=== PATIENT | male | born 1940 | race Caucasian/White ===

== ENCOUNTER → 2018-01-26 13:47 | Outpatient (CLI) | payer MEDICARE, SELFPAY ==
--- NOTE | 2018-01-26 13:50 | CT_ITS ---
STUDY: CT RIGHT SHOULDER REASON FOR EXAM: Right shoulder pain, no specific injury, presurgery. TECHNIQUE: The patient was scanned in a multi detector CT scanner. High resolution transaxial imaging was performed without the administration of intravenous contrast material. Sagittal and coronal images were reconstructed. Individualized dose optimization techniques were used for this CT. COMPARISON: None. FINDINGS: There is advanced glenohumeral arthrosis with marginal osteophytes of the humeral head, subchondral cystic change of the humeral head and glenoid, and chondral loss with central erosion of the glenoid (axial images 24-29). There are intra-articular bodies in the glenohumeral joint (coronal reconstructions 35-40, 51-54). There is a glenohumeral joint effusion and fluid in the subacromial-subdeltoid bursa. There is superior migration of the humeral head from rotator cuff tear with pressure erosion of the inferior acromion and cystic change of the humeral head and acromion (coronal reconstructions 36-43). Normal visualized lateral clavicle. There is acromioclavicular arthrosis (coronal reconstruction 42). There is a Type II morphology (curved), with a neutral orientation. There is atrophy with partial fat replacement of the supraspinatus, infraspinatus and subscapularis muscles (sagittal reconstructions 54-62). There is a small calcified granuloma in the right lung (axial image 64). CT/Extremity Upper without Contra IMPRESSION: Advanced glenohumeral arthrosis with intra-articular bodies. Superior migration of the humeral head secondary to rotator cuff tear. Glenohumeral joint fluid communicating with the subacromial-subdeltoid bursa. Atrophy of the supraspinatus, infraspinatus and subscapularis muscles. Acromioclavicular arthrosis. Electronically Signed: Hammad Kaur MD at 14:56 EDT Tel , Service support ,
== END ==
PROVIDERS: Family Provider Internal Medicine; PCP Internal Medicine; Visit Provider Specialist
DX: S46.011A Strain of muscle(s) and tendon(s) of the rotator cuff of right shoulder, initial encounter (principal); X58.XXXA Exposure to other specified factors, initial encounter; Y93.9 Activity, unspecified; Y92.9 Unspecified place or not applicable; Y99.9 Unspecified external cause status
CPT/HCPCS: 73200

== ENCOUNTER 2018-02-09 05:47 | Inpatient (IN) | payer MEDICARE, SELFPAY ==
[2018-01-26 13:08] VITALS: BP 104/65; PULSE 63; RESP 17; TEMP 37.1; O2SAT 98; BMI 33.0
--- NOTE | 2018-01-26 13:29 | SDCEKG_ITS ---
Test Reason : Blood Pressure : / mmHG Vent. Rate : 059 BPM Atrial Rate : 059 BPM P-R Int : 190 ms QRS Dur : 088 ms QT Int : 422 ms P-R-T Axes : 047 055 040 degrees QTc Int : 417 ms Sinus bradycardia Otherwise normal ECG Confirmed by TIGIST LAMA, LEON ([id number]), commissioning editor TAMMY NICOLE ([id number]) on 01/28/2018 1:21:27 PM Referred By: Guanakito Frias Confirmed By:LEON ESCOTO MD
[2018-01-26 14:02] LABS: Prothrombin Time (Protime)PT. 13.6 SECONDS (11.7-14.9)
[2018-01-26 14:03] LABS: Partial Thromboplast Time 25.8 Seconds (24.1-36.2)
--- NOTE | 2018-01-27 21:54 | PCM.HP.BLA ---
History and Physical DATE OF SURGERY: 02/09/2018 SCHEDULED PROCEDURE: reverse right total shoulder arthroplasty HISTORY OF PRESENT ILLNESS: This is a 78-year-old male who has had ongoing pain for several years duration. He denies any trauma or injury. Patient states his pain is approximately a 6 out of 10. Patient states he has pain in the right shoulder which radiates into his shoulder blade and padded. Activities of daily living aggravate and increase his pain. He has difficult time reaching above his head or behind his back due to the pain. Patient states the pain wakes him at night. Patient states the pain is limiting his ability to play golf or go bowling. Patient has tried conservative measures consisting of joint supplements, and anti-inflammatory medications with no significant relief in symptoms. Patient is right-hand dominant. Patient currently denies any recent chest pain, shortness of breath, fevers chills, recent infections. We are obtaining surgical clearance from patient's primary care physician Dr. Chauhan. After failing conservative measures and discussing all treatment options with Dr. Guanakito Frias, the patient does wish to proceed with a right reverse total shoulder arthroplasty. REVIEW OF SYSTEMS: ROS: Const: Denies change in appetite, fever and weight change. CV: Denies chest pain, heart murmur and irregular heartbeat. Resp: Denies cough, pneumonia, shortness of breath, tuberculosis and wheezing. GI: Reports heartburn, but denies constipation, diarrhea, nausea, rectal itching, bloody stools and vomiting. : Denies incontinence. Musculo: Denies leg swelling, pain, trouble walking and weakness. Skin: Denies Raynaud's, history of shingles and tattoo. Neuro: Denies ambulatory dysfunction, dizziness, numbness/tingling and tremor. Psych: Denies anxiety, insomnia and stress. Mikhail/Lymph: Denies anemia, bleeding/bruising tendency and past transfusion. Reviewed, no changes. PAST MEDICAL HISTORY: Advance Care Plan: No Advance Directives Effective Date: 01/06/2018 PMH: Medical Problems: Vision Problems/Blind Accidents: None Surgical Hx: Hernia Repair - ([id number]) [facility] Dr. Schulte Anesthesia Complications: None Assistive Devices: None Reviewed, no changes. SOCIAL HISTORY: SH: Marital: .Occupation: Retired.Work Status: Retired. Personal Habits: Cigarette Use: Former.Alcohol: Occasionally.Drug Use: Denies Use.Enjoy Exercising: Exercises 1-3 X/Week. Reviewed, no changes. VITALS: Ht: 63 Wt: 185lb Wt k.[id number] BMI: 32.8 BP: 129/82 Pulse: 51 Resp: 16 T: 97.5 T: 36.4C ALLERGIES: No Known Drug Allergy MEDICATIONS: Tylenol 325 mg as needed PRE-OP EXAM: General appearance:NORMAL Other: Eyes: Conjunctivae and lids: NORMAL Pupils: ERR Ears, Nose, Mouth, and Throat: NORMAL Other: Inspection of lips, teeth and gums: NORMAL Other: Neck: Examination of neck: no masses noted. Respiratory: Assessment of respiratory effort: NORMAL Other: Auscultation of lungs: clear to auscultation no wheezes, rhonchi or rales. Cardiovascular: Auscultation of heart: regular rate and rhythm, no murmurs, gallops or rubs. Exam of carotid arteries: NORMAL Other: Gastrointestinal: Exam of abdomen: soft, nontender, nondistended bowel sounds present. PHYSICAL EXAMINATION: Right shoulder school to touch without erythema. Patient has positive crepitus with range of motion. Patient has forward elevation 40 and passive forward elevation 95. There is atrophy of the supraspinatus and tenderness over the lateral right shoulder. Internal rotation to L5. 20 external rotation. Patient does have scapular dyskinesia and compensation on the right with decreased strength. Sensations intact to light touch. IMAGING STUDIES: X-rays of the right shoulder reveals severe rotator cuff arthropathy of the right glenohumeral joint with superior migration of the humeral head and flattening of the humeral head. There is subchondral sclerosis, joint space narrowing of the humeral acromial space and large cyst formation in the humeral head. IMPRESSION: 1. 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 Frias did discuss and review with the patient all treatment options including surgical versus nonsurgical options. Patient does wish to proceed with the above-stated procedure. Potential risks, benefits, and complications of the procedure were discussed in detail including but not limited to , infection, nerve and blood vessel damage, persistent pain, numbness, tingling, paresthesias, blood clot, pulmonary embolism, and requirement for possible further surgery. The patient expressed full understanding and has no further questions for the doctor. Patient does agree to proceed with the above-stated procedure and has signed the surgery consent form. ___ I have re-examined the patient. There are no clinical changes since date of exam. ___ See progress notes for changes. ___ Dictated on admission Date: Time: Signature:
[2018-02-09] VITALS (12 sets, daily range): BP systolic 106–139; BP diastolic 60–95; PULSE 56–82; RESP 16–18; TEMP 36.4–36.9; O2SAT 85–99; BMI 33.0
[2018-02-09] MEDS: Celecoxib 200 MG Capsule 400 MG PO (06:17)
[2018-02-09] MEDS: Acetaminophen 500 MG Tablet 1000 MG PO ×3 (06:17→22:27)
[2018-02-09] MEDS: oxyCODONE HCl Cr 10 MG Tablet PO (06:18)
[2018-02-09] MEDS: Cefazolin 2 GM in 0.9% Normal Saline 100 ML IV (07:26)
--- NOTE | 2018-02-09 09:08 | PCM.OPRPT ---
Report of Operation Date of Procedure: 02/09/18 Pre-Operative Diagnosis: right shoulder Cuff tear arthropathy Post-Operative Diagnosis: right shoulder Cuff tear arthropathy Surgery/Procedure Performed:: right reverse TSA Description of Surgical Findings:: stable shoulder network control operator: Clifford Wilder Type of Anesthesia:: General Anesthesiologist: Lexx Grace Special Medications: 2 g Ancef, 1 g TXA at incision, 1 g TXA closure, 10 mg Decadron, joint cocktail (5 mg Duramorph, 30 mL of 0.5% Ropivicaine, 1000 units of epinephrine, 30 mg of Toradol), 1 g vancomycin throughout the case Specimen's removed: Bony cuts Estimated Blood Loss (mL): 150 Fluids Replaced: 1500 ml crystalloid Description of Procedure: Components used 1. Bettendorf Reunion glenoid baseplate with 24 mm screw 2. Bettendorf reunion 36+6 mm Glenosphere 3. Andrea reunion 36 mm, +0 mm humeral liner 4. Andrea reunion TSA humeral adapter tray +0 mm 5. Bettendorf reunion humeral stem primary press-fit 13 mm size Brief history/Operative indications: 78 yo m with history of M shoulder pain and cuff tear arthropathy. Patient failed conservative measures as mentioned in the H&P. After discussion of risk and benefits of reverse total shoulder replacement including but not limited to blood loss, DVTs, PEs, nerve vessel damage, infection, general risk of anesthesia including loss of life, instability and stiffness patient demonstrating understanding wish to proceed was able to sign informed consent. Medical clearance was obtained. Procedure: On the date of the procedure, patient's R upper extremity was marked in the preoperative area. Patient was taken back to the operating room where they were placed on the table in the supine position. Anesthesia assumed control of the C-spine and airway, then administered anesthetic. All bony prominences were identified well-padded, the head was secured and the patient was placed in the beachchair position at about 35? inclination. Anesthesia remained in control of the C-spine airway throughout the remainder of the procedure. Patient was then appropriately fastened to the table and the R upper extremity was prepped in a sterile fashion. The surgeons then scrubbed. Upon reentering the room, the R upper extremity was draped in a sterile fashion and the incision was marked out. Timeout was called, everyone agreed upon the side, the site, the procedure to be performed, patient identity and antibiotics given. Incision was taken down through skin and subcutaneous tissue, fat down to fascia. The stripe of the deltopectoral interval and cephalic vein were identified and blunt dissection was used to retract the deltoid. The cephalic vein was retracted laterally. Clavipectoral fascia was then incised and a cobra retractor was placed in the wound. The proximal one third of the pectoralis major insertion was released. Pectoralis tendon insertion was used to tenodesed the biceps tendon which was identified in the bicipital groove. Tenodesis was done with #1 Vicryl. Proximally we followed the biceps tendon after transecting it into the rotator interval. The rotator interval was split and the arm was externally rotated. The split was 1 cm medial to the bicipital groove. Subscapularis tendon was released. We released down the anterior portion of the humeral head and a copeland elevator was used to release the inferior portion of the humeral head. The arm was externally rotated and the shoulder was dislocated. The Nextly humeral head cutting guide was used to make humeral cut. This was done at 20? retroversion. Once his humeral head cut was made humerus was retracted out of the way and the glenoid was exposed. After exposing the glenoid, the labrum and the remaining proximal biceps were debrided. At this time we are able to view the entire outer edge of the glenoid. A central pin was placed we sequentially reamed over this central pin to 36mm. Once this was completed the central pedicle was drilled. The glenoid baseplate was impacted into place. Wound was closely irrigated out with normal saline we then drilled sequentially for 4 screws. Screws were placed superiorly and inferiorly and tightened down the screws. Then anteriorly and posteriorly. Once the screws were appropriately tightened into place the glenoid baseplate was compressed against the exposed subchondral bone. Locking caps were placed and a 36, +6mm glenosphere was impacted into place engaging the Simpson taper. The central screw was then tightened into place. Attention was then turned towards the humerus. The humerus was again externally rotated exposing the proximal portion of the humerus. Central canal finder was then used to open up the canal. We reamed to a 13mm reamer. We then broached to a 13mm stem. We trialed the 0mm liner, with the 0mm humeral baseplate. We obtained an adequate reduction at this time with a nice stable shoulder. Good internal rotation to the gluteus, forward elevation to 140?, external rotation to 20?. Final components were then assembled on the back table, trials were removed and the wound was copiously irrigated with normal saline after dislocating the shoulder. Once the final components were assembled they were impacted into place. Shoulder was then reduced and found to be stable with good range of motion. Subscapularis tendon could not be repaired. The wound was then copiously irrigated out with a 1 L normal saline lavage. The deltopectoral fascia was then closed using #1 Vicryl skin was closed using 2-0 Vicryl interrupted sutures and final skin closure was done with 3-0 Monocryl. Steri-Strips are placed for final skin closure. Sterile dressing was placed patient was then placed in a sling and awakened by anesthesia. Patient was then transferred to the PACU for recovery. Postoperative plan: Patient will be admitted to the hospital overnight. They will get physical therapy starting in 2 weeks with normal postoperative regimen. Patient will be placed on 325 mg aspirin daily for DVT prophylaxis. The first postoperative appointment will be in 2 weeks for wound check and initiation of phase 1 physical therapy. During the course of the procedure the physician assistant portfolio manager played a vital role. His intimate knowledge of my steps in the procedure aided in safe and expedient completion of the procedure. The PA played a vital rolls in positioning particularly in obtaining the appropriate beach chair position and securing the patient's body and head to the table. The PA was also vital in the retraction of soft tissues during the exposure and especially the glenoid work as this is a vital part of the procedure to prevent neurovascular damage. the PA was also vital and protecting soft tissues during times of bony cuts and reaming. He also played a vital role in closure with my direct supervision. The PA was also important during reduction and dislocation of the joint and trials intraoperatively. Grafts/Implants Used: Andrea reunion - Complications none - Admit VTE Documentation VTE Present on Admission: No VTE Mechan Device Prophylaxis: SCD's VTE Pharm Prophylaxis ordered?: Yes
[2018-02-09] MEDS: Ketorolac 30 MG/ML Syringe (09:14)
--- NOTE | 2018-02-09 11:13 | RAD_ITS ---
STUDY: X-RAY - RIGHT SHOULDER REASON FOR EXAM: Male, 78 years old. Right shoulder replacement. TECHNIQUE: 2 view(s) of the shoulder. COMPARISON: Comparison is made with prior CT scan of the right shoulder from January 26, 2018. FINDINGS: The patient is status post right reverse shoulder replacement. There is good alignment. Postoperative soft tissue changes. RAD/Shoulder One View IMPRESSION: Status post right reverse shoulder replacement. There is good alignment. Electronically Signed: Raul Sommer MD at 12:46 EDT Tel [phone], Service support ,
[2018-02-09] MEDS: Lactated Ringers 1,000 ML 125 ML IV ×2 (11:53→20:20)
[2018-02-09] MEDS: Cefazolin 1 GM/50 ML BAG IV ×2 (15:16→23:26)
--- NOTE | 2018-02-09 15:30 | CASEMGMT ---
See RN CM assessment link. DC PLAN: home on discharge with support of . -Pt states has first therapy appt @ [facility] on [address] will HERRERA RN ACM
[2018-02-10 02:35] VITALS: BP 130/74; PULSE 81; RESP 18; TEMP 36.7; O2SAT 99
[2018-02-10] MEDS: Acetaminophen 500 MG Tablet 1000 MG PO (06:28)
--- NOTE | 2018-02-10 08:33 | PN.ORTHO_ITS ---
Subjective: The patient was sitting in bed upon examination. Patient denies any chest pain , shortness of breath, dizziness, lightheadedness, nausea or vomiting, or calf pain. Pain is controlled on medications. No adverse overnight events. Patient states the right shoulder feels well after surgery and only complains of soreness. Patient has been working on elbow, wrist, hand range of motion. Patient is wishing to go home today. Objective: Dressing is C/D/I Ultra-sling fitting appropriately Sensation intact to axillary, radial, median, and ulnar distribution Motor intact to AIN, PIN, and ulnar nerve - Physical Exam General: Alert, Oriented x3, Cooperative, No apparent distress Vital Signs Temp Pulse Resp BP Pulse Ox 98.0 F 81 18 130/74 H 99 02/10/18 02:35 02/10/18 02:35 02/10/18 02:35 02/10/18 02:35 02/10/18 02:35 Oxygen Flow Rate (L/min) 4 Oxygen Delivery Method Room Air Weight: 84.5 kg Body Mass Index (BMI) 33.0 Intake and Output for Last 24 Hours 02/08/18 02/09/18 02/10/18 23:59 23:59 23:59 Intake Total 4254 / 4254 908 / 908 Balance 4254 / 4254 908 / 908 Medical Necessity - Tobacco Use Smoking Status: Former smoker Tobacco Use: Cigars Assessment/Plan 1. S/P right reverse total shoulder arthroplasty POD #1 2. Continue Pain Medications: Tylenol and OxyIR 3. DVT Prophylaxis: Aspirin 325 mg daily for 2 weeks 4. PT/OT: No range of motion of right shoulder. Okay to work on pendulum exercises and range of motion of right elbow, wrist, and hand. Continue with UltraSling at all times. 5. Encouraged Incentive Spirometry 6. Disposition: Orthopedically stable, plan is for discharge home today. Prescriptions will be E scribed to [facility]. Patient will follow-up per postop instructions.
[2018-02-10 08:35] VITALS: BP 111/72; PULSE 53; RESP 18; TEMP 36.8; O2SAT 95
--- NOTE | 2018-02-10 08:39 | PCM.DC.ORTHO ---
Discharge Diet: No Restrictions Discharge Activity: May Not Drive May shower in (days): 1 Ice area for (Minutes): 20 - Ice area for 20 minutes each hour while awake Weight Bearing Status: No weight bearing - Right upper extremity Call your doctor if your incision/area has: Continuous Slow Oozing, Sudden Increased Bleeding, Increased Pain/ Swelling, Increased Redness, Foul Smelling Discharge Call your doctor if you observe: Fever of 101 or Higher, Coldness, Increased Pain, Numbness or Tingling, Change in Color Remove Dressing in (days):: 4 - Okay to remove on February 14, 2018 Additional Instructions: Follow [facility] postop instructions Do not take fish oil for 2 weeks following surgery. May resume after 2 week follow-up at [facility]. Allergies/Adverse Reactions: Allergies Tetanus Vaccines and Toxoid Allergy (Verified 01/26/18 12:58) Rash lorazepam [From Ativan] Adverse Reaction (Verified 01/26/18 12:58) Other Medications to take at Discharge Multivitamins,Therapeutic [Multivitamin] 1 tab PO DAILY 01/13/15 Magnesium Chloride [Slow-Mag] 64 mg PO DAILY 01/26/18 Vitamin E 400 unit PO DAILY 01/26/18 Acetaminophen [Tylenol] 1,000 mg PO Q8 #90 tab 02/10/18 Aspirin 325 mg PO DAILY@0800 #13 tab 02/10/18 Famotidine [Pepcid] 20 mg PO DAILY #13 tab 02/10/18 Oxycodone [Oxyir] 5 - 10 mg PO Q4H PRN PRN 4 Days #48 tablet 02/10/18 Senna/Docusate Sodium [Senokot-S] 2 tab PO BID PRN PRN #20 tab 02/10/18 The following prescriptions were given: Oxycodone [Oxyir] 5 - 10 mg PO Q4H PRN PRN 4 Days #48 tablet PRN Reason: Pain Acetaminophen [Tylenol] 1,000 mg PO Q8 #90 tab Aspirin 325 mg PO DAILY@0800 #13 tab Famotidine [Pepcid] 20 mg PO DAILY #13 tab Senna/Docusate Sodium [Senokot-S] 2 tab PO BID PRN PRN #20 tab PRN Reason: Constipation Primary Care Physician: Mitzi Chauhan MD [Primary Care Provider] - Test Results: Test results from this visit will be discussed in further detail at your follow-up appointment, if applicable. Please Follow Up With: Harry Sim PA-C When: 02/23/18 @ 10:00 am Please Follow Up With: Physical Therapy Luis Alex When: 02/23/18 @ 11:00 am
[2018-02-10] MEDS: Aspirin 325 MG Tablet PO (08:58)
--- NOTE | 2018-02-10 15:50 | CASEMGMT ---
JOSE ELIAS AGUILERA Face to Face with patient for initial transition planning/care coordination assessment. RN CM introduced self and role at [facility]. Patient sitting in chair, alert and oriented, at bedside. Patient willing to participate in assessment and is able to answer all questions appropriately. Care providers, pharmacy, and demographics verified. Patient lives in a 1 story house with 3 steps to enter to home with providing transportation. Pt wishes to discharge home, denies need for home health at this time. Pt states he has no further needs or concerns at this time. CM to follow for discharge planning needs that may arise. Disposition Plan: Patient to discharge home with family support and follow-up plans in place.
== END 2018-02-10 10:55 | disposition home or self-care (01) | DRG 483 ==
LOC: MS3 05:48
PROVIDERS: Anesthesiology; Admitting Provider Specialist; Family Provider Internal Medicine; PCP Internal Medicine; Visit Provider Specialist
PROC: 0RRJ00Z Replacement of Right Shoulder Joint with Reverse Ball and Socket Synthetic Substitute, Open Approach (ICD-10-PCS; CPT 23472; principal; 2018-02-09 07:00)
DX: M19.011 Primary osteoarthritis, right shoulder (principal); M75.101 Unspecified rotator cuff tear or rupture of right shoulder, not specified as traumatic; H54.7 Unspecified visual loss; Z79.82 Long term (current) use of aspirin; Z79.899 Other long term (current) drug therapy; Z87.891 Personal history of nicotine dependence; Z86.010 Personal history of colon polyps
CPT/HCPCS: 73020; 85610; 85730; 87081; 93005; 97110; 97165; 97535; C1776; J7050; J7120

== ENCOUNTER 2024-01-17 05:35 | Emergency (ER) | payer MEDICARE, SELFPAY ==
[2024-01-17 05:36] VITALS: BP 147/80; PULSE 51; RESP 18; TEMP 36.6; O2SAT 94; BMI 29.2
[2024-01-17] MEDS: Diphenoxylate/Atrop 1 Tablet PO (06:03)
[2024-01-17] MEDS: 0.9% Normal Saline (1000mL) 1,000 ML 999 ML IV (06:03)
--- NOTE | 2024-01-17 06:04 | EX.ED.DYSGE1 ---
HPI History of Present Illness Chief Complaint: Diarrhea Informant: patient Narrative Narrative: Patient is a 84-year-old male who reports no significant past medical history. He states over the last 24 hours he has had roughly 20 bouts of watery diarrhea. He denies any known sick contacts. He denies any history of intestinal disorder such as IBS ulcer colitis or Crohn's disease. He denies any recent antibiotic use or travel outside the country. He states that he cannot get any rest as he is having to get up every 20 minutes and use the bathroom and secondary to his comes in for evaluation. [facility] Medical History Sebaceous cyst Home Medications ?Medication ?Instructions ?Recorded ?Last Taken ?Type multivitamin with folic acid 400 1 tab PO DAILY SUPPLEMENT 01/13/15 01/11/15 History mcg tablet magnesium chloride 71.5 mg 64 mg PO DAILY SUPPLEMENT 01/26/18 Unknown History (magnesium chloride) tablet,delayed release vitamin E 268 mg (400 unit) capsule 400 unit PO DAILY SUPPLEMENT 01/26/18 Unknown History acetaminophen 500 mg tablet 1,000 mg (2 x 500 mg) PO Q8 #90 02/10/18 Unknown Rx tabs aspirin 325 mg tablet 325 mg PO DAILY@0800 #13 tabs 02/10/18 Unknown Rx famotidine 20 mg tablet 20 mg PO DAILY #13 tabs 02/10/18 Unknown Rx oxycodone 5 mg tablet 5 - 10 mg (1 - 2 x 5 mg) PO Q4H 02/10/18 Unknown Rx PRN PRN Pain 4 days #48 tabs sennosides 8.6 mg-docusate sodium 2 tab PO BID PRN PRN Constipation 02/10/18 Unknown Rx 50 mg tablet #20 tabs diphenoxylate-atropine 2.5 1 tab PO 4X/DAY PRN diarrhea 5 01/17/24 Unknown Rx mg-0.025 mg tablet (Lomotil) days #20 tabs Allergy/AdvReac Type Severity Reaction Status Date / Time Tetanus Vaccines and Toxoid Allergy Rash Verified 01/17/24 05:39 lorazepam (From Ativan) AdvReac Other Verified 01/17/24 05:39 Family History (Updated 05/23/18 @ 13:32 by Yuliet Bedolla) Brother Oat cell carcinoma Surgical History History of arthroplasty of right shoulder Hx of colonoscopy Social History (Updated 05/23/18 @ 18:[address] Philippe Schulte MD) Smoking Status: Former smoker second hand exposure: No alcohol intake: never substance use type: does not use caffeine: Yes what type of physical activity do you participate in: walking, running, bicycling and weight training frequency: 3-4 times per week seatbelt use: always ROS ROS ED Constitutional Constitutional ED: Denies chills or fever(s) ENT ENT ED: Denies sore throat Cardiovascular Cardiovascular: Denies chest pain, palpitations or racing heartbeat Respiratory/Chest Respiratory/Chest: Denies cough or dyspnea Gastrointestinal Gastrointestinal: Reports diarrhea; Denies abdominal pain, melena, nausea or vomiting Genitourinary Genitourinary ED: Denies dysuria Musculoskeletal Musculoskeletal: Denies myalgias Integumentary Denies rash Neurologic Neurologic: Denies headache(s) or weakness Hematologic/Lymphatic Hematologic/Lymphatic: Denies easy bleeding or easy bruising EXAM Physical Exam Const Vital Signs: 01/17/24 05:36 Temperature 98 F Temperature Source Temporal Pulse Rate 51 L Respiratory Rate 18 Blood Pressure 147/80 H Blood Pressure Mean 102 Pulse Ox 94 Oxygen Delivery Method Room Air Positive well nourished and well developed General Appearance ED: well developed; Negative for pallor HEENT HEENT Narrative: Mucous membranes are slightly dry and tacky without tongue or lip swelling oral lesions airway edema or compromise No secondary findings in the posterior pharynx to suggest infection Eyes PERRL and EOMs intact bilaterally General Eye ED: Negative for scleral icterus Neck supple Resp normal respiratory effort and clear to auscultation bilaterally Cardio regular rate and regular rhythm GI non-tender, non-distended and no masses GI Narrative: Abdomen is soft nontender and nondistended with hyperactive bowel sounds. No voluntary guarding or rigidity or pulsatile mass. Auscultation: hyperactive bowel sounds Palpation: soft Extremity normal to inspection Neuro oriented x3, CN's II-XII intact bilaterally and no sensory deficits noted Sensorium / Orientation: alert Motor Exam: strength 5/5 throughout Psych mental status grossly normal Skin no rashes or lesions noted and No skin turgor normal Skin Narrative: Skin turgor is increased General Skin Exam: Negative for jaundice or pallor MDM MDM MDM Narrative Medical decision making narrative: Patient arrived to the ER with stable vitals and a soft nonsurgical abdomen. He reported roughly 24 hours of watery diarrhea. Differential diagnosis is for viral infection such as Mccrory virus versus rotavirus versus colitis versus diverticulitis versus acute kidney injury versus electrolyte abnormality. Secondary to this basic labs were obtained. I do not feel the need for imaging as patient is afebrile and has no abdominal pain. Patient's white count is normal and he has no signs of SANDY or severe electrolyte abnormality. Therefore he will be given 1 L of fluid to replace the amount he is lost through diarrhea as well as Lomotil to help reduce his diarrheal events. But at this time as vitals are stable workup negative and his abdomen is soft and nonsurgical he is otherwise safe for discharge with symptomatic care History & Record Review Discussion w/independent historian: Patient Lab Data Attestation: I reviewed the patient's lab results. Labs: Laboratory Results - last 24 hr 01/17/24 06:03 WBC 5.7 RBC 4.54 L Hgb 14.6 Hct 43.9 MCV 96.7 H MCH 32.2 H MCHC 33.3 RDW Std Deviation 48.0 H RDW Coeff of Angel Luis 13.4 Plt Count 169 MPV 8.8 Immature Gran % (Auto) 0.200 Neut % (Auto) 62.0 Lymph % (Auto) 17.1 L [place] % (Auto) 16.1 H Eos % (Auto) 4.4 Baso % (Auto) 0.2 Absolute Neuts (auto) 3.6 Absolute Lymphs (auto) 0.98 Nucleated RBC % 0 Sodium 138 Potassium 3.9 Chloride 109 H Carbon Dioxide 25.0 Anion Gap 4 L BUN 15 Creatinine 0.94 Estim Creat Clear Calc 58.94 Est GFR (MDRD) Af Amer 99 Est GFR (MDRD) Non-Af 82 BUN/Creatinine Ratio 16.0 Glucose 98 Calcium 8.9 Magnesium 1.9 Total Bilirubin 0.90 Direct Bilirubin 0.24 AST 21 ALT 11 L Alkaline Phosphatase 97 Total Protein 7.2 Albumin 3.5 Globulin 3.7 Discharge Plan Triage Chief Complaint: Diarrhea ED Provider: Maurice Omalley Dx/Rx/DC Orders Clinical Impression: Diarrhea, Mild dehydration Instructions: Dehydration, ED Diarrhea, Viral (Adult) Prescriptions: New diphenoxylate-atropine [Lomotil] 2.5-0.025 mg tablet 1 tab PO 4X/DAY PRN (Reason: diarrhea) 5 Days Qty: 20 0RF No Action multivitamin with folic acid 1 TABLET tablet 1 tab PO DAILY Patient Comments: MENS VITAMIN magnesium chloride 71.5 MG tablet,delayed release (DR/EC) 64 mg PO DAILY vitamin E 400 UNIT capsule 400 unit PO DAILY aspirin 325 MG tablet 325 mg PO DAILY@0800 Qty: 13 0RF sennosides-docusate sodium 1 TABLET tablet 2 tab PO BID PRN PRN (Reason: Constipation) Qty: 20 0RF Rx Instructions: Take until first bowel movement, then as needed acetaminophen 500 MG tablet 1,000 mg PO Q8 Qty: 90 0RF famotidine 20 MG tablet 20 mg PO DAILY Qty: 13 0RF oxycodone 5 MG tablet 5 - 10 mg PO Q4H PRN PRN (Reason: Pain) 4 Days Qty: 48 0RF Primary Care Provider: Care Physician,No Primary Referrals: Mitzi Chauhan MD [Med Staff - [employer]] - Activity Restrictions/Additional Instructions: Your history and exam and workup indicate you have a viral stomach infection leading to your symptoms. This will resolve spontaneously but will typically take 3 to 7 days. Take the prescribed medication as directed to reduce your diarrhea symptoms and stay well-hydrated. Return to the ER should you have any further concerns Print Language: Vietnamese Disposition Disposition: Home, Self Care
[2024-01-17 06:18] LABS: Absolute Lymphocyte Count 0.98 X10^3/uL (0.83-4.51); Absolute Neutrophil Count 3.6 X10^3/uL (2.0-7.7); Basophil# 0.01 X10^3/uL; Basophil% 0.2 % (0-1); Eosinophil# 0.25 X10^3/uL; Eosinophils% 4.4 % (0-5); Hematocrit 43.9 % (40-54); Hemoglobin 14.6 g/dL (13.0-16.5); Lymphocyte # 0.98 X10^3/ul (0.83-4.51); Lymphocyte % 17.1 % (19-41); Mean Corp Hgb Conc 33.3 g/dL (32-36); Mean Corpuscular Hgb 32.2 pg (27.0-32.0); Mean Corpuscular Volume 96.7 fL (80-94); Mean Platelet Vol. 8.8 fl (6.2-12.0); Monocyte# 0.92 X10^3/uL; Monocyte% 16.1 % (0-10); NRBC Flagged by Analyzer 0 % (0-5); Neutrophil # 3.56 X10^3/uL (2.7-7.7); Platelet Count 169 K/mm3 (150-450); RBC Distribution Width CV 13.4 % (11.6-14.6); Red Blood Count 4.54 M/mm3 (4.6-6.2); White Blood Count 5.7 K/mm3 (4.4-11.0)
[2024-01-17 06:35] LABS: AST(SGOT) 21 U/L (15-37); Alanine Aminotransfer ALT/SGPT 11 U/L (16-61); Albumin, Serum 3.5 g/dL (3.2-5.0); Alkaline Phosphatase 97 U/L (45-117); Anion Gap 4 (5-15); BUN 15 mg/dL (7-18); Bilirubin, Direct 0.24 mg/dL (0.00-0.30); Calcium,Total 8.9 mg/dL (8.5-10.1); Chloride 109 mmol/L (98-107); Creatinine, Serum 0.94 mg/dL (0.70-1.30); EST Glomerular Filtration Rate 82 mL/min (>60); Est Glom Filt Rate - Afr Amer 99 mL/min (>60); Estimated Creatinine Clearance 58.94 ml/min; Globulin 3.7 g/dL (2.2-4.2); Glucose 98 mg/dL (74-106); Magnesium 1.9 mg/dL (1.6-2.6); Potassium 3.9 mmol/L (3.5-5.1); Protein, Total 7.2 g/dL (6.4-8.2); Sodium Level 138 mmol/L (136-145)
[2024-01-17 07:06] VITALS: BP 144/80; PULSE 78; RESP 18; TEMP 36.6; O2SAT 98
== END 2024-01-17 07:11 | disposition home or self-care (01) ==
PROVIDERS: Emergency Provider Emergency Medicine; Visit Provider Emergency Medicine
DX: R19.7 Diarrhea, unspecified (principal); E86.0 Dehydration; Z79.82 Long term (current) use of aspirin; Z87.891 Personal history of nicotine dependence
CPT/HCPCS: 80048; 80076; 83735; 85025; 96360; 99283; J7030; A4216

== ENCOUNTER 2024-01-18 20:11 | Emergency (ER) | payer MEDICARE, SELFPAY ==
[2024-01-18 20:12] VITALS: BP 136/103; PULSE 79; RESP 20; TEMP 36.2; O2SAT 95; BMI 27.8
--- NOTE | 2024-01-18 20:48 | CT_ITS ---
INDICATION: Diarrhea, abdominal pain COMPARISON: 01/12/[address] IV Contrast dosage and agent: 96 cc Isovue 370 IV. A radiation dose optimization technique was used for this scan. RADIATION DOSAGE (If Supplied By Facility): CTDIvol/DLP = ( 18.28 ) / ( 969.68 ) mGy/mGycm FINDINGS: Contrast enhanced serial CT axial images through the abdomen and pelvis with coronal and sagittal reformatted series. Distal colonic diverticulosis without definite focus of diverticulitis. Scattered air-fluid levels within nondilated bowel loops, suggesting mild ileus formation. Recanalization of the umbilical vein. Micronodular contour to the liver suggesting hepatic cirrhosis. Enlarged main portal vein measuring up to 16 mm in diameter. Dependent cholelithiasis without pericholecystic fat stranding. Normal caliber appendix. No obstructing ureteral calculus. Bilateral renal cortical scarring. No significant free fluid. Anterior right interpolar nearly simple fluid attenuating renal lesion again noted, likely renal cyst. No free air. Small hiatal hernia containing associated herniation of paraesophageal fat. No peripancreatic fat stranding. Small bilateral fat-containing inguinal hernias without inflammatory change. Posterior left pelvis sclerotic bone lesion stable from previous. No obvious adrenal lesion. Spleen is unremarkable. CT/Abdomen/Pelvis W IV Cont ONLY IMPRESSION: Scattered air-fluid levels within nondilated bowel loops, suggesting mild ileus formation. Distal colonic diverticulosis without definite focus of diverticulitis. Sequela of venous hypertension and hepatic cirrhosis as above. Electronically Signed: Dickson Denise MD at 21:55 EDT ,
--- NOTE | 2024-01-18 20:48 | ED.VIS.GI ---
HPI HPI - GI History of Present Illness Chief Complaint: Diarrhea Narrative Narrative: 84-year-old male who denies significant past medical history presents with nausea, vomiting, and diarrhea that he has had over the last 3 days. He states his symptoms began on Wednesday, he was seen in the emergency department on Wednesday, and was checked for dehydration. He states he has had at least 6-7 episodes of nonbloody emesis. He has been having diarrhea, watery stool without any blood in it, which has improved, but he still having these episodes. His daughter who is an RN told him that he needed to make sure that he is not dehydrated. He denies any recent antibiotic use. No recent travel. No chest pain or shortness of breath. He is concerned regarding the nausea, vomiting and diarrhea that is continuing. He did take an oral medication that was written for him from the emergency department which seems to have improved his diarrhea. [facility] Medical History Sebaceous cyst Home Medications ?Medication ?Instructions ?Recorded ?Last Taken ?Type multivitamin with folic acid 400 1 tab PO DAILY SUPPLEMENT 01/13/15 01/11/15 History mcg tablet magnesium chloride 71.5 mg 64 mg PO DAILY SUPPLEMENT 01/26/18 Unknown History (magnesium chloride) tablet,delayed release vitamin E 268 mg (400 unit) capsule 400 unit PO DAILY SUPPLEMENT 01/26/18 Unknown History diphenoxylate-atropine 2.5 1 tab PO 4X/DAY PRN diarrhea 5 01/17/24 Unknown Rx mg-0.025 mg tablet (Lomotil) days #20 tabs Allergy/AdvReac Type Severity Reaction Status Date / Time Tetanus Vaccines and Toxoid Allergy Rash Verified 01/18/24 20:12 lorazepam (From Ativan) AdvReac Other Verified 01/18/24 20:12 Family History Brother Oat cell carcinoma Surgical History History of arthroplasty of right shoulder Hx of colonoscopy Social History Smoking Status: Former smoker second hand exposure: No alcohol intake: never substance use type: does not use caffeine: Yes what type of physical activity do you participate in: walking, running, bicycling and weight training frequency: 3-4 times per week seatbelt use: always ROS ROS ED ROS Narrative Constitutional: No fever, no chills. HEENT: No sore throat. No neck pain. No loss of vision. No rhinorrhea. Cardiovascular: No chest pain. No palpitations. No pedal edema. Respiratory: No cough, no shortness of breath. Abdominal: No abdominal pain. Positive nausea, vomiting, and diarrhea over the last 3 days. Nonbloody emesis, nonbloody stool. Genitourinary: No dysuria. No hematuria. Musculoskeletal: No myalgias. No arthralgias. Neurologic: No headaches. No dizziness. No lightheadedness. Skin: No rash. No change in color. Psychiatric: No depression. No anxiety. EXAM Physical Exam Narrative Exam Narrative: Afebrile. Vital signs noted. HEENT: Normocephalic. Atraumatic. PERRL, EOMI. Neck soft and supple. No point tenderness or step off. Moist mucous membranes. Cardiovascular: Regular rate and rhythm. No murmurs, rubs, or gallops appreciated. Respiratory: No tachypnea. Lungs clear to auscultation bilaterally. Gastrointestinal: Abdomen soft, nontender, with normoactive bowel sounds. No rebound or guarding. Neurological: Awake. Alert. Nonfocal, nonlateralizing. Skin: No rash. Normal color. No pallor. Musculoskeletal: No pedal edema. Full range of motion extremities. Const Vital Signs: 01/18/24 20:12 01/18/24 22:07 01/18/24 22:10 Temperature 97.2 F L 98.3 F 98.4 F Temperature Source Temporal Oral Pulse Rate 79 62 64 Respiratory Rate 20 H 15 18 Blood Pressure 136/103 H 110/66 106/76 Blood Pressure Mean 114 80 86 Pulse Ox 95 93 95 Oxygen Delivery Method Room Air Room Air MDM MDM MDM Narrative Medical decision making narrative: Concern is for gastroenteritis versus colitis versus diverticulitis. His diarrhea is actually improved. I have low suspicion for C. difficile. Show the patient produced stool sample, however it will be sent for enteric pathogens, ova and parasites, and C. difficile. I will check his electrolytes and CBC to see if he is dehydrated. He was bolused with normal saline. I do feel that this is his second visit so he does require CT imaging to help rule out colitis. I reviewed his laboratory work and he has normal white count of 8.9, hemoglobin 15.3, hematocrit 45.1, platelet count normal at 230. Electrolyte panel shows BUN slightly elevated at 44 with a creatinine of 1.47, elevated from yesterday. Glucose is 124 with an anion gap normal at 8, normal sodium of 136 and potassium 4.0. Lipase is normal at 23 so I doubt pancreatitis. I reviewed the radiology report which shows no evidence of obstruction but there are scattered air-fluid levels consistent with ileus. I think the fact that he has been taking Lomotil may have caused his ileus, but upon repeat examination at approximately 10:10 PM, he states he feels improved. He has had no vomiting here, and on auscultation he does have bowel sounds. I offered him something to take at home for nausea but he declined. Additionally, he was unable to provide stool sample so stool studies could not be sent. He is comfortable going home. He was informed of his acute kidney injury, and was told to drink plenty of fluids and have his creatinine rechecked in the next few days. I did discuss with him observation, but he declined, feels well and would like to be discharged. Return instructions to the emergency department were reviewed. Disposition is discharged home in stable condition. History & Record Review Discussion w/independent historian: Patient Lab Data Attestation: I reviewed the patient's lab results. Labs: Laboratory Results - last 24 hr 01/18/24 20:58 WBC 8.9 RBC 4.72 Hgb 15.3 Hct 45.1 MCV 95.6 H MCH 32.4 H MCHC 33.9 RDW Std Deviation 48.3 H RDW Coeff of Angel Luis 13.5 Plt Count 230 MPV 8.8 Immature Gran % (Auto) 0.300 Neut % (Auto) 79.2 H Lymph % (Auto) 7.5 L [place] % (Auto) 12.5 H Eos % (Auto) 0.2 Baso % (Auto) 0.3 Absolute Neuts (auto) 7.0 Absolute Lymphs (auto) 0.67 L Nucleated RBC % 0 Sodium 136 Potassium 4.0 Chloride 106 Carbon Dioxide 22.0 Anion Gap 8 BUN 44 H Creatinine 1.47 H Estim Creat Clear Calc 36.81 Est GFR (MDRD) Af Amer 59 L Est GFR (MDRD) Non-Af 49 L BUN/Creatinine Ratio 29.9 H Glucose 124 H Calcium 9.5 Total Bilirubin 1.30 H AST 24 ALT 13 L Alkaline Phosphatase 87 Total Protein 8.0 Albumin 3.7 Globulin 4.3 H Albumin/Globulin Ratio 0.9 Lipase 23 Radiography Diagnostic Testing: Clinical Impression(s) from Imaging Studies Abdomen/Pelvis CT 01/18/24 20:48 IMPRESSION: Scattered air-fluid levels within nondilated bowel loops, suggesting mild ileus formation. Distal colonic diverticulosis without definite focus of diverticulitis. Sequela of venous hypertension and hepatic cirrhosis as above. Electronically Signed: Dickson Denise MD at 21:55 EDT , Discharge Plan Triage Chief Complaint: Diarrhea ED Provider: Julius Iyer Dx/Rx/DC Orders Clinical Impression: Diarrhea, Mild dehydration, Nausea and vomiting, Acute kidney injury, Ileus Instructions: Ileus, ED Dehydration (Adult), ED Diarrhea, Unknown Cause, ED Vomiting (Adult) Prescriptions: No Action multivitamin with folic acid 1 TABLET tablet 1 tab PO DAILY Patient Comments: MENS VITAMIN magnesium chloride 71.5 MG tablet,delayed release (DR/EC) 64 mg PO DAILY vitamin E 400 UNIT capsule 400 unit PO DAILY diphenoxylate-atropine [Lomotil] 2.5-0.025 mg tablet 1 tab PO 4X/DAY PRN (Reason: diarrhea) 5 Days Qty: 20 0RF Primary Care Provider: Care Physician,No Primary Referrals: Mitzi Chauhan MD [Med Staff - Medical Administrative Specialist] - 3-5 Days if not improving Care Physician,No Primary [Primary Care Provider] - Activity Restrictions/Additional Instructions: Avoid continued use of Lomotil. Drink plenty of oral fluids. Your creatinine was slightly elevated today. This should be rechecked in a few days by your primary care provider. Return with continued diarrhea, vomiting, new or worsening symptoms. Print Language: Greek Disposition Disposition: Home, Self Care
[2024-01-18] MEDS: 0.9% Normal Saline (1000mL) 1,000 ML 999 ML IV (20:58)
[2024-01-18 21:08] LABS: Absolute Lymphocyte Count 0.67 X10^3/uL (0.83-4.51); Basophil# 0.03 X10^3/uL; Basophil% 0.3 % (0-1); Eosinophil# 0.02 X10^3/uL; Eosinophils% 0.2 % (0-5); Hematocrit 45.1 % (40-54); Hemoglobin 15.3 g/dL (13.0-16.5); Lymphocyte # 0.67 X10^3/ul (0.83-4.51); Lymphocyte % 7.5 % (19-41); Mean Corp Hgb Conc 33.9 g/dL (32-36); Mean Corpuscular Hgb 32.4 pg (27.0-32.0); Mean Corpuscular Volume 95.6 fL (80-94); Mean Platelet Vol. 8.8 fl (6.2-12.0); Monocyte# 1.11 X10^3/uL; Monocyte% 12.5 % (0-10); NRBC Flagged by Analyzer 0 % (0-5); Neutrophil # 7.04 X10^3/uL (2.7-7.7); Neutrophil % 79.2 % (47-70); Platelet Count 230 K/mm3 (150-450); RBC Distribution Width CV 13.5 % (11.6-14.6); RBC Distribution Width SD 48.3 fl (35.1-43.9); Red Blood Count 4.72 M/mm3 (4.6-6.2); White Blood Count 8.9 K/mm3 (4.4-11.0)
[2024-01-18 21:29] LABS: ALB/GLOB Ratio 0.9 RATIO (0.9-2.4); AST(SGOT) 24 U/L (15-37); Alanine Aminotransfer ALT/SGPT 13 U/L (16-61); Albumin, Serum 3.7 g/dL (3.2-5.0); Alkaline Phosphatase 87 U/L (45-117); Anion Gap 8 (5-15); BUN 44 mg/dL (7-18); BUN/Creat Ratio 29.9 RATIO (10-20); Calcium,Total 9.5 mg/dL (8.5-10.1); Chloride 106 mmol/L (98-107); Creatinine, Serum 1.47 mg/dL (0.70-1.30); EST Glomerular Filtration Rate 49 mL/min (>60); Est Glom Filt Rate - Afr Amer 59 mL/min (>60); Estimated Creatinine Clearance 36.81 ml/min; Globulin 4.3 g/dL (2.2-4.2); Glucose 124 mg/dL (74-106); Lipase 23 U/L (13-75); Sodium Level 136 mmol/L (136-145)
[2024-01-18 22:07] VITALS: BP 110/66; PULSE 62; RESP 15; TEMP 36.8; O2SAT 93
[2024-01-18 22:10] VITALS: BP 106/76; PULSE 64; RESP 18; TEMP 36.9; O2SAT 95
== END 2024-01-18 22:20 | disposition home or self-care (01) ==
PROVIDERS: Emergency Provider Emergency Medicine; Visit Provider Emergency Medicine
DX: N17.9 Acute kidney failure, unspecified (principal); K56.7 Ileus, unspecified; R19.7 Diarrhea, unspecified; E86.0 Dehydration; R11.2 Nausea with vomiting, unspecified; Z79.899 Other long term (current) drug therapy; Z87.891 Personal history of nicotine dependence
CPT/HCPCS: 74177; 80053; 83690; 85025; 96360; 99283; J7030; Q9967; A4216

== ENCOUNTER 2024-12-31 21:08 | Emergency (ER) | payer MEDICARE, SELFPAY ==
[2024-12-31 21:09] VITALS: BP 140/55; PULSE 70; RESP 16; TEMP 36.6; O2SAT 99; BMI 31.8
--- NOTE | 2024-12-31 21:21 | CT_ITS ---
PROCEDURE: CT CHEST, ABD, PEL W/CONTRAST 12/31/2024 REASON FOR EXAM: TRAUMA TECHNIQUE: Chest, abdomen and pelvis CT with intravenous contrast. Coronal and Sagittal reconstruction series were provided. One or more dose reduction techniques were used (e.g., Automated exposure control, adjustment of the mA and/or kV according to patient size, use of iterative reconstruction technique. PATIENT PREPARATION: Per protocol ORAL CONTRAST TYPE: None. CONTRAST: Isovue-370 VOLUME: 97 mL RADIATION DOSE SUMMARY: CTDlvol: 44.9mGy DLP: 3545.73 mGycm COMPARISON: 01/18/2024. FINDINGS: CT OF THE CHEST WITH IV CONTRAST CLINICAL HISTORY: Trauma. TECHNIQUE: Axial and reformatted sagittal and coronal images of the chest obtained after bolus IV contrast administration. FINDINGS: Normal enhancement of the main pulmonary artery and right and left pulmonary arteries. Normal enhancement of the bilateral peripheral pulmonary arteries. There is no demonstrated pulmonary embolism. Normal thoracic aorta and visualized great vessels. There is no demonstrated aortic dissection. The aorta is calcified. Normal heart and pericardium. The coronary arteries are calcified. Normal mediastinum. Normal hilar regions. Normal visualized trachea and bronchi. The lungs are well expanded. 6 mm and 10 mm calcified granulomas are seen in the lingula and left lower lobe. Multiple smaller calcified and the numbers are seen in the right middle lobe. Normal pleura. Normal chest wall structures. The patient is status post total right shoulder joint replacement. CT/CT Chest, Abd, Pel w/Contrast IMPRESSION: No acute cardiopulmonary process. Old granulomatous disease. CT SCAN OF THE ABDOMEN AND PELVIS WITH IV CONTRAST CLINICAL HISTORY: Trauma. TECHNIQUE: Axial and reformatted sagittal images of the abdomen pelvis obtained after IV contrast administration. FINDINGS: The visualized lung bases are unremarkable. 1 cm calcified granuloma is seen in the left lower lobe. The heart is normal in size. The coronary arteries are calcified. The liver is small in size with corrugated outer contour. There is recanalizat ion of the umbilical vein. There is apparent thickening of the gallbladder wall with small amount of pericholecystic fluid. 1.5 cm partially calcified stone is seen in the gallbladder neck extrahepatic biliary system. Multiple calcified granulomas ar e seen in the spleen. Normal pancreas. Normal bilateral adrenal glands. Normal size of the right kidney. There is no right renal mass. 2 cm cyst is s een in the middle pole of the right kidney. There are no right renal calculi. There is no right hydronephrosis. Normal visualiz ed right ureter. Normal size of the left kidney. There is no left renal mass. There are no lef t renal calculi. There is no left hydronephrosis. Normal visualized left ureter. Normal visualized stomach. Normal small intestine. Numerous of occluded are s een in the large bowel without diverticulitis. The appendix is visualized and appears normal. There is no demonstrated peritoneal fluid. Normal abdominal aorta. Scattered atherosclerotic calcifications are seen in t he abdominal aorta. Normal inferior vena cava. Normal retroperitoneum. Normal urinary bladder. There is no pelvic mass lesion or lymphadenopathy. Th ere is no pelvic fluid. Normal abdominal wall. The bones are osteoporotic. There is bilateral sacroil iitis. IMPRESSION: Cholelithiasis with findings suspicious for early acute cholecystitis. Findings in the liver is a possibility of early liver cirrhosis with recanalize d umbilical vein. Old granulomatous disease of the spleen. Large bowel diverticulosis, no diverticulitis. Reading Location: [id number]
--- NOTE | 2024-12-31 21:21 | CT_ITS ---
PROCEDURE: BRAIN/HEAD WITHOUT CONTRAST 12/31/2024 REASON FOR EXAM: HEAD INJURY TECHNIQUE: BRAIN/HEAD WITHOUT CONTRAST Coronal and Sagittal reconstruction series were provided. One or more dose reduction techniques were used (e.g., Automated exposure control, adjustment of the mA and/or kV according to patient size, use of iterative reconstruction technique. RADIATION DOSE SUMMARY: DLP: 864 mGycm COMPARISON: None FINDINGS: There is no acute infarct, intracranial hemorrhage, or mass effect. There is no hydrocephalus or significant midline shift. There is moderate chronic microvascular ischemic changes and moderate parenchymal volume loss. No acute, depressed calvarial fractures. No large scalp hematomas. Bilateral lens surgeries. CT/Brain/Head without Contrast IMPRESSION: No acute intracranial process. Reading Location: [id number]
--- NOTE | 2024-12-31 21:21 | CT_ITS ---
PROCEDURE: SPINE CERVICAL WITHOUT CONTRAS 12/31/2024 REASON FOR EXAM: INJURY TECHNIQUE: SPINE CERVICAL WITHOUT CONTRAS Coronal and Sagittal reconstruction series were provided. CONTRAST: 100 mL of Isovue 370 One or more dose reduction techniques were used (e.g., Automated exposure control, adjustment of the mA and/or kV according to patient size, use of iterative reconstruction technique RADIATION DOSE SUMMARY: DLP: 539 mGycm COMPARISON: None FINDINGS: No acute compression deformity, fracture, or subluxation. Moderate multilevel degenerative changes with moderate multilevel central canal stenosis and foraminal stenosis due to posterior disc-osteophyte complex, facet hypertrophy, and uncovertebral hypertrophy. No high-grade central canal stenosis. The prevertebral soft tissues are not thickened. Thyroid is unremarkable. Limited sections of the lung apices demonstrate no pneumothorax. CT/Spine Cervical without Contras IMPRESSION: No acute cervical fracture or subluxation. Moderate multilevel degenerative ch anges of the cervical spine as above. Reading Location: [facility]
[2024-12-31 21:55] LABS: Absolute Lymphocyte Count 1.04 X10^3/uL (0.83-4.51); Absolute Neutrophil Count 2.5 X10^3/uL (2.0-7.7); Basophil# 0.02 X10^3/uL; Basophil% 0.4 % (0-1); Eosinophil# 0.23 X10^3/uL; Eosinophils% 4.9 % (0-5); Hematocrit 36.5 % (40-54); Hemoglobin 12.3 g/dL (13.0-16.5); Lymphocyte # 1.04 X10^3/ul (0.83-4.51); Lymphocyte % 21.9 % (19-41); Mean Corp Hgb Conc 33.7 g/dL (32-36); Mean Corpuscular Hgb 33.1 pg (27.0-32.0); Mean Corpuscular Volume 98.1 fL (80-94); Mean Platelet Vol. 9.5 fl (6.2-12.0); Monocyte# 0.93 X10^3/uL; Monocyte% 19.6 % (0-10); NRBC Flagged by Analyzer 0 % (0-5); Neutrophil % 52.8 % (47-70); Platelet Count 153 K/mm3 (150-450); RBC Distribution Width CV 13.8 % (11.6-14.6); RBC Distribution Width SD 49.1 fl (35.1-43.9); Red Blood Count 3.72 M/mm3 (4.6-6.2); White Blood Count 4.7 K/mm3 (4.4-11.0)
--- OUTSIDE RECORDS SUMMARY | 2024-12-31 22:00 | XMS RPT_ITS | CCD ---
Author Organization [facility] Inform ion Partnership [facility] Care Team Providers Care Account Administrator Name Role Phone Rashmi Chauhan MD Primary Care Provider Unavailable Primary Care Provider Unavailabl e Rashmi Chauhan MD Primary Care Provider Yazmin Carver MD Primary Care Provider Care Physician, No Primary Primary Care Unava ilable Maurice Omalley Attending Unavailable Care Physician, No Primary Primary Care Unava ilable Julius Iyer Attending Unavailable Rashmi Chauhan MD Primary Care Provider Podlogar PATIENT ESCORT.Amrik SANCHEZ Unavailable [place] PATIENT ESCORT.Dulce SANCHEZ Unavailable YAZMIN CARVER Referring Unavailab YAZMIN Alanis Primary Care Unavailab YAZMIN Alanis Attending Unavailab YAZMIN Alanis Primary Care Unavailab RASHMI Graff Primary Care Unavailable YAZMIN CARVER Primary Care Unavailab YAZMIN Alanis Attending Unavailab YAZMIN Alanis Primary Care Unavailab ADY Harper Referring Unavailable YAZMIN CARVER Primary Care Unavailab YAZMIN Alanis Primary Care Unavailab le Allergies Allergy Classification Reported Allergen(s) Allergy Type Date of Onset Reaction(s) Facility (14 sources) Tetanus Vaccines And Toxoid; Translations: [TETANUS VACCINES AND TOXOID] Propensity to adverse reactions 9 [facility] (1 source) LORazepam Drug Allergy 4 [facility] (1 source) Tetanus Vaccines and Toxoid Drug allergy (disorder) 4 [facility] Repository Medications Current Medications Medication Drug Class(es) Dates Sig (Normalized) Sig (Original) [id number] 200 actuat albuterol 0.09 mg/actuat metered dose inhaler (3 sources) beta2-Adrenergic Agonist Start: 05-05-2024 take 2 puff(s) by inhalation every four hours as needed for wheezing albuterol HFA (VENTOLIN HFA) 90 mcg/actuation inhaler Indications: Wheezing Inhale 2 Puffs as instructed every 4 hours as needed for wheezing/shortness of breath. 1 Each 1 05/05/2024 Active amoxicillin 875 mg / clavulanate 125 mg oral tablet (2 sources) Penicillin-class Antibacterial Start: 04-15-2023 End: 04-22-2023 take 1 tablet by mouth twice daily amoxicillin-clavulan ic acid (AUGMENTIN) 875-125 mg per tablet Indications: Rhinosinusitis Take 1 tablet by mouth two times a day for 7 days. 14 tablet 0 04/15/2023 04/22/2023 Active Start: 05-26-2022 End: 05-31-2022 take 1 tablet by mouth twice daily amoxicillin-clavulanic acid (AUGMENTIN) 875-125 mg per tablet Take 1 tablet by mouth twice daily for 5 days. 10 tablet 0 05/26/2022 05/31/2022 Active Comment on above: Take 1 tablet by mai th twice daily for 5 days. Take 1 tablet by mai th two times a day for 7 days. benzonatate 100 mg oral capsule (2 sources) Non-narcotic Antitussive Start: End: take 1 capsule by mouth every eight hours as needed benzonatate (TESSALON PERLE) 100 mg capsule Take 1 capsule by mouth three times a day as needed for cough for up to 7 days. 21 capsule 10/11/2024 10/18/2024 Active Start: 05-05-2024 End: 05-15-2024 take 1 capsule by mouth three times daily as needed benzonatate (TESSALON PERLE) 100 mg capsule Indications: Bacterial pneumonia Take 1 capsule by mouth three times a day as needed for up to 10 days. 30 capsule 05/05/2024 05/15/2024 Active cefuroxime 500 mg oral tablet (2 sources) Cephalosporin Antibacterial Start: 05-02-2024 End: 05-07-2024 take 1 tablet by mouth twice daily cefUROXime (CEFTIN) 500 mg tablet Take 1 tablet by mouth two times a day for 5 days. 10 tablet 05/02/2024 05/07/2024 Active cyclobenzaprine hydrochloride 10 mg oral tablet (2 sources) Muscle Relaxant Start: 01-28-2024 End: 02-09-2024 take 1 tablet by mouth three times daily as needed for muscle spasms cyclobenzaprine (FLEXERIL) 10 mg tablet Indications: Sciatic nerve pain, left Take 1 tablet by mouth three times a day as needed for muscle spasm for up to 12 doses. 12 tablet 0 01/28/2024 02/09/2024 Discontinued (Course of therapy completed) doxycycline monohydrate 100 mg oral tablet (2 sources) Tetracycline-class Drug Start: 05-02-2024 End: 05-07-2024 take 1 tablet by mouth twice daily doxycycline monohydrate 100 mg tablet Take 1 tablet by mouth two times a day for 5 days. 10 tablet 05/02/2024 05/07/2024 Active FISH OIL ORAL CAP (13 sources) Start: 10-07-2004 FISH OIL ORAL CAP unsure of dosage 0 10/07/2004 Active Comment on above: unsure of dosage fluticasone propionate 0.05 mg/actuat metered dose nasal spray (2 sources) Corticosteroid Start: 10-11-2024 take 1 spray(s) nasal route once daily fluticasone (FLONASE ALLERGY RELIEF) 50 mcg/actuation nasal spray Use 1 [place] in each nostril once daily. 11.1 mL 10/11/2024 Active 12 hr guaiFENesin 600 mg extended release oral tablet (7 sources) Start: 10-11-2024 End: 10-18-2024 take 1 tablet by mouth twice daily as needed guaiFENesin (MUCINEX) 600 mg 12 hr tablet Take 1 tablet by mouth two times a day as needed for cold/allergy symptoms (cough) for up to 7 days. 14 tablet 10/11/2024 10/18/2024 Active Start: 05-26-2022 End: 02-09-2024 take 2 tablets by mouth twice daily guaiFENesin (MUCINEX) 600 mg 12 hr tablet Take 2 tablets by mouth twice daily. 24 tablet 05/26/2022 02/09/2024 Discontinued Comment on above: Take 2 tablets by mo [facility] twice daily. loratadine 10 mg oral tablet (4 sources) Start: 04-15-20 End: 02-09-20 take 1 tablet by mouth once daily loratadine (CLARITIN) 10 mg tablet Indications: Rhinosinusitis Take 1 tablet by mouth once daily. 30 tablet 11 04/15/2023 02/09/2024 Discontinued (Course of therapy completed) Comment on above: Take 1 tablet by [facility] once daily. MULTIVITAMIN ORAL TAB (13 sources) Start: 09-24-19 take 1 tablet by mouth once daily MULTIVITAMIN ORAL TAB Take one(1) tablet daily. 0 0 09/23/2004 Active Comment on above: Take one(1) tablet d aily. predniSONE 50 mg oral tablet (1 source) Start: 01-28-20 End: 02-02-20 take 1 tablet by mouth once daily predniSONE (DELTASONE) 50 mg Indications: Sciatic nerve pain, left Take 1 tablet by mouth once daily for 5 days. 5 tablet 0 01/28/2024 02/02/2024 Active triamcinolone acetonide 1 mg/ml topical cream (1 source) Corticosteroid Start: 02-03-20 End: 02-10-20 triamcinolone acetonide (KENALOG) 0.1 % cream Indications: Sting, insect, accidental or unintentional, initial encounter Apply 1 application to affected area twice daily for 7 days. Apply to affected area. Location: forearm sting 15 g 0 02/02/2022 02/09/2022 Active Comment on above: Apply 1 application to affected area twice daily for 7 days. Apply to affected area. Location: forearm sting vitamin e 180 mg oral tablet (13 sources) Start: 09-24-19 take 1 tablet by mouth once daily VITAMIN E 400 UNIT ORAL TAB Take one(1) tablet daily. 0 0 09/23/2004 Active Comment on above: Take one(1) tablet d aily. Completed/Discontinued Medications Medication Drug Class(es) Dates Sig (Normalized) Sig (Original) aspirin 81 mg oral tablet (7 sources) Platelet Aggregation Inhibitor, Nonsteroidal Anti-inflammatory Drug Start: 09-23-2004 End: 02-09-2024 take 1 tablet by mouth once daily ASPIRIN 81 MG ORAL TAB Take one (1) tablet daily . 0 0 09/23/2004 02/09/2024 Discontinued (Course of therapy completed) Comment on above: Take one (1) tablet daily . brompheniramine maleate 0.4 mg/ml / dextromethorphan hydrobromide 2 mg/ml / pseudoephedrine hydrochloride 6 mg/ml oral solution (4 sources) alpha-Adrenergic Agonist, Uncompetitive D-waydqm-F-aspartat e Receptor Antagonist, Sigma-1 Agonist Start: 08-03-2018 End: 04-15-2023 take 5 mL by mouth four times daily as needed for cough Brompheniramine-P seudoeph-DM (BROMFED DM) 2-30-10 mg/5 mL syrup Indications: URI, acute Take 5 mL by mouth four times daily as needed (cough and cold symptoms). 118 mL 08/03/2018 04/15/2023 Discontinued Comment on above: Take 5 mL by mouth f our times daily as needed (cough and cold symptoms). magnesium chloride 535 mg delayed release oral tablet (7 sources) Start: 01-16-2015 End: 02-09-2024 take 8 tablets by mouth once daily magnesium chloride EC (SLOW-MAG, MAG 64) 64 mg CR tablet Take 8 tablets by mouth once daily. 0 01/16/2015 02/09/2024 Discontinued (Course of therapy completed) Comment on above: Take 8 tablets by [facility] once daily. potassium chloride 10 meq extended release oral tablet (7 sources) Start: 01-16-2015 End: 02-09-2024 take 2 tablets by mouth once daily at breakfast potassium chloride (K-TAB) 10 mEq tablet Take 2 tablets by mouth daily with breakfast. 0 01/16/2015 02/09/2024 Discontinued (Course of therapy completed) Comment on above: Take 2 tablets by mo ut daily with breakfast. 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 not due to a substance or known physiological condition] Onset: 07-30-2008 07-30-2008 Chronic Other gastrointestinal disorders (1 source) Diarrhea; Translations: [Diarrhea, unspecified] 02-09-2024 Episodic Other lower respiratory disease (2 sources) Cough; Translations: [Acute cough] 04-15-2023 Episodic Other lower respiratory disease (2 sources) Cough; Translations: [Acute cough] 05-02-2024 Episodic Other lower respiratory disease (1 source) Wheezing; Translations: [Wheezing] 05-05-2024 Episodic Other nutritional; endocrine; and metabolic disorders (13 sources) Obesity; Translations: [Obesity, unspecified] Onset: 07-30-2008 07-30-2008 Chronic Other nutritional; endocrine; and metabolic disorders (1 source) Obesity caused by energy imbalance; Translations: [Other obesity due to excess calories] 02-09-2024 Chronic Other nutritional; endocrine; and metabolic disorders (1 source) Other obesity due to excess calories; Translations: [Class 1 obesity due to excess calories without serious comorbidity with body mass index (BMI) of 31.0 to 31.9 in adult] Onset: 02-09-2024 Chronic Other nutritional; endocrine; and metabolic disorders (1 source) Body mass index (BMI) 31.0-31.9, adult; Translations: [Class 1 obesity due to excess calories without serious comorbidity with body mass index (BMI) of 31.0 to 31.9 in adult] Onset: 02-09-2024 Chronic Other upper respiratory infections (1 source) Chronic sinusitis, unspecified; Translations: [Unspecified sinusitis (chronic)] 04-15-2023 Chronic Other upper respiratory infections (2 sources) Acute pansinusitis; Translations: [Acute pansinusitis, unspecified] Episodic Poisoning by nonmedicinal substances (1 source) Insect sting; Translations: [Toxic effect of venom of other arthropod, accidental (unintentional), initial encounter] Episodic Spondylosis; intervertebral disc disorders; other back problems (1 source) Sciatica; Translations: [Sciatica, left side] 01-28-2024 Episodic Unclassified (1 source) Acute cough; Translations: [Acute cough] Onset: 05-02-2024 Past or Other Problems Problem Classification Problem Date Documented Da te Episodic/Chronic Other and unspecified benign neoplasm (13 sources) Benign neoplasm of colon; Translations: [Benign neoplasm of colon, unspecified] Onset: 07-30-2008 07-30-2008 Episodic Other gastrointestinal disorders (2 sources) Diarrhea, unspecified; Translations: [Diarrhea, unspecified] Onset: 01-31-2024 Episodic Other lower respiratory disease (1 source) Wheezing; Translations: [Wheezing] Onset: 05-05-2024 Episodic Other male genital disorders (13 sources) Disorder of prostate; Translations: [Disorder of prostate, unspecified] Onset: 07-30-2008 07-30-2008 Episodic Other non-traumatic joint disorders (13 sources) Shoulder joint pain; Translations: [Pain in unspecified shoulder] Onset: 07-30-2008 07-30-2008 Episodic Pneumonia (except that caused by tuberculosis or sexually transmitted disease) (3 sources) Community acquired pneumonia; Translations: [Pneumonia, unspecified organism] Onset: 05-05-2024 05-02-2024 Episodic Residual codes; unclassified (13 sources) Family history of prostate cancer; Translations: [Family history of malignant neoplasm of prostate] Onset: 07-30-2008 07-30-2008 Episodic Screening and history of mental health and substance abuse codes (4 sources) Patient encounter status; Translations: [Encounter for screening for depression] Onset: 02-09-2024 02-09-2024 Episodic Results Test Name Value Interpretation Reference Range Facility [facility] 10-11-2024 CNOV Office Visit (UCWSTR ) SAM CHU ([id number]) 1940 M Date Time Provider Department 10/11/24 12:30 PM ADY HUNTER [facility] During your visit today, we recorded the following information about you: Temperature Pulse Respiration Blood pressure 97.2 degrees 60/minute 16/minute 122/80 Weight 85 kg Ady Hunter APRN.SLUBBER TENDER 10/11/2024 1:07 PM Signed Subjective HPI Nontoxic-appearing 84-year-old male presents urgent care chief complaint cough chest congestion and headache. Duration of symptoms 2 to 3 days. Associated symptoms listed above. Presents today for evaluation. Most prominent symptom today is cough and sinus pressure. Denies any fevers. No known sick contacts. No chest pain shortness of breath or pleuritic pain. No hemoptysis. Past medical history prescription medications allergies reviewed .Patient presents with: Cough: head congestion, drainage and headache x 2-3 days PAST MEDICAL HISTORY Diagnosis Date BPH (benign prostatic hyperplasia) ERECTILE DYSFUNCTION 07/30/2008 HYPERLIPIDEMIA NEC/NOS 07/30/2008 Obesity Personal history of colonic polyps PAST SURGICAL HISTORY Procedure Laterality Date COLONOSCOPY AND POLYPECTOMY 08/15/2004 Two tubular adenomas COLONOSCOPY FLX DX W/COLLJ SPEC WHEN PFRMD 11/19/11 repeat 10 years PAST SURGICAL HISTORY OF 08/27/2004 Bilateral inguinal hernia repair ALLERGIES Tetanus Vaccines And Toxoid MEDICATIONS albuterol HFA (VENTOLIN HFA) 90 mcg/actuation inhaler Inhale 2 Puffs as instructed every 4 hours as needed for wheezing/shortness of breath. FISH OIL ORAL CAP unsure of dosage MULTIVITAMIN ORAL TAB Take one(1) tablet daily. VITAMIN E 400 UNIT ORAL TAB Take one(1) tablet daily. FAMILY HISTORY Problem Relation Age of Onset No Known Problems Mother No Known Problems Father Hypertension Brother Diabetes Brother other (OAT cell cancer [Other]) Brother Cancer Brother 2 other brothers had metastatic cancer--?primary Colon Cancer Paternal Uncle Social History Tobacco Use Smoking status: Former Types: Cigars Quit date: 1982 Years since quittin.2 Smokeless tobacco: Former Types: Chew Quit date: 1982 Tobacco comments: Used to smoke occasional cigars and chewed regularly for about 10 years Vaping Use Vaping status: Never Used Substance Use Topics Alcohol use: Yes Alcohol/week: 1.0 standard drink of alcohol Types: 1 Shots of liquor per week Drug use: Never BP 122/80 Pulse 60 Temp 36.2 ?C (97.2 ?F) Resp 16 Wt 85 kg (187 lb 6.3 oz) SpO2 97% BMI 33.19 kg/m? Review of Systems Constitutional: Negative for chills, fever and malaise/fatigue. HENT: Positive for congestion and sinus pain. Negative for ear discharge, ear pain and sore throat. Eyes: Negative for blurred vision, pain, discharge and redness. Respiratory: Positive for cough. Negative for hemoptysis, sputum production, shortness of breath, wheezing and stridor. Cardiovascular: Negative for chest pain. Gastrointestinal: Negative for abdominal pain, diarrhea, nausea and vomiting. Musculoskeletal: Negative for myalgias. Skin: Negative for itching and rash. Neurological: Negative for dizziness and headaches. Objective Physical Exam Constitutional: General: He is not in acute distress. Appearance: He is not diaphoretic. HENT: Head: Normocephalic. Jaw: No trismus, tenderness, swelling or pain on movement. Right Ear: Tympanic membrane, ear canal and external ear normal. Left Ear: Tympanic membrane, ear canal and external ear normal. Nose: Congestion present. Mouth/Throat: Mouth: Mucous membranes are moist. Pharynx: Oropharynx is clear. Uvula midline. No pharyngeal swelling, oropharyngeal exudate, posterior oropharyngeal erythema or uvula swelling. Eyes: Conjunctiva/sclera: Conjunctivae normal. Pupils: Pupils are equal, round, and reactive to light. Cardiovascular: Rate and Rhythm: Normal rate and regular rhythm. Heart sounds: Normal heart sounds. Pulmonary: Effort: Pulmonary effort is normal. No tachypnea, accessory muscle usage or respiratory distress. Breath sounds: Normal breath sounds. No stridor. No wheezing, rhonchi or rales. Abdominal: General: There is no distension. Palpations: Abdomen is soft. Tenderness: There is no abdominal tenderness. There is no guarding or rebound. Musculoskeletal: Cervical back: Normal range of motion and neck supple. No edema, erythema, rigidity or tenderness. No pain with movement. Normal range of motion. Lymphadenopathy: Cervical: No cervical adenopathy. Skin: General: Skin is warm and dry. Neurological: Mental Status: He is alert and oriented to person, place, and time. ASSESSMENT/PLAN: 1. URI with cough and congestion - ICD9: 465.9, ICD10: J06.9 - Discussed viral etiology and rationale for treatment. - Symptomatic treatment with prn analgesia (more content not included)... [facility] CNOVon 05-05-2024 CNOV Office Visit (FAMPWS ) SAM CHU ([id number]) 1940 M Date Time Provider Department 05/05/24 11:20 AM YAZMIN CARVER During your visit today, we recorded the following information about you: Temperature Pulse Respiration Blood pressure 97.3 degrees 57/minute 16/minute 108/60 Yazmin Carver MD 05/05/2024 11:06 AM Signed Chief Complaint Patient presents with: Follow Up: follow 05/02/24- PNE dx HPI Sam Chu is a 84 year old male who presents here today for Above Complaints. Patient evaluated in on 05/02 for complaint of 1 week of cough and fatigue. Diagnosed with pneumonia based on abnormal chest xray. Started on Ceftin and Doxycycline and discharged home. Today he states that he has been compliant with abx as prescribed and cough is slowly improving. Still gets random coughing fits with yellow sputum. Not taking anything OTC to help with symptoms. Denies fever/chills, SOB, wheezing, chest pain, chest congestion, nausea, vomiting, diarrhea. Past medical history, appointments, medications, allergies reviewed. Previous Medical History PAST MEDICAL HISTORY Diagnosis Date BPH (benign prostatic hyperplasia) ERECTILE DYSFUNCTION 07/30/2008 HYPERLIPIDEMIA NEC/NOS 07/30/2008 Obesity Personal history of colonic polyps Previous Surgical History PAST SURGICAL HISTORY Procedure Laterality Date COLONOSCOPY AND POLYPECTOMY 08/15/2004 Two tubular adenomas COLONOSCOPY FLX DX W/COLLJ SPEC WHEN PFRMD 11/19/11 repeat 10 years PAST SURGICAL HISTORY OF 08/27/2004 Bilateral inguinal hernia repair Family History FAMILY HISTORY Problem Relation Age of Onset No Known Problems Mother No Known Problems Father Hypertension Brother Diabetes Brother other (OAT cell cancer [Other]) Brother Cancer Brother 2 other brothers had metastatic cancer--?primary Colon Cancer Paternal Uncle Patient Allergies ALLERGIES Allergen Reactions Tetanus Vaccines An* skin breakout Current Medications Current Outpatient Medications on File Prior to Visit Medication Sig doxycycline monohydrate 100 mg tablet Take 1 tablet by mouth two times a day for 5 days. cefUROXime (CEFTIN) 500 mg tablet Take 1 tablet by mouth two times a day for 5 days. FISH OIL ORAL CAP unsure of dosage MULTIVITAMIN ORAL TAB Take one(1) tablet daily. VITAMIN E 400 UNIT ORAL TAB Take one(1) tablet daily. No current facility-administered medications on file prior to visit. Social History Social History Tobacco Use Smoking status: Former Types: Cigars Quit date: 1982 Years since quittin.8 Smokeless tobacco: Former Types: Chew Quit date: 1982 Tobacco comments: Used to smoke occasional cigars and chewed regularly for about 10 years Vaping Use Vaping status: Never Used Substance Use Topics Alcohol use: Yes Alcohol/week: 1.0 standard drink of alcohol Types: 1 Shots of liquor per week Drug use: Never Review of Symptoms REVIEW OF SYSTEMS See HPI EXAM: BP 108/60 Pulse (!) 57 Temp 36.3 ?C (97.3 ?F) Resp 16 SpO2 98% General Appearance: Well appearing, alert, in no acute distress, well-hydrated, well nourished.. Skin: Skin color, texture, turgor normal, no suspicious rashes or lesions. Lungs: coarse lung sounds bilaterally with moderate end expiratory wheezing in the lung bases. Heart: RRR without murmur, gallop, or rubs. No ectopy. Abdomen: Normal abdominal exam, Abdomen soft, non-tender. Bowel sounds normal. No masses, organomegaly. Health Maintenance List Advance Directive Discussion Never done Influenza Vaccine(1) due on 03/12/2024 Covid-19 Vaccine( season) due on 03/12/2024 RSV Vaccine(1 - 1-dose 75+ series) due on 02/08/2025 Shingrix Vaccine(2 of 2) due on 02/08/2025 Pneumococcal Vaccine: 65+(1 of 1 - PCV) due on 02/08/2025 Depression Screening due on 02/08/2025 Anxiety Screening due on 02/08/2025 Diabetes Screening due on 02/08/2027 DTaP,Tdap,Td Vaccine Discontinued Colorectal Cancer Screening Discontinued ASSESSMENT/PLAN: 1. Bacterial pneumonia - ICD9: 482.9, ICD10: J15.9 (primary diagnosis) Patient still with coarse breath sounds and wheezing on exam. On appropriate abx for age. Cough gradually improving. Continue Ceftin and doxycycline and will add on tessalon and albuterol PRN. Call if not improving in 5-7 days. Red flags for re-assessment reviewed with patient in detail. - BENZONATATE 100 MG CAPSULE 2. Wheezing - ICD9: 786.07, ICD10: R06.2 See above. - ALBUTEROL SULFATE HFA 90 MCG/ACTUATION AEROSOL INHALER Medical Decision Making: Problems: Moderate: Acute illness with systemic symptoms Data: Unique source(s) for external note(s) reviewed: 1 Unique test result(s) reviewed: 1 Risk: Moderate: Moderate risk from testing/treatment Medical Decision Making Level: 4 - Moderate Yamzin Carver, (more content not included)... Normal [facility] CNOVon 05-02-2024 CNOV Office Visit (UCTR ) SAM CHU ([id number]) 1940 M Date Time Provider Department 05/02/24 10:00 AM ADY HUNTER [facility] During your visit today, we recorded the following information about you: Temperature Pulse Respiration Blood pressure 98.1 degrees 84/minute 22/minute 124/72 Weight 80.6 kg Ady Hunter APRN.SLUBBER TENDER 05/02/2024 11:26 AM Signed Subjective HPI Nontoxic-appearing male presents urgent care chief plaint cough. Duration of symptoms 1 week. Associated symptoms productive cough and fatigue. OTC medications none. Denies any known sick contacts. No fevers. Denies chest pain shortness of breath or hemoptysis. Past medical history prescription medications allergies reviewed. .Patient presents with: Chest Congestion: cough, headache x over 1 week PAST MEDICAL HISTORY Diagnosis Date BPH (benign prostatic hyperplasia) ERECTILE DYSFUNCTION 07/30/2008 HYPERLIPIDEMIA NEC/NOS 07/30/2008 Obesity Personal history of colonic polyps PAST SURGICAL HISTORY Procedure Laterality Date COLONOSCOPY AND POLYPECTOMY 08/15/2004 Two tubular adenomas COLONOSCOPY FLX DX W/COLLJ SPEC WHEN PFRMD 11/19/11 repeat 10 years PAST SURGICAL HISTORY OF 08/27/2004 Bilateral inguinal hernia repair ALLERGIES Tetanus Vaccines And Toxoid MEDICATIONS FISH OIL ORAL CAP unsure of dosage MULTIVITAMIN ORAL TAB Take one(1) tablet daily. VITAMIN E 400 UNIT ORAL TAB Take one(1) tablet daily. FAMILY HISTORY Problem Relation Age of Onset No Known Problems Mother No Known Problems Father Hypertension Brother Diabetes Brother other (OAT cell cancer [Other]) Brother Cancer Brother 2 other brothers had metastatic cancer--?primary Colon Cancer Paternal Uncle Social History Tobacco Use Smoking status: Former Types: Cigars Quit date: 1982 Years since quittin.8 Smokeless tobacco: Former Types: Chew Quit date: 1982 Tobacco comments: Used to smoke occasional cigars and chewed regularly for about 10 years Vaping Use Vaping status: Never Used Substance Use Topics Alcohol use: Yes Alcohol/week: 1.0 standard drink of alcohol Types: 1 Shots of liquor per week Drug use: Never BP 124/72 Pulse 84 Temp 36.7 ?C (98.1 ?F) Resp 22 Wt 80.6 kg (177 lb 11.1 oz) SpO2 95% BMI 31.48 kg/m? Review of Systems Constitutional: Negative for chills, fever and malaise/fatigue. HENT: Positive for congestion. Negative for ear discharge, ear pain, sinus pain and sore throat. Eyes: Negative for blurred vision, pain, discharge and redness. Respiratory: Positive for cough and sputum production. Negative for hemoptysis, shortness of breath, wheezing and stridor. Cardiovascular: Negative for chest pain. Gastrointestinal: Negative for abdominal pain, diarrhea, nausea and vomiting. Musculoskeletal: Negative for myalgias. Skin: Negative for itching and rash. Neurological: Positive for headaches. Negative for dizziness. Objective Physical Exam Constitutional: General: He is not in acute distress. Appearance: He is not diaphoretic. HENT: Head: Normocephalic. Jaw: No trismus, tenderness, swelling or pain on movement. Nose: Congestion present. Mouth/Throat: Mouth: Mucous membranes are moist. Pharynx: Oropharynx is clear. Uvula midline. No pharyngeal swelling, oropharyngeal exudate, posterior oropharyngeal erythema or uvula swelling. Eyes: Conjunctiva/sclera: Conjunctivae normal. Pupils: Pupils are equal, round, and reactive to light. Cardiovascular: Rate and Rhythm: Normal rate and regular rhythm. Heart sounds: Normal heart sounds. Pulmonary: Effort: Pulmonary effort is normal. No tachypnea, accessory muscle usage or respiratory distress. Breath sounds: No stridor. Rhonchi present. No wheezing or rales. Abdominal: General: There is no distension. Palpations: Abdomen is soft. Tenderness: There is no abdominal tenderness. There is no guarding or rebound. Musculoskeletal: Cervical back: Normal range of motion and neck supple. No edema, erythema, rigidity or tenderness. No pain with movement. Normal range of motion. Lymphadenopathy: Cervical: No cervical adenopathy. Skin: General: Skin is warm and dry. Neurological: Mental Status: He is alert and oriented to person, place, and time. ASSESSMENT/PLAN: 1. Acute cough - ICD9: 786.2, ICD10: R05.1 (primary diagnosis) - XR CHEST 2V FRONTAL/LAT 2. Community acquired pneumonia, unspecified laterality - ICD9: 486, ICD10: J18.9 IMPRESSION: Interval pulmonary infiltrates versus atelectasis in the right middle lobe. Remote granulomatous disease. Nontoxic-appearing. Hemodynamically stable. No evidence of dehydration. Diagnosed with right lobe infiltrates. Double cover due to comorbidities. Labs GFR 49 creatinine clearance 36 creatinine 1.49 January of this year. Will follow-up with PCP as scheduled. (more content not included)... [facility] XR CHEST 2V FRONTAL/LATon XR CHEST 2V FRONTAL/LAT * * *Final Report* * * DATE OF EXAM: May 02 2024 10:30AM WOX 5291 - XR CHEST 2V FRONTAL/LAT / PROCEDURE REASON: Acute cough * * * * Physician Interpretation * * * * EXAMINATION: CHEST RADIOGRAPH (2 VIEW FRONTAL and LATERAL) CLINICAL HISTORY: Acute cough MQ: XC2_6 EXAM DATE/TIME: 05/02/2024 10:30 AM COMPARISON: Chest x-ray on 04/15/2023 RESULT: Lines, tubes, and devices: None. Lungs and pleura: There are stable calcified granulomas in the bilateral lungs. Interval pulmonary infiltrates versus atelectasis in the right middle lobe. No masses. No pleural effusions or pneumothorax. Cardiomediastinal silhouette: Stable cardiac silhouette, with tortuosity or dilation of the thoracic aorta. Left hilar lymph node calcifications are again demonstrated. Bones and soft tissues: The spine shows degenerative changes. Status post right shoulder reverse arthroplasty. IMPRESSION: Interval pulmonary infiltrates versus atelectasis in the right middle lobe. Remote granulomatous disease. Act Tutor: [facility] Transcribe Date/Time: May 02 2024 11:01A Dictated by : WILMER SAEZ MD This examination was interpreted and the report reviewed and electronically signed by: WILMER SAEZ MD on May 02 2024 11:03AM EST [id number] Normal [facility] XR Chest PA and Lateralon IMPRESSION: Interval pulmonary infiltrates versus atelectasis in the right middle lobe. Remote granulomatous disease. Act Tutor: [facility] Transcribe Date/Time: May 02 2024 11:01A Dictated by : WILMER SAEZ MD This examination was interpreted and the report reviewed and electronically signed by: WILMER SAEZ MD on May 02 2024 11:03AM EST DIVISION OF RADIOLOGY * * *Final Report* * * DATE OF EXAM: May 02 2024 10:30AM WOX 5291 - XR CHEST 2V FRONTAL/LAT / PROCEDURE REASON: Acute cough * * * * Physician Interpretation * * * * EXAMINATION: CHEST RADIOGRAPH (2 VIEW FRONTAL & LATERAL) CLINICAL HISTORY: Acute cough MQ: XC2_6 EXAM DATE/TIME: 05/02/2024 10:30 AM COMPARISON: Chest x-ray on 04/15/2023 RESULT: Lines, tubes, and devices: None. Lungs and pleura: There are stable calcified granulomas in the bilateral lungs. Interval pulmonary infiltrates versus atelectasis in the right middle lobe. No masses. No pleural effusions or pneumothorax. Cardiomediastinal silhouette: Stable cardiac silhouette, with tortuosity or dilation of the thoracic aorta. Left hilar lymph node calcifications are again demonstrated. Bones and soft tissues: The spine shows degenerative changes. Status post right shoulder reverse arthroplasty. DIVISION OF RADIOLOGY Provider, Valentina Héctor Carpenter - 05/02/2024 * * *Final Report* * * DATE OF EXAM: May 02 2024 10:30AM WOX 5291 - XR CHEST 2V FRONTAL/LAT / PROCEDURE REASON: Acute cough * * * * Physician Interpretation * * * * EXAMINATION: CHEST RADIOGRAPH (2 VIEW FRONTAL & LATERAL) CLINICAL HISTORY: Acute cough MQ: XC2_6 EXAM DATE/TIME: 05/02/2024 10:30 AM COMPARISON: Chest x-ray on 04/15/2023 RESULT: Lines, tubes, and devices: None. Lungs and pleura: There are stable calcified granulomas in the bilateral lungs. Interval pulmonary infiltrates versus atelectasis in the right middle lobe. No masses. No pleural effusions or pneumothorax. Cardiomediastinal silhouette: Stable cardiac silhouette, with tortuosity or dilation of the thoracic aorta. Left hilar lymph node calcifications are again demonstrated. Bones and soft tissues: The spine shows degenerative changes. Status post right shoulder reverse arthroplasty. IMPRESSION IMPRESSION: Interval pulmonary infiltrates versus atelectasis in the right middle lobe. Remote granulomatous disease. Act Tutor: [facility] Transcribe Date/Time: May 02 2024 11:01A Dictated by : WILMER SAEZ MD This examination was interpreted and the report reviewed and electronically signed by: WILMER SAEZ MD on May 02 2024 11:03AM EST [facility] Radiology Study observation (narrative) [facility] XR Chest PA and LateralOrder ed By: [facility] Provider on 05-02-2024 [facility] CNCOon 02-14-2024 CNCO Letter Text Normal [facility] CNPNon 02-10-2024 CNPN Telephone ([place]) SAM CHU ([id number]) 1940 M Date Time Provider Department 02/10/24 YAZMIN CARVER During your visit today, we recorded the following information about you: Mey Lewis LPN 02/10/2024 9:11 AM Signed ----- Message from Yazmin Carver MD sent at 02/10/2024 7:08 AM EDT ----- Normal labs. No change in regimen. Mey Lewis LPN 02/10/2024 9:12 AM Signed Left a message for pt to call the office and ask to speak to a nurse. YARIEL Shaffer Laurie Lynn, LPN 02/11/2024 8:38 AM Signed Left a message for pt to call the office and ask to speak to a nurse. YARIEL Shaffer Laurie Lynn, LPN 02/14/2024 8:10 AM Signed Left a message for pt to call the office and ask to speak to a nurse. Letter sent. Mey Lewis LPN Allergies As of Date: 02/10/2024 Noted Allergy Reaction TETANUS VACCINES AND TOXOID 07/30/2008 Comments: skin breakout Date Reviewed: 02/09/2024 Reviewed by: Yazmin Carver MD - Fully Assessed Reason for Visit: Results [95] Prescriptions as of 02/14/2024 - FISH OIL ORAL CAP unsure of dosage - MULTIVITAMIN ORAL TAB Take one(1) tablet daily. - VITAMIN E 400 UNIT ORAL TAB Take one(1) tablet daily. Problem List As Of Date 02/10/2024 Noted Resolved HYPERLIPIDEMIA NEC/NOS [E78.5] 07/30/2008 FAMILY HX PROSTATIC MALIGNANCY [Z80.42] 07/30/2008 PROSTATIC DISORDER NOS [N42.9] 07/30/2008 Obesity [E66.9] 07/30/2008 JOINT PAIN-SHLDER [M25.519] 07/30/2008 ERECTILE DYSFUNCTION [F52.9] 07/30/2008 COLON POLYP [D12.6] 07/30/2008 BPH (benign prostatic hyperplasia) [N40.0] 02/09/2024 Encounter Status:Closed by MEY LEWIS on 02/14/24 [facility] CNOVon 02-09-2024 CNOV Office Visit (FAMPWS ) SAM CHU ([id number]) 1940 M Date Time Provider Department 02/09/24 8:00 AM YAZMIN CARVER During your visit today, we recorded the following information about you: Pulse Respiration Blood pressure Weight 72/minute 14/minute 118/56 79.4 kg Height 1.6 m Yazmin Carver MD 02/09/2024 9:12 AM Signed Chief Complaint Patient presents with: Establish Care: establish care HPI Sam Chu is a 84 year old male who presents here today for establish care visit. Previous PCP: Dr. Chauhan. No falls in the last 6 months. Patient notes that he had 1 episode of watery diarrhea this morning without fever/chills, nausea, vomiting, hematochezia, melena. Has not taken anything for this. Tolerating PO diet. Notes that he was in the [facility] ED about 2-3 weeks ago for diarrhea with nausea and vomiting causing dehydration. Patient active with golfing and bowling. Eats mostly healthy diet. about 2 years ago. Still feels down at times because of this, but denies depression. Refusing Prevnar 20 vaccine today. Past medical history, appointments, medications, allergies reviewed. Previous Medical History PAST MEDICAL HISTORY Diagnosis Date BPH (benign prostatic hyperplasia) ERECTILE DYSFUNCTION 07/30/2008 HYPERLIPIDEMIA NEC/NOS 07/30/2008 Obesity Personal history of colonic polyps Previous Surgical History PAST SURGICAL HISTORY Procedure Laterality Date COLONOSCOPY AND POLYPECTOMY 08/15/2004 Two tubular adenomas COLONOSCOPY FLX DX W/COLLJ SPEC WHEN PFRMD 11/19/11 repeat 10 years PAST SURGICAL HISTORY OF 08/27/2004 Bilateral inguinal hernia repair Family History FAMILY HISTORY Problem Relation Age of Onset Colon Cancer Paternal Uncle Hypertension Brother Diabetes Brother None Mother None Father other (OAT cell cancer [Other]) Brother Cancer Brother 2 other brothers had metastatic cancer--?primary Patient Allergies ALLERGIES Allergen Reactions Tetanus Vaccines An* skin breakout Current Medications Current Outpatient Medications on File Prior to Visit Medication Sig FISH OIL ORAL CAP unsure of dosage MULTIVITAMIN ORAL TAB Take one(1) tablet daily. VITAMIN E 400 UNIT ORAL TAB Take one(1) tablet daily. cyclobenzaprine (FLEXERIL) 10 mg tablet Take 1 tablet by mouth three times a day as needed for muscle spasm for up to 12 doses. loratadine (CLARITIN) 10 mg tablet Take 1 tablet by mouth once daily. (Patient not taking: Reported on 07/03/2023) guaiFENesin (MUCINEX) 600 mg 12 hr tablet Take 2 tablets by mouth twice daily. (Patient not taking: Reported on 07/03/2023) potassium chloride (K-TAB) 10 mEq tablet Take 2 tablets by mouth daily with breakfast. magnesium chloride EC (SLOW-MAG, MAG 64) 64 mg CR tablet Take 8 tablets by mouth once daily. ASPIRIN 81 MG ORAL TAB Take one (1) tablet daily . No current facility-administered medications on file prior to visit. Social History Social History Tobacco Use Smoking status: Never Smokeless tobacco: Never Review of Symptoms REVIEW OF SYSTEMS GENERAL: No weight loss, malaise or fevers HEENT: Negative for frequent or significant headaches, No changes in hearing or vision, no nose bleeds or other nasal problems NECK: Negative for lumps, goiter, pain and significant neck swelling RESPIRATORY: Negative for cough, hemoptysis, wheezing, COPD, dyspnea or shortness of breath CARDIOVASCULAR: Negative for chest pain, leg swelling, hypertension, CHF or palpitations GI: See HPI : No history of dysuria, frequency or incontinence, No difficulty urinating, nocturia > 1 time per night or hematuria MUSCULOSKELETAL: Negative for joint pain or swelling, back pain or muscle pain SKIN: Negative for lesions, rash, and itching PSYCH: Negative for sleep disturbance, mood disorder and recent psychosocial stressors HEMATOLOGY/LYMPHOLOGY: Negative for prolonged bleeding, bruising easily or swollen nodes ENDOCRINE: Negative for cold or heat intolerance, polyuria, polydipsia and goiter NEURO: No history of headaches, syncope, paralysis, seizures or tremors EXAM: BP 118/56 (BP Site: Left Arm, BP Position: Sitting, BP Cuff Size: Large Adult) Pulse 72 Resp 14 Ht 160 cm (5' 3) Wt 79.4 kg (175 lb) SpO2 96% BMI 31.00 kg/m? General Appearance: Well appearing, alert, in no acute distress, well-hydrated, well nourished.. Skin: Skin color, texture, turgor normal, no suspicious rashes or lesions. Lungs: Lungs clear to auscultation. No wheezing, rhonchi, rales.. Heart: RRR without murmur, gallop, or rubs. No ectopy. Abdomen: Normal abdominal exam, Abdomen soft, non-tender. Bowel sounds normal. No masses, organomegaly. Extremities: No deformities, edema, skin discoloration, clubbing or cyanosis. Good capillary refill. Health Maintenance List Depressi (more content not included)... [facility] HbA1c (Bld)on 02-09-2024 Average glucose Estimated from glycated hemoglobin (Bld) [Mass/Vol] 105 mg/dL [facility] Comment on above: Order Comment: Jim khan Type: BLOOD SPECIMENOrdering Facility: [facility] Address: [address] [place] [address] Result Comment: eAG: (Estimated average glucose) is a calculated value from HgbA1c and is solar manufacturer's representative of the average blood glucose level in the last 2-3 month period. Performed By: #### 5 5454-3 ####[facility] LABCLIA [id number] [place] [address] [place] HbA1c (Bld) [Mass fraction] 5.3 % Normal 4.3-5.6 [facility] Comment on above: Order Comment: Jim khan Type: BLOOD SPECIMENOrdering Facility: [facility] Address: [address] [place] [address] Result Comment: Amer ican Diabetes Association guidelines indicate that patients with HgbA1c in the range 5.7-6.4% are at increased risk for development of diabetes, and intervention by lifestyle modification may be beneficial. HgbA1c greater or equal to 6.5% is considered diagnostic of diabetes. Performed By: #### 5 5454-3 ####[facility] LABCLIA [id number] [place] [address] [place] LIPID PANEL, NONFASTINGon Cholesterol [Mass/Vol] 149 mg/dL Normal <200 [facility] Comment on above: Order Comment: Jim khan Type: BLOOD SPECIMENOrdering Facility: [facility] Address: [address] [place] [address] Result Comment: <200 mg/dL, Desirable 200-239 mg/dL, Borderline high >239 mg/dL, High Performed By: #### L IPNF ####[facility] LABCLIA [id number] [address] OF [facility] HDL CHOLESTEROL, NF 34 mg/dL Low >39 [facility] Comment on above: Order Comment: Jim khan Type: BLOOD SPECIMENOrdering Facility: [facility] Address: [address] [place] [address] Result Comment: 40-5 9 mg/dL, Acceptable >59 mg/dL, High: Negative risk factor for coronary heart disease <40 mg/dL, Low: Positive risk factor for coronary heart disease Performed By: #### L IPNF ####[facility] LABCLIA [id number] [address] OF [facility] LDL CHOLESTEROL, NF 93 mg/dL Normal <100 [facility] Comment on above: Order Comment: Jim [facility] Type: BLOOD SPECIMENOrdering Facility: [facility] Address: [address] [place] [address] Result Comment: <100 mg/dL, Optimal 100-129 mg/dL, Near optimal/above optimal 130-159 mg/dL, Borderline high 160-189 mg/dL, High >189 mg/dL, Very high Secondary prevention optimal LDL Cholesterol levels are recommended to be < 70 mg/dL Performed By: #### L IPNF ####[facility] LABCLIA [id number] [address] OF [facility] LDL/HDL RATIO, NF 2.74 mg/dL High <2.54 [facility] Comment on above: Order Comment: [facility] Type: BLOOD SPECIMENOrdering Facility: [facility] Address: [address] [place] [address] Result Comment: Dori pryor: 1. National Cholesterol Education Program ATP III Guideline At-A-Glance Quick Desk Reference: National Heart, Lung, and Blood [place]. National Institutes of Health. 2001: NIH Publication No. 01-3305. 2. An International Atherosclerosis Society position paper: global recommendations for the management of dyslipidemia: executive summary, Atherosclerosis. 2014: 232(2):410-413. Performed By: #### L IPNF ####[facility] LABCLIA [id number] [place] [address] [place] NON HDL CHOL, NF 115 mg/dL Normal <130 [facility] Comment on above: Order Comment: Speci men Type: BLOOD SPECIMENOrdering Facility: [facility] Address: [address] [place] [address] Result Comment: <130 mg/dL, Optimal 130-159 mg/dL, Near optimal/above optimal 160-189 mg/dL, Borderline high 190-219 mg/dL, High >219 mg/dL, Very high Secondary prevention optimal non HDL Cholesterol levels are recommended to be <100 mg/dL Performed By: #### L IPNF ####[facility] LABCLIA [id number] [place] [address] [place] T CHOL/HDL RATIO NF 4.38 mg/dL Normal <5.10 [facility] Comment on above: Order Comment: Speci men Type: BLOOD SPECIMENOrdering Facility: [facility] Address: [address] [place] [address] Performed By: #### L IPNF ####[facility] LABCLIA [id number] [place] [address] [place] TRIGLYCERIDES, NF 108 mg/dL Normal <150 [facility] Comment on above: Order Comment: Speci men Type: BLOOD SPECIMENOrdering Facility: [facility] Address: [address] [place] [address] Result Comment: <150 mg/dL, Normal 150-199 mg/dL, Borderline high 200-499 mg/dL, High >499 mg/dL, Very high Performed By: #### L IPNF ####[facility] LABCLIA [id number] [place] [address] [place] VLDL CHOLESTEROL, NF 22 mg/dL Normal <30 [facility] Comment on above: Order Comment: Speci men Type: BLOOD SPECIMENOrdering Facility: [facility] Address: [address] [place] [address] Performed By: #### L IPNF ####[facility] LABCLIA [id number] [address] [id number] [address] [place] CNOVon 01-28-2024 CNOV Office Visit (UCWSTR ) KIMBERLEY,ROY J ([id number]) 1940 M Date Time Provider Department 01/28/24 2:15 PM FAUSTINO JAIMES WSTR During your visit today, we recorded the following information about you: Temperature Pulse Respiration Blood pressure 97.1 degrees 53/minute 18/minute 162/84 Weight 80.5 kg Faustino Jaimes, PATIENT ESCORT.SLUBBER TENDER 01/28/2024 2:23 PM Signed This note was created using [employer] Computer Works[employer]. Subjective Sam Chu is a 84 year old male. HPI Pt noticed pain in the left lower back that radiates into his posterior left leg yesterday. He denies any strain or trauma. Denies any previous episodes. Pt was seen 01/18/24 for gastritis with an unremarkable CT abd/pelvis Review of Systems Constitutional: Negative for fatigue and fever. Gastrointestinal: Negative for abdominal pain, blood in stool, nausea and vomiting. Genitourinary: Negative for difficulty urinating, dysuria and hematuria. Musculoskeletal: Positive for back pain and gait problem. Neurological: Negative for weakness and numbness. Objective BP 162/84 Pulse (!) 53 Temp 36.2 ?C (97.1 ?F) Resp 18 Wt 80.5 kg (177 lb 7.5 oz) SpO2 98% BMI 31.44 kg/m? Physical Exam Vitals and nursing note reviewed. Constitutional: General: He is not in acute distress. Appearance: Normal appearance. He is not ill-appearing. HENT: Head: Normocephalic. Mouth/Throat: Mouth: Mucous membranes are moist. Eyes: Conjunctiva/sclera: Conjunctivae normal. Cardiovascular: Rate and Rhythm: Normal rate and regular rhythm. Pulmonary: Effort: Pulmonary effort is normal. Breath sounds: Normal breath sounds. Abdominal: General: There is no distension. Tenderness: There is no abdominal tenderness. There is no guarding. Musculoskeletal: Cervical back: Normal range of motion. Comments: Mild tenderness over the left lower back into the posterior left hip Skin: General: Skin is warm and dry. Neurological: General: No focal deficit present. Mental Status: He is alert. Sensory: No sensory deficit. Gait: Gait abnormal. Psychiatric: Mood and Affect: Mood normal. Behavior: Behavior normal. Assessment and Plan ASSESSMENT/PLAN: 1. Sciatic nerve pain, left - ICD9: 724.3, ICD10: M54.32 Mechanical low back pain - Prednisone burst- see orders - Muscle relaxant- see orders -I did consider Diverticulitis, hip fracture, aneurysm however as pt had an unremarkable CT abd/Pelvis with IV contrast 10 days ago combined with a normal abdominal exam I feel that the pt's symptoms seem more consistent with low back strain with sciatica. Pt given meds as noted below. He was told to monitor for bowel or bladder incontinence along with any other new or worsening concerns and either follow up with PCP or go to the nearest ER. - PREDNISONE 50 MG TABLET - CYCLOBENZAPRINE 10 MG TABLET Faustino Jaimes APRN.DANIEL Allergies As of Date: 01/28/2024 Noted Allergy Reaction TETANUS VACCINES AND TOXOID 07/30/2008 Comments: skin breakout Date Reviewed: 01/28/2024 Reviewed by: Faustino Jaimes APRN.SLUBBER TENDER - Fully Assessed Reason for Visit: Low Back Pain [126] Cmt: L sided low back pain radiating through hip and down L leg x today Primary Visit Diagnosis:Sciatic nerve pain, left [M54.32] Order(s):predniSONE (DELTASONE) 50 mgTake 1 tablet by mouth once daily for 5 days.Disp: 5 tabletRfl: 0 cyclobenzaprine (FLEXERIL) 10 mg tabletTake 1 tablet by mouth three times a day as needed for muscle spasm for up to 12 doses.Disp: 12 tabletRfl: 0 Prescriptions as of 01/28/2024 - predniSONE (DELTASONE) 50 mg Take 1 tablet by mouth once daily for 5 days. - cyclobenzaprine (FLEXERIL) 10 mg tablet Take 1 tablet by mouth three times a day as needed for muscle spasm for up to 12 doses. - loratadine (CLARITIN) 10 mg tablet Take 1 tablet by mouth once daily. - guaiFENesin (MUCINEX) 600 mg 12 hr tablet Take 2 tablets by mouth twice daily. - potassium chloride (K-TAB) 10 mEq tablet Take 2 tablets by mouth daily with breakfast. - magnesium chloride EC (SLOW-MAG, MAG 64) 64 mg CR tablet Take 8 tablets by mouth once daily. - FISH OIL ORAL CAP unsure of dosage - MULTIVITAMIN ORAL TAB Take one(1) tablet daily. - ASPIRIN 81 MG ORAL TAB Take one (1) tablet daily . - VITAMIN E 400 UNIT ORAL TAB Take one(1) tablet daily. Problem List As Of Date 01/28/2024 Noted Resolved HYPERLIPIDEMIA NEC/NOS [E78.5] 07/30/2008 FAMILY HX PROSTATIC MALIGNANCY [Z80.42] 07/30/2008 PROSTATIC DISORDER NOS [N42.9] 07/30/2008 OVERWEIGHT [E66.9] 07/30/2008 JOINT PAIN-SHLDER [M25.519] 07/30/2008 ERECTILE DYSFUNCTION [F52.9] 07/30/2008 COLON POLYP [D12.6] 07/30/2008 Prescriptions ordered this encounter Disp Refills Start End PREDNISONE 50 MG TABLET 5 ta* 0 01/28/2024 02/02/2024 Route: ORAL Sig: Take 1 tablet by mouth once daily for 5 days. CYCLOBENZAPRINE 10 MG TABLET 12 t* 0 (more content not included)... Normal [facility] Abdomen/Pelvis W IV Cont ONL Yon 01-18-2024 Abdomen/Pelvis W IV Cont ONLY [facility] [address] [place] [address] Abdomen/Pelvis W IV Cont ONLY MR#: [id number] Acct: [id number] Name: SAM CHU Rep #: [id number] : 1940 M 84 From: Dickson Denise MD PCP: Care Physician,No Primary Status: DEP ER Study: Abdomen/Pelvis W IV Cont ONLY Date of Exam: Exam# [id number] Ordering Dr: Julius Iyer MD [id number] INDICATION: Diarrhea, abdominal pain COMPARISON: 01/12/[address] IV Contrast dosage and agent: 96 cc Isovue 370 IV. A radiation dose optimization technique was used for this scan. RADIATION DOSAGE (If Supplied By Facility): CTDIvol/DLP = ( 18.28 ) / ( 969.68 ) mGy/mGycm FINDINGS: Contrast enhanced serial CT axial images through the abdomen and pelvis with coronal and sagittal reformatted series. Distal colonic diverticulosis without definite focus of diverticulitis. Scattered air-fluid levels within nondilated bowel loops, suggesting mild ileus formation. Recanalization of the umbilical vein. Micronodular contour to the liver suggesting hepatic cirrhosis. Enlarged main portal vein measuring up to 16 mm in diameter. Dependent cholelithiasis without pericholecystic fat stranding. Normal caliber appendix. No obstructing ureteral calculus. Bilateral renal cortical scarring. No significant free fluid. Anterior right interpolar nearly simple fluid attenuating renal lesion again noted, likely renal cyst. No free air. Small hiatal hernia containing associated herniation of paraesophageal fat. No peripancreatic fat stranding. Small bilateral fat-containing inguinal hernias without inflammatory change. Posterior left pelvis sclerotic bone lesion stable from previous. No obvious adrenal lesion. Spleen is unremarkable. CT/Abdomen/Pelvis W IV Cont ONLY IMPRESSION: Scattered air-fluid levels within nondilated bowel loops, suggesting mild ileus formation. Distal colonic diverticulosis without definite focus of diverticulitis. Sequela of venous hypertension and hepatic cirrhosis as above. Electronically Signed: Dickson Denise MD at 21:55 EDT , CC: Dr. Julius Iyer MD; No Primary Care Physician Act Tutor: Signed Normal [facility] CBC W/Diff, Automatedon 07-0 Absolute Lymph 0.67 X10 3/uL Low 0.83-4.51 [facility] Comment on above: Performed By: #### L 500.4050, L100.0100, L501.2450 #### [facility] [address] [place], [address] Absolute Neut 7.0 X10 3/uL Normal 2.0-7.7 [facility] Comment on above: Performed By: #### L 500.4050, L100.0100, L501.2450 #### [facility] [address] [place], [address] Basophils/100 WBC (Bld) 0.3 % Normal 0-1 [facility] Comment on above: Performed By: #### L 500.4050, L100.0100, L501.2450 #### [facility] [address] [place], [address] Eosinophils/100 WBC (Bld) 0.2 % Normal 0-5 [facility] Comment on above: Performed By: #### L 500.4050, L100.0100, L501.2450 #### [facility] [address] [place], [address] Erythrocyte distribution width (RBC) [Ratio] 13.5 % Normal 11.6-14.6 [facility] Comment on above: Performed By: #### L 500.4050, L100.0100, L501.2450 #### [facility] [address] [place], [address] Hematocrit (Bld) [Volume fraction] 45.1 % Normal 40-54 [facility] Comment on above: Performed By: #### L 500.4050, L100.0100, L501.2450 #### [facility] [address] [place], [address] Hemoglobin (Bld) [Mass/Vol] 15.3 g/dL Normal 13.0-16.5 [facility] Comment on above: Performed By: #### L 500.4050, L100.0100, L501.2450 #### [facility] [address] [place], [address] IG% 0.300 Normal 0.0-0.9 [facility] Comment on above: Result Comment: IG% - Immature Granulocytes (promyelocytes, myelocytes and metamyelocytes) > 1% indicates that a LEFT SHIFT is Present. Performed By: #### L 500.4050, L100.0100, L501.2450 #### [facility] [address] [place], [address] Lymphocytes/100 WBC (Bld) 7.5 % Low 19-41 [facility] Comment on above: Performed By: #### L 500.4050, L100.0100, L501.2450 #### [facility] [address] [place], [address] MCH (RBC) [Entitic mass] 32.4 pg High 27.0-32.0 [facility] Comment on above: Performed By: #### L 500.4050, L100.0100, L501.2450 #### [facility] [address] [place], [address] MCHC (RBC) [Mass/Vol] 33.9 g/dL Normal 32-36 [facility] Comment on above: Performed By: #### L 500.4050, L100.0100, L501.2450 #### [facility] [address] [place], [address] MCV (RBC) [Entitic vol] 95.6 fL High 80-94 [facility] Comment on above: Performed By: #### L 500.4050, L100.0100, L501.2450 #### [facility] [address] [place], [address] Monocytes/100 WBC (Bld) 12.5 % High 0-10 [facility] Comment on above: Performed By: #### L 500.4050, L100.0100, L501.2450 #### [facility] [address] [place], [address] Neutrophils/100 WBC (Bld) 79.2 % High 47-70 [facility] Comment on above: Performed By: #### L 500.4050, L100.0100, L501.2450 #### [facility] [address] [place], [address] Nucleated RBC (Bld) [#/Vol] 0 10*3/uL Normal 0-5 [facility] Comment on above: Performed By: #### L 500.4050, L100.0100, L501.2450 #### [facility] [address] [place], [address] Platelet mean volume (Bld) [Entitic vol] 8.8 fL Normal 6.2-12.0 [facility] Comment on above: Performed By: #### L 500.4050, L100.0100, L501.2450 #### [facility] [address] [place], [address] Platelets (Bld) [#/Vol] 230 10*3/uL Normal 150-450 [facility] Comment on above: Performed By: #### L 500.4050, L100.0100, L501.2450 #### [facility] [address] [place], [address] RBC (Bld) [#/Vol] 4.72 10*6/uL Normal 4.6-6.2 [facility] Comment on above: Performed By: #### L 500.4050, L100.0100, L501.2450 #### [facility] [address] [place], [address] RDW SD 48.3 fl High 35.1-43.9 [facility] Comment on above: Performed By: #### L 500.4050, L100.0100, L501.2450 #### [facility] [address] [place], [address] WBC (Bld) [#/Vol] 8.9 10*3/uL Normal 4.4-11.0 [facility] Comment on above: Performed By: #### L 500.4050, L100.0100, L501.2450 #### [facility] [address] [place], [address] Comprehensive Metabolic Prof ilon 01-18-2024 Albumin [Mass/Vol] 3.7 g/dL Normal 3.2-5.0 [facility] Comment on above: Performed By: #### L 500.4050, L100.0100, L501.2450 #### [facility] [address] [place], [address] Albumin/Globulin [Mass ratio] 0.9 {ratio} Normal 0.9-2.4 [facility] Comment on above: Performed By: #### L 500.4050, L100.0100, L501.2450 #### [facility] [address] [place], [address] ALK P 87 U/L Normal 45-117 [facility] Comment on above: Performed By: #### L 500.4050, L100.0100, L501.2450 #### [facility] [address] [place], [address] ALT [Catalytic activity/Vol] 13 U/L Low 16-61 [facility] Comment on above: Performed By: #### L 500.4050, L100.0100, L501.2450 #### [facility] [address] [place], [address] AST [Catalytic activity/Vol] 24 U/L Normal 15-37 [facility] Comment on above: Performed By: #### L 500.4050, L100.0100, L501.2450 #### [facility] [address] [place], [address] Bilirubin [Mass/Vol] 1.30 mg/dL High 0.20-1.00 [facility] Comment on above: Result Comment: For patients on eltrombopag therapy, use of Dimension [place] TBIL is not recommended. Performed By: #### L 500.4050, L100.0100, L501.2450 #### [facility] [address] [place], [address] BUN/CRE 29.9 RATIO High 10-20 [facility] Comment on above: Performed By: #### L 500.4050, L100.0100, L501.2450 #### [facility] [address] [place], [address] CA,Total 9.5 mg/dL Normal 8.5-10.1 [facility] Comment on above: Performed By: #### L 500.4050, L100.0100, L501.2450 #### [facility] [address] [place], [address] Chloride [Moles/Vol] 106 mmol/L Normal 98-107 [facility] Comment on above: Performed By: #### L 500.4050, L100.0100, L501.2450 #### [facility] [address] [place], [address] CO2 [Moles/Vol] 22.0 mmol/L Normal 21.0-32.0 [facility] Comment on above: Performed By: #### L 500.4050, L100.0100, L501.2450 #### [facility] [address] [place], [address] Creatinine [Mass/Vol] 1.47 mg/dL High 0.70-1.30 [facility] Comment on above: Result Comment: The validity of the calculated GFR GFRAA in patients over 70 years has not been determined. Clinical correlation is essential. Performed By: #### L 500.4050, L100.0100, L501.2450 #### [facility] [address] [place], [address] ECRCL 36.81 ml/min Normal [facility] Comment on above: Performed By: #### L 500.4050, L100.0100, L501.2450 #### [facility] [address] [place], [address] EST GFR - AA 59 mL/min Low >60 [facility] Comment on above: Result Comment: Afri can Cuban GFR Calc Performed By: #### L 500.4050, L100.0100, L501.2450 #### [facility] [address] [place], [address] GAP 8 Normal 5-15 [facility] Comment on above: Performed By: #### L 500.4050, L100.0100, L501.2450 #### [facility] [address] [place], [address] GFR/1.73 sq M.predicted among non-blacks MDRD (S/P/Bld) [Vol rate/Area] 49 mL/min/{1.73_m2} Low >60 [facility] Comment on above: Result Comment: Non- GFR Calc Performed By: #### L 500.4050, L100.0100, L501.2450 #### [facility] [address] [place], [address] Globulin (S) [Mass/Vol] 4.3 g/dL High 2.2-4.2 [facility] Comment on above: Performed By: #### L 500.4050, L100.0100, L501.2450 #### [facility] [address] [place], [address] Glucose [Mass/Vol] 124 mg/dL High 74-106 [facility] Comment on above: Result Comment: Fast ing Glucose result from 100 to 125 mg/dL suggests IMPAIRED HOMEOSTASIS per A.D.A. criteria. Performed By: #### L 500.4050, L100.0100, L501.2450 #### [facility] [address] [place], [address] Potassium [Moles/Vol] 4.0 mmol/L Normal 3.5-5.1 [facility] Comment on above: Performed By: #### L 500.4050, L100.0100, L501.2450 #### [facility] [address] [place], [address] Sodium [Moles/Vol] 136 mmol/L Normal 136-145 [facility] Comment on above: Performed By: #### L 500.4050, L100.0100, L501.2450 #### [facility] [address] [place], [address] T PROT 8.0 g/dL Normal 6.4-8.2 [facility] Comment on above: Performed By: #### L 500.4050, L100.0100, L501.2450 #### [facility] [address] [place], [address] Urea nitrogen [Mass/Vol] 44 mg/dL High 7-18 [facility] Comment on above: Performed By: #### L 500.4050, L100.0100, L501.2450 #### [facility] [address] [place], [address] Emergency Department Summary on 01-18-2024 Emergency Department Summary [facility] Medical Records Department [address] [place] [address] Emergency Department Summary 01/18/24 MR#: [id number] Acct: [id number] Name: SAM CHU Rep #: [id number] : 1940 84 From: Julius Iyer MD PCP: Care Physician,No Primary Status:REG ER Location: ED HPI HPI - GI History of Present Illness Chief Complaint: Diarrhea Narrative Narrative: 84-year-old male who denies significant past medical history presents with nausea, vomiting, and diarrhea that he has had over the last 3 days. He states his symptoms began on Wednesday, he was seen in the emergency department on Wednesday, and was checked for dehydration. He states he has had at least 6-7 episodes of nonbloody emesis. He has been having diarrhea, watery stool without any blood in it, which has improved, but he still having these episodes. His daughter who is an RN told him that he needed to make sure that he is not dehydrated. He denies any recent antibiotic use. No recent travel. No chest pain or shortness of breath. He is concerned regarding the nausea, vomiting and diarrhea that is continuing. He did take an oral medication that was written for him from the emergency department which seems to have improved his diarrhea. [facility] Medical History Sebaceous cyst Home Medications ???Medication ???Instructions ???Recorded ???Last Taken ???Type multivitamin with folic acid 400 1 tab PO DAILY SUPPLEMENT 01/13/15 01/11/15 History mcg tablet magnesium chloride 71.5 mg 64 mg PO DAILY SUPPLEMENT 01/26/18 Unknown History (magnesium chloride) tablet,delayed release vitamin E 268 mg (400 unit) capsule 400 unit PO DAILY SUPPLEMENT 01/26/18 Unknown History diphenoxylate-atropine 2.5 1 tab PO 4X/DAY PRN diarrhea 5 01/17/24 Unknown Rx mg-0.025 mg tablet (Lomotil) days #20 tabs Allergy/AdvReac Type Severity Reaction Status Date / Time Tetanus Vaccines and Toxoid Allergy Rash Verified 01/18/24 20:12 lorazepam (From Ativan) AdvReac Other Verified 01/18/24 20:12 Family History Brother Oat cell carcinoma Surgical History History of arthroplasty of right shoulder Hx of colonoscopy Social History Smoking Status: Former smoker second hand exposure: No alcohol intake: never substance use type: does not use caffeine: Yes what type of physical activity do you participate in: walking, running, bicycling and weight training frequency: 3-4 times per week seatbelt use: always ROS ROS ED ROS Narrative Constitutional: No fever, no chills. HEENT: No sore throat. No neck pain. No loss of vision. No rhinorrhea. Cardiovascular: No chest pain. No palpitations. No pedal edema. Respiratory: No cough, no shortness of breath. Abdominal: No abdominal pain. Positive nausea, vomiting, and diarrhea over the last 3 days. Nonbloody emesis, nonbloody stool. Genitourinary: No dysuria. No hematuria. Musculoskeletal: No myalgias. No arthralgias. Neurologic: No headaches. No dizziness. No lightheadedness. Skin: No rash. No change in color. Psychiatric: No depression. No anxiety. EXAM Physical Exam Narrative Exam Narrative: Afebrile. Vital signs noted. HEENT: Normocephalic. Atraumatic. PERRL, EOMI. Neck soft and supple. No point tenderness or step off. Moist mucous membranes. Cardiovascular: Regular rate and rhythm. No murmurs, rubs, or gallops appreciated. Respiratory: No tachypnea. Lungs clear to auscultation bilaterally. Gastrointestinal: Abdomen soft, nontender, with normoactive bowel sounds. No rebound or guarding. Neurological: Awake. Alert. Nonfocal, nonlateralizing. Skin: No rash. Normal color. No pallor. Musculoskeletal: No pedal edema. Full range of motion extremities. Const Vital Signs: 01/18/24 20:12 01/18/24 22:07 01/18/24 22:10 Temperature 97.2 F L 98.3 F 98.4 F Temperature Source Temporal Oral Pulse Rate 79 62 64 Respiratory Rate 20 H 15 18 Blood Pressure 136/103 H 110/66 106/76 Blood Pressure Mean 114 80 86 Pulse Ox 95 93 95 Oxygen Delivery Method Room Air Room Air MDM MDM MDM Narrative Medical decision making narrative: Concern is for gastroenteritis versus colitis versus diverticulitis. His diarrhea is actually improved. I have low suspicion for C. difficile. Show the patient produced stool sample, however it will be sent for enteric pathogens, ova and parasites, and C. difficile. I will check his electrolytes and CBC to see if he is dehydrated. He was bolused with normal saline. I do feel that this is his second visit so he does require CT imaging to help rule out colitis. I reviewed his laboratory work and he has (more content not included)... Normal [facility] Lipaseon 01-18-2024 Lipase [Catalytic activity/Vol] 23 U/L Normal 13-75 [facility] Comment on above: Result Comment: Wily kay note: LIPASE revised reference range effective 22. New Lipase methodology. Expected to produce lower values than the previous assay method. NEW Reference Range: 13 - 75 U/L Performed By: #### L 500.4050, L100.0100, L501.2450 #### [facility] [address] [place], [address] Basic Metabolic Profile (BMP )on 01-17-2024 BUN/CRE 16.0 RATIO Normal 10-20 [facility] Comment on above: Performed By: #### L 100.0100, L501.5200, L500.3400, L500.2500 #### [facility] [address] [place], [address] CA,Total 8.9 mg/dL Normal 8.5-10.1 [facility] Comment on above: Performed By: #### L 100.0100, L501.5200, L500.3400, L500.2500 #### [facility] [address] [place], [address] Chloride [Moles/Vol] 109 mmol/L High 98-107 [facility] Comment on above: Performed By: #### L 100.0100, L501.5200, L500.3400, L500.2500 #### [facility] [address] [place], [address] CO2 [Moles/Vol] 25.0 mmol/L Normal 21.0-32.0 [facility] Comment on above: Performed By: #### L 100.0100, L501.5200, L500.3400, L500.2500 #### [facility] [address] [place], [address] Creatinine [Mass/Vol] 0.94 mg/dL Normal 0.70-1.30 [facility] Comment on above: Result Comment: The validity of the calculated GFR GFRAA in patients over 70 years has not been determined. Clinical correlation is essential. Performed By: #### L 100.0100, L501.5200, L500.3400, L500.2500 #### [facility] [address] [place], [address] ECRCL 58.94 ml/min Normal [facility] Comment on above: Performed By: #### L 100.0100, L501.5200, L500.3400, L500.2500 #### [facility] [address] [place], [address] EST GFR - AA 99 mL/min Normal >60 [facility] Comment on above: Result Comment: Afri can Cuban GFR Calc Performed By: #### L 100.0100, L501.5200, L500.3400, L500.2500 #### [facility] [address] [place], [address] GAP 4 Low 5-15 [facility] Comment on above: Performed By: #### L 100.0100, L501.5200, L500.3400, L500.2500 #### [facility] [address] [place], [address] GFR/1.73 sq M.predicted among non-blacks MDRD (S/P/Bld) [Vol rate/Area] 82 mL/min/{1.73_m2} Normal >60 [facility] Comment on above: Result Comment: Non- GFR Calc Performed By: #### L 100.0100, L501.5200, L500.3400, L500.2500 #### [facility] [address] [place], [address] Glucose [Mass/Vol] 98 mg/dL Normal 74-106 [facility] Comment on above: Performed By: #### L 100.0100, L501.5200, L500.3400, L500.2500 #### [facility] [address] [place], [address] Potassium [Moles/Vol] 3.9 mmol/L Normal 3.5-5.1 [facility] Comment on above: Performed By: #### L 100.0100, L501.5200, L500.3400, L500.2500 #### [facility] [address] [place], [address] Sodium [Moles/Vol] 138 mmol/L Normal 136-145 [facility] Comment on above: Performed By: #### L 100.0100, L501.5200, L500.3400, L500.2500 #### [facility] [address] [place], [address] Urea nitrogen [Mass/Vol] 15 mg/dL Normal 7-18 [facility] Comment on above: Performed By: #### L 100.0100, L501.5200, L500.3400, L500.2500 #### [facility] [address] [place], [address] CBC W/Diff, Automatedon 07-0 8-2023 Absolute Lymph 0.98 X10 3/uL Normal 0.83-4.51 [facility] Comment on above: Performed By: #### L 100.0100, L501.5200, L500.3400, L500.2500 #### [facility] [address] [place], [address] Absolute Neut 3.6 X10 3/uL Normal 2.0-7.7 [facility] Comment on above: Performed By: #### L 100.0100, L501.5200, L500.3400, L500.2500 #### [facility] [address] [place], [address] Basophils/100 WBC (Bld) 0.2 % Normal 0-1 [facility] Comment on above: Performed By: #### L 100.0100, L501.5200, L500.3400, L500.2500 #### [facility] [address] [place], [address] Eosinophils/100 WBC (Bld) 4.4 % Normal 0-5 [facility] Comment on above: Performed By: #### L 100.0100, L501.5200, L500.3400, L500.2500 #### [facility] [address] [place], [address] Erythrocyte distribution width (RBC) [Ratio] 13.4 % Normal 11.6-14.6 [facility] Comment on above: Performed By: #### L 100.0100, L501.5200, L500.3400, L500.2500 #### [facility] [address] [place], [address] Hematocrit (Bld) [Volume fraction] 43.9 % Normal 40-54 [facility] Comment on above: Performed By: #### L 100.0100, L501.5200, L500.3400, L500.2500 #### [facility] [address] [place], [address] Hemoglobin (Bld) [Mass/Vol] 14.6 g/dL Normal 13.0-16.5 [facility] Comment on above: Performed By: #### L 100.0100, L501.5200, L500.3400, L500.2500 #### [facility] [address] [place], [address] IG% 0.200 Normal 0.0-0.9 [facility] Comment on above: Result Comment: IG% - Immature Granulocytes (promyelocytes, myelocytes and metamyelocytes) > 1% indicates that a LEFT SHIFT is Present. Performed By: #### L 100.0100, L501.5200, L500.3400, L500.2500 #### [facility] [address] [place], [address] Lymphocytes/100 WBC (Bld) 17.1 % Low 19-41 [facility] Comment on above: Performed By: #### L 100.0100, L501.5200, L500.3400, L500.2500 #### [facility] [address] [place], [address] MCH (RBC) [Entitic mass] 32.2 pg High 27.0-32.0 [facility] Comment on above: Performed By: #### L 100.0100, L501.5200, L500.3400, L500.2500 #### [facility] [address] [place], [address] MCHC (RBC) [Mass/Vol] 33.3 g/dL Normal 32-36 [facility] Comment on above: Performed By: #### L 100.0100, L501.5200, L500.3400, L500.2500 #### [facility] [address] [place], [address] MCV (RBC) [Entitic vol] 96.7 fL High 80-94 [facility] Comment on above: Performed By: #### L 100.0100, L501.5200, L500.3400, L500.2500 #### [facility] [address] [place], [address] Monocytes/100 WBC (Bld) 16.1 % High 0-10 [facility] Comment on above: Performed By: #### L 100.0100, L501.5200, L500.3400, L500.2500 #### [facility] [address] [place], [address] Neutrophils/100 WBC (Bld) 62.0 % Normal 47-70 [facility] Comment on above: Performed By: #### L 100.0100, L501.5200, L500.3400, L500.2500 #### [facility] [address] [place], [address] Nucleated RBC (Bld) [#/Vol] 0 10*3/uL Normal 0-5 [facility] Comment on above: Performed By: #### L 100.0100, L501.5200, L500.3400, L500.2500 #### [facility] [address] [place], [address] Platelet mean volume (Bld) [Entitic vol] 8.8 fL Normal 6.2-12.0 [facility] Comment on above: Performed By: #### L 100.0100, L501.5200, L500.3400, L500.2500 #### [facility] [address] [place], [address] Platelets (Bld) [#/Vol] 169 10*3/uL Normal 150-450 [facility] Comment on above: Performed By: #### L 100.0100, L501.5200, L500.3400, L500.2500 #### [facility] [address] [place], [address] RBC (Bld) [#/Vol] 4.54 10*6/uL Low 4.6-6.2 [facility] Comment on above: Performed By: #### L 100.0100, L501.5200, L500.3400, L500.2500 #### [facility] [address] [place], [address] RDW SD 48.0 fl High 35.1-43.9 [facility] Comment on above: Performed By: #### L 100.0100, L501.5200, L500.3400, L500.2500 #### [facility] [address] [place], [address] WBC (Bld) [#/Vol] 5.7 10*3/uL Normal 4.4-11.0 [facility] Comment on above: Performed By: #### L 100.0100, L501.5200, L500.3400, L500.2500 #### [facility] [address] [place], [address] Emergency Department Summary on 01-17-2024 Emergency Department Summary [facility] Medical Records Department [address] [place] [address] Emergency Department Summary 01/17/24 MR#: [id number] Acct: [id number] Name: SAM CHU Francesca Rep #: [id number] : 1940 84 From: Maurice Omalley DO PCP: Care Physician,No Primary Status:REG ER Location: ED HPI History of Present Illness Chief Complaint: Diarrhea Informant: patient Narrative Narrative: Patient is a 84-year-old male who reports no significant past medical history. He states over the last 24 hours he has had roughly 20 bouts of watery diarrhea. He denies any known sick contacts. He denies any history of intestinal disorder such as IBS ulcer colitis or Crohn's disease. He denies any recent antibiotic use or travel outside the country. He states that he cannot get any rest as he is having to get up every 20 minutes and use the bathroom and secondary to his comes in for evaluation. [facility] Medical History Sebaceous cyst Home Medications ???Medication ???Instructions ???Recorded ???Last Taken ???Type multivitamin with folic acid 400 1 tab PO DAILY SUPPLEMENT 01/13/15 01/11/15 History mcg tablet magnesium chloride 71.5 mg 64 mg PO DAILY SUPPLEMENT 01/26/18 Unknown History (magnesium chloride) tablet,delayed release vitamin E 268 mg (400 unit) capsule 400 unit PO DAILY SUPPLEMENT 01/26/18 Unknown History acetaminophen 500 mg tablet 1,000 mg (2 x 500 mg) PO Q8 #90 02/10/18 Unknown Rx tabs aspirin 325 mg tablet 325 mg PO DAILY@0800 #13 tabs 02/10/18 Unknown Rx famotidine 20 mg tablet 20 mg PO DAILY #13 tabs 02/10/18 Unknown Rx oxycodone 5 mg tablet 5 - 10 mg (1 - 2 x 5 mg) PO Q4H 02/10/18 Unknown Rx PRN PRN Pain 4 days #48 tabs sennosides 8.6 mg-docusate sodium 2 tab PO BID PRN PRN Constipation 02/10/18 Unknown Rx 50 mg tablet #20 tabs diphenoxylate-atropine 2.5 1 tab PO 4X/DAY PRN diarrhea 5 01/17/24 Unknown Rx mg-0.025 mg tablet (Lomotil) days #20 tabs Allergy/AdvReac Type Severity Reaction Status Date / Time Tetanus Vaccines and Toxoid Allergy Rash Verified 01/17/24 05:39 lorazepam (From Ativan) AdvReac Other Verified 01/17/24 05:39 Family History (Updated 05/23/18 @ 13:32 by Yuliet Bedolla) Brother Oat cell carcinoma Surgical History History of arthroplasty of right shoulder Hx of colonoscopy Social History (Updated 05/23/18 @ 18:[address] Philippe Schulte MD) Smoking Status: Former smoker second hand exposure: No alcohol intake: never substance use type: does not use caffeine: Yes what type of physical activity do you participate in: walking, running, bicycling and weight training frequency: 3-4 times per week seatbelt use: always ROS ROS ED Constitutional Constitutional ED: Denies chills or fever(s) ENT ENT ED: Denies sore throat Cardiovascular Cardiovascular: Denies chest pain, palpitations or racing heartbeat Respiratory/Chest Respiratory/Chest: Denies cough or dyspnea Gastrointestinal Gastrointestinal: Reports diarrhea; Denies abdominal pain, melena, nausea or vomiting Genitourinary Genitourinary ED: Denies dysuria Musculoskeletal Musculoskeletal: Denies myalgias Integumentary Denies rash Neurologic Neurologic: Denies headache(s) or weakness Hematologic/Lymphatic Hematologic/Lymphatic: Denies easy bleeding or easy bruising EXAM Physical Exam Const Vital Signs: 01/17/24 05:36 Temperature 98 F Temperature Source Temporal Pulse Rate 51 L Respiratory Rate 18 Blood Pressure 147/80 H Blood Pressure Mean 102 Pulse Ox 94 Oxygen Delivery Method Room Air Positive well nourished and well developed General Appearance ED: well developed; Negative for pallor HEENT HEENT Narrative: Mucous membranes are slightly dry and tacky without tongue or lip swelling oral lesions airway edema or compromise No secondary findings in the posterior pharynx to suggest infection Eyes PERRL and EOMs intact bilaterally General Eye ED: Negative for scleral icterus Neck supple Resp normal respiratory effort and clear to auscultation bilaterally Cardio regular rate and regular rhythm GI non-tender, non-distended and no masses GI Narrative: Abdomen is soft nontender and nondistended with hyperactive bowel sounds. No voluntary guarding or rigidity or pulsatile mass. Auscultation: hyperactive bowel sounds Palpation: soft Extremity normal to inspection Neuro oriented x3, CN's II-XII intact bilaterally and no sensory deficits noted Sensorium / Orientation: alert Motor Exam: strength 5/5 throughout Psych mental status grossly normal Skin no rashes or lesions noted and No skin turgor normal Skin Narrative: Skin turgor is increased Gene (more content not included)... Normal [facility] Liver Profileon 01-17-2024 Albumin [Mass/Vol] 3.5 g/dL Normal 3.2-5.0 [facility] Comment on above: Performed By: #### L 100.0100, L501.5200, L500.3400, L500.2500 #### [facility] [address] [place], [address] ALK P 97 U/L Normal 45-117 [facility] Comment on above: Performed By: #### L 100.0100, L501.5200, L500.3400, L500.2500 #### [facility] [address] [place], [address] ALT [Catalytic activity/Vol] 11 U/L Low 16-61 [facility] Comment on above: Performed By: #### L 100.0100, L501.5200, L500.3400, L500.2500 #### [facility] [address] [place], [address] AST [Catalytic activity/Vol] 21 U/L Normal 15-37 [facility] Comment on above: Performed By: #### L 100.0100, L501.5200, L500.3400, L500.2500 #### [facility] [address] [place], [address] Bilirubin [Mass/Vol] 0.90 mg/dL Normal 0.20-1.00 [facility] Comment on above: Result Comment: For patients on eltrombopag therapy, use of Dimension [place] TBIL is not recommended. Performed By: #### L 100.0100, L501.5200, L500.3400, L500.2500 #### [facility] [address] [place], [address] Bilirubin.direct [Mass/Vol] 0.24 mg/dL Normal 0.00-0.30 [facility] Comment on above: Performed By: #### L 100.0100, L501.5200, L500.3400, L500.2500 #### [facility] [address] [place], [address] Globulin (S) [Mass/Vol] 3.7 g/dL Normal 2.2-4.2 [facility] Comment on above: Performed By: #### L 100.0100, L501.5200, L500.3400, L500.2500 #### [facility] [address] [place], [address] T PROT 7.2 g/dL Normal 6.4-8.2 [facility] Comment on above: Performed By: #### L 100.0100, L501.5200, L500.3400, L500.2500 #### [facility] [address] [place], [address] Magnesiumon 01-17-2024 Magnesium [Mass/Vol] 1.9 mg/dL Normal 1.6-2.6 [facility] Comment on above: Performed By: #### L 100.0100, L501.5200, L500.3400, L500.2500 #### [facility] [address] [place], [address] XR CHEST 2V FRONTAL/LATon [facility] XR Chest PA and Lateralon IMPRESSION: No developing abnormality or acute process Act Tutor: PSC Transcribe Date/Time: Apr 15 2023 10:04A Dictated by : ISAAC ENCISO MD This examination was interpreted and the report reviewed and electronically signed by: ISAAC ENCISO MD on Apr 15 2023 10:09AM [facility] DIVISION OF RADIOLOGY * * *Final Report* * * DATE OF EXAM: Apr 15 2023 10:01AM WOX 5291 - XR CHEST 2V FRONTAL/LAT / PROCEDURE REASON: Acute cough * * * * Physician Interpretation * * * * EXAMINATION: CHEST RADIOGRAPH (2 VIEW FRONTAL & LATERAL) CLINICAL HISTORY: Acute cough MQ: XC2_6 EXAM DATE/TIME: 04/15/2023 10:01 AM COMPARISON: 08/16/2014 RESULT: Lines, tubes, and devices: None. Lungs and pleura: No consolidation. No lung mass. No pleural effusion. No pneumothorax. Calcified granulomata Cardiomediastinal silhouette: Normal cardiomediastinal silhouette. Bones and soft tissues: Partially visualized right shoulder prosthesis. Mild wedging of several mid thoracic vertebrae. DIVISION OF RADIOLOGY Provider, [facility] - 04/15/2023 * * *Final Report* * * DATE OF EXAM: Apr 15 2023 10:01AM WOX 5291 - XR CHEST 2V FRONTAL/LAT / PROCEDURE REASON: Acute cough * * * * Physician Interpretation * * * * EXAMINATION: CHEST RADIOGRAPH (2 VIEW FRONTAL & LATERAL) CLINICAL HISTORY: Acute cough MQ: XC2_6 EXAM DATE/TIME: 04/15/2023 10:01 AM COMPARISON: 08/16/2014 RESULT: Lines, tubes, and devices: None. Lungs and pleura: No consolidation. No lung mass. No pleural effusion. No pneumothorax. Calcified granulomata Cardiomediastinal silhouette: Normal cardiomediastinal silhouette. Bones and soft tissues: Partially visualized right shoulder prosthesis. Mild wedging of several mid thoracic vertebrae. IMPRESSION IMPRESSION: No developing abnormality or acute process Act Tutor: PSCB Transcribe Date/Time: Apr 15 2023 10:04A Dictated by : ISAAC ENCISO MD This examination was interpreted and the report reviewed and electronically signed by: ISAAC ENCISO MD on Apr 15 2023 10:09AM EST [facility] Radiology Study observation (narrative) [facility] XR Chest PA and LateralOrder ed By: Ccf Provider on 04-15-2023 [facility] Vital Signs Date Time Vital Sign Value Performing Clinician Faci lity 10-11-2024 12:28-0400 Body mass index (BMI) [Ratio] 33.19 kg/m2 Ady Hunter APRN.SLUBBER TENDER Work Phone: [facility] 10-11-2024 12:28-0400 Body temperature 97.2 [degF] Ady Hunter APRN.SLUBBER TENDER Work Phone: [facility] 10-11-2024 12:28-0400 Body weight 85 kg Ady Hunter APRN.SLUBBER TENDER Work Phone: [facility] 10-11-2024 12:28-0400 Diastolic blood pressure 80 mm[Hg] Ady Hunter APRN.SLUBBER TENDER Work Phone: [facility] 10-11-2024 12:28-0400 Heart rate 60 /min Ady Hunter APRN.SLUBBER TENDER Work Phone: [facility] 10-11-2024 12:28-0400 Respiratory rate 16 /min Ady Hunter APRN.SLUBBER TENDER Work Phone: [facility] 10-11-2024 12:28-0400 SaO2% (BldA) [Mass fraction] 97 % Ady Hunter APRN.SLUBBER TENDER Work Phone: [facility] 10-11-2024 12:28-0400 Systolic blood pressure 122 mm[Hg] Ady Hunter APRN.SLUBBER TENDER Work Phone: [facility] 05-05-2024 10:24-0400 Body temperature 97.3 [degF] Yazmin Carver MD Work Phone: [facility] 05-05-2024 10:24-0400 Diastolic blood pressure 60 mm[Hg] Yazmin Carver MD Work Phone: [facility] 05-05-2024 10:24-0400 Heart rate 57 /min Yazmin Carver MD Work Phone: [facility] 05-05-2024 10:24-0400 Respiratory rate 16 /min Yazmin Carver MD Work Phone: [facility] 05-05-2024 10:24-0400 SaO2% (BldA) [Mass fraction] 98 % Yazmin Carver MD Work Phone: [facility] 05-05-2024 10:24-0400 Systolic blood pressure 108 mm[Hg] Yazmin Carver MD Work Phone: [facility] 05-02-2024 10:06-0400 Body mass index (BMI) [Ratio] 31.48 kg/m2 Ady Hunter APRN.SLUBBER TENDER Work Phone: [facility] 05-02-2024 10:06-0400 Body temperature 98.1 [degF] Ady Hunter APRN.SLUBBER TENDER Work Phone: [facility] 05-02-2024 10:06-0400 Body weight 80.6 kg Ady Hunter APRN.SLUBBER TENDER Work Phone: [facility] 05-02-2024 10:06-0400 Diastolic blood pressure 72 mm[Hg] Ady Hunter APRN.SLUBBER TENDER Work Phone: [facility] 05-02-2024 10:06-0400 Heart rate 84 /min Ady Hunter APRN.SLUBBER TENDER Work Phone: [facility] 05-02-2024 10:06-0400 Respiratory rate 22 /min Ady Elsa PATIENT ESCORT.SLUBBER TENDER Work Phone: [facility] 05-02-2024 10:06-0400 SaO2% (BldA) [Mass fraction] 95 % Ady Hunter PATIENT ESCORT.SLUBBER TENDER Work Phone: [facility] 05-02-2024 10:06-0400 Systolic blood pressure 124 mm[Hg] Ady Hunter PATIENT ESCORT.SLUBBER TENDER Work Phone: [facility] 02-09-2024 07:54-0400 Body height 160 cm Yazmin Carver MD Work Phone: [facility] 02-09-2024 07:54-0400 Body mass index (BMI) [Ratio] 31 kg/m2 Yazmin Carver MD Work Phone: [facility] 02-09-2024 07:54-0400 Body weight 79.38 kg Yazmin Carver MD Work Phone: [facility] 02-09-2024 07:54-0400 Diastolic blood pressure 56 mm[Hg] Yazmin Carver MD Work Phone: [facility] 02-09-2024 07:54-0400 Heart rate 72 /min Yazmin Carver MD Work Phone: [facility] 02-09-2024 07:54-0400 Respiratory rate 14 /min Yazmin Carver MD Work Phone: [facility] 02-09-2024 07:54-0400 SaO2% (BldA) [Mass fraction] 96 % Yazmin Carver MD Work Phone: [facility] 02-09-2024 07:54-0400 Systolic blood pressure 118 mm[Hg] Yazmin Carver MD Work Phone: [facility] 01-28-2024 14:03-0400 Body mass index (BMI) [Ratio] 31.44 kg/m2 Faustino Jaimes PATIENT ESCORT.SLUBBER TENDER Work Phone: [facility] 01-28-2024 14:03-0400 Body temperature 97.11 [degF] Faustino Moomaw PATIENT ESCORT.SLUBBER TENDER Work Phone: [facility] 01-28-2024 14:03-0400 Body weight 80.5 kg Faustino Moomaw PATIENT ESCORT.SLUBBER TENDER Work Phone: [facility] 01-28-2024 14:03-0400 Diastolic blood pressure 84 mm[Hg] Faustino Moomaw PATIENT ESCORT.SLUBBER TENDER Work Phone: [facility] 01-28-2024 14:03-0400 Heart rate 53 /min Faustino Moomaw PATIENT ESCORT.SLUBBER TENDER Work Phone: [facility] 01-28-2024 14:03-0400 Respiratory rate 18 /min Faustino Moomaw PATIENT ESCORT.SLUBBER TENDER Work Phone: [facility] 01-28-2024 14:03-0400 SaO2% (BldA) [Mass fraction] 98 % Fasutino Moomaw PATIENT ESCORT.SLUBBER TENDER Work Phone: [facility] 01-28-2024 14:03-0400 Systolic blood pressure 162 mm[Hg] Faustino Moomaw PATIENT ESCORT.SLUBBER TENDER Work Phone: [facility] 04-15-2023 09:22-0400 Body temperature 97 [degF] Shakira Sol PATIENT ESCORT.SLUBBER TENDER Work Phone: [facility] 04-15-2023 09:22-0400 Body weight 82.28 kg Shakira Sol PATIENT ESCORT.SLUBBER TENDER Work Phone: [facility] 04-15-2023 09:22-0400 Diastolic blood pressure 76 mm[Hg] Shakira Sol PATIENT ESCORT.SLUBBER TENDER Work Phone: [facility] 04-15-2023 09:22-0400 Heart rate 64 /min Shakira Sol PATIENT ESCORT.SLUBBER TENDER Work Phone: [facility] 04-15-2023 09:22-0400 Respiratory rate 16 /min Shakira Sol PATIENT ESCORT.SLUBBER TENDER Work Phone: [facility] 04-15-2023 09:22-0400 SaO2% (BldA) [Mass fraction] 97 % Shakira Sol PATIENT ESCORT.SLUBBER TENDER Work Phone: [facility] 04-15-2023 09:22-0400 Systolic blood pressure 138 mm[Hg] Shakira Sol PATIENT ESCORT.SLUBBER TENDER Work Phone: [facility] 05-26-2022 12:07-0500 Body temperature 96.8 [degF] Simin Annmarie PATIENT ESCORT.SLUBBER TENDER Work Phone: [facility] 05-26-2022 12:07-0500 Body weight 83.92 kg Simin Annmarie PATIENT ESCORT.SLUBBER TENDER Work Phone: [facility] 05-26-2022 12:07-0500 Diastolic blood pressure 80 mm[Hg] Simin Annmarie PATIENT ESCORT.SLUBBER TENDER Work Phone: [facility] 05-26-2022 12:07-0500 Heart rate 90 /min Simin Annmarie PATIENT ESCORT.SLUBBER TENDER Work Phone: [facility] 05-26-2022 12:07-0500 Respiratory rate 16 /min Simin Annmarie PATIENT ESCORT.SLUBBER TENDER Work Phone: [facility] 05-26-2022 12:07-0500 SaO2% (BldA) [Mass fraction] 97 % Simin Annmarie PATIENT ESCORT.SLUBBER TENDER Work Phone: [facility] 05-26-2022 12:07-0500 Systolic blood pressure 124 mm[Hg] Simin Annmarie PATIENT ESCORT.SLUBBER TENDER Work Phone: [facility] 02-02-2022 16:34-0400 Body temperature 97 [degF] Rogelio Rose MD Work Phone: [facility] 02-02-2022 16:34-0400 Body weight 81.92 kg Rogelio Rose MD Work Phone: [facility] 02-02-2022 16:34-0400 Diastolic blood pressure 80 mm[Hg] Rogelio Rose MD Work Phone: [facility] 02-02-2022 16:34-0400 Heart rate 55 /min Rogelio Rose MD Work Phone: [facility] 02-02-2022 16:34-0400 Respiratory rate 21 /min Rogelio Rose MD Work Phone: [facility] 02-02-2022 16:34-0400 SaO2% (BldA) [Mass fraction] 98 % Rogelio Rose MD Work Phone: [facility] 02-02-2022 16:34-0400 Systolic blood pressure 122 mm[Hg] Rogelio Rose MD Work Phone: [facility] Encounters Encounter Date Encounter Type Care Provider Facility Start: 11-09-2024 End: 11-09-2024 ambulatory Dulce Gordon MA [facility] Start: 11-09-2024 End: 11-09-2024 Patient encounter procedure Dulce Gordon MA [facility] Comment on above: Population Health Na vigation Outreach ([facility] HCC [facility] - [facility]) Start: 10-11-2024 End: 10-11-2024 ambulatory YAZMIN CARVER Facility:[facility] Start: 10-11-2024 End: 10-11-2024 Office outpatient visit 25 minutes Ady Hunter APRN.CNP Work Phone: [facility] Comment on above: URI with cough and c ongestion (Primary Dx) Start: 05-05-2024 End: 05-05-2024 Patient encounter procedure Yazmin Carver MD Work Phone: [facility] Comment on above: Bacterial pneumonia (Primary Dx); Wheezing Start: 05-05-2024 End: 05-05-2024 ambulatory YAZMIN CARVER Facility:[facility] Start: 05-02-2024 End: 05-02-2024 Subsequent hospital visit by physician Mariela [facility] Work Phone: Radiology Comment on above: Acute cough [R05.1] Start: 05-02-2024 End: 05-02-2024 ambulatory YAZMIN CARVER Facility:[facility] Start: 05-02-2024 End: 05-02-2024 Office outpatient visit 25 minutes Ady Hunter APRN.SLUBBER TENDER Work Phone: [facility] Comment on above: Acute cough (Primary Dx); Community acquired pneumonia, unspecified laterality Start: 02-10-2024 Telephone encounter Sukhwinder Carver MD Work Phone: [facility] Comment on above: Results Start: 02-09-2024 End: 02-09-2024 ambulatory YAZMIN CARVER Facility:[facility] Start: 02-09-2024 Encounter for genera l adult medical examination without abnormal findings YAZMIN CARVER [facility] Start: 02-09-2024 End: 02-09-2024 Patient encounter procedure Yazmin Carver MD Work Phone: [facility] Comment on above: Encounter for medica l examination to establish care (Primary Dx); Diarrhea, unspecified type; Benign prostatic hyperplasia without lower urinary tract symptoms; Class 1 obesity due to excess calories without serious comorbidity with body mass index (BMI) of 31.0 to 31.9 in adult; Screening for depression; Encounter for screening examination for other mental health and behavioral disorders Start: 02-09-2024 End: 02-09-2024 Patient encounter status Yazmin Carver MD Work Phone: [facility] Work Phone: Start: 02-09-2024 End: 02-09-2024 ambulatory YAZMIN CARVER Facility:[facility] Start: 01-28-2024 End: 01-28-2024 ambulatory RASHMI CHAUHAN Facility:[facility] Start: 01-28-2024 End: 01-28-2024 Patient encounter procedure Faustino Jaimes APRN.SLUBBER TENDER Work Phone: [facility] Comment on above: Sciatic nerve pain, left (Primary Dx) Start: 01-18-2024 End: 01-18-2024 Emergency department patient visit No Primary Care Physician Facility:[facility] Start: 01-17-2024 End: 01-17-2024 Emergency department patient visit No Primary Care Physician Facility:[facility] Start: 10-21-2023 ambulatory Cassandra Wallace MA [facility] Comment on above: Population Health Na vigation Outreach ([place],[facility]) Start: 04-15-2023 End: 04-15-2023 Subsequent hospital visit by physician Xr [facility] Work Phone: Radiology Comment on above: Acute cough [R05.1] Start: 04-15-2023 End: 04-15-2023 Patient encounter procedure Shakira Sol APRN.SLUBBER TENDER Work Phone: [facility] Comment on above: Acute cough (Primary Dx); Rhinosinusitis Start: 05-26-2022 End: 05-26-2022 Patient encounter procedure Simin Anguiano APRN.SLUBBER TENDER Work Phone: [facility] Comment on above: Acute non-recurrent pansinusitis (Primary Dx) Start: 02-02-2022 End: 02-02-2022 Patient encounter procedure Rogelio Rose MD Work Phone: [facility] Comment on above: Sting, insect, accid ental or unintentional, initial encounter (Primary Dx) Procedures Date Procedure Procedure Detail Performing Clinician Start: 05-02-2024 Radiologic exam ches t 2 views Ady Hunter APRN.SLUBBER TENDER Work Phone: Start: 02-09-2024 Adult depression screening assessment Yazmin Carver MD Work Phone: Start: 04-15-2023 Radiologic exam ches t 2 views Shakira Sol APRN.SLUBBER TENDER Work Phone: Start: 01-11-2018 Adult depression screening assessment Rogeilo Rose MD Work Phone: Plan of Treatment Date Care Activity Detail Author Start: 02-08-2027 Diabetes Screening Diabetes Screenin g [facility] Start: 02-08-2025 Anxiety Screening Anxiety Screening [facility] Start: 02-08-2025 Covid-19 Vaccine () Covid-19 Vaccine () [facility] Comment on above: Postponed from 03/12 (Declined at this time) Start: 02-08-2025 Depression Screening Depression Scre ening [facility] Start: 02-08-2025 Pneumococcal Vaccine : 50+ (1 of 1 - PCV) Pneumococcal Vaccine: 50+ (1 of 1 - PCV) [facility] Comment on above: Postponed from 01/04 (Declined at this time) Start: 02-08-2025 Pneumococcal Vaccine : 65+ (1 of 1 - PCV) Pneumococcal Vaccine: 65+ (1 of 1 - PCV) [facility] Comment on above: Postponed from 01/04 (Declined at this time) Start: 02-08-2025 RSV Vaccine (1 - 1-d ose 60+ series) RSV Vaccine (1 - 1-dose 60+ series) [facility] Comment on above: Postponed from 01/04 (Declined at this time) Start: 02-08-2025 RSV Vaccine (1 - 1-d ose 75+ series) RSV Vaccine (1 - 1-dose 75+ series) [facility] Comment on above: Postponed from 01/04 (Declined at this time) Start: 02-08-2025 Shingrix Vaccine (2 of 2) Shingrix Vaccine (2 of 2) [facility] Comment on above: Postponed from 06/26 (Declined at this time) Start: 01-16-2025 End: 01-16-2025 Patient encounter procedure 01/16/2025 11:00 AM EDT Office Visit [facility] [address] [place] [address] Amrik Mcclain APRN.SLUBBER TENDER [address] [place], [place] [id number] Annual Wellness [facility] [place] Comment on above: Annual Wellness Start: 08-11-2024 End: 08-11-2024 Patient encounter procedure 08/11/2024 8:00 AM EST Office Visit [facility] [place] [address] [place] [id number] Amrik Mcclain APRN.SLUBBER TENDER [address] [place] [address] 6 month follow up-labs [facility] Comment on above: 6 month follow up-la bs Start: 07-12-2024 Advance Directive Discussion Advance Directive Discussion [facility] Start: 05-05-2024 End: 05-05-2024 Patient encounter procedure 05/05/2024 11:20 AM EDT Office Visit [facility] [place] [address] [place] [address] Yazmin Carver MD [address] [place] [address] f/u cough and congestion [facility] [place] Comment on above: f/u cough and conges tion Start: 03-12-2024 Covid-19 Vaccine () Covid-19 Vaccine () [facility] Start: 03-12-2024 Covid-19 Vaccine () Covid-19 Vaccine () [facility] Start: 03-12-2024 Influenza vaccination [facility] Start: 02-09-2024 End: 05-10-2024 CBC W Auto Differential panel - Blood COMPLETE BLOOD COUNT AND DIFFERENTIAL Lab Routine Encounter for medical examination to establish care Expected: 02/09/2024, Expires: 05/10/2024 [facility] Work Phone: Comment on above: Expected: 02/09/2024 , Expires: 05/10/2024 Start: 02-09-2024 End: 05-10-2024 Comprehensive metabolic 2000 panel - Serum or Plasma COMPREHENSIVE METABOLIC PANEL Lab Routine Encounter for medical examination to establish care Expected: 02/09/2024, Expires: 05/10/2024 [facility] Comment on above: Expected: 02/09/2024 , Expires: 05/10/2024 Start: 02-09-2024 End: 05-10-2024 Hemoglobin A1c in Blood [facility] Comment on above: Expected: 02/09/2024 , Expires: 05/10/2024 Start: 02-09-2024 End: 05-10-2024 LIPID PANEL, NONFASTING [facility] Comment on above: Expected: 02/09/2024 , Expires: 05/10/2024 Start: 02-09-2024 End: 02-09-2024 Patient encounter procedure 02/09/2024 8:00 AM EDT Office Visit [facility] [place] [address] [place], [place] [address] Yazmin Carver MD [address] [place], [place] [id number] [facility] [place] Comment on above: Establish Care Start: 07-12-2023 Advance Directive Discussion Advance Directive Discussion [facility] Start: 07-12-2023 Behavioral Health Screening Behavioral Health Screening [facility] Start: 03-12-2023 Covid-19 Vaccine () Covid-19 Vaccine () [facility] Start: 03-12-2023 Influenza vaccination Influenza Vacc ine (#1) [facility] Start: 07-12-2022 Advance Directive Discussion Advance Directive Discussion [facility] Start: 07-12-2022 Depression Assessment Depression Ass essment [facility] Start: 03-12-2022 Influenza vaccination INFLUENZA (#1) [facility] Start: 11-06-2021 COVID-19 VACCINE (4 - Booster for Moderna series) COVID-19 VACCINE (4 - Booster for Moderna series) [facility] Start: 09-02-2021 COVID-19 VACCINE (4 - Booster for Moderna series) COVID-19 VACCINE (4 - Booster for Moderna series) [facility] Start: 09-02-2021 Covid-19 Vaccine (4 - Moderna series) Covid-19 Vaccine (4 - Moderna series) [facility] Start: 07-12-2021 ADVANCE DIRECTIVE DISCUSSION ADVANCE DIRECTIVE DISCUSSION [facility] Start: 07-12-2021 DEPRESSION ASSESSMENT DEPRESSION ASS ESSMENT [facility] Start: 01-11-2021 DIABETES SCREEN DIABETES SCREEN [facility] Start: 01-11-2021 Diabetes Screening Diabetes Screenin g [facility] Start: 06-26-2020 Shingrix Vaccine (2 of 2) Shingrix Vaccine (2 of 2) [facility] Start: 01-11-2019 Adult depression screening assessment DEPRESSION SCREENING [facility] Start: 07-14-2012 Urine microalbumin profile [facility] Start: 2007 Pneumococcal Vaccine : 65+ (1 - PCV) Pneumococcal Vaccine: 65+ (1 - PCV) [facility] Start: 2007 Pneumococcal Vaccine : 65+ (1 of 1 - PCV) Pneumococcal Vaccine: 65+ (1 of 1 - PCV) [facility] Start: 2007 PNEUMOCOCCAL: 65+ (1 - PCV) PNEUMOCOCCAL: 65+ (1 - PCV) [facility] Start: 2002 RSV Vaccine (1 - 1-d ose 60+ series) RSV Vaccine (1 - 1-dose 60+ series) [facility] Start: 01-05-1992 SHINGRIX VACCINE (1 of 2) SHINGRIX VACCINE (1 of 2) [facility] Immunizations Immunization Date Immunization Notes Care Provider Fa stan 06-19-2024 influenza, high dose seasonal, preservative-free Ady Hunter APRN.SLUBBER TENDER Work Phone: [facility] 05-01-2020 influenza (aIIV4) vaccine, age 65+ yr, quadrivalent, PF (FLUAD QUAD) Yazmin Carver MD Work Phone: [facility] 05-01-2020 zoster vaccine recombinant Yazmin Carver MD Work Phone: [facility] 05-01-2020 influenza virus vaccine, unspecified formulation Shakira Sol PATIENT ESCORT.SLUBBER TENDER Work Phone: [facility] 05-08-2019 influenza, high dose seasonal, preservative-free Yazmin Carver MD Work Phone: [facility] 02-27-2014 influenza, high dose seasonal, preservative-free Rogelio Rose MD Work Phone: [facility] 07-13-2012 tetanus and diphther ia toxoids, adsorbed, preservative free, for adult use (2 Lf of tetanus toxoid and 2 Lf of diphtheria toxoid) Rogelio Rose MD Work Phone: [facility] Work Phone: 03-30-2012 influenza virus vaccine, unspecified formulation Rogelio Rose MD Work Phone: [facility] Work Phone: Payers Date Payer Category Payer Medicare (Managed Care) [place] [id number] 2024 Self-pay 2021 Medicare AET MEDICARE A ETNA MEDICARE O [id number] 2021-Present [phone] [id number] [place] [id number] [facility] [id number] 2021 Medicare AETNA MEDICARE A ETNA MEDICARE O [id number] 2021-Present [phone] [id number] [place] [id number] [facility] [id number] 2021 Private Health Insurance 101 [id number] Unknown [id number] Unknown [id number] Social History Date Type Detail Facility Start: 01-11-2018 End: 04-15-2023 Tobacco smoking status NHIS Never smoked tobacco [facility] Start: 02-02-2022 End: 04-15-2023 Alcohol intake Not Asked [facility] Start: 1940 Sex Assigned At Not on file [facility] Start: 01-11-2018 End: 04-15-2023 Tobacco use and exposure Smokeless tobacco non-user [facility] Work Phone: Start: 04-15-2023 End: 05-05-2024 History of Social function [facility] Start: 04-15-2023 End: 05-05-2024 Tobacco use panel [facility] Adult Depression Screening Assessment 0 [facility] Start: 02-09-2024 Tobacco smoking stat us NHIS Ex-smoker [facility] End: 07-12-1982 History of tobacco use Current smoker [facility] End: 07-12-1982 History of tobacco use Cigar Smoker [facility] Start: 02-09-2024 Tobacco use and exposure Former smokeless tobacco user [facility] End: 07-12-1982 History of tobacco use Chews Tobacco [facility] Start: 02-09-2024 End: 10-11-2024 Alcohol intake Current drinker of alcohol (finding) [facility] Start: 02-09-2024 Tobacco Comment Used to smoke occasional cigars and chewed regularly for about 10 years [facility] Functional Status Date Assessment Result Facility 01-16-2015 Are you deaf, or do you have serious difficulty hearing No 01/16/2015 11:10 AM Cassandra Decker C[facility] No [facility] 01-16-2015 Are you blind, or do you have serious difficulty seeing, even when wearing glasses No 01/16/2015 11:10 AM Cassandra Decker [facility] No [facility] 01-16-2015 Do you have serious difficulty walking or climbing stairs No 01/16/2015 11:10 AM Cassandra Decker Cma No [facility] 01-16-2015 Do you have difficul ty dressing or bathing No 01/16/2015 11:10 AM Cassandra Decker Cma No [facility] 01-16-2015 Because of a physica l, mental, or emotional condition, do you have difficulty doing errands alone such as visiting a physician's office or shopping No 01/16/2015 11:10 AM Cassandra Decker Cma [facility] Mental Status Date Assessment Result Facility 01-16-2015 Because of a physica l, mental, or emotional condition, do you have serious difficulty concentrating, remembering, or making decisions No 01/16/2015 11:10 AM Cassandra Decker [facility] No [facility] Clinical Notes 02-02-2022 to 11-09-2024 Dulce Gordon MA - 11/09/2024 7:55 AM Ady Aguirre, PATIENT ESCORT.SLUBBER TENDER - 10/11/2024 12:35 PM Yazmin Blair MD - 05/05/2024 10:46 AM Faustino Ochoa, PATIENT ESCORT.SLUBBER TENDER - 01/28/2024 2:06 PM EDT Note Date & Type Note Facility 11-09-2024 Note HNO ID: [id number] Author: DULCE GORDON MA Service: ? Author Type: Local Sales Manager Type: Progress Notes Filed: 11/09/2024 08:41 Note Text: POPULATION HEALTH NAVIGATION OUTREACH Action/FYI Patient is on Zero HCC List - [place] PCSA list for below and needs appointment to address: Covid-19 Vaccine() Advance Directive Discussion Hemoglobin A1C (%) Date Value 02/09/2024 5.3 08/20/2016 5.4 Patient due for: Medicare Annual Wellness Visit [place] Active: Yes Spoke to patient. Scheduled 01-16-25 with PCP team. Noted upcoming appointment to address due care gaps. HCC: No Last OV: 05-05-24 OV, 02-09-24 AWV Next OV: N/A Reason for Outreach Care Gap/HCC or Scheduling Wellness Visits Care Gaps due: Medicare Annual Wellness Visit Patient Contacted: Spoke to patient/parent/or legal guardian Patient identified by name and : Yes Care Gap/HCC/Scheduling Wellness actions taken: Patient scheduled/pended orders: Medicare Annual Wellness Visit 01/16/2025 in [facility] with AMRIK MCCLAIN - Annual Wellness, Please address due care gaps Navigation Signature: Dulce Gordon MA November 09, 2024 7:56 AM [facility] 11-09-2024 History of Presen t illness Narrative POPULATION HEALTH NAVIGATION OUTREACH Action/FYI Patient is on Zero HCC List - [place] PCSA list for below and needs appointment to address: Covid-19 Vaccine() Advance Directive Discussion Hemoglobin A1C (%) Date Value 02/09/2024 5.3 08/20/2016 5.4 Patient due for: Medicare Annual Wellness Visit [facility] Active: Yes Spoke to patient. Scheduled 01-16-25 with PCP team. Noted upcoming appointment to address due care gaps. HCC: No Last OV: 05-05-24 OV, 02-09-24 AWV Next OV: N/A Reason for Outreach Care Gap/HCC or Scheduling Wellness Visits Care Gaps due: Medicare Annual Wellness Visit Patient Contacted: Spoke to patient/parent/or legal guardian Patient identified by name and : Yes Care Gap/HCC/Scheduling Wellness actions taken: Patient scheduled/pended orders: Medicare Annual Wellness Visit 01/16/2025 in [facility] with PODLOGARAMRIK - Annual Wellness, Please address due care gaps Navigation Signature: Dulce Gordon MA November 09, 2024 7:56 AM documented in this encounter [facility] 11-09-2024 Note Patient Outreach (NE TNAV) SAM CHU ([id number]) 1940 M Date Time Provider Department 11/09/24 DULCE GORDON NETMARITZAV During your visit today, we recorded the following information about you: Dulce Gordon MA 11/09/2024 8:41 AM Signed POPULATION HEALTH NAVIGATION OUTREACH Action/ Patient is on Zero HCC List - [place] PCSA list for below and needs appointment to address: Covid-19 Vaccine( season) Advance Directive Discussion Hemoglobin A1C (%) Date Value 02/09/2024 5.3 08/20/2016 5.4 Patient due for: Medicare Annual Wellness Visit [facility] Active: Yes Spoke to patient. Scheduled 01-16-25 with PCP team. Noted upcoming appointment to address due care gaps. HCC: No Last OV: 05-05-24 OV, 02-09-24 AWV Next OV: N/A Reason for Outreach Care Gap/HCC or Scheduling Wellness Visits Care Gaps due: Medicare Annual Wellness Visit Patient Contacted: Spoke to patient/parent/or legal guardian Patient identified by name and : Yes Care Gap/HCC/Scheduling Wellness actions taken: Patient scheduled/pended orders: Medicare Annual Wellness [facility] AM[facility]K [facility] - Annual Wellness, Please address due care gaps Navigation Signature: Dulce Gordon MA November 09, 2024 7:56 AM Allergies As of Date: 11/09/2024 Noted Allergy Reaction TETANUS VACCINES AND TOXOID 07/30/2008 Comments: skin breakout Date Reviewed: 10/11/2024 Reviewed by: Ady Hunter APRN.SLUBBER TENDER - Fully Assessed Reason for Visit: Population Health Navigation Outreach [3910] Cmt: Zero HCC List - [place] PCSA Prescriptions as of 11/09/2024 - fluticasone (FLONASE ALLERGY RELIEF) 50 mcg/actuation nasal spray Use 1 [place] in each nostril once daily. - albuterol HFA (VENTOLIN HFA) 90 mcg/actuation inhaler Inhale 2 Puffs as instructed every 4 hours as needed for wheezing/shortness of breath. - FISH OIL ORAL CAP unsure of dosage - MULTIVITAMIN ORAL TAB Take one(1) tablet daily. - VITAMIN E 400 UNIT ORAL TAB Take one(1) tablet daily. Problem List As Of Date 11/09/2024 Noted Resolved HYPERLIPIDEMIA NEC/NOS [E78.5] 07/30/2008 FAMILY HX PROSTATIC MALIGNANCY [Z80.42] 07/30/2008 PROSTATIC DISORDER NOS [N42.9] 07/30/2008 Obesity [E66.9] 07/30/2008 JOINT PAIN-SHLDER [M25.519] 07/30/2008 ERECTILE DYSFUNCTION [F52.9] 07/30/2008 COLON POLYP [D12.6] 07/30/2008 BPH (benign prostatic hyperplasia) [N40.0] 02/09/2024 Encounter Status:Closed by DULCE GORDON on 11/09/24 [facility] 10-11-2024 Note HNO ID: [id number] Author: ADY HUNTER APRN.SLUBBER TENDER Service: ? Author Type: Nurse Practitioner Type: Progress Notes Filed: 10/11/2024 13:07 Note Text: Subjective HPI Nontoxic-appearing 84-year-old male presents urgent care chief complaint cough chest congestion and headache. Duration of symptoms 2 to 3 days. Associated symptoms listed above. Presents today for evaluation. Most prominent symptom today is cough and sinus pressure. Denies any fevers. No known sick contacts. No chest pain shortness of breath or pleuritic pain. No hemoptysis. Past medical history prescription medications allergies reviewed .Patient presents with: Cough: head congestion, drainage and headache x 2-3 days PAST MEDICAL HISTORY Diagnosis Date BPH (benign prostatic hyperplasia) ERECTILE DYSFUNCTION 07/30/2008 HYPERLIPIDEMIA NEC/NOS 07/30/2008 Obesity Personal history of colonic polyps PAST SURGICAL HISTORY Procedure Laterality Date COLONOSCOPY AND POLYPECTOMY 08/15/2004 Two tubular adenomas COLONOSCOPY FLX DX W/COLLJ SPEC WHEN PFRMD 11/19/11 repeat 10 years PAST SURGICAL HISTORY OF 08/27/2004 Bilateral inguinal hernia repair ALLERGIES Tetanus Vaccines And Toxoid MEDICATIONS albuterol HFA (VENTOLIN HFA) 90 mcg/actuation inhaler Inhale 2 Puffs as instructed every 4 hours as needed for wheezing/shortness of breath. FISH OIL ORAL CAP unsure of dosage MULTIVITAMIN ORAL TAB Take one(1) tablet daily. VITAMIN E 400 UNIT ORAL TAB Take one(1) tablet daily. FAMILY HISTORY Problem Relation Age of Onset No Known Problems Mother No Known Problems Father Hypertension Brother Diabetes Brother other (OAT cell cancer [Other]) Brother Cancer Brother 2 other brothers had metastatic cancer--?primary Colon Cancer Paternal Uncle Social History Tobacco Use Smoking status: Former Types: Cigars Quit date: 1982 Years since quittin.2 Smokeless tobacco: Former Types: Chew Quit date: 1982 Tobacco comments: Used to smoke occasional cigars and chewed regularly for about 10 years Vaping Use Vaping status: Never Used Substance Use Topics Alcohol use: Yes Alcohol/week: 1.0 standard drink of alcohol Types: 1 Shots of liquor per week Drug use: Never BP 122/80 Pulse 60 Temp 36.2 ?C (97.2 ?F) Resp 16 Wt 85 kg (187 lb 6.3 oz) SpO2 97% BMI 33.19 kg/m? Review of Systems Constitutional: Negative for chills, fever and malaise/fatigue. HENT: Positive for congestion and sinus pain. Negative for ear discharge, ear pain and sore throat. Eyes: Negative for blurred vision, pain, discharge and redness. Respiratory: Positive for cough. Negative for hemoptysis, sputum production, shortness of breath, wheezing and stridor. Cardiovascular: Negative for chest pain. Gastrointestinal: Negative for abdominal pain, diarrhea, nausea and vomiting. Musculoskeletal: Negative for myalgias. Skin: Negative for itching and rash. Neurological: Negative for dizziness and headaches. Objective Physical Exam Constitutional: General: He is not in acute distress. Appearance: He is not diaphoretic. HENT: Head: Normocephalic. Jaw: No trismus, tenderness, swelling or pain on movement. Right Ear: Tympanic membrane, ear canal and external ear normal. Left Ear: Tympanic membrane, ear canal and external ear normal. Nose: Congestion present. Mouth/Throat: Mouth: Mucous membranes are moist. Pharynx: Oropharynx is clear. Uvula midline. No pharyngeal swelling, oropharyngeal exudate, posterior oropharyngeal erythema or uvula swelling. Eyes: Conjunctiva/sclera: Conjunctivae normal. Pupils: Pupils are equal, round, and reactive to light. Cardiovascular: Rate and Rhythm: Normal rate and regular rhythm. Heart sounds: Normal heart sounds. Pulmonary: Effort: Pulmonary effort is normal. No tachypnea, accessory muscle usage or respiratory distress. Breath sounds: Normal breath sounds. No stridor. No wheezing, rhonchi or rales. Abdominal: General: There is no distension. Palpations: Abdomen is soft. Tenderness: There is no abdominal tenderness. There is no guarding or rebound. Musculoskeletal: Cervical back: Normal range of motion and neck supple. No edema, erythema, rigidity or tenderness. No pain with movement. Normal range of motion. Lymphadenopathy: Cervical: No cervical adenopathy. Skin: General: Skin is warm and dry. Neurological: Mental Status: He is alert and oriented to person, place, and time. ASSESSMENT/PLAN: 1. URI with cough and congestion - ICD9: 465.9, ICD10: J06.9 - Discussed viral etiology and rationale for treatment. - Symptomatic treatment with prn analgesia - Supportive care with fluids and rest No evidence of bacterial infection on today's assessment. Treat as viral etiology Patient was educated on supportive therapies. Patient will follow up with primary care provider as needed. Patient was instructed to immediately proceed to emerge (more content not included)... [facility] 10-11-2024 History of Presen t illness Narrative Subjective HPI Nontoxic-appearing 84-year-old male presents urgent care chief complaint cough chest congestion and headache. Duration of symptoms 2 to 3 days. Associated symptoms listed above. Presents today for evaluation. Most prominent symptom today is cough and sinus pressure. Denies any fevers. No known sick contacts. No chest pain shortness of breath or pleuritic pain. No hemoptysis. Past medical history prescription medications allergies reviewed .Patient presents with: Cough: head congestion, drainage and headache x 2-3 days PAST MEDICAL HISTORY Diagnosis Date BPH (benign prostatic hyperplasia) ERECTILE DYSFUNCTION 07/30/2008 HYPERLIPIDEMIA NEC/NOS 07/30/2008 Obesity Personal history of colonic polyps PAST SURGICAL HISTORY Procedure Laterality Date COLONOSCOPY & POLYPECTOMY 08/15/2004 Two tubular adenomas COLONOSCOPY FLX DX W/COLLJ SPEC WHEN PFRMD 11/19/11 repeat 10 years PAST SURGICAL HISTORY OF 08/27/2004 Bilateral inguinal hernia repair ALLERGIES Tetanus Vaccines And Toxoid MEDICATIONS albuterol HFA (VENTOLIN HFA) 90 mcg/actuation inhaler Inhale 2 Puffs as instructed every 4 hours as needed for wheezing/shortness of breath. FISH OIL ORAL CAP unsure of dosage MULTIVITAMIN ORAL TAB Take one(1) tablet daily. VITAMIN E 400 UNIT ORAL TAB Take one(1) tablet daily. FAMILY HISTORY Problem Relation Age of Onset No Known Problems Mother No Known Problems Father Hypertension Brother Diabetes Brother other (OAT cell cancer [Other]) Brother Cancer Brother 2 other brothers had metastatic cancer--?primary Colon Cancer Paternal Uncle Social History Tobacco Use Smoking status: Former Types: Cigars Quit date: 1982 Years since quittin.2 Smokeless tobacco: Former Types: Chew Quit date: 1982 Tobacco comments: Used to smoke occasional cigars and chewed regularly for about 10 years Vaping Use Vaping status: Never Used Substance Use Topics Alcohol use: Yes Alcohol/week: 1.0 standard drink of alcohol Types: 1 Shots of liquor per week Drug use: Never BP 122/80 Pulse 60 Temp 36.2 C (97.2 F) Resp 16 Wt 85 kg (187 lb 6.3 oz) SpO2 97% BMI 33.19 kg/m Review of Systems Constitutional: Negative for chills, fever and malaise/fatigue. HENT: Positive for congestion and sinus pain. Negative for ear discharge, ear pain and sore throat. Eyes: Negative for blurred vision, pain, discharge and redness. Respiratory: Positive for cough. Negative for hemoptysis, sputum production, shortness of breath, wheezing and stridor. Cardiovascular: Negative for chest pain. Gastrointestinal: Negative for abdominal pain, diarrhea, nausea and vomiting. Musculoskeletal: Negative for myalgias. Skin: Negative for itching and rash. Neurological: Negative for dizziness and headaches. Objective Physical Exam Constitutional: General: He is not in acute distress. Appearance: He is not diaphoretic. HENT: Head: Normocephalic. Jaw: No trismus, tenderness, swelling or pain on movement. Right Ear: Tympanic membrane, ear canal and external ear normal. Left Ear: Tympanic membrane, ear canal and external ear normal. Nose: Congestion present. Mouth/Throat: Mouth: Mucous membranes are moist. Pharynx: Oropharynx is clear. Uvula midline. No pharyngeal swelling, oropharyngeal exudate, posterior oropharyngeal erythema or uvula swelling. Eyes: Conjunctiva/sclera: Conjunctivae normal. Pupils: Pupils are equal, round, and reactive to light. Cardiovascular: Rate and Rhythm: Normal rate and regular rhythm. Heart sounds: Normal heart sounds. Pulmonary: Effort: Pulmonary effort is normal. No tachypnea, accessory muscle usage or respiratory distress. Breath sounds: Normal breath sounds. No stridor. No wheezing, rhonchi or rales. Abdominal: General: There is no distension. Palpations: Abdomen is soft. Tenderness: There is no abdominal tenderness. There is no guarding or rebound. Musculoskeletal: Cervical back: Normal range of motion and neck supple. No edema, erythema, rigidity or tenderness. No pain with movement. Normal range of motion. Lymphadenopathy: Cervical: No cervical adenopathy. Skin: General: Skin is warm and dry. Neurological: Mental Status: He is alert and oriented to person, place, and time. ASSESSMENT/PLAN: 1. URI with cough and congestion - ICD9: 465.9, ICD10: J06.9 - Discussed viral etiology and rationale for treatment. - Symptomatic treatment with prn analgesia - Supportive care with fluids and rest No evidence of bacterial infection on today's assessment. Treat as viral etiology Patient was educated on supportive therapies. Patient will follow up with primary care provider as needed. Patient was instructed to immediately proceed to emergency room for any new, worsening, or symptoms lasting longer than anticipated. The patient's clinical presentation is otherwise unremarkable at this time. Based on exam and clinical finding, the patient is stable for discharge. Plan of care was discussed with patient. Patient verbalizes understanding and agrees to plan of care. This note was generated using MyWeb[employer] software. It may contain errors in wording, punctuation, or spelling. Ady Hunter APRN.DANIEL documented in this encounter [facility] 05-05-2024 History of Presen t illness Narrative Chief Complaint Patient presents with: Follow Up: follow 05/02/24- PNE dx HPI Sam Chu is a 84 year old male who presents here today for Above Complaints. Patient evaluated in on 05/02 for complaint of 1 week of cough and fatigue. Diagnosed with pneumonia based on abnormal chest xray. Started on Ceftin and Doxycycline and discharged home. Today he states that he has been compliant with abx as prescribed and cough is slowly improving. Still gets random coughing fits with yellow sputum. Not taking anything OTC to help with symptoms. Denies fever/chills, SOB, wheezing, chest pain, chest congestion, nausea, vomiting, diarrhea. Past medical history, appointments, medications, allergies reviewed. Previous Medical History PAST MEDICAL HISTORY Diagnosis Date BPH (benign prostatic hyperplasia) ERECTILE DYSFUNCTION 07/30/2008 HYPERLIPIDEMIA NEC/NOS 07/30/2008 Obesity Personal history of colonic polyps Previous Surgical History PAST SURGICAL HISTORY Procedure Laterality Date COLONOSCOPY & POLYPECTOMY 08/15/2004 Two tubular adenomas COLONOSCOPY FLX DX W/COLLJ SPEC WHEN PFRMD 11/19/11 repeat 10 years PAST SURGICAL HISTORY OF 08/27/2004 Bilateral inguinal hernia repair Family History FAMILY HISTORY Problem Relation Age of Onset No Known Problems Mother No Known Problems Father Hypertension Brother Diabetes Brother other (OAT cell cancer [Other]) Brother Cancer Brother 2 other brothers had metastatic cancer--?primary Colon Cancer Paternal Uncle Patient Allergies ALLERGIES Allergen Reactions Tetanus Vaccines An* skin breakout Current Medications Current Outpatient Medications on File Prior to Visit Medication Sig doxycycline monohydrate 100 mg tablet Take 1 tablet by mouth two times a day for 5 days. cefUROXime (CEFTIN) 500 mg tablet Take 1 tablet by mouth two times a day for 5 days. FISH OIL ORAL CAP unsure of dosage MULTIVITAMIN ORAL TAB Take one(1) tablet daily. VITAMIN E 400 UNIT ORAL TAB Take one(1) tablet daily. No current facility-administered medications on file prior to visit. Social History Social History Tobacco Use Smoking status: Former Types: Cigars Quit date: 1982 Years since quittin.8 Smokeless tobacco: Former Types: Chew Quit date: 1982 Tobacco comments: Used to smoke occasional cigars and chewed regularly for about 10 years Vaping Use Vaping status: Never Used Substance Use Topics Alcohol use: Yes Alcohol/week: 1.0 standard drink of alcohol Types: 1 Shots of liquor per week Drug use: Never Review of Symptoms REVIEW OF SYSTEMS See HPI EXAM: BP 108/60 Pulse (!) 57 Temp 36.3 C (97.3 F) Resp 16 SpO2 98% General Appearance: Well appearing, alert, in no acute distress, well-hydrated, well nourished.. Skin: Skin color, texture, turgor normal, no suspicious rashes or lesions. Lungs: coarse lung sounds bilaterally with moderate end expiratory wheezing in the lung bases. Heart: RRR without murmur, gallop, or rubs. No ectopy. Abdomen: Normal abdominal exam, Abdomen soft, non-tender. Bowel sounds normal. No masses, organomegaly. Health Maintenance List Advance Directive Discussion Never done Influenza Vaccine(1) due on 03/12/2024 Covid-19 Vaccine(4 - 2023- season) due on 03/12/2024 RSV Vaccine(1 - 1-dose 75+ series) due on 02/08/2025 Shingrix Vaccine(2 of 2) due on 02/08/2025 Pneumococcal Vaccine: 65+(1 of 1 - PCV) due on 02/08/2025 Depression Screening due on 02/08/2025 Anxiety Screening due on 02/08/2025 Diabetes Screening due on 02/08/2027 DTaP,Tdap,Td Vaccine Discontinued Colorectal Cancer Screening Discontinued ASSESSMENT/PLAN: 1. Bacterial pneumonia - ICD9: 482.9, ICD10: J15.9 (primary diagnosis) Patient still with coarse breath sounds and wheezing on exam. On appropriate abx for age. Cough gradually improving. Continue Ceftin and doxycycline and will add on tessalon and albuterol PRN. Call if not improving in 5-7 days. Red flags for re-assessment reviewed with patient in detail. - BENZONATATE 100 MG CAPSULE 2. Wheezing - ICD9: 786.07, ICD10: R06.2 See above. - ALBUTEROL SULFATE HFA 90 MCG/ACTUATION AEROSOL INHALER Medical Decision Making: Problems: Moderate: Acute illness with systemic symptoms Data: Unique source(s) for external note(s) reviewed: 1 Unique test result(s) reviewed: 1 Risk: Moderate: Moderate risk from testing/treatment Medical Decision Making Level: 4 - Moderate Yazmin Carver MD documented in this encounter [facility] 05-05-2024 Note HNO ID: [id number] Author: YAZMIN CARVER MD Service: ? Author Type: Physician Type: Progress Notes Filed: 05/05/2024 11:06 Note Text: Chief Complaint Patient presents with: Follow Up: EC follow 05/02/24- PNE dx HPI Sam Chu is a 84 year old male who presents here today for Above Complaints. Patient evaluated in on 05/02 for complaint of 1 week of cough and fatigue. Diagnosed with pneumonia based on abnormal chest xray. Started on Ceftin and Doxycycline and discharged home. Today he states that he has been compliant with abx as prescribed and cough is slowly improving. Still gets random coughing fits with yellow sputum. Not taking anything OTC to help with symptoms. Denies fever/chills, SOB, wheezing, chest pain, chest congestion, nausea, vomiting, diarrhea. Past medical history, appointments, medications, allergies reviewed. Previous Medical History PAST MEDICAL HISTORY Diagnosis Date BPH (benign prostatic hyperplasia) ERECTILE DYSFUNCTION 07/30/2008 HYPERLIPIDEMIA NEC/NOS 07/30/2008 Obesity Personal history of colonic polyps Previous Surgical History PAST SURGICAL HISTORY Procedure Laterality Date COLONOSCOPY AND POLYPECTOMY 08/15/2004 Two tubular adenomas COLONOSCOPY FLX DX W/COLLJ SPEC WHEN PFRMD 11/19/11 repeat 10 years PAST SURGICAL HISTORY OF 08/27/2004 Bilateral inguinal hernia repair Family History FAMILY HISTORY Problem Relation Age of Onset No Known Problems Mother No Known Problems Father Hypertension Brother Diabetes Brother other (OAT cell cancer [Other]) Brother Cancer Brother 2 other brothers had metastatic cancer--?primary Colon Cancer Paternal Uncle Patient Allergies ALLERGIES Allergen Reactions Tetanus Vaccines An* skin breakout Current Medications Current Outpatient Medications on File Prior to Visit Medication Sig doxycycline monohydrate 100 mg tablet Take 1 tablet by mouth two times a day for 5 days. cefUROXime (CEFTIN) 500 mg tablet Take 1 tablet by mouth two times a day for 5 days. FISH OIL ORAL CAP unsure of dosage MULTIVITAMIN ORAL TAB Take one(1) tablet daily. VITAMIN E 400 UNIT ORAL TAB Take one(1) tablet daily. No current facility-administered medications on file prior to visit. Social History Social History Tobacco Use Smoking status: Former Types: Cigars Quit date: 1982 Years since quittin.8 Smokeless tobacco: Former Types: Chew Quit date: 1982 Tobacco comments: Used to smoke occasional cigars and chewed regularly for about 10 years Vaping Use Vaping status: Never Used Substance Use Topics Alcohol use: Yes Alcohol/week: 1.0 standard drink of alcohol Types: 1 Shots of liquor per week Drug use: Never Review of Symptoms REVIEW OF SYSTEMS See HPI EXAM: BP 108/60 Pulse (!) 57 Temp 36.3 ?C (97.3 ?F) Resp 16 SpO2 98% General Appearance: Well appearing, alert, in no acute distress, well-hydrated, well nourished.. Skin: Skin color, texture, turgor normal, no suspicious rashes or lesions. Lungs: coarse lung sounds bilaterally with moderate end expiratory wheezing in the lung bases. Heart: RRR without murmur, gallop, or rubs. No ectopy. Abdomen: Normal abdominal exam, Abdomen soft, non-tender. Bowel sounds normal. No masses, organomegaly. Health Maintenance List Advance Directive Discussion Never done Influenza Vaccine(1) due on 03/12/2024 Covid-19 Vaccine( - 2023- season) due on 03/12/2024 RSV Vaccine(1 - 1-dose 75+ series) due on 02/08/2025 Shingrix Vaccine(2 of 2) due on 02/08/2025 Pneumococcal Vaccine: 65+(1 of 1 - PCV) due on 02/08/2025 Depression Screening due on 02/08/2025 Anxiety Screening due on 02/08/2025 Diabetes Screening due on 02/08/2027 DTaP,Tdap,Td Vaccine Discontinued Colorectal Cancer Screening Discontinued ASSESSMENT/PLAN: 1. Bacterial pneumonia - ICD9: 482.9, ICD10: J15.9 (primary diagnosis) Patient still with coarse breath sounds and wheezing on exam. On appropriate abx for age. Cough gradually improving. Continue Ceftin and doxycycline and will add on tessalon and albuterol PRN. Call if not improving in 5-7 days. Red flags for re-assessment reviewed with patient in detail. - BENZONATATE 100 MG CAPSULE 2. Wheezing - ICD9: 786.07, ICD10: R06.2 See above. - ALBUTEROL SULFATE HFA 90 MCG/ACTUATION AEROSOL INHALER Medical Decision Making: Problems: Moderate: Acute illness with systemic symptoms Data: Unique source(s) for external note(s) reviewed: 1 Unique test result(s) reviewed: 1 Risk: Moderate: Moderate risk from testing/treatment Medical Decision Making Level: 4 - Moderate Yazmin Carver MD [facility] 05-02-2024 History of Presen t illness Narrative Radiology Service Progress Note PATIENT NAME: Sam Chu DATE OF SERVICE: May 02, 2024 TIME: 10:14 AM PATIENT IDENTITY VERIFICATION COMPLETED USING TWO (2) IDENTIFIERS: Name and Date of confirmed by patient verbally. FALL SCREENING: Has the patient had 2 falls in the last year or 1 fall with injury or currently using an Ambulatory Assistive Device (Walker, Cane, Wheelchair, Crutches, etc.)? No PATIENT GENDER DATA: Male PATIENT RELEVANT IMPLANT DATA REVIEWED: Not Applicable PATIENT PRESENTS WITH AN IMPLANTABLE OR ATTACHED RN HOSPITAL: No RADIOLOGY DEPARTMENT: General X-ray: Exam(s) Completed: Chest X-Ray PERIPHERAL IV DATA: Not applicable SIGNED BY: RT Zac(R) May 02, 2024 10:14 AM documented in this encounter [facility] 05-02-2024 Note HNO ID: [id number] Author: KALPANA LUNA RT(Wil) Service: Radiology Author Type: Technologist Type: Progress Notes Filed: 05/02/2024 10:30 Note Text: Radiology Service Progress Note PATIENT NAME: Sam Chu DATE OF SERVICE: May 02, 2024 TIME: 10:14 AM PATIENT IDENTITY VERIFICATION COMPLETED USING TWO (2) IDENTIFIERS: Name and Date of confirmed by patient verbally. FALL SCREENING: Has the patient had 2 falls in the last year or 1 fall with injury or currently using an Ambulatory Assistive Device (Walker, Cane, Wheelchair, Crutches, etc.)? No PATIENT GENDER DATA: Male PATIENT RELEVANT IMPLANT DATA REVIEWED: Not Applicable PATIENT PRESENTS WITH AN IMPLANTABLE OR ATTACHED RN HOSPITAL: No RADIOLOGY DEPARTMENT: General X-ray: Exam(s) Completed: Chest X-Ray PERIPHERAL IV DATA: Not applicable SIGNED BY: RT Zac(Wil) May 02, 2024 10:14 AM [facility] 05-02-2024 Note HNO ID: [id number] Author: ADY HUNTER APRN.SLUBBER TENDER Service: ? Author Type: Nurse Practitioner Type: Progress Notes Filed: 05/02/2024 11:26 Note Text: Subjective HPI Nontoxic-appearing male presents urgent care chief plaint cough. Duration of symptoms 1 week. Associated symptoms productive cough and fatigue. OTC medications none. Denies any known sick contacts. No fevers. Denies chest pain shortness of breath or hemoptysis. Past medical history prescription medications allergies reviewed. .Patient presents with: Chest Congestion: cough, headache x over 1 week PAST MEDICAL HISTORY Diagnosis Date BPH (benign prostatic hyperplasia) ERECTILE DYSFUNCTION 07/30/2008 HYPERLIPIDEMIA NEC/NOS 07/30/2008 Obesity Personal history of colonic polyps PAST SURGICAL HISTORY Procedure Laterality Date COLONOSCOPY AND POLYPECTOMY 08/15/2004 Two tubular adenomas COLONOSCOPY FLX DX W/COLLJ SPEC WHEN PFRMD 11/19/11 repeat 10 years PAST SURGICAL HISTORY OF 08/27/2004 Bilateral inguinal hernia repair ALLERGIES Tetanus Vaccines And Toxoid MEDICATIONS FISH OIL ORAL CAP unsure of dosage MULTIVITAMIN ORAL TAB Take one(1) tablet daily. VITAMIN E 400 UNIT ORAL TAB Take one(1) tablet daily. FAMILY HISTORY Problem Relation Age of Onset No Known Problems Mother No Known Problems Father Hypertension Brother Diabetes Brother other (OAT cell cancer [Other]) Brother Cancer Brother 2 other brothers had metastatic cancer--?primary Colon Cancer Paternal Uncle Social History Tobacco Use Smoking status: Former Types: Cigars Quit date: 1982 Years since quittin.8 Smokeless tobacco: Former Types: Chew Quit date: 1982 Tobacco comments: Used to smoke occasional cigars and chewed regularly for about 10 years Vaping Use Vaping status: Never Used Substance Use Topics Alcohol use: Yes Alcohol/week: 1.0 standard drink of alcohol Types: 1 Shots of liquor per week Drug use: Never BP 124/72 Pulse 84 Temp 36.7 ?C (98.1 ?F) Resp 22 Wt 80.6 kg (177 lb 11.1 oz) SpO2 95% BMI 31.48 kg/m? Review of Systems Constitutional: Negative for chills, fever and malaise/fatigue. HENT: Positive for congestion. Negative for ear discharge, ear pain, sinus pain and sore throat. Eyes: Negative for blurred vision, pain, discharge and redness. Respiratory: Positive for cough and sputum production. Negative for hemoptysis, shortness of breath, wheezing and stridor. Cardiovascular: Negative for chest pain. Gastrointestinal: Negative for abdominal pain, diarrhea, nausea and vomiting. Musculoskeletal: Negative for myalgias. Skin: Negative for itching and rash. Neurological: Positive for headaches. Negative for dizziness. Objective Physical Exam Constitutional: General: He is not in acute distress. Appearance: He is not diaphoretic. HENT: Head: Normocephalic. Jaw: No trismus, tenderness, swelling or pain on movement. Nose: Congestion present. Mouth/Throat: Mouth: Mucous membranes are moist. Pharynx: Oropharynx is clear. Uvula midline. No pharyngeal swelling, oropharyngeal exudate, posterior oropharyngeal erythema or uvula swelling. Eyes: Conjunctiva/sclera: Conjunctivae normal. Pupils: Pupils are equal, round, and reactive to light. Cardiovascular: Rate and Rhythm: Normal rate and regular rhythm. Heart sounds: Normal heart sounds. Pulmonary: Effort: Pulmonary effort is normal. No tachypnea, accessory muscle usage or respiratory distress. Breath sounds: No stridor. Rhonchi present. No wheezing or rales. Abdominal: General: There is no distension. Palpations: Abdomen is soft. Tenderness: There is no abdominal tenderness. There is no guarding or rebound. Musculoskeletal: Cervical back: Normal range of motion and neck supple. No edema, erythema, rigidity or tenderness. No pain with movement. Normal range of motion. Lymphadenopathy: Cervical: No cervical adenopathy. Skin: General: Skin is warm and dry. Neurological: Mental Status: He is alert and oriented to person, place, and time. ASSESSMENT/PLAN: 1. Acute cough - ICD9: 786.2, ICD10: R05.1 (primary diagnosis) - XR CHEST 2V FRONTAL/LAT 2. Community acquired pneumonia, unspecified laterality - ICD9: 486, ICD10: J18.9 IMPRESSION: Interval pulmonary infiltrates versus atelectasis in the right middle lobe. Remote granulomatous disease. Nontoxic-appearing. Hemodynamically stable. No evidence of dehydration. Diagnosed with right lobe infiltrates. Double cover due to comorbidities. Labs GFR 49 creatinine clearance 36 creatinine 1.49 January of this year. Will follow-up with PCP as scheduled. Red flags ER evaluation discussed. Patient was educated on supportive therapies. Patient was instructed to immediately proceed to emergency room for any new, worsening, or symptoms lasting longer than anticipated. The patient's clinical presentation is otherwise unremarkable at this time. Ba (more content not included)... [facility] 05-02-2024 History of Presen t illness Narrative Subjective HPI Nontoxic-appearing male presents urgent care chief plaint cough. Duration of symptoms 1 week. Associated symptoms productive cough and fatigue. OTC medications none. Denies any known sick contacts. No fevers. Denies chest pain shortness of breath or hemoptysis. Past medical history prescription medications allergies reviewed. .Patient presents with: Chest Congestion: cough, headache x over 1 week PAST MEDICAL HISTORY Diagnosis Date BPH (benign prostatic hyperplasia) ERECTILE DYSFUNCTION 07/30/2008 HYPERLIPIDEMIA NEC/NOS 07/30/2008 Obesity Personal history of colonic polyps PAST SURGICAL HISTORY Procedure Laterality Date COLONOSCOPY & POLYPECTOMY 08/15/2004 Two tubular adenomas COLONOSCOPY FLX DX W/COLLJ SPEC WHEN PFRMD 11/19/11 repeat 10 years PAST SURGICAL HISTORY OF 08/27/2004 Bilateral inguinal hernia repair ALLERGIES Tetanus Vaccines And Toxoid MEDICATIONS FISH OIL ORAL CAP unsure of dosage MULTIVITAMIN ORAL TAB Take one(1) tablet daily. VITAMIN E 400 UNIT ORAL TAB Take one(1) tablet daily. FAMILY HISTORY Problem Relation Age of Onset No Known Problems Mother No Known Problems Father Hypertension Brother Diabetes Brother other (OAT cell cancer [Other]) Brother Cancer Brother 2 other brothers had metastatic cancer--?primary Colon Cancer Paternal Uncle Social History Tobacco Use Smoking status: Former Types: Cigars Quit date: 1982 Years since quittin.8 Smokeless tobacco: Former Types: Chew Quit date: 1982 Tobacco comments: Used to smoke occasional cigars and chewed regularly for about 10 years Vaping Use Vaping status: Never Used Substance Use Topics Alcohol use: Yes Alcohol/week: 1.0 standard drink of alcohol Types: 1 Shots of liquor per week Drug use: Never BP 124/72 Pulse 84 Temp 36.7 C (98.1 F) Resp 22 Wt 80.6 kg (177 lb 11.1 oz) SpO2 95% BMI 31.48 kg/m Review of Systems Constitutional: Negative for chills, fever and malaise/fatigue. HENT: Positive for congestion. Negative for ear discharge, ear pain, sinus pain and sore throat. Eyes: Negative for blurred vision, pain, discharge and redness. Respiratory: Positive for cough and sputum production. Negative for hemoptysis, shortness of breath, wheezing and stridor. Cardiovascular: Negative for chest pain. Gastrointestinal: Negative for abdominal pain, diarrhea, nausea and vomiting. Musculoskeletal: Negative for myalgias. Skin: Negative for itching and rash. Neurological: Positive for headaches. Negative for dizziness. Objective Physical Exam Constitutional: General: He is not in acute distress. Appearance: He is not diaphoretic. HENT: Head: Normocephalic. Jaw: No trismus, tenderness, swelling or pain on movement. Nose: Congestion present. Mouth/Throat: Mouth: Mucous membranes are moist. Pharynx: Oropharynx is clear. Uvula midline. No pharyngeal swelling, oropharyngeal exudate, posterior oropharyngeal erythema or uvula swelling. Eyes: Conjunctiva/sclera: Conjunctivae normal. Pupils: Pupils are equal, round, and reactive to light. Cardiovascular: Rate and Rhythm: Normal rate and regular rhythm. Heart sounds: Normal heart sounds. Pulmonary: Effort: Pulmonary effort is normal. No tachypnea, accessory muscle usage or respiratory distress. Breath sounds: No stridor. Rhonchi present. No wheezing or rales. Abdominal: General: There is no distension. Palpations: Abdomen is soft. Tenderness: There is no abdominal tenderness. There is no guarding or rebound. Musculoskeletal: Cervical back: Normal range of motion and neck supple. No edema, erythema, rigidity or tenderness. No pain with movement. Normal range of motion. Lymphadenopathy: Cervical: No cervical adenopathy. Skin: General: Skin is warm and dry. Neurological: Mental Status: He is alert and oriented to person, place, and time. ASSESSMENT/PLAN: 1. Acute cough - ICD9: 786.2, ICD10: R05.1 (primary diagnosis) - XR CHEST 2V FRONTAL/LAT 2. Community acquired pneumonia, unspecified laterality - ICD9: 486, ICD10: J18.9 IMPRESSION: Interval pulmonary infiltrates versus atelectasis in the right middle lobe. Remote granulomatous disease. Nontoxic-appearing. Hemodynamically stable. No evidence of dehydration. Diagnosed with right lobe infiltrates. Double cover due to comorbidities. Labs GFR 49 creatinine clearance 36 creatinine 1.49 January of this year. Will follow-up with PCP as scheduled. Red flags ER evaluation discussed. Patient was educated on supportive therapies. Patient was instructed to immediately proceed to emergency room for any new, worsening, or symptoms lasting longer than anticipated. The patient's clinical presentation is otherwise unremarkable at this time. Based on exam and clinical finding, the patient is stable for discharge. Plan of care was discussed with patient. Patient verbalizes understanding and agrees to plan of care. This note was generated using [employer] software. It may contain errors in wording, punctuation, or spelling. Ady Hunter APRN.SLUBBER TENDER documented in this encounter [facility] 02-14-2024 Telephone encounter Note Left a message for pt to call the office and ask to speak to a nurse. Letter sent. Mey Lewis LPN [facility] 02-14-2024 Miscellaneous Notes Left a message for pt to call the office and ask to speak to a nurse. Letter sent. Mey Lewis LPN Left a message for pt to call the office and ask to speak to a nurse. Mey Lewis LPN Left a message for pt to call the office and ask to speak to a nurse. Mey Lewis LPN ----- Message from Yazmin Carver MD sent at 02/10/2024 7:08 AM EDT ----- Normal labs. No change in regimen. documented in this encounter [facility] 02-11-2024 Telephone encounter Note Left a message for pt to call the office and ask to speak to a nurse. Mey Lewis LPN [facility] 02-10-2024 Telephone encounter Note Left a message for pt to call the office and ask to speak to a nurse. Mey Lewis LPN [facility] 02-10-2024 Telephone encounter Note ----- Message from Yazmin Carver MD sent at 02/10/2024 7:08 AM EDT ----- Normal labs. No change in regimen. [facility] 02-09-2024 Note HNO ID: [id number] Author: YAZMIN CARVER MD Service: ? Author Type: Physician Type: Progress Notes Filed: 02/09/2024 09:12 Note Text: Chief Complaint Patient presents with: Establish Care: establish care HPI Sam Chu is a 84 year old male who presents here today for establish care visit. Previous PCP: Dr. Chauhan. No falls in the last 6 months. Patient notes that he had 1 episode of watery diarrhea this morning without fever/chills, nausea, vomiting, hematochezia, melena. Has not taken anything for this. Tolerating PO diet. Notes that he was in the [facility] about 2-3 weeks ago for diarrhea with nausea and vomiting causing dehydration. Patient active with golfing and bowling. Eats mostly healthy diet. about 2 years ago. Still feels down at times because of this, but denies depression. Refusing Prevnar 20 vaccine today. Past medical history, appointments, medications, allergies reviewed. Previous Medical History PAST MEDICAL HISTORY Diagnosis Date BPH (benign prostatic hyperplasia) ERECTILE DYSFUNCTION 07/30/2008 HYPERLIPIDEMIA NEC/NOS 07/30/2008 Obesity Personal history of colonic polyps Previous Surgical History PAST SURGICAL HISTORY Procedure Laterality Date COLONOSCOPY AND POLYPECTOMY 08/15/2004 Two tubular adenomas COLONOSCOPY FLX DX W/COLLJ SPEC WHEN PFRMD 11/19/11 repeat 10 years PAST SURGICAL HISTORY OF 08/27/2004 Bilateral inguinal hernia repair Family History FAMILY HISTORY Problem Relation Age of Onset Colon Cancer Paternal Uncle Hypertension Brother Diabetes Brother None Mother None Father other (OAT cell cancer [Other]) Brother Cancer Brother 2 other brothers had metastatic cancer--?primary Patient Allergies ALLERGIES Allergen Reactions Tetanus Vaccines An* skin breakout Current Medications Current Outpatient Medications on File Prior to Visit Medication Sig FISH OIL ORAL CAP unsure of dosage MULTIVITAMIN ORAL TAB Take one(1) tablet daily. VITAMIN E 400 UNIT ORAL TAB Take one(1) tablet daily. cyclobenzaprine (FLEXERIL) 10 mg tablet Take 1 tablet by mouth three times a day as needed for muscle spasm for up to 12 doses. loratadine (CLARITIN) 10 mg tablet Take 1 tablet by mouth once daily. (Patient not taking: Reported on 07/03/2023) guaiFENesin (MUCINEX) 600 mg 12 hr tablet Take 2 tablets by mouth twice daily. (Patient not taking: Reported on 07/03/2023) potassium chloride (K-TAB) 10 mEq tablet Take 2 tablets by mouth daily with breakfast. magnesium chloride EC (SLOW-MAG, MAG 64) 64 mg CR tablet Take 8 tablets by mouth once daily. ASPIRIN 81 MG ORAL TAB Take one (1) tablet daily . No current facility-administered medications on file prior to visit. Social History Social History Tobacco Use Smoking status: Never Smokeless tobacco: Never Review of Symptoms REVIEW OF SYSTEMS GENERAL: No weight loss, malaise or fevers HEENT: Negative for frequent or significant headaches, No changes in hearing or vision, no nose bleeds or other nasal problems NECK: Negative for lumps, goiter, pain and significant neck swelling RESPIRATORY: Negative for cough, hemoptysis, wheezing, COPD, dyspnea or shortness of breath CARDIOVASCULAR: Negative for chest pain, leg swelling, hypertension, CHF or palpitations GI: See HPI : No history of dysuria, frequency or incontinence, No difficulty urinating, nocturia > 1 time per night or hematuria MUSCULOSKELETAL: Negative for joint pain or swelling, back pain or muscle pain SKIN: Negative for lesions, rash, and itching PSYCH: Negative for sleep disturbance, mood disorder and recent psychosocial stressors HEMATOLOGY/LYMPHOLOGY: Negative for prolonged bleeding, bruising easily or swollen nodes ENDOCRINE: Negative for cold or heat intolerance, polyuria, polydipsia and goiter NEURO: No history of headaches, syncope, paralysis, seizures or tremors EXAM: BP 118/56 (BP Site: Left Arm, BP Position: Sitting, BP Cuff Size: Large Adult) Pulse 72 Resp 14 Ht 160 cm (5' 3) Wt 79.4 kg (175 lb) SpO2 96% BMI 31.00 kg/m? General Appearance: Well appearing, alert, in no acute distress, well-hydrated, well nourished.. Skin: Skin color, texture, turgor normal, no suspicious rashes or lesions. Lungs: Lungs clear to auscultation. No wheezing, rhonchi, rales.. Heart: RRR without murmur, gallop, or rubs. No ectopy. Abdomen: Normal abdominal exam, Abdomen soft, non-tender. Bowel sounds normal. No masses, organomegaly. Extremities: No deformities, edema, skin discoloration, clubbing or cyanosis. Good capillary refill. Health Maintenance List Depression Screening Never done Anxiety Screening Never done RSV Vaccine(1 - 1-dose 60+ series) Never done Pneumococcal Vaccine: 65+(1 of 1 - PCV) Never done DTaP,Tdap,Td Vaccine(1 - Tdap) due on 07/14/2012 Shingrix Vaccine(2 of 2) due on 06/26/2020 Diabetes Screening due on 01/11/2021 Covid (more content not included)... [facility] 02-09-2024 History of Presen t illness Narrative Chief Complaint Patient presents with: Establish Care: establish care HPI Sam Chu is a 84 year old male who presents here today for establish care visit. Previous PCP: Dr. Chauhan. No falls in the last 6 months. Patient notes that he had 1 episode of watery diarrhea this morning without fever/chills, nausea, vomiting, hematochezia, melena. Has not taken anything for this. Tolerating PO diet. Notes that he was in the [facility] about 2-3 weeks ago for diarrhea with nausea and vomiting causing dehydration. Patient active with golfing and bowling. Eats mostly healthy diet. about 2 years ago. Still feels down at times because of this, but denies depression. Refusing Prevnar 20 vaccine today. Past medical history, appointments, medications, allergies reviewed. Previous Medical History PAST MEDICAL HISTORY Diagnosis Date BPH (benign prostatic hyperplasia) ERECTILE DYSFUNCTION 07/30/2008 HYPERLIPIDEMIA NEC/NOS 07/30/2008 Obesity Personal history of colonic polyps Previous Surgical History PAST SURGICAL HISTORY Procedure Laterality Date COLONOSCOPY & POLYPECTOMY 08/15/2004 Two tubular adenomas COLONOSCOPY FLX DX W/COLLJ SPEC WHEN PFRMD 11/19/11 repeat 10 years PAST SURGICAL HISTORY OF 08/27/2004 Bilateral inguinal hernia repair Family History FAMILY HISTORY Problem Relation Age of Onset Colon Cancer Paternal Uncle Hypertension Brother Diabetes Brother None Mother None Father other (OAT cell cancer [Other]) Brother Cancer Brother 2 other brothers had metastatic cancer--?primary Patient Allergies ALLERGIES Allergen Reactions Tetanus Vaccines An* skin breakout Current Medications Current Outpatient Medications on File Prior to Visit Medication Sig FISH OIL ORAL CAP unsure of dosage MULTIVITAMIN ORAL TAB Take one(1) tablet daily. VITAMIN E 400 UNIT ORAL TAB Take one(1) tablet daily. cyclobenzaprine (FLEXERIL) 10 mg tablet Take 1 tablet by mouth three times a day as needed for muscle spasm for up to 12 doses. loratadine (CLARITIN) 10 mg tablet Take 1 tablet by mouth once daily. (Patient not taking: Reported on 07/03/2023) guaiFENesin (MUCINEX) 600 mg 12 hr tablet Take 2 tablets by mouth twice daily. (Patient not taking: Reported on 07/03/2023) potassium chloride (K-TAB) 10 mEq tablet Take 2 tablets by mouth daily with breakfast. magnesium chloride EC (SLOW-MAG, MAG 64) 64 mg CR tablet Take 8 tablets by mouth once daily. ASPIRIN 81 MG ORAL TAB Take one (1) tablet daily . No current facility-administered medications on file prior to visit. Social History Social History Tobacco Use Smoking status: Never Smokeless tobacco: Never Review of Symptoms REVIEW OF SYSTEMS GENERAL: No weight loss, malaise or fevers HEENT: Negative for frequent or significant headaches, No changes in hearing or vision, no nose bleeds or other nasal problems NECK: Negative for lumps, goiter, pain and significant neck swelling RESPIRATORY: Negative for cough, hemoptysis, wheezing, COPD, dyspnea or shortness of breath CARDIOVASCULAR: Negative for chest pain, leg swelling, hypertension, CHF or palpitations GI: See HPI : No history of dysuria, frequency or incontinence, No difficulty urinating, nocturia > 1 time per night or hematuria MUSCULOSKELETAL: Negative for joint pain or swelling, back pain or muscle pain SKIN: Negative for lesions, rash, and itching PSYCH: Negative for sleep disturbance, mood disorder and recent psychosocial stressors HEMATOLOGY/LYMPHOLOGY: Negative for prolonged bleeding, bruising easily or swollen nodes ENDOCRINE: Negative for cold or heat intolerance, polyuria, polydipsia and goiter NEURO: No history of headaches, syncope, paralysis, seizures or tremors EXAM: BP 118/56 (BP Site: Left Arm, BP Position: Sitting, BP Cuff Size: Large Adult) Pulse 72 Resp 14 Ht 160 cm (5' 3) Wt 79.4 kg (175 lb) SpO2 96% BMI 31.00 kg/m General Appearance: Well appearing, alert, in no acute distress, well-hydrated, well nourished.. Skin: Skin color, texture, turgor normal, no suspicious rashes or lesions. Lungs: Lungs clear to auscultation. No wheezing, rhonchi, rales.. Heart: RRR without murmur, gallop, or rubs. No ectopy. Abdomen: Normal abdominal exam, Abdomen soft, non-tender. Bowel sounds normal. No masses, organomegaly. Extremities: No deformities, edema, skin discoloration, clubbing or cyanosis. Good capillary refill. Health Maintenance List Depression Screening Never done Anxiety Screening Never done RSV Vaccine(1 - 1-dose 60+ series) Never done Pneumococcal Vaccine: 65+(1 of 1 - PCV) Never done DTaP,Tdap,Td Vaccine(1 - Tdap) due on 07/14/2012 Shingrix Vaccine(2 of 2) due on 06/26/2020 Diabetes Screening due on 01/11/2021 Covid-19 Vaccine(4 - 2022- season) due on 03/12/2023 Advance Directive Discussion Never done Influenza Vaccine(1) due on 03/12/2024 Colorectal Cancer Screening Discontinued ASSESSMENT/PLAN: 1. Encounter for medical examination to establish care - ICD9: V70.9, ICD10: Z00.00 (primary diagnosis) - Counseled on healthy diet and regular exercise - Discussed need for and benefit of weight loss. BMI 31.00 kg/(m^2) - Counseled on limiting alcohol intake to 2 drinks per day - Follow up for annual exam in one year - COMPLETE BLOOD COUNT AND DIFFERENTIAL - COMPREHENSIVE METABOLIC PANEL - HEMOGLOBIN A1C - LIPID PANEL, NONFASTING 2. Diarrhea, unspecified type - ICD9: 787.91, ICD10: R19.7 1 episode today with normal exam. Obtain labs as ordered and discussed pushing PO fluids, increased fiber, and imodium OTC PRN. Red flags for re-assessment reviewed with patient in detail. 3. Benign prostatic hyperplasia without lower urinary tract symptoms - ICD9: 600.00, ICD10: N40.0 Asymptomatic. Will monitor. 4. Class 1 obesity due to excess calories without serious comorbidity with body mass index (BMI) of 31.0 to 31.9 in adult - ICD9: 278.00, V85.31, ICD10: E66.09, Z68.31 Weight decreasing - Behavioral intervention 5. Screening for depression - ICD9: V79.0, ICD10: Z13.31 - DEPRESSION SCREENING 6. Encounter for screening examination for other mental health and behavioral disorders - ICD9: V79.8, ICD10: Z13.39 - ANXIETY SCREENING Yazmin Carver MD documented in this encounter [facility] 01-28-2024 History of Presen t illness Narrative This note was created using [employer]. Subjective Sam Chu is a 84 year old male. HPI Pt noticed pain in the left lower back that radiates into his posterior left leg yesterday. He denies any strain or trauma. Denies any previous episodes. Pt was seen 01/18/24 for gastritis with an unremarkable CT abd/pelvis Review of Systems Constitutional: Negative for fatigue and fever. Gastrointestinal: Negative for abdominal pain, blood in stool, nausea and vomiting. Genitourinary: Negative for difficulty urinating, dysuria and hematuria. Musculoskeletal: Positive for back pain and gait problem. Neurological: Negative for weakness and numbness. Objective BP 162/84 Pulse (!) 53 Temp 36.2 C (97.1 F) Resp 18 Wt 80.5 kg (177 lb 7.5 oz) SpO2 98% BMI 31.44 kg/m Physical Exam Vitals and nursing note reviewed. Constitutional: General: He is not in acute distress. Appearance: Normal appearance. He is not ill-appearing. HENT: Head: Normocephalic. Mouth/Throat: Mouth: Mucous membranes are moist. Eyes: Conjunctiva/sclera: Conjunctivae normal. Cardiovascular: Rate and Rhythm: Normal rate and regular rhythm. Pulmonary: Effort: Pulmonary effort is normal. Breath sounds: Normal breath sounds. Abdominal: General: There is no distension. Tenderness: There is no abdominal tenderness. There is no guarding. Musculoskeletal: Cervical back: Normal range of motion. Comments: Mild tenderness over the left lower back into the posterior left hip Skin: General: Skin is warm and dry. Neurological: General: No focal deficit present. Mental Status: He is alert. Sensory: No sensory deficit. Gait: Gait abnormal. Psychiatric: Mood and Affect: Mood normal. Behavior: Behavior normal. Assessment and Plan ASSESSMENT/PLAN: 1. Sciatic nerve pain, left - ICD9: 724.3, ICD10: M54.32 Mechanical low back pain - Prednisone burst- see orders - Muscle relaxant- see orders -I did consider Diverticulitis, hip fracture, aneurysm however as pt had an unremarkable CT abd/Pelvis with IV contrast 10 days ago combined with a normal abdominal exam I feel that the pt's symptoms seem more consistent with low back strain with sciatica. Pt given meds as noted below. He was told to monitor for bowel or bladder incontinence along with any other new or worsening concerns and either follow up with PCP or go to the nearest ER. - PREDNISONE 50 MG TABLET - CYCLOBENZAPRINE 10 MG TABLET Faustino Jaimes APRN.SLUBBER TENDER documented in this encounter [facility] 01-28-2024 Note HNO ID: [id number] Author: FAUSTINO JAIMES APRN.DANIEL Service: ? Author Type: Nurse Practitioner Type: Progress Notes Filed: 01/28/2024 14:23 Note Text: This note was created using [employer]. Subjective Sam Chu is a 84 year old male. HPI Pt noticed pain in the left lower back that radiates into his posterior left leg yesterday. He denies any strain or trauma. Denies any previous episodes. Pt was seen 01/18/24 for gastritis with an unremarkable CT abd/pelvis Review of Systems Constitutional: Negative for fatigue and fever. Gastrointestinal: Negative for abdominal pain, blood in stool, nausea and vomiting. Genitourinary: Negative for difficulty urinating, dysuria and hematuria. Musculoskeletal: Positive for back pain and gait problem. Neurological: Negative for weakness and numbness. Objective BP 162/84 Pulse (!) 53 Temp 36.2 ?C (97.1 ?F) Resp 18 Wt 80.5 kg (177 lb 7.5 oz) SpO2 98% BMI 31.44 kg/m? Physical Exam Vitals and nursing note reviewed. Constitutional: General: He is not in acute distress. Appearance: Normal appearance. He is not ill-appearing. HENT: Head: Normocephalic. Mouth/Throat: Mouth: Mucous membranes are moist. Eyes: Conjunctiva/sclera: Conjunctivae normal. Cardiovascular: Rate and Rhythm: Normal rate and regular rhythm. Pulmonary: Effort: Pulmonary effort is normal. Breath sounds: Normal breath sounds. Abdominal: General: There is no distension. Tenderness: There is no abdominal tenderness. There is no guarding. Musculoskeletal: Cervical back: Normal range of motion. Comments: Mild tenderness over the left lower back into the posterior left hip Skin: General: Skin is warm and dry. Neurological: General: No focal deficit present. Mental Status: He is alert. Sensory: No sensory deficit. Gait: Gait abnormal. Psychiatric: Mood and Affect: Mood normal. Behavior: Behavior normal. Assessment and Plan ASSESSMENT/PLAN: 1. Sciatic nerve pain, left - ICD9: 724.3, ICD10: M54.32 Mechanical low back pain - Prednisone burst- see orders - Muscle relaxant- see orders -I did consider Diverticulitis, hip fracture, aneurysm however as pt had an unremarkable CT abd/Pelvis with IV contrast 10 days ago combined with a normal abdominal exam I feel that the pt's symptoms seem more consistent with low back strain with sciatica. Pt given meds as noted below. He was told to monitor for bowel or bladder incontinence along with any other new or worsening concerns and either follow up with PCP or go to the nearest ER. - PREDNISONE 50 MG TABLET - CYCLOBENZAPRINE 10 MG TABLET Faustino Jaimes APRN.SLUBBER TENDER [facility] 10-21-2023 History of Presen t illness Narrative POPULATION HEALTH NAVIGATION OUTREACH Action/Chan Garcia [place] Discuss/Due for: Medicare Wellness Outcome: 1st attempt - Spoke to patient Patient declined scheduling Medicare Wellness Patient requested Rashmi Chauhan MD be removed from EMR Encouraged to establish care with another provider, patient declined Reason for Outreach Care Gap/HCC or Scheduling Wellness Visits Care Gaps due: Medicare Annual Wellness Visit Patient Contacted: Spoke to patient/parent/or legal guardian Patient identified by name and : Yes Care Gap/HCC/Scheduling Wellness actions taken: Patient declined: Not interested in scheduling PCP field updated Navigation Signature: Cassandra Wallace MA October 21, 2023 8:00 AM documented in this encounter [facility] 04-15-2023 History of Presen t illness Narrative Radiology Service Progress Note PATIENT NAME: Sam Chu DATE OF SERVICE: April 15, 2023 TIME: 9:55 AM PATIENT IDENTITY VERIFICATION COMPLETED USING TWO (2) IDENTIFIERS: Name and Date of confirmed by patient verbally. FALL SCREENING: Has the patient had 2 falls in the last year or 1 fall with injury or currently using an Ambulatory Assistive Device (Walker, Cane, Wheelchair, Crutches, etc.)? No PATIENT GENDER DATA: Male PATIENT RELEVANT IMPLANT DATA REVIEWED: Not Applicable RADIOLOGY DEPARTMENT: General X-ray: Exam(s) Completed: Chest X-Ray PERIPHERAL IV DATA: Not applicable SIGNED BY: RT Zac(R) April 15, 2023 9:55 AM documented in this encounter [facility] 04-15-2023 History of Presen t illness Narrative CC: Patient presents with: Headache: PAVON and nausea off and on x 1 week HPI: Sam Chu is a 83 year old male who presents to the office with complaint of head congestion and cough, nonproductive for a week. Symptoms are worsening Associated symptoms includes nasal congestion and nausea. Denies fever, vomiting , and diarrhea. Treatments tried include nothing so far. with no relief of symptoms. Sick contacts: unknown. History of asthma, frequent episodes of bronchitis, chronic bronchitis, bronchiectasis or COPD: No Smoker: No Seasonal/environmental allergies: No The ROS is otherwise negative. The patient's pmh, medications, allergies, and past visits are reviewed. PHYSICAL EXAM: BP 138/76 Pulse 64 Temp 36.1 C (97 F) (Tympanic) Resp 16 Wt 82.3 kg (181 lb 6.4 oz) SpO2 97% BMI 32.13 kg/m General appearance: alert, cooperative, pleasant, in no acute distress Head: Normocephalic Eyes: EOM's intact, conjunctiva pink and moist, no icterus, sclera white, non-injected Ears: Right ear: External ear/canal- Normal, TM - clear with good landmarks. Left ear: External ear/canal- Normal, TM - clear with good landmarks Oropharynx:moist without lesions, No erythema, exudates or tonsillar hypertrophy. Heart: Negative. RRR without obvious murmur, gallop, or rubs. No ectopy. Lungs: clear to auscultation, without rales or wheeze, good air exchange PAST MEDICAL HISTORY Diagnosis Date ERECTILE DYSFUNCTION 07/30/2008 HYPERLIPIDEMIA NEC/NOS 07/30/2008 OVERWEIGHT 07/30/2008 Personal history of colonic polyps PROSTATIC DISORDER NOS 07/30/2008 PAST SURGICAL HISTORY Procedure Laterality Date COLONOSCOPY & POLYPECTOMY 08/15/2004 Two tubular adenomas COLONOSCOPY FLX DX W/COLLJ SPEC WHEN PFRMD 11/19/11 repeat 10 years PAST SURGICAL HISTORY OF 08/27/2004 Bilateral inguinal hernia repair ALLERGIES Tetanus Vaccines And Toxoid MEDICATIONS potassium chloride (K-TAB) 10 mEq tablet Take 2 tablets by mouth daily with breakfast. magnesium chloride EC (SLOW-MAG, MAG 64) 64 mg CR tablet Take 8 tablets by mouth once daily. MULTIVITAMIN ORAL TAB Take one(1) tablet daily. VITAMIN E 400 UNIT ORAL TAB Take one(1) tablet daily. guaiFENesin (MUCINEX) 600 mg 12 hr tablet Take 2 tablets by mouth twice daily. Eutmhusvzuidgyl-Wpwuvkpco-CK (BROMFED DM) 2-30-10 mg/5 mL syrup Take 5 mL by mouth four times daily as needed (cough and cold symptoms). (Patient not taking: Reported on 11/07/2018 ) FISH OIL ORAL CAP unsure of dosage (Patient not taking: No sig reported) ASPIRIN 81 MG ORAL TAB Take one (1) tablet daily . (Patient not taking: Reported on 07/15/2021) FAMILY HISTORY Problem Relation Age of Onset Colon Cancer Paternal Uncle Hypertension Brother Diabetes Brother None Mother None Father other (OAT cell cancer [Other]) Brother Cancer Brother 2 other brothers had metastatic cancer--?primary Social History Tobacco Use Smoking status: Never Smokeless tobacco: Never ASSESSMENT/PLAN: 1. Acute cough - ICD9: 786.2, ICD10: R05.1 (primary diagnosis) - XR CHEST 2V FRONTAL/LAT * * * * Physician Interpretation * * * * EXAMINATION: CHEST RADIOGRAPH (2 VIEW FRONTAL & LATERAL) CLINICAL HISTORY: Acute cough MQ: [id number] EXAM DATE/TIME: 04/15/2023 10:01 AM COMPARISON: 08/16/2014 RESULT: Lines, tubes, and devices: None. Lungs and pleura: No consolidation. No lung mass. No pleural effusion. No pneumothorax. Calcified granulomata Cardiomediastinal silhouette: Normal cardiomediastinal silhouette. Bones and soft tissues: Partially visualized right shoulder prosthesis. Mild wedging of several mid thoracic vertebrae. IMPRESSION IMPRESSION: No developing abnormality or acute process Act Tutor: DIANELYS Transcribe Date/Time: Apr 15 2023 10:04A Dictated by : ISAAC ENCISO MD 2. Rhinosinusitis - ICD9: 473.9, ICD10: J32.9 - AMOXICILLIN 875 MG-POTASSIUM CLAVULANATE 125 MG TABLET - LORATADINE 10 MG TABLET Prescription instructions reviewed with patient as applicable. Potential red flag symptoms discussed with the patient. Reviewed appropriate action plan to take if red flag symptoms occur. Patient agreeable to treatment plan. Shakira Sol APRN.SLUBBER TENDER documented in this encounter [facility] 05-26-2022 History of Presen t illness Narrative Subjective The history is provided by the patient. No russian language professor was used. PAULETTE Chu is a 82 year old male who presents today for CC of headache, sinus drainage and congestion for over a week. He had the flu last week. He denies any significant PMH BP 124/80 Pulse 90 Temp 36 C (96.8 F) Resp 16 Wt 83.9 kg (185 lb) SpO2 97% BMI 32.77 kg/m Social History Tobacco Use Smoking status: Never Smokeless tobacco: Never PAST MEDICAL HISTORY Diagnosis Date ERECTILE DYSFUNCTION 07/30/2008 HYPERLIPIDEMIA NEC/NOS 07/30/2008 OVERWEIGHT 07/30/2008 Personal history of colonic polyps PROSTATIC DISORDER NOS 07/30/2008 I have confirmed and edited as necessary, the [facility] Review of Systems Constitutional: Negative for chills and fever. HENT: Positive for congestion and sinus pain. Negative for ear pain and sore throat. Respiratory: Negative for cough, sputum production, shortness of breath and wheezing. Cardiovascular: Negative for chest pain. Gastrointestinal: Negative for abdominal pain, diarrhea, nausea and vomiting. Musculoskeletal: Negative for myalgias. Neurological: Positive for headaches. Objective Physical Exam Vitals and nursing note reviewed. Constitutional: Appearance: He is not toxic-appearing. HENT: Head: Normocephalic and atraumatic. Right Ear: Tympanic membrane, ear canal and external ear normal. Left Ear: Tympanic membrane, ear canal and external ear normal. Nose: Mucosal edema, congestion and rhinorrhea present. Right Sinus: Maxillary sinus tenderness and frontal sinus tenderness present. Left Sinus: Maxillary sinus tenderness and frontal sinus tenderness present. Mouth/Throat: Pharynx: Uvula midline. No oropharyngeal exudate or posterior oropharyngeal erythema. Tonsils: No tonsillar abscesses. Cardiovascular: Rate and Rhythm: Normal rate and regular rhythm. Heart sounds: Normal heart sounds. Pulmonary: Effort: Pulmonary effort is normal. Breath sounds: Normal breath sounds. No decreased breath sounds, wheezing, rhonchi or rales. Lymphadenopathy: Head: Right side of head: No submental, submandibular, tonsillar or preauricular adenopathy. Left side of head: No submental, submandibular, tonsillar or preauricular adenopathy. Cervical: No cervical adenopathy. Right cervical: No superficial cervical adenopathy. Left cervical: No superficial cervical adenopathy. Skin: General: Skin is warm and dry. Neurological: Mental Status: He is alert and oriented to person, place, and time. Psychiatric: Mood and Affect: Affect normal. ASSESSMENT/PLAN: 1. Acute non-recurrent pansinusitis - ICD9: 461.8, ICD10: J01.40 - Will begin treatment with Augmentin 875 mg PO BID for 5 days - Supportive care with plenty of fluids, rest, and analgesia prn. - Follow up in one week if symptoms persist or worsen. Diagnosis and treatment plan were discussed and questions were answered to the patient's satisfaction. Pt acknowledged understanding of concepts and follow up plan. Specific signs and symptoms that would indicate the need for higher level of care were discussed in detail warranting prompt ER evaluation. Simin Anguiano APRN.DANIEL documented in this encounter [facility] 05-26-2022 Instructions Simin Anguiano APRN.DANIEL - 05/26/2022 12:36 PM EST -Increase fluid intake. --Rest as much as possible. - Nasal saline spray, beau pot, flonase Take the entire course of antibiotics as prescribed. DO NOT stop taking it early, even if you are feeling better. -Monitor for signs of worsening infection: increased temperature, pain in face, ear pain or headaches or increase in nasal congestion/mucous that is not improving. -Educated patient on side effects of medication. Probiotic: Marcn, Xavier, Align. Do not take with antibiotic, make sure 2 hours between. -Mucinex (generic is fine) Guaifenesin 1200 mg twice daily to help with cough and to thin out mucus * Seek medical care immediately, call 911, go to ER if you have chest pain, difficulty breathing, shortness of breath, inability to swallow. documented in this encounter [facility] 02-02-2022 History of Presen t illness Narrative Patient presents with: Acute Visit: red swollen spot on left arm, it itches since this morning HPI: Rash: Location: Left forearm Duration: Woke with it this morning with the red spot Pruritis: Yes Pain: No Change: Maybe a little bigger Bleeding/ulceration/blister/pust ule: Redness and swelling Contacts with rash: No Exposure: Outdoor exposure: Mowed today. Treatment: cream MEDICATIONS: potassium chloride (KLOR-CON 10) 10 mEq tablet Take 2 tablets by mouth daily with breakfast. magnesium chloride EC (SLOW-MAG, MAG 64) 64 mg CR tablet Take 8 tablets by mouth once daily. MULTIVITAMIN ORAL TAB Take one(1) tablet daily. VITAMIN E 400 UNIT ORAL TAB Take one(1) tablet daily. Pqercjkdnpfpwwg-Fgtlthlyy-DA (BROMFED DM) 2-30-10 mg/5 mL syrup Take 5 mL by mouth four times daily as needed (cough and cold symptoms). FISH OIL ORAL CAP unsure of dosage ASPIRIN 81 MG ORAL TAB Take one (1) tablet daily . ALLERGIES: ALLERGIES Allergen Reactions Tetanus Vaccines An* skin breakout VITALS: BP 122/80 Pulse (!) 55 Temp 36.1 C (97 F) Resp 21 Wt 81.9 kg (180 lb 9.6 oz) SpO2 98% BMI 31.99 kg/m PHYSICAL EXAM: GEN: pleasant, no acute distress, alert SKIN: 6cm bumpy slightly indurated area on the left dorsal forearm. The center 1cm is slightly more raised and indurated. No tenderness with palpation. ASSESSMENT/PLAN: 1. Sting, insect, accidental or unintentional, initial encounter - ICD9: 989.5, E905.5, ICD10: T63.481A Probably occult arthropod envenomation. Treat with antihistamine and cold compress. - TRIAMCINOLONE ACETONIDE 0.1 % TOPICAL CREAM Follow up with increasing redness, pain, swelling, purulent drainage, ulceration, or fever/malaise. Rogelio Rose MD documented in this encounter [facility] Evaluation note Diagnosis Sting, insect, accidental or unintentional, initial encounter- Primary [facility] Diagnosis Acute non-recurrent pansinusitis- Primary [facility] Diagnosis Acute cough- Primary Rhinosinusitis Unspecified sinusitis (chronic) [facility] Diagnosis Sciatic nerve pain, left- Primary [facility] Diagnosis Encounter for medical examination to establish care- Primary Diarrhea, unspecified type Benign prostatic hyperplasia without lower urinary tract symptoms Class 1 obesity due to excess calories without serious comorbidity with body mass index (BMI) of 31.0 to 31.9 in adult Screening for depression Encounter for screening examination for other mental health and behavioral disorders [facility] Diagnosis Acute cough [facility] Diagnosis Acute cough- Primary Community acquired pneumonia, unspecified laterality Acute cough [facility] Diagnosis Acute cough [facility] Diagnosis Bacterial pneumonia- Primary Bacterial pneumonia, unspecified Wheezing [facility] Diagnosis URI with cough and congestion- Primary documented in this encounter [facility] Summary Purpose Family History No Family History Records FoundNo Family History Records Found Advance Directives No Advanced Directives Records FoundNo Advanced Directives Records Found Additional Source Comments Source Comments (unrecognize d section and content) In the event this informatio n is protected by the Federal Confidentiality of Alcohol and Drug Abuse Patient Records regulations: The Federal rules restrict any use of the information to criminally investigate or prosecute any alcohol or drug abuse patient.[facility] the event this information is protected by the Federal Confidentiality of Alcohol and Drug Abuse Patient Records regulations: The Federal rules restrict any use of the information to criminally investigate or prosecute any alcohol or drug abuse patient.[facility] the event this information is protected by the Federal Confidentiality of Alcohol and Drug Abuse Patient Records regulations: The Federal rules restrict any use of the information to criminally investigate or prosecute any alcohol or drug abuse patient.[facility] the event this information is protected by the Federal Confidentiality of Alcohol and Drug Abuse Patient Records regulations: The Federal rules restrict any use of the information to criminally investigate or prosecute any alcohol or drug abuse patient.[facility] the event this information is protected by the Federal Confidentiality of Alcohol and Drug Abuse Patient Records regulations: The Federal rules restrict any use of the information to criminally investigate or prosecute any alcohol or drug abuse patient.[facility] the event this information is protected by the Federal Confidentiality of Alcohol and Drug Abuse Patient Records regulations: The Federal rules restrict any use of the information to criminally investigate or prosecute any alcohol or drug abuse patient.[facility] the event this information is protected by the Federal Confidentiality of Alcohol and Drug Abuse Patient Records regulations: The Federal rules restrict any use of the information to criminally investigate or prosecute any alcohol or drug abuse patient.[facility] the event this information is protected by the Federal Confidentiality of Alcohol and Drug Abuse Patient Records regulations: The Federal rules restrict any use of the information to criminally investigate or prosecute any alcohol or drug abuse patient.[facility] the event this information is protected by the Federal Confidentiality of Alcohol and Drug Abuse Patient Records regulations: The Federal rules restrict any use of the information to criminally investigate or prosecute any alcohol or drug abuse patient.[facility] the event this information is protected by the Federal Confidentiality of Alcohol and Drug Abuse Patient Records regulations: The Federal rules restrict any use of the information to criminally investigate or prosecute any alcohol or drug abuse patient.[facility] the event this information is protected by the Federal Confidentiality of Alcohol and Drug Abuse Patient Records regulations: The Federal rules restrict any use of the information to criminally investigate or prosecute any alcohol or drug abuse patient.[facility] the event this information is protected by the Federal Confidentiality of Alcohol and Drug Abuse Patient Records regulations: The Federal rules restrict any use of the information to criminally investigate or prosecute any alcohol or drug abuse patient.[facility] the event this information is protected by the Federal Confidentiality of Alcohol and Drug Abuse Patient Records regulations: The Federal rules restrict any use of the information to criminally investigate or prosecute any alcohol or drug abuse patient.[facility] Reason for Visit (unrecogniz ed section and content) Reason Comments Acute Visit red swollen spot on left arm, it itches since this morning Reason Comments Headache x 1 week Reason Comments Headache PAVON and nausea off an d on x 1 week Reason Onset Date Comments Population Health Navigation Outreach 10/21/2023 [employer],Luis Giles Reason Comments Low Back Pain L sided low back luis n radiating through hip and down L leg x today Reason Comments Establish Care establish care Reason Comments Results Reason Comments Chest Congestion cough, headache x ov er 1 week Reason Comments Follow Up EC follow 05/02/24- PNE dx Reason Comments Cough head congestion, abdirahman inage and headache x 2-3 days Reason Onset Date Comments Population Health Navigation Outreach 11/09/2024 Zero [facility] List - [place] [facility] Care Teams (unrecognized sec tion and content) Account Administrator Relationship Specialty Start Date End Date Rashmi Chauhan MD [address] [place], [place] [id number] PCP - General Internal Medicine 10/27/10 Account Administrator Relationship Specialty Start Date End Date Rashmi Chauhan MD [address] [place], [place] [id number] PCP - General Internal Medicine 10/27/10 Account Administrator Relationship Specialty Start Date End Date Rashmi Chauhan MD [address] [place] [address] PCP - General Internal Medicine 10/27/10 Account Administrator Relationship Specialty Start Date End Date Rashmi Chauhan MD [address] [place] [place] [address] PCP - General Internal Medicine 01/28/24 Account Administrator Relationship Specialty Start Date End Date Yazmin Carver MD [address] [place] [address] PCP - General Family Medicine 02/09/24 Account Administrator Relationship Specialty Start Date End Date Yazmin Carver MD [address] [place] [address] PCP - General Family Medicine 02/09/24 Account Administrator Relationship Specialty Start Date End Date Rashmi Chauhan MD [address] [place] [address] PCP - General Internal Medicine 10/27/10 10/20/23 Account Administrator Relationship Specialty Start Date End Date Yazmin Carver MD [address] [place] [address] PCP - General Family Medicine 02/09/24 Account Administrator Relationship Specialty Start Date End Date Yazmin Carver MD [address] [place] [address] PCP - General Family Medicine 02/09/24 Account Administrator Relationship Specialty Start Date End Date Yazmin Carver MD [address] [place] [address] PCP - General Family Medicine 02/09/24 Amrik Mcclain APRN.SLUBBER TENDER [address] [place], [place] [address] [facility] 06/17/24 Dulce Kate APRN.SLUBBER TENDER [address] [place], [place] [phone] [facility] 10/02/24 Account Administrator Relationship Specialty Start Date End Date Yazmin Carver MD [address] [place], [place] [address] PCP - General Family Medicine 02/09/24 PodlogAmrik ryan APRN.SLUBBER TENDER [address] [place], [place] [id number] [facility] 06/17/24 Dulce Kate APRN.SLUBBER TENDER [address] [place], [place] [id number] [facility] 10/02/24 (unrecognized sect ion and content) No Status Records FoundNo Status Records Found INFORMATION SOURCE (unrecogn ized section and content) DATE CREATED AUTHOR 02/23/2024 [facility] DATE CREATED AUTHOR 'S THAOIZ ATION 11/14/2024 [facility] FOR RECORDS PERTAINING TO PATIENTS WHO ARE OR HAVE BEEN ENROLLED IN A CHEMICAL DEPENDENCY/SUBSTANCEABUSE PROGRAM, SOME INFORMATION MAY BE OMITTED. This clinical summary was aggregated from multiple sources. Caution should be exercised in using it in the provision of clinical care. This summary normalizes information from multiple sources, and as a consequence, information in this document may materially change the coding, format and clinical context of patient data. In addition, data may be omitted in some cases. CLINICAL DECISIONS SHOULD BE BASED ON THE PRIMARY CLINICAL RECORDS. [employer] provides no warranty or guarantee of the accuracy or completeness of information in this document.
[2024-12-31] MEDS: Diphth,Pertuss(Acell),Tet Vac 0.5 ML Vial IM (22:02)
[2024-12-31 22:04] LABS: Prothrombin Time (Protime)PT. 13.8 SECONDS (11.7-14.9)
[2024-12-31 22:05] LABS: Partial Thromboplast Time 25.3 Seconds (24.1-36.2)
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
[2024-12-31 22:20] LABS: Anion Gap 10 (5-15); BUN 16 mg/dL (4-19); BUN/Creat Ratio 17.1 RATIO (10-20); Calcium,Total 9.1 mg/dL (7.6-11.0); Carbon Dioxide 25.6 mmol/L (21.0-32.0); Chloride 106 mmol/L (98-108); Creatinine, Serum 0.94 mg/dL (0.70-1.20); EST Glomerular Filtration Rate 81 (>60); Estimated Creatinine Clearance 61.41 ml/min (50-250); Glucose 108 mg/dL (70-99); Sodium Level 141 mmol/L (133-145)
--- NOTE | 2024-12-31 22:30 | RAD_ITS ---
PROCEDURE: FOREARM 2 VIEWS 12/31/2024 REASON FOR EXAM: INJURY TECHNIQUE: FOREARM 2 VIEWS COMPARISON: None FINDINGS: No acute fracture or dislocations. No large joint effusion. No acute soft tissue abnormalities. Peripheral IV within the antecubital fossa. RAD/Forearm 2 Views IMPRESSION: No acute fracture or dislocation. Mild diffuse soft tissue edema. Reading Location: [id number]
--- NOTE | 2024-12-31 22:30 | RAD_ITS ---
PROCEDURE: WRIST MIN 3 VIEWS 12/31/2024 REASON FOR EXAM: INJURY TECHNIQUE: WRIST MIN 3 VIEWS COMPARISON: None RAD/Wrist min 3 Views IMPRESSION: No acute fracture or dislocations. Diffuse osteopenia. Moderate degenerative changes of the intercarpal and radiocarpal joint spaces and 1st CMC joint. Mild diffuse soft tissue edema. No radiographic for eign body. Reading Location: [facility]
--- NOTE | 2024-12-31 22:30 | RAD_ITS ---
PROCEDURE: ELBOW MIN 3 VIEWS 12/31/2024 REASON FOR EXAM: INJURY TECHNIQUE: ELBOW MIN 3 VIEWS COMPARISON: None RAD/Elbow min 3 Views IMPRESSION: No acute fracture or dislocations. Mild degenerative changes of the elbow. No large joint effusion. No acute soft tissue abnormalities. No radiographic foreign body. Reading Location: [id number]
[2024-12-31 23:22] VITALS: BP 117/77; PULSE 68; RESP 16; O2SAT 98
[2025-01-01 01:00] VITALS: BP 117/74; PULSE 70; RESP 16; TEMP 36.7; O2SAT 100
== END 2025-01-01 01:01 | disposition home or self-care (01) ==
PROVIDERS: Emergency Provider Emergency Medicine; PCP Family Medicine; Visit Provider Emergency Medicine
DX: S09.90XA Unspecified injury of head, initial encounter (principal); Z87.891 Personal history of nicotine dependence; S50.811A Abrasion of right forearm, initial encounter; S80.212A Abrasion, left knee, initial encounter; S29.009A Unspecified injury of muscle and tendon of unspecified wall of thorax, initial encounter; S60.212A Contusion of left wrist, initial encounter; S80.211A Abrasion, right knee, initial encounter; Z23 Encounter for immunization; S40.812A Abrasion of left upper arm, initial encounter; V86.05XA Driver of 3- or 4- wheeled all-terrain vehicle (ATV) injured in traffic accident, initial encounter
CPT/HCPCS: 70450; 71260; 72125; 73080; 73090; 73110; 74177; 80048; 85025; 85610; 85730; 90715; 99284; Q9967; A4216

== ENCOUNTER 2025-03-17 19:16 | Observation (INO) | payer MEDICARE, SELFPAY ==
[2025-03-17] VITALS (7 sets, daily range): BP systolic 119–150; BP diastolic 66–119; PULSE 68–75; RESP 16–20; TEMP 36.5–37.7; O2SAT 98–100; BMI 31.8
--- NOTE | 2025-03-17 19:48 | CT_ITS ---
PROCEDURE: BRAIN/HEAD WITHOUT CONTRAST 03/17/2025 REASON FOR EXAM: CONFUSION TECHNIQUE: Procedure Code: CTBR Modality: CT Procedure: BRAIN/HEAD WITHOUT CONTRAST Coronal and Sagittal reconstruction series were provided. One or more dose reduction techniques were used (e.g., Automated exposure control, adjustment of the mA and/or kV according to patient size, use of iterative reconstruction technique. COMPARISON: CT head 12/31/2024 FINDINGS: There is no extra-axial or intra-axial intracranial hemorrhage. No mass effect or midline shift is seen. Generalized intracranial volume loss and findings compatible with chronic microvascular white matter ischemia. There is normal merritt-white matter differentiation. The posterior fossa is grossly unremarkable. The skull is unremarkable. Visualized paranasal sinuses are clear. The mastoid air cells show normal translucency. CT/Brain/Head without Contrast IMPRESSION: 1. No intracranial hemorrhage. No mass effect or midline shift. 2. Chronic involutional and ischemic gliotic white matter changes. CT is insensitive for early evaluation of acute stroke. If there is clinical co ncern for acute ischemia, an MRI may be considered. Reading [facility]
--- NOTE | 2025-03-17 19:49 | EKG12_ITS ---
Test Reason : DYSRHYTHMIA Blood Pressure : */* mmHG Vent. Rate : 72 BPM Atrial Rate : 72 BPM P-R Int : 168 ms QRS Dur : 114 ms QT Int : 426 ms P-R-T Axes : 12 53 33 degrees QTcB Int : 466 ms Sinus rhythm with Premature atrial complexes Incomplete right bundle branch block Borderline ECG Confirmed by Edi Sanches ([id number]), continuity editor DIAN CRESPO ([id number]) on 03/20/2025 5:51:45 AM Referred By: Confirmed By: Edi Sanches
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
[2025-03-17 20:06] LABS: Hematocrit 39.2 % (40-54); Hemoglobin 13.2 g/dL (13.0-16.5); Immature Granulocytes Count 0.020 X10^3/uL (0.0-0.0); Mean Corp Hgb Conc 33.7 g/dL (32-36); Mean Corpuscular Volume 96.3 fL (80-94); Mean Platelet Vol. 9.2 fl (6.2-12.0); NRBC Flagged by Analyzer 0 % (0-5); Platelet Count 151 K/mm3 (150-450); RBC Distribution Width CV 13.9 % (11.6-14.6); RBC Distribution Width SD 49.2 fl (35.1-43.9); Red Blood Count 4.07 M/mm3 (4.6-6.2); White Blood Count 5.2 K/mm3 (4.4-11.0)
--- OUTSIDE RECORDS SUMMARY | 2025-03-17 20:10 | XMS RPT_ITS | CCD ---
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 1940 M 84 From: Dickson Denise MD PCP: Care Physician,No Primary Status: DEP ER Study: Abdomen/Pelvis W IV Cont ONLY Date of Exam: Exam# [id number] Ordering Dr: Julius Iyer MD [id number] INDICATION: Diarrhea, abdominal pain COMPARISON: 01/12/2015 abdominal [...] Julius Iyer MD; No Primary Care Physician Dance Historian: Signed Normal [facility] CBC W/Diff, Automatedon 07-0 Absolute Lymph 0.67 X10 3/uL Low 0.83-4.51 [facility] Comment on above: Performed By: #### L 100.0100, L501.2450, L500.4050 #### [facility] [address] [place], [address] Absolute Neut 7.0 X10 3/uL Normal 2.0-7.7 [facility] Comment on above: Performed By: #### L 100.0100, L501.2450, L500.4050 #### [facility] [address] [place], [address] Basophils/100 WBC (Bld) 0.3 % Normal 0-1 [facility] Comment on above: Performed By: #### L 100.0100, L501.2450, L500.4050 #### [facility] [address] [place], [address] Eosinophils/100 WBC (Bld) 0.2 % Normal 0-5 [facility] Comment on above: Performed By: #### L 100.0100, L501.2450, L500.4050 #### [facility] [address] [place], [address] Erythrocyte distribution width (RBC) [Ratio] 13.5 % Normal 11.6-14.6 [facility] Comment on above: Performed By: #### L 100.0100, L501.2450, L500.4050 #### [facility] [address] [place], [address] Hematocrit (Bld) [Volume fraction] 45.1 % Normal 40-54 [facility] Comment on above: Performed By: #### L 100.0100, L501.2450, L500.4050 #### [facility] [address] [place], [address] Hemoglobin (Bld) [Mass/Vol] 15.3 g/dL Normal 13.0-16.5 [facility] Comment on above: Performed By: #### L 100.0100, L501.2450, L500.4050 #### [facility] [address] [place], [address] IG% 0.300 Normal 0.0-0.9 [facility] Comment on above: Result Comment: IG% - Immature Granulocytes (promyelocytes, myelocytes and metamyelocytes) > 1% indicates that a LEFT SHIFT is Present. Performed By: #### L 100.0100, L501.2450, L500.4050 #### [facility] [address] [place], [address] Lymphocytes/100 WBC (Bld) 7.5 % Low 19-41 [facility] Comment on above: Performed By: #### L 100.0100, L501.2450, L500.4050 #### [facility] [address] [place], [address] MCH (RBC) [Entitic mass] 32.4 pg High 27.0-32.0 [facility] Comment on above: Performed By: #### L 100.0100, L501.2450, L500.4050 #### [facility] [address] [place], [address] MCHC (RBC) [Mass/Vol] 33.9 g/dL Normal 32-36 [facility] Comment on above: Performed By: #### L 100.0100, L501.2450, L500.4050 #### [facility] [address] [place], [address] MCV (RBC) [Entitic vol] 95.6 fL High 80-94 [facility] Comment on above: Performed By: #### L 100.0100, L501.2450, L500.4050 #### [facility] [address] [place], [address] Monocytes/100 WBC (Bld) 12.5 % High 0-10 [facility] Comment on above: Performed By: #### L 100.0100, L501.2450, L500.4050 #### [facility] [address] [place], [address] Neutrophils/100 WBC (Bld) 79.2 % High 47-70 [facility] Comment on above: Performed By: #### L 100.0100, L501.2450, L500.4050 #### [facility] [address] [place], [address] Nucleated RBC (Bld) [#/Vol] 0 10*3/uL Normal 0-5 [facility] Comment on above: Performed By: #### L 100.0100, L501.2450, L500.4050 #### [facility] [address] [place], [address] Platelet mean volume (Bld) [Entitic vol] 8.8 fL Normal 6.2-12.0 [facility] Comment on above: Performed By: #### L 100.0100, L501.2450, L500.4050 #### [facility] [address] [place], [address] Platelets (Bld) [#/Vol] 230 10*3/uL Normal 150-450 [facility] Comment on above: Performed By: #### L 100.0100, L501.2450, L500.4050 #### [facility] [address] [place], [address] RBC (Bld) [#/Vol] 4.72 10*6/uL Normal 4.6-6.2 [facility] Comment on above: Performed By: #### L 100.0100, L501.2450, L500.4050 #### [facility] [address] [place], [address] RDW SD 48.3 fl High 35.1-43.9 [facility] Comment on above: Performed By: #### L 100.0100, L501.2450, L500.4050 #### [facility] [address] [place], [address] WBC (Bld) [#/Vol] 8.9 10*3/uL Normal 4.4-11.0 [facility] Comment on above: Performed By: #### L 100.0100, L501.2450, L500.4050 #### [facility] [address] [place], [address] Comprehensive Metabolic [facility] 01-18-2024 Albumin [Mass/Vol] 3.7 g/dL Normal 3.2-5.0 [facility] Comment on above: Performed By: #### L 100.0100, L501.2450, L500.4050 ####[facility] [address] [place], [address] Albumin/Globulin [Mass ratio] 0.9 {ratio} Normal 0.9-2.4 [facility] Comment on above: Performed By: #### L 100.0100, L501.2450, L500.4050 ####[facility] [address] [place], [address] ALK P 87 U/L Normal 45-117 [facility] Comment on above: Performed By: #### L 100.0100, L501.2450, L500.4050 ####[facility] [address] [place], [address] ALT [Catalytic activity/Vol] 13 U/L Low 16-61 [facility] Comment on above: Performed By: #### L 100.0100, L501.2450, L500.4050 ####[facility] [address] [place], [address] AST [Catalytic activity/Vol] 24 U/L Normal 15-37 [facility] Comment on above: Performed By: #### L 100.0100, L501.2450, L500.4050 ####[facility] [address] [place], [address] Bilirubin [Mass/Vol] 1.30 mg/dL High 0.20-1.00 [facility] Comment on above: Result Comment: For patients on eltrombopag therapy, use of Dimension [place] TBIL is not recommended. Performed By: #### L 100.0100, L501.2450, L500.4050 ####[facility] [address] [place], [address] BUN/CRE 29.9 RATIO High 10-20 [facility] Comment on above: Performed By: #### L 100.0100, L501.2450, L500.4050 ####[facility] [address] [place], [address] CA,Total 9.5 mg/dL Normal 8.5-10.1 [facility] Comment on above: Performed By: #### L 100.0100, L501.2450, L500.4050 ####[facility] [address] [place], [address] Chloride [Moles/Vol] 106 mmol/L Normal 98-107 [facility] Comment on above: Performed By: #### L 100.0100, L501.2450, L500.4050 ####[facility] [address] [place], [address] CO2 [Moles/Vol] 22.0 mmol/L Normal 21.0-32.0 [facility] Comment on above: Performed By: #### L 100.0100, L501.2450, L500.4050 ####[facility] [address] [place], [address] Creatinine [Mass/Vol] 1.47 mg/dL High 0.70-1.30 [facility] Comment on above: Result Comment: The validity of the calculated GFR GFRAA in patients over 70 years has not been determined. Clinical correlation is essential. Performed By: #### L 100.0100, L501.2450, L500.4050 ####[facility] [address] [place], [address] ECRCL 36.81 ml/min Normal [facility] Comment on above: Performed By: #### L 100.0100, L501.2450, L500.4050 ####[facility] [address] [place], [address] EST GFR - AA 59 mL/min Low >60 [facility] Comment on above: Result Comment: Afri can [place] GFR Calc Performed By: #### L 100.0100, L501.2450, L500.4050 ####[facility] [address] [place], [address] GAP 8 Normal 5-15 [facility] Comment on above: Performed By: #### L 100.0100, L501.2450, L500.4050 ####[facility] [address] [place], [address] GFR/1.73 sq M.predicted among non-blacks MDRD (S/P/Bld) [Vol rate/Area] 49 mL/min/{1.73_m2} Low >60 [facility] Comment on above: Result Comment: Non- GFR Calc Performed By: #### L 100.0100, L501.2450, L500.4050 ####[facility] [address] [place], [address] Globulin (S) [Mass/Vol] 4.3 g/dL High 2.2-4.2 [facility] Comment on above: Performed By: #### L 100.0100, L501.2450, L500.4050 ####[facility] [address] [place], [address] Glucose [Mass/Vol] 124 mg/dL High 74-106 [facility] Comment on above: Result Comment: Fast ing Glucose result from 100 to 125 mg/dL suggests IMPAIRED HOMEOSTASIS per A.D.A. criteria. Performed By: #### L 100.0100, L501.2450, L500.4050 ####[facility] [address] [place], [address] Potassium [Moles/Vol] 4.0 mmol/L Normal 3.5-5.1 [facility] Comment on above: Performed By: #### L 100.0100, L501.2450, L500.4050 ####[facility] [address] [place], [address] Sodium [Moles/Vol] 136 mmol/L Normal 136-145 [facility] Comment on above: Performed By: #### L 100.0100, L501.2450, L500.4050 ####[facility] [address] [place], [address] T PROT 8.0 g/dL Normal 6.4-8.2 [facility] Comment on above: Performed By: #### L 100.0100, L501.2450, L500.4050 ####[facility] [address] [place], [address] Urea nitrogen [Mass/Vol] 44 mg/dL High 7-18 [facility] Comment on above: Performed By: #### L 100.0100, L501.2450, L500.4050 ####[facility] [address] [place], [address] Emergency Department Summary on 01-18-2024 Emergency Department Summary [facility] Medical Records Department [address] [place] [address] Emergency Department Summary 01/18/24 MR#: [id number] Acct: [id number] Name: KEREN CHU Rep #: [id number] : 1940 84 From: Julius Iyer MD [...] which seems to have improved his diarrhea. [facility] Medical History Sebaceous cyst Home Medications ???Medication ???Instructions ???Recorded ???Last Taken ???Type multivitamin with folic acid 400 1 tab PO DAILY SUPPLEMENT 01/13/15 01/11/15 History mcg tablet magnesium chloride 71.5 mg 64 mg PO DAILY SUPPLEMENT 01/26/18 Unknown History (magnesium chloride) tablet,delayed release vitamin E 268 mg (400 unit) capsule 400 unit PO DAILY SUPPLEMENT 01/26/18 Unknown History diphenoxylate-atropin e 2.5 1 tab PO 4X/DAY PRN diarrhea [...] he has (more content not included)... Normal [facility] Lipaseon 01-18-2024 Lipase [Catalytic activity/Vol] 23 U/L Normal 13-75 [facility] Comment on above: Result Comment: Wily kay note: LIPASE revised reference range effective 22. New Lipase methodology. Expected to produce lower values than the previous assay method. NEW Reference Range: 13 - 75 U/L Performed By: #### L 100.0100, L501.2450, L500.4050 ####[facility] [address] [place], [address] Basic Metabolic Profile (BMP )on 01-17-2024 BUN/CRE 16.0 RATIO Normal 10-20 [facility] Comment on above: Performed By: #### L 500.2500, L100.0100, L501.5200, L500.3400 ####[facility] [address] [place], [address] CA,Total 8.9 mg/dL Normal 8.5-10.1 [facility] Comment on above: Performed By: #### L 500.2500, L100.0100, L501.5200, L500.3400 ####[facility] [address] [place], [address] Chloride [Moles/Vol] 109 mmol/L High 98-107 [facility] Comment on above: Performed By: #### L 500.2500, L100.0100, L501.5200, L500.3400 ####[facility] [address] [place], [address] CO2 [Moles/Vol] 25.0 mmol/L Normal 21.0-32.0 [facility] Comment on above: Performed By: #### L 500.2500, L100.0100, L501.5200, L500.3400 ####[facility] [address] [place], [address] Creatinine [Mass/Vol] 0.94 mg/dL Normal 0.70-1.30 [facility] Comment on above: Result Comment: The validity of the calculated GFR GFRAA in patients over 70 years has not been determined. Clinical correlation is essential. Performed By: #### L 500.2500, L100.0100, L501.5200, L500.3400 ####[facility] [address] [place], [address] ECRCL 58.94 ml/min Normal [facility] Comment on above: Performed By: #### L 500.2500, L100.0100, L501.5200, L500.3400 ####[facility] [address] [place], [address] EST GFR - AA 99 mL/min Normal >60 [facility] Comment on above: Result Comment: Afri can [place] GFR Calc Performed By: #### L 500.2500, L100.0100, L501.5200, L500.3400 ####[facility] [address] [place], [address] GAP 4 Low 5-15 [facility] Comment on above: Performed By: #### L 500.2500, L100.0100, L501.5200, L500.3400 ####[facility] [address] [place], [address] GFR/1.73 sq M.predicted among non-blacks MDRD (S/P/Bld) [Vol rate/Area] 82 mL/min/{1.73_m2} Normal >60 [facility] Comment on above: Result Comment: Non- GFR Calc Performed By: #### L 500.2500, L100.0100, L501.5200, L500.3400 ####[facility] [address] [place], [address] Glucose [Mass/Vol] 98 mg/dL Normal 74-106 [facility] Comment on above: Performed By: #### L 500.2500, L100.0100, L501.5200, L500.3400 ####[facility] [address] [place], [address] Potassium [Moles/Vol] 3.9 mmol/L Normal 3.5-5.1 [facility] Comment on above: Performed By: #### L 500.2500, L100.0100, L501.5200, L500.3400 ####[facility] [address] [place], [address] Sodium [Moles/Vol] 138 mmol/L Normal 136-145 [facility] Comment on above: Performed By: #### L 500.2500, L100.0100, L501.5200, L500.3400 ####[facility] [address] [place], [address] Urea nitrogen [Mass/Vol] 15 mg/dL Normal 7-18 [facility] Comment on above: Performed By: #### L 500.2500, L100.0100, L501.5200, L500.3400 ####[facility] [address] [place], [address] CBC W/Diff, Automatedon 07-0 8-2024 Absolute Lymph 0.98 X10 3/uL Normal 0.83-4.51 [facility] Comment on above: Performed By: #### L 500.2500, L100.0100, L501.5200, L500.3400 ####[facility] [address] [place], [address] Absolute Neut 3.6 X10 3/uL Normal 2.0-7.7 [facility] Comment on above: Performed By: #### L 500.2500, L100.0100, L501.5200, L500.3400 ####[facility] [address] [place], [address] Basophils/100 WBC (Bld) 0.2 % Normal 0-1 [facility] Comment on above: Performed By: #### L 500.2500, L100.0100, L501.5200, L500.3400 ####[facility] [address] [place], [address] Eosinophils/100 WBC (Bld) 4.4 % Normal 0-5 [facility] Comment on above: Performed By: #### L 500.2500, L100.0100, L501.5200, L500.3400 ####[facility] [address] [place], [address] Erythrocyte distribution width (RBC) [Ratio] 13.4 % Normal 11.6-14.6 [facility] Comment on above: Performed By: #### L 500.2500, L100.0100, L501.5200, L500.3400 ####[facility] [address] [place], [address] Hematocrit (Bld) [Volume fraction] 43.9 % Normal 40-54 [facility] Comment on above: Performed By: #### L 500.2500, L100.0100, L501.5200, L500.3400 ####[facility] [address] [place], [address] Hemoglobin (Bld) [Mass/Vol] 14.6 g/dL Normal 13.0-16.5 [facility] Comment on above: Performed By: #### L 500.2500, L100.0100, L501.5200, L500.3400 ####[facility] [address] [place], [address] IG% 0.200 Normal 0.0-0.9 [facility] Comment on above: Result Comment: IG% - Immature Granulocytes (promyelocytes, myelocytes and metamyelocytes) > 1% indicates that a LEFT SHIFT is Present. Performed By: #### L 500.2500, L100.0100, L501.5200, L500.3400 ####[facility] [address] [place], [address] Lymphocytes/100 WBC (Bld) 17.1 % Low 19-41 [facility] Comment on above: Performed By: #### L 500.2500, L100.0100, L501.5200, L500.3400 ####[facility] [address] [place], [address] MCH (RBC) [Entitic mass] 32.2 pg High 27.0-32.0 [facility] Comment on above: Performed By: #### L 500.2500, L100.0100, L501.5200, L500.3400 ####[facility] [address] [place], [address] MCHC (RBC) [Mass/Vol] 33.3 g/dL Normal 32-36 [facility] Comment on above: Performed By: #### L 500.2500, L100.0100, L501.5200, L500.3400 ####[facility] [address] [place], [address] MCV (RBC) [Entitic vol] 96.7 fL High 80-94 [facility] Comment on above: Performed By: #### L 500.2500, L100.0100, L501.5200, L500.3400 ####[facility] [address] [place], [address] Monocytes/100 WBC (Bld) 16.1 % High 0-10 [facility] Comment on above: Performed By: #### L 500.2500, L100.0100, L501.5200, L500.3400 ####[facility] [address] [place], [address] Neutrophils/100 WBC (Bld) 62.0 % Normal 47-70 [facility] Comment on above: Performed By: #### L 500.2500, L100.0100, L501.5200, L500.3400 ####[facility] [address] [place], [address] Nucleated RBC (Bld) [#/Vol] 0 10*3/uL Normal 0-5 [facility] Comment on above: Performed By: #### L 500.2500, L100.0100, L501.5200, L500.3400 ####[facility] [address] [place], [address] Platelet mean volume (Bld) [Entitic vol] 8.8 fL Normal 6.2-12.0 [facility] Comment on above: Performed By: #### L 500.2500, L100.0100, L501.5200, L500.3400 ####[facility] [address] [place], [address] Platelets (Bld) [#/Vol] 169 10*3/uL Normal 150-450 [facility] Comment on above: Performed By: #### L 500.2500, L100.0100, L501.5200, L500.3400 ####[facility] [address], [address] RBC (Bld) [#/Vol] 4.54 10*6/uL Low 4.6-6.2 [facility] Comment on above: Performed By: #### L 500.2500, L100.0100, L501.5200, L500.3400 ####[facility] [address] [place], [address] RDW SD 48.0 fl High 35.1-43.9 [facility] Comment on above: Performed By: #### L 500.2500, L100.0100, L501.5200, L500.3400 ####[facility] [address] [place], [address] WBC (Bld) [#/Vol] 5.7 10*3/uL Normal 4.4-11.0 [facility] Comment on above: Performed By: #### L 500.2500, L100.0100, L501.5200, L500.3400 ####[facility] [address] [place], [address] Emergency Department Summary on 01-17-2024 Emergency Department Summary [facility] Medical Records Department [address] [place] [address] Emergency Department Summary 01/17/24 MR#: [id number] Acct: [id number] Name: KEREN CHU Francesca Rep #: [id number] : [id number] 84 From: Maurice Omalley DO [...] secondary to his comes in for evaluation. [facility] Medical History Sebaceous cyst Home Medications ???Medication [...] Unknown Rx 50 mg tablet #20 tabs diphenoxylate-atropin e 2.5 1 tab PO 4X/DAY PRN diarrhea [...] Neurologic Neurologic: Denies headache(s) or weakness Hematologic/Lymphatic Hematologic/Lymphatic : Denies easy bleeding or easy bruising EXAM [...] increased Gene (more content not included)... Normal [facility] Liver Profileon 01-17-2024 Albumin [Mass/Vol] 3.5 g/dL Normal 3.2-5.0 [facility] Comment on above: Performed By: #### L 500.2500, L100.0100, L501.5200, L500.3400 ####[facility] [address] [place], [address] ALK P 97 U/L Normal 45-117 [facility] Comment on above: Performed By: #### L 500.2500, L100.0100, L501.5200, L500.3400 ####[facility] [address] [place], [address] ALT [Catalytic activity/Vol] 11 U/L Low 16-61 [facility] Comment on above: Performed By: #### L 500.2500, L100.0100, L501.5200, L500.3400 ####[facility] [address] [place], [address] AST [Catalytic activity/Vol] 21 U/L Normal 15-37 [facility] Comment on above: Performed By: #### L 500.2500, L100.0100, L501.5200, L500.3400 ####[facility] [address] [place], [address] Bilirubin [Mass/Vol] 0.90 mg/dL Normal 0.20-1.00 [facility] Comment on above: Result Comment: For patients on eltrombopag therapy, use of Dimension [place] TBIL is not recommended. Performed By: #### L 500.2500, L100.0100, L501.5200, L500.3400 ####[facility] [address] [place], [address] Bilirubin.direct [Mass/Vol] 0.24 mg/dL Normal 0.00-0.30 [facility] Comment on above: Performed By: #### L 500.2500, L100.0100, L501.5200, L500.3400 ####[facility] [address] [place], [address] Globulin (S) [Mass/Vol] 3.7 g/dL Normal 2.2-4.2 [facility] Comment on above: Performed By: #### L 500.2500, L100.0100, L501.5200, L500.3400 ####[facility] [address] [place], [address] T PROT 7.2 g/dL Normal 6.4-8.2 [facility] Comment on above: Performed By: #### L 500.2500, L100.0100, L501.5200, L500.3400 ####[facility] [address] [place], [address] Magnesiumon 01-17-2024 Magnesium [Mass/Vol] 1.9 mg/dL Normal 1.6-2.6 [facility] Comment on above: Performed By: #### L 500.2500, L100.0100, L501.5200, L500.3400 ####[facility] [address] [place], [address] XR CHEST 2V FRONTAL/LATon [facility] XR Chest PA and Lateralon IMPRESSION: No developing abnormality or acute process Dance Historian: DIANELYS Transcribe Date/Time: Apr 15 2023 10:04A Dictated by : ISAAC ENCISO MD This examination was interpreted and the report reviewed and electronically signed by: ISAAC ENCISO MD on Apr 15 2023 10:09AM [facility] DIVISION OF RADIOLOGY * * *Final [...] mid thoracic vertebrae. DIVISION OF RADIOLOGY Provider, Orlando jimenez [place] - 04/15/2023 * * *Final Report* * [...] IMPRESSION: No developing abnormality or acute process Dance Historian: PSCB Transcribe Date/Time: Apr 15 2023 10:04A Dictated by : ISAAC ENCISO MD This examination was interpreted and the report reviewed and electronically signed by: ISAAC ENCISO MD on Apr 15 2023 10:09AM EST [facility] Radiology Study observation (narrative) Demarco pyle [facility] XR Chest PA and LateralOrder ed By: [facility] Provider on 04-15-2023 [facility] Vital Signs Date Time Vital Sign Value Performing Clinician Octavio beckman 01-01-2025 01:00-0400 Body temperature 98 [degF] Dr. Gentry Jane DO Work Phone: [facility] 01-01-2025 01:00-0400 Diastolic blood pressure 74 mm[Hg] Dr. Gentry Landers Work Phone: [facility] 01-01-2025 01:00-0400 Heart rate 70 /min Dr. Gentry Landers Work Phone: [facility] 01-01-2025 01:00-0400 Respiratory rate 16 /min Dr. Gentry Jane DO Work Phone: [facility] 01-01-2025 01:00-0400 SaO2% (BldA) [Mass fraction] 100 % Dr. Gentry Landers Work Phone: [facility] 01-01-2025 01:00-0400 Systolic blood pressure 117 mm[Hg] Dr. Gentry Jane DO Work Phone: [facility] 12-31-2024 21:09-0400 Body height 165.[address] Gentry Landers Work Phone: [facility] 12-31-2024 21:09-0400 Body mass index (BMI) [Ratio] 31.8 kg/m2 Dr. Gentry Jane DO Work Phone: [facility] 12-31-2024 21:09-0400 Body weight 86.[address] Gentry Landers Work Phone: [facility] 10-11-2024 12:28-0400 Body mass index (BMI) [Ratio] 33.19 kg/m2 Raji Hunter APRN.TEXTILE DYER Work Phone: [facility] 10-11-2024 12:28-0400 Body temperature 97.2 [degF] Raji Hunter CHUTE BUILDER.TEXTILE DYER Work Phone: [facility] 10-11-2024 12:28-0400 Body weight 85 kg Raji Hunter CHUTE BUILDER.TEXTILE DYER Work Phone: [facility] 10-11-2024 12:28-0400 Diastolic blood pressure 80 mm[Hg] Raji Hunter CHUTE BUILDER.TEXTILE DYER Work Phone: [facility] 10-11-2024 12:28-0400 Heart rate 60 /min Raji Hunter CHUTE BUILDER.TEXTILE DYER Work Phone: [facility] 10-11-2024 12:28-0400 Respiratory rate 16 /min Raji Hunter CHUTE BUILDER.TEXTILE DYER Work Phone: [facility] 10-11-2024 12:28-0400 SaO2% (BldA) [Mass fraction] 97 % Raji Hunter APRN.TEXTILE DYER Work Phone: [facility] 10-11-2024 12:28-0400 Systolic blood pressure 122 mm[Hg] Raji Hunter APRN.TEXTILE DYER Work Phone: [facility] 05-05-2024 10:24-0400 Body temperature 97.3 [degF] Yazmin Carver MD Work Phone: [facility] 05-05-2024 10:24-0400 Diastolic blood pressure 60 mm[Hg] Yazmin Carver MD Work Phone: [facility] 05-05-2024 10:24-0400 Heart rate 57 /min Yazmin Carver MD Work Phone: [facility] 05-05-2024 10:24-0400 Respiratory rate 16 /min Yazmin Carver MD Work Phone: [facility] 05-05-2024 10:24-0400 SaO2% (BldA) [Mass fraction] 98 % Yazmin Carver MD Work Phone: [facility] 05-05-2024 10:24-0400 Systolic blood pressure 108 mm[Hg] Yazmin Carver MD Work Phone: [facility] 05-02-2024 10:06-0400 Body mass index (BMI) [Ratio] 31.48 kg/m2 Raji Hunter APRN.TEXTILE DYER Work Phone: [facility] 05-02-2024 10:06-0400 Body temperature 98.1 [degF] Raji Hunter APRN.TEXTILE DYER Work Phone: [facility] 05-02-2024 10:06-0400 Body weight 80.6 kg Raji Hunter APRN.TEXTILE DYER Work Phone: [facility] 05-02-2024 10:06-0400 Diastolic blood pressure 72 mm[Hg] Raji Hunter APRN.TEXTILE DYER Work Phone: [facility] 05-02-2024 10:06-0400 Heart rate 84 /min Raji Hunter APRN.TEXTILE DYER Work Phone: [facility] 05-02-2024 10:06-0400 Respiratory rate 22 /min Raji Hunter CHUTE BUILDER.TEXTILE DYER Work Phone: [facility] 05-02-2024 10:06-0400 SaO2% (BldA) [Mass fraction] 95 % Raji Hunter CHUTE BUILDER.TEXTILE DYER Work Phone: [facility] 05-02-2024 10:06-0400 Systolic blood pressure 124 mm[Hg] Raji Hunter CHUTE BUILDER.TEXTILE DYER Work Phone: [facility] 02-09-2024 07:54-0400 Body height 160 cm Yazmin Carver MD Work Phone: [facility] 02-09-2024 07:54-0400 Body mass index (BMI) [Ratio] 31 kg/m2 Yazmin Carver MD Work Phone: [facility] 02-09-2024 07:54-0400 Body weight 79.38 kg Yazmin Carver MD Work Phone: [facility] 02-09-2024 07:54-0400 Diastolic blood pressure 56 mm[Hg] Yazmin Carver MD Work Phone: [facility] 02-09-2024 07:54-0400 Heart rate 72 /min Yazmin Carver MD Work Phone: [facility] 02-09-2024 07:54-0400 Respiratory rate 14 /min Yazmin Carver MD Work Phone: [facility] 02-09-2024 07:54-0400 SaO2% (BldA) [Mass fraction] 96 % Yazmin Carver MD Work Phone: [facility] 02-09-2024 07:54-0400 Systolic blood pressure 118 mm[Hg] Yazmin Carver MD Work Phone: [facility] 01-28-2024 14:03-0400 Body mass index (BMI) [Ratio] 31.44 kg/m2 Faustino Jaimes CHUTE BUILDER.TEXTILE DYER Work Phone: [facility] 01-28-2024 14:03-0400 Body temperature 97.11 [degF] Faustino Moomaw CHUTE BUILDER.TEXTILE DYER Work Phone: [facility] 01-28-2024 14:03-0400 Body weight 80.5 kg Faustino Moomaw CHUTE BUILDER.TEXTILE DYER Work Phone: [facility] 01-28-2024 14:03-0400 Diastolic blood pressure 84 mm[Hg] Faustino Moomaw CHUTE BUILDER.TEXTILE DYER Work Phone: [facility] 01-28-2024 14:03-0400 Heart rate 53 /min Faustino Moomaw CHUTE BUILDER.TEXTILE DYER Work Phone: [facility] 01-28-2024 14:03-0400 Respiratory rate 18 /min Faustino Moomaw CHUTE BUILDER.TEXTILE DYER Work Phone: [facility] 01-28-2024 14:03-0400 SaO2% (BldA) [Mass fraction] 98 % Faustino Moomaw CHUTE BUILDER.TEXTILE DYER Work Phone: [facility] 01-28-2024 14:03-0400 Systolic blood pressure 162 mm[Hg] Faustino Moomaw CHUTE BUILDER.TEXTILE DYER Work Phone: [facility] 04-15-2023 09:22-0400 Body temperature 97 [degF] Shakira Sol CHUTE BUILDER.TEXTILE DYER Work Phone: [facility] 04-15-2023 09:22-0400 Body weight 82.28 kg Shakira Sol CHUTE BUILDER.TEXTILE DYER Work Phone: [facility] 04-15-2023 09:22-0400 Diastolic blood pressure 76 mm[Hg] Shakira Sol CHUTE BUILDER.TEXTILE DYER Work Phone: [facility] 04-15-2023 09:22-0400 Heart rate 64 /min Shakira Sol CHUTE BUILDER.TEXTILE DYER Work Phone: [facility] 04-15-2023 09:22-0400 Respiratory rate 16 /min Shakira Sol CHUTE BUILDER.TEXTILE DYER Work Phone: [facility] 04-15-2023 09:22-0400 SaO2% (BldA) [Mass fraction] 97 % Shakira Sol CHUTE BUILDER.TEXTILE DYER Work Phone: [facility] 04-15-2023 09:22-0400 Systolic blood pressure 138 mm[Hg] Shakira Sol CHUTE BUILDER.TEXTILE DYER Work Phone: [facility] 05-26-2022 12:07-0500 Body temperature 96.8 [degF] Simin Annmarie CHUTE BUILDER.TEXTILE DYER Work Phone: [facility] 05-26-2022 12:07-0500 Body weight 83.92 kg Simin Annmarie CHUTE BUILDER.TEXTILE DYER Work Phone: [facility] 05-26-2022 12:07-0500 Diastolic blood pressure 80 mm[Hg] Simin Annmarie CHUTE BUILDER.TEXTILE DYER Work Phone: [facility] 05-26-2022 12:07-0500 Heart rate 90 /min Simin Annmarie CHUTE BUILDER.TEXTILE DYER Work Phone: [facility] 05-26-2022 12:07-0500 Respiratory rate 16 /min Simin Annmarie CHUTE BUILDER.TEXTILE DYER Work Phone: [facility] 05-26-2022 12:07-0500 SaO2% (BldA) [Mass fraction] 97 % Simin Annmarie CHUTE BUILDER.TEXTILE DYER Work Phone: [facility] 05-26-2022 12:07-0500 Systolic blood pressure 124 mm[Hg] Simin Annmarie CHUTE BUILDER.TEXTILE DYER Work Phone: [facility] 02-02-2022 16:34-0400 Body temperature 97 [degF] Rogelio Rose MD Work Phone: [facility] 02-02-2022 16:34-0400 Body weight 81.92 kg Rogelio Rose MD Work Phone: [facility] 02-02-2022 16:34-0400 Diastolic blood pressure 80 mm[Hg] Rogelio Rose MD Work Phone: [facility] 07-25-2022 16:34-0400 Heart rate 55 /min Rogelio Rose MD Work Phone: [facility] 02-02-2022 16:34-0400 Respiratory rate 21 /min Rogelio Rose MD Work Phone: [facility] 02-02-2022 16:34-0400 SaO2% (BldA) [Mass fraction] 98 % Rogelio Rose MD Work Phone: [facility] 02-02-2022 16:34-0400 Systolic blood pressure 122 mm[Hg] Rogelio Rose MD Work Phone: [facility] Encounters Encounter Date Encounter Type Care Provider Facility Start: 01-17-2025 End: 01-17-2025 ambulatory El Gordon MA [facility] Start: 01-17-2025 End: 01-17-2025 Patient encounter procedure El Gordon MA [facility] Comment on above: Population Health Na vigation Outreach ([employer] [facility] [place] [facility] Start: 12-31-2024 End: 01-01-2025 Emergency department patient visit Dr. Gentry Landers Work Phone: -Emergency Department Work Phone: Start: 11-09-2024 End: 11-09-2024 ambulatory El Gordon MA [facility] Start: 11-09-2024 End: 11-09-2024 Patient encounter procedure El Gordon MA [facility] Comment on above: Population Health Na vigation Outreach ([facility] [place] [facility]) Start: 10-11-2024 End: 10-11-2024 ambulatory YAZMIN CARVER Facility:[facility] Start: 10-11-2024 End: 10-11-2024 Office outpatient visit 25 minutes Raji Hunter APRN.CNP Work Phone: [facility] Comment on above: URI with cough and c ongestion (Primary Dx) Start: 05-05-2024 End: 05-05-2024 Patient encounter procedure Yazmin Carver MD Work Phone: [facility] [place] Comment on above: Bacterial pneumonia (Primary Dx); Wheezing Start: 05-05-2024 End: 05-05-2024 ambulatory [facility] Facility:[facility] Start: 05-02-2024 End: 05-02-2024 Subsequent hospital visit by physician Mariela [facility] [place] Work Phone: Radiology Comment on above: Acute cough [R05.1] Start: 05-02-2024 End: 05-02-2024 ambulatory [facility] Facility:[facility] Start: 05-02-2024 End: 05-02-2024 Office outpatient visit 25 minutes Raji Hunter APRN.CNP Work Phone: [facility] Comment on above: Acute cough (Primary Dx); Community acquired pneumonia, unspecified laterality Start: 02-10-2024 Telephone encounter Sukhwinder Carver MD Work Phone: Family [facility] [place] Comment on above: Results Start: 02-09-2024 End: 02-09-2024 ambulatory [facility] Facility:[facility] Start: 02-09-2024 Encounter for genera l adult medical examination without abnormal findings YAZMIN CARVER [facility] Start: 02-09-2024 End: 02-09-2024 Patient encounter procedure Yazmin Carver MD Work Phone: Family [facility] [place] Comment on above: Encounter for medica l [...] encounter status Yazmin Carver MD Work Phone: [facility] Work Phone: Start: 02-09-2024 End: 02-09-2024 [facility] Start: 01-28-2024 End: 01-28-2024 ambulatory RASHMI CHAUHAN Facility:[facility] Start: 01-28-2024 End: 01-28-2024 Patient encounter procedure Faustino Jaimes ISAIAH.TEXTILE DYER Work Phone: [facility] Comment on above: Sciatic nerve pain, left (Primary Dx) Start: 01-18-2024 End: 01-18-2024 Emergency department patient visit No Primary Care Physician Facility:[facility] Start: 01-17-2024 End: 01-17-2024 Emergency department patient visit Maurice Omalley Facility:[facility] Start: 10-21-2023 ambulatory Cassandra Wallace MA [facility] Comment on above: Population Health Na vigation Outreach [facility] Start: 04-15-2023 End: 04-15-2023 Subsequent hospital visit by physician Xr [facility] Work Phone: Radiology Comment on above: Acute cough [R05.1] Start: 04-15-2023 End: 04-15-2023 Patient encounter procedure Shakira Sol APRN.TEXTILE DYER Work Phone: [place] [facility] Comment on above: Acute cough (Primary Dx); Rhinosinusitis Start: 05-26-2022 End: 05-26-2022 Patient encounter procedure Simin Anguiano APRN.TEXTILE DYER Work Phone: [place] [facility] Comment on above: Acute non-recurrent pansinusitis (Primary Dx) Start: 02-02-2022 End: 02-02-2022 Patient encounter procedure Rogelio Rose MD Work Phone: [place] [facility] Comment on above: Sting, insect, accid ental or unintentional, initial encounter (Primary Dx) Procedures Date Procedure Procedure Detail Performing Clinician Start: 12-31-2024 Plain x-ray of elbow Dr Avel Landers Work Phone: Start: 12-31-2024 Plain x-ray of wrist Dr Avel Landers Work Phone: Start: 12-31-2024 XR forearm, [address] Gentry Landers Work Phone: Start: 12-31-[address] Gentry Le DO Work Phone: Start: 12-31-2024 CT cervical spine wi thout contrast Dr. Gentry Landers Work Phone: Start: 12-31-2024 CT of head without contrast Dr. Gentry Jane DO Work Phone: Start: 12-31-2024 CT of thorax, abdome n and pelvis with contrast Dr. Gentry Jane DO Work Phone: Start: 05-02-2024 Radiologic exam ches t 2 views Raji Hunter CHUTE BUILDER.TEXTILE DYER Work Phone: Start: 02-09-2024 Adult depression screening assessment Yazmin Carver MD Work Phone: Start: 04-15-2023 Radiologic exam ches t 2 views Shakira Sol CHUTE BUILDER.TEXTILE DYER Work Phone: Start: 01-11-2018 Adult depression screening assessment Rogelio Rose MD Work Phone: Plan of Treatment Date Care Activity Detail Author Start: 02-08-2027 Diabetes Screening Diabetes Screenin g [facility] Start: 03-12-2025 Influenza vaccination Influenza Vacc ine (#1) [facility] Start: 02-08-2025 Anxiety Screening Anxiety Screening [facility] Start: 02-08-2025 Covid-19 Vaccine ( season) Covid-19 Vaccine ( season) [facility] Comment on above: Postponed from 03/12 (Declined at this time) Start: 02-08-2025 Depression Screening Depression Scre ening [facility] Start: 02-08-2025 Pneumococcal Vaccine : 50+ (1 of 1 - PCV) Pneumococcal Vaccine: 50+ (1 of 1 - PCV) [facility] Comment on above: Postponed from 01/04 (Declined at this time) Start: 02-08-2025 Pneumococcal Vaccine : 65+ (1 of 1 - PCV) Pneumococcal Vaccine: 65+ (1 of 1 - PCV) [facility] Comment on above: Postponed from 01/04 (Declined at this time) Start: 02-08-2025 RSV Vaccine (1 - 1-d ose 60+ series) RSV Vaccine (1 - 1-dose 60+ series) [facility] Comment on above: Postponed from 01/04 (Declined at this time) Start: 02-08-2025 RSV Vaccine (1 - 1-d ose 75+ series) RSV Vaccine (1 - 1-dose 75+ series) [facility] Comment on above: Postponed from 01/04 (Declined at this time) Start: 02-08-2025 Shingrix Vaccine (2 of 2) Shingrix Vaccine (2 of 2) [facility] Comment on above: Postponed from 06/26 (Declined at this time) Start: 01-16-2025 End: 01-16-2025 Patient encounter procedure 01/16/2025 11:00 AM EDT Office Visit Family [facility] [place] [address] [facility] [place] [address] Carmencita Mcclain APRN.TEXTILE DYER [address] [place] [address] Annual Wellness Family [facility] Comment on above: Annual Wellness Start: 01-01-2025 [facility] Start: 08-11-2024 End: 08-11-2024 Patient encounter procedure 08/11/2024 8:00 AM EST Office Visit [facility] [place] [address] [facility] [place] [address] Carmencita Mcclain, ISAIAH.TEXTILE DYER [address] [place] [address] 6 month follow up-labs [facility] Comment on above: 6 month follow up-la Start: 07-12-2024 Advance Directive Discussion Advance Directive Discussion [facility] Start: 07-12-2024 Medicare Advantage Annual Wellness Visit Medicare Advantage Annual Wellness Visit [facility] Start: 05-05-2024 End: 05-05-2024 Patient encounter procedure 05/05/2024 11:20 AM EDT Office Visit Family [facility] [place] [address] [place] [address] Yazmin Carver MD [address] [place] [address] f/u cough and congestion Family [facility] [place] Comment on above: f/u cough and conges tion Start: 03-12-2024 Covid-19 Vaccine ( season) Covid-19 Vaccine () [facility] Start: 03-12-2024 Covid-19 Vaccine () Covid-19 Vaccine () [facility] Start: 03-12-2024 Influenza vaccination [facility] Start: 02-09-2024 End: 05-10-2024 CBC W Auto Differential panel - Blood COMPLETE BLOOD COUNT AND DIFFERENTIAL Lab Routine Encounter for medical examination to establish care Expected: 02/09/2024, Expires: 05/10/2024 [facility] Work Phone: Comment on above: Expected: 02/09/2024 , Expires: 05/10/2024 Start: 02-09-2024 End: 05-10-2024 Comprehensive metabolic 2000 panel - Serum or Plasma COMPREHENSIVE METABOLIC PANEL Lab Routine Encounter for medical examination to establish care Expected: 02/09/2024, Expires: 05/10/2024 [facility] Comment on above: Expected: 02/09/2024 , Expires: 05/10/2024 Start: 02-09-2024 End: 05-10-2024 Hemoglobin A1c in Blood [facility] Comment on above: Expected: 02/09/2024 , Expires: 05/10/2024 Start: 02-09-2024 End: 05-10-2024 LIPID PANEL, NONFASTING [facility] Comment on above: Expected: 02/09/2024 , Expires: 05/10/2024 Start: 02-09-2024 End: 02-09-2024 Patient encounter procedure 02/09/2024 8:00 AM EDT Office Visit Family [facility] [place] [address] [place] [id number] Yazmin Carver MD [address] [place] [id number] Establish Care [facility] [place] Comment on above: Establish Care Start: 07-12-2023 Advance Directive Discussion Advance Directive Discussion [facility] Start: 07-12-2023 Behavioral Health Screening Behavioral Health Screening [facility] Start: 03-12-2023 Covid-19 Vaccine () Covid-19 Vaccine ( season) [facility] Start: 03-12-2023 Influenza vaccination Influenza Vacc ine (#1) [facility] Start: 07-12-2022 Advance Directive Discussion Advance Directive Discussion [facility] Start: 07-12-2022 Depression Assessment Depression Ass essment [facility] Start: 03-12-2022 Influenza vaccination INFLUENZA (#1) [facility] Start: 11-06-2021 COVID-19 VACCINE (4 - Booster for Moderna series) COVID-19 VACCINE (4 - Booster for Moderna series) [facility] Start: 09-02-2021 COVID-19 VACCINE (4 - Booster for Moderna series) COVID-19 VACCINE (4 - Booster for Moderna series) [facility] Start: 09-02-2021 Covid-19 Vaccine (4 - Moderna series) Covid-19 Vaccine (4 - Moderna series) [facility] Start: 07-12-2021 ADVANCE DIRECTIVE DISCUSSION ADVANCE DIRECTIVE DISCUSSION [facility] Start: 07-12-2021 DEPRESSION ASSESSMENT DEPRESSION ASS ESSMENT [facility] Start: 01-11-2021 DIABETES SCREEN DIABETES SCREEN [facility] Start: 01-11-2021 Diabetes Screening Diabetes Screenin g [facility] Start: 06-26-2020 Shingrix Vaccine (2 of 2) Shingrix Vaccine (2 of 2) [facility] Start: 01-11-2019 Adult depression screening assessment DEPRESSION SCREENING [facility] Start: 07-14-2012 Urine microalbumin profile [facility] Start: 2007 Pneumococcal Vaccine : 65+ (1 - PCV) Pneumococcal Vaccine: 65+ (1 - PCV) [facility] Start: 2007 Pneumococcal Vaccine : 65+ (1 of 1 - PCV) Pneumococcal Vaccine: 65+ (1 of 1 - PCV) [facility] Start: 2007 PNEUMOCOCCAL: 65+ (1 - PCV) PNEUMOCOCCAL: 65+ (1 - PCV) [facility] Start: 2002 RSV Vaccine (1 - 1-d ose 60+ series) RSV Vaccine (1 - 1-dose 60+ series) [facility] Start: 01-05-1992 SHINGRIX VACCINE (1 of 2) SHINGRIX VACCINE (1 of 2) [facility] Patient Education Bruises (Contu sions) ED Head Injury (Adult) ED Skin Tear (Skin Avulsion) [facility] Work Phone: Patient referral [facility] Work Phone: Immunizations Immunization Date Immunization Notes Care Provider Fa ciliomaira 12-31-2024 tetanus toxoid, reduced diphtheria toxoid, and acellular pertussis vaccine, adsorbed Dr. Gentry Landers Work Phone: [facility] 06-19-2024 influenza, high dose seasonal, preservative-free Raji Hunter APRN.TEXTILE DYER Work Phone: [facility] 06-19-2024 influenza virus vaccine, unspecified formulation El Gordon MA [facility] 05-01-2020 influenza (aIIV4) vaccine, age 65+ yr, quadrivalent, PF (FLUAD QUAD) Yazmin Carver MD Work Phone: [facility] 05-01-2020 zoster vaccine recombinant Yazmin Carver MD Work Phone: [facility] 05-01-2020 influenza virus vaccine, unspecified formulation Shakira Sol APRN.TEXTILE DYER Work Phone: [facility] 05-08-2019 influenza, high dose seasonal, preservative-free Yazmin Carver MD Work Phone: [facility] 02-27-2014 influenza, high dose seasonal, preservative-free Rogelio Rose MD Work Phone: [facility] 07-13-2012 tetanus and diphther ia toxoids, adsorbed, preservative free, for adult use (2 Lf of tetanus toxoid and 2 Lf of diphtheria toxoid) Rogelio Rose MD Work Phone: [facility] Work Phone: 03-30-2012 influenza virus vaccine, unspecified formulation Rogelio Rose MD Work Phone: [facility] Work Phone: Payers Date Payer Category Payer Medicare (Managed Care) [place] [id number] 2024 Self-pay 2021 Medicare AETNA MEDICARE A ETNA MEDICARE O [id number] 2021-Present [phone] [address] [place] [address] [facility] [id number] 2021 Medicare AETNA MEDICARE A ETNA MEDICARE O [id number] 2021-Present [phone] [address] [place] [address] [facility] [id number] 2021 Private Health Insurance [id number] 2013 Medicare HUMANA MEDICARE PPO [id number] Unknown ANTHEM OUT OF STATE [id number] Unknown [id number] Unknown [id number] Unknown [id number] Social History Date Type Detail Facility Start: 01-11-2018 End: 04-15-2023 Tobacco smoking status NHIS Never smoked tobacco [facility] Start: 02-02-2022 End: 04-15-2023 Alcohol intake Not Asked [facility] Start: 1940 Sex Assigned At Not on file [facility] Start: 01-11-2018 End: 04-15-2023 Tobacco use and exposure Smokeless tobacco non-user [facility] Work Phone: Start: 04-15-2023 End: 05-05-2024 History of Social function [facility] Start: 04-15-2023 End: 05-05-2024 Tobacco use panel [facility] Adult Depression Screening Assessment 0 [facility] Start: 02-09-2024 End: 12-31-2024 Tobacco smoking status NHIS Ex-smoker [facility] End: 07-12-1982 History of tobacco use Current smoker [facility] End: 07-12-1982 History of tobacco use Cigar Smoker [facility] Start: 02-09-2024 Tobacco use and exposure Former smokeless tobacco user [facility] End: 07-12-1982 History of tobacco use Chews Tobacco [facility] Start: 02-09-2024 End: 10-11-2024 Alcohol intake Current drinker of alcohol (finding) [facility] Start: 02-09-2024 Tobacco Comment Used to smoke occasional cigars and chewed regularly for about 10 years [facility] Start: 01-13-2015 Alcohol [facility] Start: 01-13-2015 Drugs Drugs [facility] Start: 02-10-2018 Tobacco Use Tobacco Use [facility] Start: 1940 Sex Assigned At Male W [facility] Medical Equipment Procedure Code Equipment Code Equipment Origin al Text Equipment Identifier Dates RE-NION REV PERIPHERAL SCREW FDA Start: 02-09-2018 RE-UNION REVERSE VALET RUNNER WIRE FDA Start: 02-09-2018 RE-UNION REVERSE VALET RUNNER WIRE RS FDA Start: 02-09-2018 RE-UNION REV 4.5 MM PERIPH SCRW FDA Start: 02-09-2018 RE-UNION REV CON CENT GLENSPH FDA Start: 02-09-2018 RE-UNION REV GLE NOID B-PLATE FDA Start: 02-09-2018 RE-UNION REV HUM ERAL CUP FDA Start: 02-09-2018 RE-UNION REV MOD HUMERAL STEM FDA Start: 02-09-2018 RE-UNION REV PERIPHERAL SCREW FDA Start: 02-09-2018 RE-UNION REV X3 HUMERAL INSERT FDA Start: 02-09-2018 RE-UNION REV6.5M M CENTER SCREW FDA Start: 02-09-2018 Functional Status Date Assessment Result Facility 01-16-2015 Are you deaf, or do you have serious difficulty hearing No 01/16/2015 11:10 AM Cassandra Decker [facility] No [facility] 01-16-2015 Are you blind, or do you have serious difficulty seeing, even when wearing glasses No 01/16/2015 11:10 AM Cassandra Decker [facility] No [facility] 01-16-2015 Do you have serious difficulty walking or climbing stairs No 01/16/2015 11:10 AM Cassandra Decker [facility] 01-16-2015 Do you have difficul ty dressing or bathing No 01/16/2015 11:10 AM Cassandra Decker [facility] 01-16-2015 Because of a physica l, mental, or emotional condition, do you have difficulty doing errands alone such as visiting a physician's office or shopping No 01/16/2015 11:10 AM Cassandra Decker [facility] Mental Status Date Assessment Result Facility 01-16-2015 Because of a physica l, mental, or emotional condition, do you have serious difficulty concentrating, remembering, or making decisions No 01/16/2015 11:10 AM Cassandra Decker [facility] No [facility] Clinical Notes 02-02-2022 to 01-17-2025 El Gordon MA - 01/17/2025 7:36 AM EDT Note Date & Type Note Facility 01-17-2025 Note HNO ID: [id number] Author: EL GORDON MA Service: ? Author Type: Batt Machine Operator Type: Progress Notes Filed: 01/17/2025 11:30 Note Text: POPULATION HEALTH NAVIGATION OUTREACH Action/FYI Patient is on [employer] Workbench list for below and needs appointment to address: Covid-19 Vaccine() Advance Directive Discussion Medicare Advantage Annual Wellness Visit Depression Screening Anxiety Screening Hemoglobin A1C (%) Date Value 02/09/2024 5.3 08/20/2016 5.4 Last 1 Encounter BP Readings: Date: BP: 10/11/2024 122/80 Patient due for: Medicare Annual Wellness Visit - missed appointment yesterday MyChart Active: Yes Left message for patient to call back. Sent mychart message. HCC: No Reason for Outreach Care Gap/HCC or Scheduling Wellness Visits Care Gaps due: Medicare Annual Wellness Visit Patient Contacted: Unable or unnecessary to reach patient: Left message [employer] message sent Navigation Signature: El Gordon MA January 17, 2025 7:36 AM [facility] 01-17-2025 History of Present illness Narrative POPULATION HEALTH NAVIGATION OUTREACH Action/FYI Patient is on [employer] Workbench list for below and needs appointment to address: Covid-19 Vaccine() Advance Directive Discussion Medicare Advantage Annual Wellness Visit Depression Screening Anxiety Screening Hemoglobin A1C (%) Date Value 02/09/2024 5.3 08/20/2016 5.4 Last 1 Encounter BP Readings: Date: BP: 10/11/2024 122/80 Patient due for: Medicare Annual Wellness Visit - missed appointment yesterday MyChart Active: Yes Left message for patient to call back. Sent LocAsian message. HCC: No Reason for Outreach Care Gap/HCC or Scheduling Wellness Visits Care Gaps due: Medicare Annual Wellness Visit Patient Contacted: Unable or unnecessary to reach patient: Left message [employer] message sent Navigation Signature: El Gordon MA January 17, 2025 7:36 AM documented in this encounter [facility] 01-17-2025 Note Patient Outreach (JANET WEATHERS) KEREN CHU ([id number]) 1940 M Date Time Provider Department 01/17/25 EL GORDON During your visit today, we recorded the following information about you: El Gordon MA 01/17/2025 11:30 AM Signed POPULATION HEALTH NAVIGATION OUTREACH Action/FYI Patient is on [employer] Workbeder[employer] list for below and needs appointment to address: Covid-19 Vaccine( season) Advance Directive Discussion Medicare Advantage Annual Wellness Visit Depression Screening Anxiety Screening Hemoglobin A1C (%) Date Value 02/09/2024 5.3 08/20/2016 5.4 Last 1 Encounter BP Readings: Date: BP: 10/11/2024 122/80 Patient due for: Medicare Annual Wellness Visit - missed appointment yesterday [facility] [employer] Active: Yes Left message for patient to call back. Sent LocAsian message. HCC: No Reason for Outreach Care Gap/HCC or Scheduling Wellness Visits Care Gaps due: Medicare Annual Wellness Visit Patient Contacted: Unable or unnecessary to reach patient: Left message [place] [employer] message sent Navigation Signature: El Gordon MA January 17, 2025 7:36 AM Allergies As of Date: 01/17/2025 Noted Allergy Reaction TETANUS VACCINES AND TOXOID 07/30/2008 Comments: skin breakout Date Reviewed: 10/11/2024 Reviewed by: Raji Hunter APRN.TEXTILE DYER - Fully Assessed Reason for Visit: Population Health Navigation Outreach [3910] Cmt: Celestine Giles - [place] PCSA Prescriptions as of 01/17/2025 - fluticasone (FLONASE ALLERGY RELIEF) 50 mcg/actuation nasal spray Use 1 [place] in each nostril once daily. - albuterol HFA (VENTOLIN HFA) 90 mcg/actuation inhaler Inhale 2 Puffs as instructed every 4 hours as needed for wheezing/shortness of breath. - FISH OIL ORAL CAP unsure of dosage - MULTIVITAMIN ORAL TAB Take one(1) tablet daily. - VITAMIN E 400 UNIT ORAL TAB Take one(1) tablet daily. Problem List As Of Date 01/17/2025 Noted Resolved HYPERLIPIDEMIA NEC/NOS [E78.5] 07/30/2008 FAMILY HX PROSTATIC MALIGNANCY [Z80.42] 07/30/2008 PROSTATIC DISORDER NOS [N42.9] 07/30/2008 Obesity [E66.9] 07/30/2008 JOINT PAIN-SHLDER [M25.519] 07/30/2008 ERECTILE DYSFUNCTION [F52.9] 07/30/2008 COLON POLYP [D12.6] 07/30/2008 BPH (benign prostatic hyperplasia) [N40.0] 02/09/2024 Encounter Status:Closed by EL GORDON on 01/17/25 [facility] 01-01-2025 Discharge summary [facility] 01-01-2025 Radiology Diagnostic study note [facility] Imaging Services [address] [place] [address] CT Chest, Abd, Pel w/Contrast MR#: [id number] Acct: [id number] Name: KEREN CHU Francesca Rep #: [id number] : 1940 M 84 From: Andre Ureña MD PCP: Dr. Sukhwinder Carver MD Status: REG ER Study:CT Chest, Abd, Pel w/Contrast Date of E xam: 12/31/24 Exam# [id number] Ordering Dr: Gentry Jane DO PROCEDURE: CT CHEST, ABD, PEL W/CONTRAST 12/31/2024 REASON FOR EXAM: TRAUMA TECHNIQUE: Chest, abdomen and pelvis CT with intravenous contrast. Coronal and Sagittal reconstruction series were provided. One or more dose reduction techniques were used (e.g., Automated exposure control, adjustment of the mA and/or kV according to patient size, use of iterative reconstruction technique. PATIENT PREPARATION: Per protocol ORAL CONTRAST TYPE: None. CONTRAST: Isovue-370 VOLUME: 97 mL RADIATION DOSE SUMMARY: CTDlvol: 44.9mGy DLP: 3545.73 mGycm COMPARISON: 01/18/2024. FINDINGS: CT OF THE CHEST WITH IV CONTRAST CLINICAL HISTORY: Trauma. TECHNIQUE: Axial and reformatted sagittal and coronal images of the chest obtained after bolus IV contrast administration. FINDINGS: Normal enhancement of the main pulmonary artery and right and left pulmonary arteries. Normal enhancement of the bilateral peripheral pulmonary arteries. There is no demonstrated pulmonary embolism. Normal thoracic aorta and visualized great vessels. There is no demonstrated aortic dissection. The aorta is calcified. Normal heart and pericardium. The coronary arteries are calcified. Normal mediastinum. Normal hilar regions. Normal visualized trachea and bronchi. The lungs are well expanded. 6 mm and 10 mm calcified granulomas are seen in the lingula and left lower lobe. Multiple smaller calcified and the numbers are seen in the right middle lobe. Normal pleura. Normal chest wall structures. The patient is status post total right shoulder joint replacement. CT/CT Chest, Abd, Pel w/Contrast IMPRESSION: No acute cardiopulmonary process. Old granulomatous disease. CT SCAN OF THE ABDOMEN AND PELVIS WITH IV CONTRAST CLINICAL HISTORY: Trauma. TECHNIQUE: Axial and reformatted sagittal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
[2025-03-17 20:22] LABS: Anion Gap 9 (5-15); BUN 20 mg/dL (4-19); BUN/Creat Ratio 21.9 RATIO (10-20); Calcium,Total 9.3 mg/dL (7.6-11.0); Carbon Dioxide 24.6 mmol/L (21.0-32.0); Chloride 106 mmol/L (98-108); Glucose 103 mg/dL (70-99); Potassium 4.2 mmol/L (3.3-5.1)
--- NOTE | 2025-03-17 21:10 | RAD_ITS ---
PROCEDURE: CHEST 1 VIEW (PORTABLE) 03/17/2025 REASON FOR EXAM: COUGH TECHNIQUE: Frontal view of the chest. COMPARISON: None FINDINGS: Lungs: The lungs are symmetrically expanded. Lung volumes are low. There is no consolidation. Nodular opacities are seen overlying the left lower lung field most likely calcified granulomas. Mild atelectasis or parenchymal scarring at the lung bases. There is no pulmonary vascular redistribution. Pleura: No significant pleural effusion seen. There is no evidence of pneumothorax. Mediastinum: There is no mediastinal widening or mediastinal shift. Heart: The cardiac silhouette is not enlarged. Vascular: Tortuous thoracic aorta. Calcified aortic atherosclerosis. Patience: The pulmonary patience are not enlarged or retracted. Osseous: No acute fracture is seen. Incompletely imaged right shoulder replacement. High-riding left humeral head articulating with the acromion. Degenerative changes of the spine. RAD/Chest 1 View (Portable) IMPRESSION: No radiographic evidence for an acute pulmonary infiltrate. - Chronic findings discussed above. Reading Location: [id number]
[2025-03-17] MEDS: 0.9% Normal Saline (1000mL) 1,000 ML 150 ML IV (21:29)
[2025-03-17 22:07] LABS: Squamous Epithelial Cells - UA 0 SEEN /hpf (0-5)
[2025-03-17 22:13] LABS: Color, Urine Yellow (Yellow); Glucose, Dipstick Normal (Normal); Ketone-Dipstick Negative (Negative); Leukocyte Esterase-Dipstick Negative /ul (Negative); Nitrite-Dipstick Negative (Negative); Occult Blood-Urine 10 /ul (Negative); Protein-Dipstick 15 mg/dl (Negative); Specific Gravity, Urine 1.020 (1.002-1.030)
[2025-03-17 22:52] LABS: Urine Bilirubin Dipstick 1 mg/dL (Negative)
[2025-03-17 22:53] LABS: Mucous, Urine 1+ /hpf (<or=2+); Red Blood Cells-Urine 5-10 SEEN /hpf (0-5)
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
--- OUTSIDE RECORDS SUMMARY | 2025-03-17 23:21 | XMS RPT_ITS | CCD ---
Author Organization [facility] Care Team Providers Care Classified Copy Control Clerk Name Role Phone Rashmi Chauhan MD Primary Care Provider Unavailable Primary Care Provider Unavailabl e Rashmi Chauhan MD Primary Care Provider Yazmin Carver MD Primary Care Provider Rashmi Chauhan MD Primary Care Provider Podlogar [employer].Carmencita SANCHEZ Unavailable Lavinia [employer] BUS.El SANCHEZ Unavailable Dr. Gentry Jane DO Emergency Provider Dr. Sukhwinder Carver MD Primary Care Provider Maurice Omalley Attending Unavailable Care Physician, No Primary Primary Care Unava ilable Care Physician, No Primary Primary Care Unava ilable Julius Iyer Attending Unavailable Sukhwinder Carver Primary Care Unavailable Gentry Jane Attending Unavailable [place]le [employer].El SANCHEZ Unavailable YAZMIN CARVER Primary Care Unavailable YAZMIN CARVER Referring [...] AND TOXOID] Propensity to adverse reactions 9 [facility] (1 source) LORazepam Drug Allergy 5 Rash [facility] (1 source) LORazepam Drug Allergy 5 [facility] (1 source) Tetanus Vaccines and Toxoid Drug allergy (disorder) 4 [facility] Medications Current Medications Medication Drug Class(es) Dates Sig (Normalized) Sig (Original) [id number] 200 actuat albuterol 0.09 mg/actuat metered dose [...] RELIEF) 50 mcg/actuation nasal spray Use 1 [place] in each nostril once daily. 11.1 mL [...] Comment on above: Take 2 tablets by [facility] twice daily. loratadine 10 mg oral tablet (4 sources) Start: 04-15-2023 End: 02-09-2024 take 1 tablet by mouth once daily loratadine (CLARITIN) 10 mg tablet Indications: Rhinosinusitis Take 1 tablet by mouth once daily. 30 tablet 11 04/15/2023 02/09/2024 Discontinued (Course of therapy completed) Comment on above: Take [address] [facility] once daily. magnesium chloride 598 mg delayed [...] Comment on above: Take 8 tablets by [facility] once daily. MULTIVITAMIN ORAL TAB (14 sources) [...] oral solution (4 sources) alpha-Adrenergic Agonist, Uncompetitive S-dsvole-J-aspartate Receptor Antagonist, Sigma-1 Agonist Start: End: take [...] symptoms). docusate sodium 50 mg / sennosides, fdc 8.6 mg oral tablet (1 source) Start: [...] 10, 2018 12:00am January 18, 2024 8:18pm Sparks-3 Fatty Acids (Fish Oil) 500 MG capsule (1 source) Start: End: take 1 capsule by mouth once daily Sparks-3 Fatty Acids (Fish Oil) 500 MG capsule [...] Auto (Unsp spec) [#/Vol] 1.04 10*3/uL 0.83-4.51 [facility] Absolute neutrophil countOrd ered By: Gentry Jane on 12-31-2024 Neutrophils (Bld) [#/Vol] 2.5 10*3/uL 2.0-7.7 [facility] Activated partial thrombopla stin time (aPTT) in platelet poor plasma by coagulation aOrdered By: Gentry Jane on 12-31-2024 aPTT Coag (PPP) [Time] 25.3 s 24.1-36.2 [facility] Anion gap in Serum or Plasma Ordered By: Gentry Jane on 12-31-2024 Anion gap [Moles/Vol] 10 mmol/L 5- [facility] Automated lymphocyte count a s percentage of total leukocytesOrdered By: Gentry Jane on 12-31-2024 Lymphocytes/100 WBC Auto (Unsp spec) 21.9 % - [facility] BUN/creatinine ratioOrdered By: Gentry Jane on 12-31-2024 Urea nitrogen/Creatinine [Mass ratio] 17.1 mg/mg - [facility] Basic Metabolic Profile (BMP )on 12-31-2024 BUN/CRE 17.1 RATIO Normal - [facility] Comment on above: Performed By: #### L 100.0100, L300.3900, L500.2500, L300.4310 #### [facility] [address] [place], [address] Calcium [Mass/Vol] 9.1 mg/dL Normal 7.6-11.0 [facility] Comment on above: Performed By: #### L 100.0100, L300.3900, L500.2500, L300.4310 #### [facility] [address] [place], [address] Chloride [Moles/Vol] 106 mmol/L Normal 98-108 [facility] Comment on above: Performed By: #### L 100.0100, L300.3900, L500.2500, L300.4310 #### [facility] [address] [place], [address] CO2 [Moles/Vol] 25.6 mmol/L Normal 21.0-32.0 [facility] Comment on above: Performed By: #### L 100.0100, L300.3900, L500.2500, L300.4310 #### [facility] [address] [place], [address] Creatinine [Mass/Vol] 0.94 mg/dL Normal 0.70-1.20 [facility] Comment on above: Performed By: #### L 100.0100, L300.3900, L500.2500, L300.4310 #### [facility] [address] [place], [address] ECRCL 61.41 ml/min Normal 50-250 [facility] Comment on above: Performed By: #### L 100.0100, L300.3900, L500.2500, L300.4310 #### [facility] [address] [place], [address] GAP 10 Normal 5-15 [facility] Comment on above: Performed By: #### L 100.0100, L300.3900, L500.2500, L300.4310 #### [facility] [address] [place], [address] GFR/1.73 sq M.predicted among non-blacks MDRD (S/P/Bld) [Vol rate/Area] 81 mL/min/{1.73_m2} Normal >60 [facility] Comment on above: Result Comment: mL/m in/1.73m2 CKD-EPI Creatinine Equation (2020) Performed By: #### L 100.0100, L300.3900, L500.2500, L300.4310 #### [facility] [address] [place], [address] Glucose [Mass/Vol] 108 mg/dL High 70-99 [facility] Comment on above: Performed By: #### L 100.0100, L300.3900, L500.2500, L300.4310 #### [facility] [address] [place], [address] Potassium [Moles/Vol] 4.0 mmol/L Normal 3.3-5.1 [facility] Comment on above: Performed By: #### L 100.0100, L300.3900, L500.2500, L300.4310 #### [facility] [address] [place], [address] Sodium [Moles/Vol] 141 mmol/L Normal 133-145 [facility] Comment on above: Performed By: #### L 100.0100, L300.3900, L500.2500, L300.4310 #### [facility] [address] [place], [address] Urea nitrogen [Mass/Vol] 16 mg/dL Normal 4-19 [facility] Comment on above: Performed By: #### L 100.0100, L300.3900, L500.2500, L300.4310 #### [facility] [address] [place], [address] Basophil percentageOrdered B y: Gentry Jane on 12-31-2024 Basophils/100 WBC (Bld) 0.4 % 0-1 [facility] Brain/Head without Contrasto n 12-31-2024 Brain/Head without Contrast [facility] Services [address] [place] [address] Brain/Head without Contrast MR#: [id number] Acct: [id number] Name: KEREN CHU Rep #: [id number] : 1940 M 84 From: Gem Pyle PCP: Dr. Sukhwinder Carver MD Status: REG ER Study: Brain/Head without Contrast Date of Exam: 12/11 09/05 Exam# [id number] Ordering Dr: Gentry Jane DO PROCEDURE: BRAIN/HEAD [...] IMPRESSION: No acute intracranial process. Reading Location: [facility] CC: Dr. Sukhwinder Carver MD; Dr. Gentry Jane DO Pier Master Assistant: Signed Normal [facility] CBC W/Diff, Automatedon 12-11 Absolute Lymph 1.04 X10 3/uL Normal 0.83-4.51 [facility] Comment on above: Performed By: #### L 100.0100, L300.3900, L500.2500, L300.4310 #### [facility] [address] [place], [place], [address] [phone] Absolute Neut 2.5 X10 3/uL Normal 2.0-7.7 [facility] Comment on above: Performed By: #### L 100.0100, L300.3900, L500.2500, L300.4310 #### [facility] [address] [place], [address] Basophils/100 WBC (Bld) 0.4 % Normal 0-1 [facility] Comment on above: Performed By: #### L 100.0100, L300.3900, L500.2500, L300.4310 #### [facility] [address] [place], [address] Eosinophils/100 WBC (Bld) 4.9 % Normal 0-5 [facility] Comment on above: Performed By: #### L 100.0100, L300.3900, L500.2500, L300.4310 #### [facility] [address] [place], [address] Erythrocyte distribution width (RBC) [Ratio] 13.8 % Normal 11.6-14.6 [facility] Comment on above: Performed By: #### L 100.0100, L300.3900, L500.2500, L300.4310 #### [facility] [address] [place], [address] Hematocrit (Bld) [Volume fraction] 36.5 % Low 40-54 [facility] Comment on above: Performed By: #### L 100.0100, L300.3900, L500.2500, L300.4310 #### [facility] [address] [place], [address] Hemoglobin (Bld) [Mass/Vol] 12.3 g/dL Low 13.0-16.5 [facility] Comment on above: Performed By: #### L 100.0100, L300.3900, L500.2500, L300.4310 #### [facility] [address] [place], [address] IG% 0.400 Normal 0.0-0.9 [facility] Comment on above: Result Comment: IG% - Immature Granulocytes (promyelocytes, myelocytes and metamyelocytes) > 1% indicates that a LEFT SHIFT is Present. Performed By: #### L 100.0100, L300.3900, L500.2500, L300.4310 #### [facility] [address] [place], [address] Lymphocytes/100 WBC (Bld) 21.9 % Normal 19-41 [facility] Comment on above: Performed By: #### L 100.0100, L300.3900, L500.2500, L300.4310 #### [facility] [address] [place], [address] MCH (RBC) [Entitic mass] 33.1 pg High 27.0-32.0 [facility] Comment on above: Performed By: #### L 100.0100, L300.3900, L500.2500, L300.4310 #### [facility] [address] [place], [address] MCHC (RBC) [Mass/Vol] 33.7 g/dL Normal 32-36 [facility] Comment on above: Performed By: #### L 100.0100, L300.3900, L500.2500, L300.4310 #### [facility] [address] [place], [address] MCV (RBC) [Entitic vol] 98.1 fL High 80-94 [facility] Comment on above: Performed By: #### L 100.0100, L300.3900, L500.2500, L300.4310 #### [facility] [address] [place], [address] Monocytes/100 WBC (Bld) 19.6 % High 0-10 [facility] Comment on above: Performed By: #### L 100.0100, L300.3900, L500.2500, L300.4310 #### [facility] [address] [place], [address] Neutrophils/100 WBC (Bld) 52.8 % Normal 47-70 [facility] Comment on above: Performed By: #### L 100.0100, L300.3900, L500.2500, L300.4310 #### [facility] [address] [place], [address] Nucleated RBC (Bld) [#/Vol] 0 10*3/uL Normal 0-5 [facility] Comment on above: Performed By: #### L 100.0100, L300.3900, L500.2500, L300.4310 #### [facility] [address] [place], [address] Platelet mean volume (Bld) [Entitic vol] 9.5 fL Normal 6.2-12.0 [facility] Comment on above: Performed By: #### L 100.0100, L300.3900, L500.2500, L300.4310 #### [facility] [address] [place], [address] Platelets (Bld) [#/Vol] 153 10*3/uL Normal 150-450 [facility] Comment on above: Performed By: #### L 100.0100, L300.3900, L500.2500, L300.4310 #### [facility] [address] [place], [address] RBC (Bld) [#/Vol] 3.72 10*6/uL Low 4.6-6.2 [facility] Comment on above: Performed By: #### L 100.0100, L300.3900, L500.2500, L300.4310 #### [facility] [address] [place], [address] RDW SD 49.1 fl High 35.1-43.9 [facility] Comment on above: Performed By: #### L 100.0100, L300.3900, L500.2500, L300.4310 #### [facility] [address] [place], [address] WBC (Bld) [#/Vol] 4.7 10*3/uL Normal 4.4-11.0 [facility] Comment on above: Performed By: #### L 100.0100, L300.3900, L500.2500, L300.4310 #### [facility] [address] [place], [address] CT Chest, Abd, Pel w/Contras ton 12-31-2024 CT Chest, Abd, Pel w/Contrast [facility] Imaging Services [address] [place] [address] CT Chest, Abd, Pel w/Contrast MR#: [id number] Acct: [id number] Name: KEREN CHU Rep #: [id number] : 1940 M 84 From: Amanda dennis MD PCP: Dr. Sukhwinder Carver MD Status: REG ER Study: CT Chest, Abd, Pel w/Contrast Date of Exam: Exam# [id number] Ordering Dr: Gentry Jane DO PROCEDURE: CT [...] Large bowel diverticulosis, no diverticulitis. Reading [facility] CC: Dr. Sukhwinder Carver MD; Dr. Gentry Jane DO Pier Master Assistant: Signed Normal [facility] Carbon dioxide, total [Moles /volume] in Central venous bloodOrdered By: Gentry Jane on 12-31-2024 CO2 [Moles/Vol] 25.6 mmol/L 21.0-32.0 [facility] Chloride assayOrdered By: Francesco Jane on 12-31-2024 Chloride [Moles/Vol] 106 mmol/L 98-108 [facility] Elbow min 3 Viewson 01-01-20 Elbow min 3 Views [facility] [address] [place] [address] Elbow min 3 Views MR#: [id number] Acct: [id number] Name: KEREN CHU Rep #: [id number] : 1940 M 84 From: Gem Pyle PCP: Dr. Sukhwinder Carver MD Status: REG ER Study: Elbow min 3 Views Date of Exam: 12/31/24 Exam# [id number] Ordering Dr: Gentry Jane DO PROCEDURE: ELBOW MIN 3 VIEWS 12/31/2024 REASON FOR EXAM: INJURY TECHNIQUE: ELBOW MIN 3 VIEWS COMPARISON: None RAD/Elbow min 3 Views IMPRESSION: No acute fracture or dislocations. Mild degenerative changes of the elbow. No large joint effusion. No acute soft tissue abnormalities. No radiographic foreign body. Reading Location: [facility] CC: Dr. Sukhwinder Carver MD; Dr. Gentry Jane DO Pier Master Assistant: Signed Normal [facility] Emergency Department Summary on 12-31-2024 Emergency Department Summary [facility] Medical Records Department [address] [place] [address] Emergency Department Summary 12/31/24 MR#: [id number] Acct: [id number] Name: KEREN CHU Rep #: [id number] : 1940 84 From: Gentry Landers PCP: [...] to his left wrist. Tetanus Immunization: Unknown [facility] Medical History Sebaceous cyst Home Medications [...] GI no (more content not included)... Normal [facility] Eosinophil percentageOrdered By: Gentry Jane on 12-31-2024 Eosinophils/100 WBC (Bld) 4.9 % 0-5 [facility] Erythrocyte distribution wid th ratioOrdered By: Gentry Jane on 12-31-2024 Erythrocyte distribution width (RBC) [Ratio] 13.8 % 11.6-14.6 [facility] Erythrocyte distribution wid th standard deviationOrdered By: Gentry Jane on 12-31-2024 Erythrocyte distribution width (RBC) [Ratio] 49.1 fl High 35.1-43.9 [facility] Forearm 2 Viewson 12-31-2024 Forearm 2 Views [facility] Imaging Services [address] [place] [address] Forearm 2 Views MR#: [id number] Acct: [id number] Name: KEREN CHU Rep #: [id number] : 1940 M 84 From: Gem Pyle PCP: Dr. Sukhwinder Carver MD Status: REG ER Study: Forearm 2 Views Date of Exam: 12/31/24 Exam# [id number] Ordering Dr: Gentry Jane DO PROCEDURE: FOREARM 2 VIEWS 12/31/2024 REASON FOR EXAM: INJURY TECHNIQUE: FOREARM 2 VIEWS COMPARISON: None FINDINGS: No acute fracture or dislocations. No large joint effusion. No acute soft tissue abnormalities. Peripheral IV within the antecubital fossa. RAD/Forearm 2 Views IMPRESSION: No acute fracture or dislocation. Mild diffuse soft tissue edema. Reading Location: [facility] CC: Dr. Sukhwinder Carver MD; Dr. Gentry Jane DO Pier Master Assistant: Signed Normal [facility] Glomerular filtration rate ( GFR) estimation/1.73 sq m using serum, plasma, or whole bOrdered By: Gentry Jane on 12-31-2024 GFR/1.73 sq M.predicted among non-blacks MDRD (S/P/Bld) [Vol rate/Area] 81 mL/min/{1.73_m2} >60 [facility] Comment on above: mL/min/1.73m2 CKD-EP I Creatinine Equation (2020) Hematocrit Auto (Bld) [Volum e fraction]Ordered By: Gentry Jane on 12-31-2024 Hematocrit (Bld) [Volume fraction] 36.5 % Low 40-54 [facility] Hemoglobin measurementOrdere d By: Gentry Jane on 12-31-2024 Hemoglobin (Bld) [Mass/Vol] 12.3 g/dL Low 13.0-16.5 [facility] Immature granulocytes/100 WB C Auto (Bld)Ordered By: Gentry Jane on 12-31-2024 Immature granulocytes/100 WBC (Bld) 0.400 % 0.0-0.9 [facility] Comment on above: IG% - Immature Granu locytes (promyelocytes, myelocytes and metamyelocytes) > 1% indicates that a LEFT SHIFT is Present. International normalized rat io (INR) calculationOrdered By: Gentry Jane on 12-31-2024 INR Coag (Bld) [Relative time] 1.0 {INR} [facility] MCV (mean corpuscular volume ) determinationOrdered By: Gentry Jane on 12-31-2024 MCV (RBC) [Entitic vol] 98.1 fL High 80-94 [facility] Mean corpuscular hemoglobin (MCH) determinationOrdered By: Gentry Jane on 12-31-2024 MCH (RBC) [Entitic mass] 33.1 pg High 27.0-32.0 [facility] Mean corpuscular hemoglobin concentration (MCHC) determinationOrdered By: Gentry Jane on 12-31-2024 MCHC (RBC) [Mass/Vol] 33.7 g/dL 32-36 [facility] Mean platelet volume determi nationOrdered By: Gentry Jane on 12-31-2024 Platelet mean volume (Bld) [Entitic vol] 9.5 fL 6.2-12.0 [facility] Monocyte percentageOrdered B y: Gentry Jane on 12-31-2024 Monocytes/100 WBC (Bld) 19.6 % High 0-10 [facility] Neutrophil percentageOrdered By: Gentry Jane on 12-31-2024 Neutrophils/100 WBC (Bld) 52.8 % 47-70 [facility] Nucleated red blood cell per centageOrdered By: Gentry Jane on 12-31-2024 Nucleated RBC/100 WBC (Bld) [Ratio] 0 % 0-5 [facility] Partial Thromboplast Timeon 12-31-2024 aPTT Coag (Bld) [Time] 25.3 s Normal 24.1-36.2 [facility] Comment on above: Performed By: #### L 100.0100, L300.3900, L500.2500, L300.4310 #### [facility] [address] [place], [address] Platelet countOrdered By: Francesco Jane on 12-31-2024 Platelets (Bld) [#/Vol] 153 10*3/uL 150-450 [facility] Potassium measurement (mass/ volume)Ordered By: Gentry Jane on 12-31-2024 Potassium (Unsp spec) [Mass/Vol] 4.0 mmol/L 3.3-5.1 [facility] Prothrombin Time w/INRon INR Coag (PPP) [Relative time] 1.0 {INR} Normal [facility] Comment on above: Performed By: #### L 100.0100, L300.3900, L500.2500, L300.4310 #### [facility] [address] [place], [address] PT Coag (PPP) [Time] 13.8 s Normal 11.7-14.9 [facility] Comment on above: Performed By: #### L 100.0100, L300.3900, L500.2500, L300.4310 #### [facility] [address] [place], [address] Prothrombin timeOrdered By: Gentry Jane on 12-31-2024 PT Coag (PPP) [Time] 13.8 s 11.7-14.9 [facility] RBC Auto (Bld) [#/Vol]Ordere d By: Gentry Jane on 12-31-2024 RBC (Bld) [#/Vol] 3.72 10*6/uL Low 4.6-6.2 [facility] Serum creatinine measurement (mass/volume)Ordered By: Gentry Jane on 12-31-2024 Creatinine [Mass/Vol] 0.94 mg/dL 0.70-1.20 [facility] Serum glucose measurement (m ass/volume)Ordered By: Gentry Jane on 12-31-2024 Glucose [Mass/Vol] 108 mg/dL High 70-99 [facility] Serum or plasma calcium jalyn urement (mass/volume)Ordered By: Gentry Jane on 12-31-2024 Calcium [Mass/Vol] 9.1 mg/dL 7.6-11.0 [facility] Serum or plasma urea nitroge n measurement (mass/volume)Ordered By: Gentry Jane on 12-31-2024 Urea nitrogen [Mass/Vol] 16 mg/dL 4-19 [facility] Sodium levelOrdered By: Gentry Jane on 12-31-2024 Sodium [Moles/Vol] 141 mmol/L 133-145 [facility] Spine Cervical without Contr ason 12-31-2024 Spine Cervical without Contras [facility] Imaging Services [address] [place], [place] [address] Spine Cervical without Contras MR#: [id number] Acct: [id number] Name: KEREN CHU Rep #: [id number] : 1940 M 84 From: Gem Pyle PCP: Dr. Sukhwinder Carver MD Status: REG ER Study: Spine Cervical without Contras Date of Exam: 0 12/31/24 Exam# [id number] Ordering Dr: Gentry Jane DO PROCEDURE: SPINE [...] the cervical spine as above. Reading Location: [facility] CC: Dr. Sukhwinder Carver MD; Dr. Gentry Jane DO Pier Master Assistant: Signed Normal [facility] White blood cell (WBC) count Ordered By: Gentry Jane on 12-31-2024 WBC (Bld) [#/Vol] 4.7 10*3/uL 4.4-11.0 [facility] Wrist min 3 Viewson 01-01-20 25 Wrist min 3 Views [facility] Services [address] [place] [address] Wrist min 3 Views MR#: [id number] Acct: [id number] Name: KEREN CHU Rep #: [id number] : 1940 M 84 From: Gem Pyle PCP: Dr. Sukhwinder Carver MD Status: REG ER Study: Wrist min 3 Views Date of Exam: 12/31/24 Exam# [id number] Ordering Dr: Gentry Jane DO PROCEDURE: WRIST MIN 3 VIEWS 12/31/2024 REASON FOR EXAM: INJURY TECHNIQUE: WRIST MIN 3 VIEWS COMPARISON: None RAD/Wrist min 3 Views IMPRESSION: No acute fracture or dislocations. Diffuse osteopenia. Moderate degenerative changes of the intercarpal and radiocarpal joint spaces and 1st CMC joint. Mild diffuse soft tissue edema. No radiographic foreign body. Reading Location: [facility] CC: Dr. Sukhwinder Carver MD; Dr. Gentry Jane DO Pier Master Assistant: Signed Normal [facility] CNOVon 10-11-2024 CNOV Office Visit (UCWSTR ) KEREN CHU ([id number]) 1940 M Date Time Provider Department 10/11/24 12:30 PM [facility] During your visit today, we recorded the following information about you: Temperature Pulse Respiration Blood pressure 97.2 degrees 60/minute 16/minute 122/80 Weight 85 kg Raji Hunter APRN.[employer] 10/11/2024 1:07 PM Signed Subjective HPI Nontoxic-appearing [...] prn analgesia (more content not included)... Normal [facility] CNOVon 05-05-2024 CNOV Office Visit (FAMPWS ) MARIBELKATYSelvin Ma ([id number]) 1940 M Date Time Provider Department 05/05/24 11:20 AM [facility] During your visit today, we recorded the [...] Yazmin Carver, (more content not included)... Normal [facility] CNOVon 05-02-2024 CNOV Office Visit (UCWSTR ) KEREN CHU ([id number]) 1940 M Date Time Provider Department 05/02/24 10:00 AM RAJI HUNTER [facility] During your visit today, we recorded the following information about you: Temperature Pulse Respiration Blood pressure 98.1 degrees 84/minute 22/minute 124/72 Weight 80.6 kg Raji Hunter APRN.[employer] 05/02/2024 11:26 AM Signed Subjective HPI Nontoxic-appearing [...] as scheduled. (more content not included)... Normal [facility] XR CHEST 2V FRONTAL/LATon XR [...] the right middle lobe. Remote granulomatous disease. Pier Master Assistant: [facility] Transcribe Date/Time: May 02 2024 11:01A Dictated by : WILMER SAEZ MD This examination was interpreted and the report reviewed and electronically signed by: WILMER SAEZ MD on May 02 2024 11:03AM EST [id number] Normal [facility] XR Chest PA and Lateralon IMPRESSION: Interval pulmonary infiltrates versus atelectasis in the right middle lobe. Remote granulomatous disease. Pier Master Assistant: [facility]12Bis Transcribe Date/Time: May 02 2024 11:01A Dictated [...] the right middle lobe. Remote granulomatous disease. Pier Master Assistant: PSCB Transcribe Date/Time: May 02 2024 11:01A Dictated by : IWLMER SAEZ MD This examination was interpreted and the report reviewed and electronically signed by: WILMER SAEZ MD on May 02 2024 11:03AM EST [facility] Radiology Study observation (narrative) Demarco pyle [facility] XR Chest PA and LateralOrder ed By: Ccf Provider on 05-02-2024 [facility] CNCOon 02-14-2024 CNCO Letter Text Normal [facility] CNPNon 02-10-2024 CNPN Telephone (FAMPWS) KEREN CHU ([id number]) 1940 M Date Time Provider Department 02/10/24 [...] Status:Closed by CHERELLE LEWIS on 02/14/24 Normal [facility] CNOVon 02-09-2024 CNOV Office Visit (FAMPWS ) KEREN CHU ([id number]) 1940 M Date Time Provider Department 02/09/24 [...] diet. Notes that he was in the [facility] ED about 2-3 weeks ago for diarrhea [...] List Depressi (more content not included)... Normal [facility] HbA1c (Bld)on 02-09-2024 Average glucose Estimated from glycated hemoglobin (Bld) [Mass/Vol] 105 mg/dL Normal [facility] Comment on above: Order Comment: Jim khan Type: BLOOD SPECIMENOrdering Facility: [facility] Address: [address] [place] [address] Result Comment: eAG: (Estimated average glucose) is a calculated value from HgbA1c and is underwriting sales representative of the average blood glucose level in the last 2-3 month period. Performed By: #### 5 5454-3 ####[facility] LABCLIA [id number] [place] [address] [place] HbA1c (Bld) [Mass fraction] 5.3 % Normal 4.3-5.6 [facility] Comment on above: Order Comment: Jim khan Type: BLOOD SPECIMENOrdering Facility: [facility] Address: [address] [place] [address] Result Comment: Amer ican Diabetes Association guidelines indicate that patients with HgbA1c in the range 5.7-6.4% are at increased risk for development of diabetes, and intervention by lifestyle modification may be beneficial. HgbA1c greater or equal to 6.5% is considered diagnostic of diabetes. Performed By: #### 5 5454-3 ####[facility] LABCLIA [id number] [place] [address] [place] [facility] [place] LIPID PANEL, NONFASTINGon Cholesterol [Mass/Vol] 149 mg/dL Normal <200 [facility] Comment on above: Order Comment: Speci men Type: BLOOD SPECIMENOrdering Facility: [facility] Address: [address] [place] [address] Result Comment: <200 mg/dL, Desirable 200-239 mg/dL, Borderline high >239 mg/dL, High Performed By: #### L IPNF ####[facility] LABCLIA [id number] [place] [address] [place] HDL CHOLESTEROL, NF 34 mg/dL Low >39 [facility] Comment on above: Order Comment: Speci men Type: BLOOD SPECIMENOrdering Facility: [facility] Address: [address] [place] [address] Result Comment: 40-5 9 mg/dL, Acceptable >59 mg/dL, High: Negative risk factor for coronary heart disease <40 mg/dL, Low: Positive risk factor for coronary heart disease Performed By: #### L IPNF ####[facility] LABCLIA [id number] [place] [address] [place] LDL CHOLESTEROL, NF 93 mg/dL Normal <100 [facility] Comment on above: Order Comment: Speci men Type: BLOOD SPECIMENOrdering Facility: [facility] Address: [address] [place] [address] Result Comment: <100 mg/dL, Optimal 100-129 mg/dL, Near optimal/above optimal 130-159 mg/dL, Borderline high 160-189 mg/dL, High >189 mg/dL, Very high Secondary prevention optimal LDL Cholesterol levels are recommended to be < 70 mg/dL Performed By: #### L IPNF ####[facility] LABCLIA [id number] [place] [address] [place] LDL/HDL RATIO, NF 2.74 mg/dL High <2.54 [facility] Comment on above: Order Comment: Speci men Type: BLOOD SPECIMENOrdering Facility: [facility] Address: [address] [place] [address] Result Comment: Dori pryor: 1. National Cholesterol Education Program ATP III Guideline At-A-Glance Quick Desk Reference: National Heart, Lung, and Blood [place]. National Institutes of Health. 2001: NIH Publication No. 01-3305. 2. An International Atherosclerosis Society position paper: global recommendations for the management of dyslipidemia: executive summary, Atherosclerosis. 2014: 232(2):410-413. Performed By: #### L IPNF ####[facility] LABCLIA [id number] [place] [address] [place] NON HDL CHOL, NF 115 mg/dL Normal <130 [facility] Comment on above: Order Comment: Speci men Type: BLOOD SPECIMENOrdering Facility: [facility] Address: [address] [place] [address] Result Comment: <130 mg/dL, Optimal 130-159 mg/dL, Near optimal/above optimal 160-189 mg/dL, Borderline high 190-219 mg/dL, High >219 mg/dL, Very high Secondary prevention optimal non HDL Cholesterol levels are recommended to be <100 mg/dL Performed By: #### L IPNF ####[facility] LABCLIA [id number] [address] [place] T CHOL/HDL RATIO NF 4.38 mg/dL Normal <5.10 [facility] Comment on above: Order Comment: Speci men Type: BLOOD SPECIMENOrdering Facility: [facility] Address: [address] [place] [address] Performed By: #### L IPNF ####[facility] LABCLIA [id number] [place] [address] [place] TRIGLYCERIDES, NF 108 mg/dL Normal <150 [facility] Comment on above: Order Comment: Speci men Type: BLOOD SPECIMENOrdering Facility: [facility] Address: [address] [place] [address] Result Comment: <150 mg/dL, Normal 150-199 mg/dL, Borderline high 200-499 mg/dL, High >499 mg/dL, Very high Performed By: #### L IPNF ####[facility] LABCLIA [id number] [place] [address] [place] VLDL CHOLESTEROL, NF 22 mg/dL Normal <30 [facility] Comment on above: Order Comment: Speci men Type: BLOOD SPECIMENOrdering Facility: [facility] Address: [address] [place] [address] Performed By: #### L IPNF ####[facility] LABCLIA [id number] [address] [place] CNOVon 01-28-2024 CNOV Office Visit (UCWSTR ) KEREN CHU ([id number]) 1940 M Date Time Provider Department 01/28/24 2:15 PM FAUSTINO JAIMES UCWS During your visit today, we recorded the following information about you: Temperature Pulse Respiration Blood pressure 97.1 degrees 53/minute 18/minute 162/84 Weight 80.5 kg Faustino Jaimes APRN.[employer] 01/28/2024 2:23 PM Signed This note was [...] - CYCLOBENZAPRINE 10 MG TABLET Faustino Jaimes APRN.[employer] Allergies As of Date: 01/28/2024 Noted Allergy Reaction TETANUS VACCINES AND TOXOID 07/30/2008 Comments: skin breakout Date Reviewed: 01/28/2024 Reviewed by: Faustino Jaimes APRN.[employer] - Fully Assessed Reason for Visit: Low [...] t* 0 (more content not included)... Normal [facility] Abdomen/Pelvis W IV Cont ONL Yon 01-18-2024 Abdomen/Pelvis W IV Cont ONLY [facility] [address] [place] [address] Abdomen/Pelvis W IV Cont ONLY MR#: [id number] Acct: [id number] Name: KEREN CHU Rep #: [id number] : 1940 M 84 From: Dickson Denise MD PCP: Care Physician,No Primary Status: DEP ER Study: Abdomen/Pelvis W IV Cont ONLY Date of Exam: Exam# [id number] Ordering Dr: Julius Iyer MD [id number] INDICATION: Diarrhea, abdominal pain COMPARISON: 01/12/2015 abdominal [...] Julius Iyer MD; No Primary Care Physician Pier Master Assistant: Signed Normal [facility] CBC W/Diff, Automatedon 07-0 Absolute Lymph 0.67 X10 3/uL Low 0.83-4.51 [facility] Comment on above: Performed By: #### L 100.0100, L501.2450, L500.4050 #### [facility] [address] [place], [address] Absolute Neut 7.0 X10 3/uL Normal 2.0-7.7 [facility] Comment on above: Performed By: #### L 100.0100, L501.2450, L500.4050 #### [facility] [address] [place], [address] Basophils/100 WBC (Bld) 0.3 % Normal 0-1 [facility] Comment on above: Performed By: #### L 100.0100, L501.2450, L500.4050 #### [facility] [address] [place], [address] Eosinophils/100 WBC (Bld) 0.2 % Normal 0-5 [facility] Comment on above: Performed By: #### L 100.0100, L501.2450, L500.4050 #### [facility] [address] [place], [address] Erythrocyte distribution width (RBC) [Ratio] 13.5 % Normal 11.6-14.6 [facility] Comment on above: Performed By: #### L 100.0100, L501.2450, L500.4050 #### [facility] [address] [place], [address] Hematocrit (Bld) [Volume fraction] 45.1 % Normal 40-54 [facility] Comment on above: Performed By: #### L 100.0100, L501.2450, L500.4050 #### [facility] [address] [place], [address] Hemoglobin (Bld) [Mass/Vol] 15.3 g/dL Normal 13.0-16.5 [facility] Comment on above: Performed By: #### L 100.0100, L501.2450, L500.4050 #### [facility] [address] [place], [address] IG% 0.300 Normal 0.0-0.9 [facility] Comment on above: Result Comment: IG% - Immature Granulocytes (promyelocytes, myelocytes and metamyelocytes) > 1% indicates that a LEFT SHIFT is Present. Performed By: #### L 100.0100, L501.2450, L500.4050 #### [facility] [address] [place], [address] Lymphocytes/100 WBC (Bld) 7.5 % Low 19-41 [facility] Comment on above: Performed By: #### L 100.0100, L501.2450, L500.4050 #### [facility] [address] [place], [address] MCH (RBC) [Entitic mass] 32.4 pg High 27.0-32.0 [facility] Comment on above: Performed By: #### L 100.0100, L501.2450, L500.4050 #### [facility] [address] [place], [address] MCHC (RBC) [Mass/Vol] 33.9 g/dL Normal 32-36 [facility] Comment on above: Performed By: #### L 100.0100, L501.2450, L500.4050 #### [facility] [address] [place], [address] MCV (RBC) [Entitic vol] 95.6 fL High 80-94 [facility] Comment on above: Performed By: #### L 100.0100, L501.2450, L500.4050 #### [facility] [address] [place], [address] Monocytes/100 WBC (Bld) 12.5 % High 0-10 [facility] Comment on above: Performed By: #### L 100.0100, L501.2450, L500.4050 #### [facility] [address] [place], [address] Neutrophils/100 WBC (Bld) 79.2 % High 47-70 [facility] Comment on above: Performed By: #### L 100.0100, L501.2450, L500.4050 #### [facility] [address] [place], [address] Nucleated RBC (Bld) [#/Vol] 0 10*3/uL Normal 0-5 [facility] Comment on above: Performed By: #### L 100.0100, L501.2450, L500.4050 #### [facility] [address] [place], [address] Platelet mean volume (Bld) [Entitic vol] 8.8 fL Normal 6.2-12.0 [facility] Comment on above: Performed By: #### L 100.0100, L501.2450, L500.4050 #### [facility] [address] [place], [address] Platelets (Bld) [#/Vol] 230 10*3/uL Normal 150-450 [facility] Comment on above: Performed By: #### L 100.0100, L501.2450, L500.4050 #### [facility] [address] [place], [address] RBC (Bld) [#/Vol] 4.72 10*6/uL Normal 4.6-6.2 [facility] Comment on above: Performed By: #### L 100.0100, L501.2450, L500.4050 #### [facility] [address] [place], [address] RDW SD 48.3 fl High 35.1-43.9 [facility] Comment on above: Performed By: #### L 100.0100, L501.2450, L500.4050 #### [facility] [address] [place], [address] WBC (Bld) [#/Vol] 8.9 10*3/uL Normal 4.4-11.0 [facility] Comment on above: Performed By: #### L 100.0100, L501.2450, L500.4050 #### [facility] [address] [place], [address] [facility] 01-18-2024 Albumin [Mass/Vol] 3.7 g/dL Normal 3.2-5.0 [facility] Comment on above: Performed By: #### L 100.0100, L501.2450, L500.4050 ####[facility] [address] [place], [address] Albumin/Globulin [Mass ratio] 0.9 {ratio} Normal 0.9-2.4 [facility] Comment on above: Performed By: #### L 100.0100, L501.2450, L500.4050 ####[facility] [address] [place], [address] ALK P 87 U/L Normal 45-117 [facility] Comment on above: Performed By: #### L 100.0100, L501.2450, L500.4050 ####[facility] [address] [place], [address] ALT [Catalytic activity/Vol] 13 U/L Low 16-61 [facility] Comment on above: Performed By: #### L 100.0100, L501.2450, L500.4050 ####[facility] [address] [place], [address] AST [Catalytic activity/Vol] 24 U/L Normal 15-37 [facility] Comment on above: Performed By: #### L 100.0100, L501.2450, L500.4050 ####[facility] [address] [place], [address] Bilirubin [Mass/Vol] 1.30 mg/dL High 0.20-1.00 [facility] Comment on above: Result Comment: For patients on eltrombopag therapy, use of Dimension [place] TBIL is not recommended. Performed By: #### L 100.0100, L501.2450, L500.4050 ####[facility] [address] [place], [address] BUN/CRE 29.9 RATIO High 10-20 [facility] Comment on above: Performed By: #### L 100.0100, L501.2450, L500.4050 ####[facility] [address] [place], [address] CA,Total 9.5 mg/dL Normal 8.5-10.1 [facility] Comment on above: Performed By: #### L 100.0100, L501.2450, L500.4050 ####[facility] [address] [place], [address] Chloride [Moles/Vol] 106 mmol/L Normal 98-107 [facility] Comment on above: Performed By: #### L 100.0100, L501.2450, L500.4050 ####[facility] [address] [place], [address] CO2 [Moles/Vol] 22.0 mmol/L Normal 21.0-32.0 [facility] Comment on above: Performed By: #### L 100.0100, L501.2450, L500.4050 ####[facility] [address] [place], [address] Creatinine [Mass/Vol] 1.47 mg/dL High 0.70-1.30 [facility] Comment on above: Result Comment: The validity of the calculated GFR GFRAA in patients over 70 years has not been determined. Clinical correlation is essential. Performed By: #### L 100.0100, L501.2450, L500.4050 ####[facility] [address] [place], [address] ECRCL 36.81 ml/min Normal [facility] Comment on above: Performed By: #### L 100.0100, L501.2450, L500.4050 ####[facility] [address] [place], [address] EST GFR - AA 59 mL/min Low >60 [facility] Comment on above: Result Comment: Afri can Belgian GFR Calc Performed By: #### L 100.0100, L501.2450, L500.4050 ####[facility] [address] [place], [address] GAP 8 Normal 5-15 [facility] Comment on above: Performed By: #### L 100.0100, L501.2450, L500.4050 ####[facility] [address] [place], [address] GFR/1.73 sq M.predicted among non-blacks MDRD (S/P/Bld) [Vol rate/Area] 49 mL/min/{1.73_m2} Low >60 [facility] Comment on above: Result Comment: Non- GFR Calc Performed By: #### L 100.0100, L501.2450, L500.4050 ####[facility] [address] [place], [address] Globulin (S) [Mass/Vol] 4.3 g/dL High 2.2-4.2 [facility] Comment on above: Performed By: #### L 100.0100, L501.2450, L500.4050 ####[facility] [address] [place], [address] Glucose [Mass/Vol] 124 mg/dL High 74-106 [facility] Comment on above: Result Comment: Fast ing Glucose result from 100 to 125 mg/dL suggests IMPAIRED HOMEOSTASIS per A.D.A. criteria. Performed By: #### L 100.0100, L501.2450, L500.4050 ####[facility] [address] [place], [address] Potassium [Moles/Vol] 4.0 mmol/L Normal 3.5-5.1 [facility] Comment on above: Performed By: #### L 100.0100, L501.2450, L500.4050 ####[facility] [address] [place], [address] Sodium [Moles/Vol] 136 mmol/L Normal 136-145 [facility] Comment on above: Performed By: #### L 100.0100, L501.2450, L500.4050 ####[facility] [address] [place], [address] T PROT 8.0 g/dL Normal 6.4-8.2 [facility] Comment on above: Performed By: #### L 100.0100, L501.2450, L500.4050 ####[facility] [address] [place], [address] Urea nitrogen [Mass/Vol] 44 mg/dL High 7-18 [facility] Comment on above: Performed By: #### L 100.0100, L501.2450, L500.4050 ####[facility] [address] [place], [address] Emergency Department Summary on 01-18-2024 Emergency Department Summary [facility] Medical Records Department [address] [place] [address] Emergency Department Summary 01/18/24 MR#: [id number] Acct: [id number] Name: KEREN CHU Rep #: [id number] : 1940 84 From: Julius Iyer MD [...] which seems to have improved his diarrhea. [facility] Medical History Sebaceous cyst Home Medications [...] he has (more content not included)... Normal [facility] Lipaseon 01-18-2024 Lipase [Catalytic activity/Vol] 23 U/L Normal 13-75 [facility] Comment on above: Result Comment: Wily kay note: LIPASE revised reference range effective 22. New Lipase methodology. Expected to produce lower values than the previous assay method. NEW Reference Range: 13 - 75 U/L Performed By: #### L 100.0100, L501.2450, L500.4050 ####[facility] [address] [place], [address] Basic Metabolic Profile (BMP )on 01-17-2024 BUN/CRE 16.0 RATIO Normal 10-20 [facility] Comment on above: Performed By: #### L 500.2500, L100.0100, L501.5200, L500.3400 ####[facility] [address] [place], [address] CA,Total 8.9 mg/dL Normal 8.5-10.1 [facility] Comment on above: Performed By: #### L 500.2500, L100.0100, L501.5200, L500.3400 ####[facility] [address] [place], [address] Chloride [Moles/Vol] 109 mmol/L High 98-107 [facility] Comment on above: Performed By: #### L 500.2500, L100.0100, L501.5200, L500.3400 ####[facility] [address] [place], [address] CO2 [Moles/Vol] 25.0 mmol/L Normal 21.0-32.0 [facility] Comment on above: Performed By: #### L 500.2500, L100.0100, L501.5200, L500.3400 ####[facility] [address] [place], [address] Creatinine [Mass/Vol] 0.94 mg/dL Normal 0.70-1.30 [facility] Comment on above: Result Comment: The validity of the calculated GFR GFRAA in patients over 70 years has not been determined. Clinical correlation is essential. Performed By: #### L 500.2500, L100.0100, L501.5200, L500.3400 ####[facility] [address] [place], [address] ECRCL 58.94 ml/min Normal [facility] Comment on above: Performed By: #### L 500.2500, L100.0100, L501.5200, L500.3400 ####[facility] [address] [place], [address] EST GFR - AA 99 mL/min Normal >60 [facility] Comment on above: Result Comment: Afri can Belgian GFR Calc Performed By: #### L 500.2500, L100.0100, L501.5200, L500.3400 ####[facility] [address] [place], [address] GAP 4 Low 5-15 [facility] Comment on above: Performed By: #### L 500.2500, L100.0100, L501.5200, L500.3400 ####[facility] [address] [place], [address] GFR/1.73 sq M.predicted among non-blacks MDRD (S/P/Bld) [Vol rate/Area] 82 mL/min/{1.73_m2} Normal >60 [facility] Comment on above: Result Comment: Non- GFR Calc Performed By: #### L 500.2500, L100.0100, L501.5200, L500.3400 ####[facility] [address] [place], [address] Glucose [Mass/Vol] 98 mg/dL Normal 74-106 [facility] Comment on above: Performed By: #### L 500.2500, L100.0100, L501.5200, L500.3400 ####[facility] [address] [place], [address] Potassium [Moles/Vol] 3.9 mmol/L Normal 3.5-5.1 [facility] Comment on above: Performed By: #### L 500.2500, L100.0100, L501.5200, L500.3400 ####[facility] [address] [place], [address] Sodium [Moles/Vol] 138 mmol/L Normal 136-145 [facility] Comment on above: Performed By: #### L 500.2500, L100.0100, L501.5200, L500.3400 ####[facility] [address] [place], [address] Urea nitrogen [Mass/Vol] 15 mg/dL Normal 7-18 [facility] Comment on above: Performed By: #### L 500.2500, L100.0100, L501.5200, L500.3400 ####[facility] [address] [place], [address] CBC W/Diff, Automatedon 07-0 8-2024 Absolute Lymph 0.98 X10 3/uL Normal 0.83-4.51 [facility] Comment on above: Performed By: #### L 500.2500, L100.0100, L501.5200, L500.3400 ####[facility] [address] [place], [address] Absolute Neut 3.6 X10 3/uL Normal 2.0-7.7 [facility] Comment on above: Performed By: #### L 500.2500, L100.0100, L501.5200, L500.3400 ####[facility] [address] [place], [address] Basophils/100 WBC (Bld) 0.2 % Normal 0-1 [facility] Comment on above: Performed By: #### L 500.2500, L100.0100, L501.5200, L500.3400 ####[facility] [address] [place], [address] Eosinophils/100 WBC (Bld) 4.4 % Normal 0-5 [facility] Comment on above: Performed By: #### L 500.2500, L100.0100, L501.5200, L500.3400 ####[facility] [address] [place], [address] Erythrocyte distribution width (RBC) [Ratio] 13.4 % Normal 11.6-14.6 [facility] Comment on above: Performed By: #### L 500.2500, L100.0100, L501.5200, L500.3400 ####[facility] [address] [place], [address] Hematocrit (Bld) [Volume fraction] 43.9 % Normal 40-54 [facility] Comment on above: Performed By: #### L 500.2500, L100.0100, L501.5200, L500.3400 ####[facility] [address] [place], [address] Hemoglobin (Bld) [Mass/Vol] 14.6 g/dL Normal 13.0-16.5 [facility] Comment on above: Performed By: #### L 500.2500, L100.0100, L501.5200, L500.3400 ####[facility] [address] [place], [address] IG% 0.200 Normal 0.0-0.9 [facility] Comment on above: Result Comment: IG% - Immature Granulocytes (promyelocytes, myelocytes and metamyelocytes) > 1% indicates that a LEFT SHIFT is Present. Performed By: #### L 500.2500, L100.0100, L501.5200, L500.3400 ####[facility] [address] [place], [address] Lymphocytes/100 WBC (Bld) 17.1 % Low 19-41 [facility] Comment on above: Performed By: #### L 500.2500, L100.0100, L501.5200, L500.3400 ####[facility] [address] [place], [address] MCH (RBC) [Entitic mass] 32.2 pg High 27.0-32.0 [facility] Comment on above: Performed By: #### L 500.2500, L100.0100, L501.5200, L500.3400 ####[facility] [address] [place], [address] MCHC (RBC) [Mass/Vol] 33.3 g/dL Normal 32-36 [facility] Comment on above: Performed By: #### L 500.2500, L100.0100, L501.5200, L500.3400 ####[facility] [address] [place], [address] MCV (RBC) [Entitic vol] 96.7 fL High 80-94 [facility] Comment on above: Performed By: #### L 500.2500, L100.0100, L501.5200, L500.3400 ####[facility] [address] [place], [address] Monocytes/100 WBC (Bld) 16.1 % High 0-10 [facility] Comment on above: Performed By: #### L 500.2500, L100.0100, L501.5200, L500.3400 ####[facility] [address] [place], [address] Neutrophils/100 WBC (Bld) 62.0 % Normal 47-70 [facility] Comment on above: Performed By: #### L 500.2500, L100.0100, L501.5200, L500.3400 ####[facility] [address] [place], [address] Nucleated RBC (Bld) [#/Vol] 0 10*3/uL Normal 0-5 [facility] Comment on above: Performed By: #### L 500.2500, L100.0100, L501.5200, L500.3400 ####[facility] [address] [place], [address] Platelet mean volume (Bld) [Entitic vol] 8.8 fL Normal 6.2-12.0 [facility] Comment on above: Performed By: #### L 500.2500, L100.0100, L501.5200, L500.3400 ####[facility] [address] [place], [address] Platelets (Bld) [#/Vol] 169 10*3/uL Normal 150-450 [facility] Comment on above: Performed By: #### L 500.2500, L100.0100, L501.5200, L500.3400 ####[facility] [address] [place], [address] RBC (Bld) [#/Vol] 4.54 10*6/uL Low 4.6-6.2 [facility] Comment on above: Performed By: #### L 500.2500, L100.0100, L501.5200, L500.3400 ####[facility] [address] [place], [address] RDW SD 48.0 fl High 35.1-43.9 [facility] Comment on above: Performed By: #### L 500.2500, L100.0100, L501.5200, L500.3400 ####[facility] [address] [place], [address] WBC (Bld) [#/Vol] 5.7 10*3/uL Normal 4.4-11.0 [facility] Comment on above: Performed By: #### L 500.2500, L100.0100, L501.5200, L500.3400 ####[facility] [address] [place], [address] Emergency Department Summary on 01-17-2024 Emergency Department Summary [facility] Medical Records Department [address] [place] [address] Emergency Department Summary 01/17/24 MR#: [id number] Acct: [id number] Name: KEREN CHU Francesca Rep #: [id number] : 1940 84 From: Maurice Omalley DO [...] secondary to his comes in for evaluation. [facility] Medical History Sebaceous cyst Home Medications [...] increased Gene (more content not included)... Normal [facility] Liver Profileon 01-17-2024 Albumin [Mass/Vol] 3.5 g/dL Normal 3.2-5.0 [facility] Comment on above: Performed By: #### L 500.2500, L100.0100, L501.5200, L500.3400 ####[facility] [address] [place], [address] ALK P 97 U/L Normal 45-117 [facility] Comment on above: Performed By: #### L 500.2500, L100.0100, L501.5200, L500.3400 ####[facility] [address] [place], [address] ALT [Catalytic activity/Vol] 11 U/L Low 16-61 [facility] Comment on above: Performed By: #### L 500.2500, L100.0100, L501.5200, L500.3400 ####[facility] [address] [place], [address] AST [Catalytic activity/Vol] 21 U/L Normal 15-37 [facility] Comment on above: Performed By: #### L 500.2500, L100.0100, L501.5200, L500.3400 ####[facility] [address] [place], [address] Bilirubin [Mass/Vol] 0.90 mg/dL Normal 0.20-1.00 [facility] Comment on above: Result Comment: For patients on eltrombopag therapy, use of Dimension [place] TBIL is not recommended. Performed By: #### L 500.2500, L100.0100, L501.5200, L500.3400 ####[facility] [address] [place], [address] Bilirubin.direct [Mass/Vol] 0.24 mg/dL Normal 0.00-0.30 [facility] Comment on above: Performed By: #### L 500.2500, L100.0100, L501.5200, L500.3400 ####[facility] [address] [place], [address] Globulin (S) [Mass/Vol] 3.7 g/dL Normal 2.2-4.2 [facility] Comment on above: Performed By: #### L 500.2500, L100.0100, L501.5200, L500.3400 ####[facility] [address] [place], [address] T PROT 7.2 g/dL Normal 6.4-8.2 [facility] Comment on above: Performed By: #### L 500.2500, L100.0100, L501.5200, L500.3400 ####[facility] [address] [place], [address] Magnesiumon 01-17-2024 Magnesium [Mass/Vol] 1.9 mg/dL Normal 1.6-2.6 [facility] Comment on above: Performed By: #### L 500.2500, L100.0100, L501.5200, L500.3400 ####[facility] [address] [place], [address] XR CHEST 2V FRONTAL/LATon [facility] XR Chest PA and Lateralon IMPRESSION: No developing abnormality or acute process Pier Master Assistant: DIANELYS Transcribe Date/Time: Apr 15 2023 10:04A Dictated by : ISAAC ENCISO MD This examination was interpreted and the report reviewed and electronically signed by: ISAAC ENCISO MD on Apr 15 2023 10:09AM [facility] DIVISION OF RADIOLOGY * * *Final Report* [...] vertebrae. DIVISION OF RADIOLOGY Provider, Orlando jimenez Corona - 04/15/2023 * * *Final Report* * [...] IMPRESSION: No developing abnormality or acute process Pier Master Assistant: PSCB Transcribe Date/Time: Apr 15 2023 10:04A Dictated by : ISAAC ENCISO MD This examination was interpreted and the report reviewed and electronically signed by: ISAAC ENCISO MD on Apr 15 2023 10:09AM EST [facility] Radiology Study observation (narrative) Demarco pyle [facility] XR Chest PA and LateralOrder ed By: Ccf Provider on 04-15-2023 [facility] Vital Signs Date Time Vital Sign Value Performing Clinician Octavio beckman 01-01-2025 01:00-0400 Body temperature 98 [degF] Dr. Gentry Jane DO Work Phone: [facility] 01-01-2025 01:00-0400 Diastolic blood pressure 74 mm[Hg] Dr. Gentry Landers Work Phone: [facility] 01-01-2025 01:00-0400 Heart rate 70 /min Dr. Gentry Landers Work Phone: [facility] 01-01-2025 01:00-0400 Respiratory rate 16 /min Dr. Gentry Jane DO Work Phone: [facility] 01-01-2025 01:00-0400 SaO2% (BldA) [Mass fraction] 100 % Dr. Gentry Landers Work Phone: [facility] 01-01-2025 01:00-0400 Systolic blood pressure 117 mm[Hg] Dr. Gentry Jane DO Work Phone: [facility] 12-31-2024 21:09-0400 Body height 165.[address] Gentry Landers Work Phone: [facility] 12-31-2024 21:09-0400 Body mass index (BMI) [Ratio] 31.8 kg/m2 Dr. Gentry Jane DO Work Phone: [facility] 12-31-2024 21:09-0400 Body weight 86.[address] Gentry Landers Work Phone: [facility] 10-11-2024 12:28-0400 Body mass index (BMI) [Ratio] 33.19 kg/m2 Raji Hunter APRN.[employer] Work Phone: [facility] 10-11-2024 12:28-0400 Body temperature 97.2 [degF] Raji Hunter [employer] Work Phone: [facility] 10-11-2024 12:28-0400 Body weight 85 kg Raji Hunter [employer] Work Phone: [facility] 10-11-2024 12:28-0400 Diastolic blood pressure 80 mm[Hg] Raji Hunter [employer] Work Phone: [facility] 10-11-2024 12:28-0400 Heart rate 60 /min Raji Hunter [employer] Work Phone: [facility] 10-11-2024 12:28-0400 Respiratory rate 16 /min Raji Hunter [employer] Work Phone: [facility] 10-11-2024 12:28-0400 SaO2% (BldA) [Mass fraction] 97 % Raji Hunter APRN.[employer] Work Phone: [facility] 10-11-2024 12:28-0400 Systolic blood pressure 122 mm[Hg] Raji Hunter APRN.[employer] Work Phone: [facility] 05-05-2024 10:24-0400 Body temperature 97.3 [degF] Yazmin Carver MD Work Phone: [facility] 05-05-2024 10:24-0400 Diastolic blood pressure 60 mm[Hg] Yazmin Carver MD Work Phone: [facility] 05-05-2024 10:24-0400 Heart rate 57 /min Yazmin Carver MD Work Phone: [facility] 05-05-2024 10:24-0400 Respiratory rate 16 /min Yazmin Carver MD Work Phone: [facility] 05-05-2024 10:24-0400 SaO2% (BldA) [Mass fraction] 98 % Yazmin Carver MD Work Phone: [facility] 05-05-2024 10:24-0400 Systolic blood pressure 108 mm[Hg] Yazmin Carver MD Work Phone: [facility] 05-02-2024 10:06-0400 Body mass index (BMI) [Ratio] 31.48 kg/m2 Raji Hunter APRN.[employer] Work Phone: [facility] 05-02-2024 10:06-0400 Body temperature 98.1 [degF] aRji Hunter APRN.[employer] Work Phone: [facility] 05-02-2024 10:06-0400 Body weight 80.6 kg Raji Hunter APRN.[employer] Work Phone: [facility] 05-02-2024 10:06-0400 Diastolic blood pressure 72 mm[Hg] Raji Hunter APRN.[employer] Work Phone: [facility] 05-02-2024 10:06-0400 Heart rate 84 /min Raji Hunter APRN.[employer] Work Phone: [facility] 05-02-2024 10:06-0400 Respiratory rate 22 /min Raji Hunter [employer] Work Phone: [facility] 05-02-2024 10:06-0400 SaO2% (BldA) [Mass fraction] 95 % Raji Hunter [employer] Work Phone: [facility] 05-02-2024 10:06-0400 Systolic blood pressure 124 mm[Hg] Raji Hunter [employer] Work Phone: [facility] 02-09-2024 07:54-0400 Body height 160 cm Yazmin Carver MD Work Phone: [facility] 02-09-2024 07:54-0400 Body mass index (BMI) [Ratio] 31 kg/m2 Yazmin Carver MD Work Phone: [facility] 02-09-2024 07:54-0400 Body weight 79.38 kg Yazmin Carver MD Work Phone: [facility] 02-09-2024 07:54-0400 Diastolic blood pressure 56 mm[Hg] Yazmin Carver MD Work Phone: [facility] 02-09-2024 07:54-0400 Heart rate 72 /min Yazmin Carver MD Work Phone: [facility] 02-09-2024 07:54-0400 Respiratory rate 14 /min Yazmin Carver MD Work Phone: [facility] 02-09-2024 07:54-0400 SaO2% (BldA) [Mass fraction] 96 % Yazmin Carver MD Work Phone: [facility] 02-09-2024 07:54-0400 Systolic blood pressure 118 mm[Hg] Yazmin Carver MD Work Phone: [facility] 01-28-2024 14:03-0400 Body mass index (BMI) [Ratio] 31.44 kg/m2 Faustino Jaimes [employer] Work Phone: [facility] 01-28-2024 14:03-0400 Body temperature 97.11 [degF] Faustino Moomaw [employer] Work Phone: [facility] 01-28-2024 14:03-0400 Body weight 80.5 kg Faustino Moomaw [employer] Work Phone: [facility] 01-28-2024 14:03-0400 Diastolic blood pressure 84 mm[Hg] Faustino Moomaw [employer] Work Phone: [facility] 01-28-2024 14:03-0400 Heart rate 53 /min Faustino Moomaw [employer] Work Phone: [facility] 01-28-2024 14:03-0400 Respiratory rate 18 /min Faustino Moomaw [employer] Work Phone: [facility] 01-28-2024 14:03-0400 SaO2% (BldA) [Mass fraction] 98 % Faustino Moomaw [employer] Work Phone: [facility] 01-28-2024 14:03-0400 Systolic blood pressure 162 mm[Hg] Faustino Moomaw [employer] Work Phone: [facility] 04-15-2023 09:22-0400 Body temperature 97 [degF] Shakira Sol [employer] Work Phone: [facility] 04-15-2023 09:22-0400 Body weight 82.28 kg Shakira Sol [employer] Work Phone: [facility] 04-15-2023 09:22-0400 Diastolic blood pressure 76 mm[Hg] Shakira Sol [employer] Work Phone: [facility] 04-15-2023 09:22-0400 Heart rate 64 /min Shakira Sol [employer] Work Phone: [facility] 04-15-2023 09:22-0400 Respiratory rate 16 /min Shakira Sol [employer] Work Phone: [facility] 04-15-2023 09:22-0400 SaO2% (BldA) [Mass fraction] 97 % Shakira Sol [employer] Work Phone: [facility] 04-15-2023 09:22-0400 Systolic blood pressure 138 mm[Hg] Shakira Sol [employer] Work Phone: [facility] 05-26-2022 12:07-0500 Body temperature 96.8 [degF] Simin Annmarie [employer] Work Phone: [facility] 05-26-2022 12:07-0500 Body weight 83.92 kg Simin Annmarie [employer] Work Phone: [facility] 05-26-2022 12:07-0500 Diastolic blood pressure 80 mm[Hg] Simin Annmarie [employer] Work Phone: [facility] 05-26-2022 12:07-0500 Heart rate 90 /min Simin Annmarie [employer] Work Phone: [facility] 05-26-2022 12:07-0500 Respiratory rate 16 /min Simin Annmarie [employer] Work Phone: [facility] 05-26-2022 12:07-0500 SaO2% (BldA) [Mass fraction] 97 % Simin Annmarie [employer] Work Phone: [facility] 05-26-2022 12:07-0500 Systolic blood pressure 124 mm[Hg] Simin Annmarie [employer] Work Phone: [facility] 02-02-2022 16:34-0400 Body temperature 97 [degF] Rogelio Rose MD Work Phone: [facility] 02-02-2022 16:34-0400 Body weight 81.92 kg Rogelio Rose MD Work Phone: [facility] 02-02-2022 16:34-0400 Diastolic blood pressure 80 mm[Hg] Rogelio Rose MD Work Phone: [facility] 07-25-2022 16:34-0400 Heart rate 55 /min Rogelio Rose MD Work Phone: [facility] 02-02-2022 16:34-0400 Respiratory rate 21 /min Rogelio Rose MD Work Phone: [facility] 02-02-2022 16:34-0400 SaO2% (BldA) [Mass fraction] 98 % Rogelio Rose MD Work Phone: [facility] 02-02-2022 16:34-0400 Systolic blood pressure 122 mm[Hg] Rogelio Rose MD Work Phone: [facility] Encounters Encounter Date Encounter Type Care Provider Facility Start: 01-17-2025 End: 01-17-2025 ambulatory El Gordon MA [facility] [place] Start: 01-17-2025 End: 01-17-2025 Patient encounter procedure El Gordon MA [facility] [place] Comment on above: Population Health Na vigation Outreach ([employer] [facility] [place] [facility] Start: 12-31-2024 End: 01-01-2025 Emergency department patient visit Dr. Gentry Ladners Work Phone: -Emergency Department Work Phone: Start: 11-09-2024 End: 11-09-2024 ambulatory El Gordon MA [facility] [place] Start: 11-09-2024 End: 11-09-2024 Patient encounter procedure El Gordon MA [facility] [place] Comment on above: Population Health Na vigation Outreach ([facility] [place] [facility]) Start: 10-11-2024 End: 10-11-2024 ambulatory YAZMIN CARVER Facility:[facility] Start: 10-11-2024 End: 10-11-2024 Office outpatient visit 25 minutes Raji Hunter APRN.CNP Work Phone: [facility] Comment on above: URI with cough and c ongestion (Primary Dx) Start: 05-05-2024 End: 05-05-2024 Patient encounter procedure Yazmin Carver MD Work Phone: [facility] [place] Comment on above: Bacterial pneumonia (Primary Dx); Wheezing Start: 05-05-2024 End: 05-05-2024 ambulatory [facility] Facility:[facility] Start: 05-02-2024 End: 05-02-2024 Subsequent hospital visit by physician Mariela [facility] [place] Work Phone: Radiology Comment on above: Acute cough [R05.1] Start: 05-02-2024 End: 05-02-2024 ambulatory [facility] Facility:[facility] Start: 05-02-2024 End: 05-02-2024 Office outpatient visit 25 minutes Raji Hunter APRN.CNP Work Phone: [facility] Comment on above: Acute cough (Primary Dx); Community acquired pneumonia, unspecified laterality Start: 02-10-2024 Telephone encounter Sukhwinder Carver MD Work Phone: [facility] [place] Comment on above: Results Start: 02-09-2024 End: 02-09-2024 ambulatory [facility] Facility:[facility] Start: 02-09-2024 Encounter for genera l adult medical examination without abnormal findings YAZMIN CARVER [facility] Start: 02-09-2024 End: 02-09-2024 Patient encounter procedure Yazmin Carver MD Work Phone: [facility] [place] Comment on above: Encounter for medica [...] encounter status Yazmin Carver MD Work Phone: [facility] Work Phone: Start: 02-09-2024 End: 02-09-2024 ambulatory RUSTCODY CARVER Facility:[facility] Start: 01-28-2024 End: 01-28-2024 ambulatory RASHMI CHAUHAN Facility:[facility] Start: 01-28-2024 End: 01-28-2024 Patient encounter procedure Faustino Jaimes IS[employer]IAH.[employer] Work Phone: [facility] Comment on above: Sciatic nerve pain, left (Primary Dx) Start: 01-18-2024 End: 01-18-2024 Emergency department patient visit No Primary Care Physician Facility:[facility] Start: 01-17-2024 End: 01-17-2024 Emergency department patient visit Maurice Omalley Facility:[facility] Start: 10-21-2023 ambulatory Cassandra Wallace MA [facility] Comment on above: Population Health Na vigation Outreach [facility] Start: 04-15-2023 End: 04-15-2023 Subsequent hospital visit by physician Xr [facility] Work Phone: Radiology Comment on above: Acute cough [R05.1] Start: 04-15-2023 End: 04-15-2023 Patient encounter procedure Shakira Sol APRN.[employer] Work Phone: [facility] Comment on above: Acute cough (Primary Dx); Rhinosinusitis Start: 05-26-2022 End: 05-26-2022 Patient encounter procedure Simin Anguiano APRN.[employer] Work Phone: [facility] Comment on above: Acute non-recurrent pansinusitis (Primary Dx) Start: 02-02-2022 End: 02-02-2022 Patient encounter procedure Rogelio Rose MD Work Phone: [facility] Comment on above: Sting, insect, accid [...] exam ches t 2 views Raji Hunter [employer] Work Phone: Start: 02-09-2024 Adult depression screening assessment Yazmin Carver MD Work Phone: Start: 04-15-2023 Radiologic exam ches t 2 views Shakira Sol [employer] Work Phone: Start: 01-11-2018 Adult depression screening assessment Rogelio Rose MD Work Phone: Plan of Treatment Date Care Activity Detail Author Start: 02-08-2027 Diabetes Screening Diabetes Screenin g [facility] Start: 03-12-2025 Influenza vaccination Influenza Vacc ine (#1) [facility] Start: 02-08-2025 Anxiety Screening Anxiety Screening [facility] Start: 02-08-2025 Covid-19 Vaccine ( season) Covid-19 Vaccine ( season) [facility] Comment on above: Postponed from 03/12 (Declined at this time) Start: 02-08-2025 Depression Screening Depression Scre ening [facility] Start: 02-08-2025 Pneumococcal Vaccine : 50+ (1 of 1 - PCV) Pneumococcal Vaccine: 50+ (1 of 1 - PCV) [facility] Comment on above: Postponed from 01/04 (Declined at this time) Start: 02-08-2025 Pneumococcal Vaccine : 65+ (1 of 1 - PCV) Pneumococcal Vaccine: 65+ (1 of 1 - PCV) [facility] Comment on above: Postponed from 01/04 (Declined at this time) Start: 02-08-2025 RSV Vaccine (1 - 1-d ose 60+ series) RSV Vaccine (1 - 1-dose 60+ series) [facility] Comment on above: Postponed from 01/04 (Declined at this time) Start: 02-08-2025 RSV Vaccine (1 - 1-d ose 75+ series) RSV Vaccine (1 - 1-dose 75+ series) [facility] Comment on above: Postponed from 01/04 (Declined at this time) Start: 02-08-2025 Shingrix Vaccine (2 of 2) Shingrix Vaccine (2 of 2) [facility] Comment on above: Postponed from 06/26 (Declined at this time) Start: 01-16-2025 End: 01-16-2025 Patient encounter procedure 01/16/2025 11:00 AM EDT Office Visit [facility] [place] [address] [facility] [place] [address] Carmencita Mcclain APRN.[employer] [address] [place] [address] Annual Wellness [facility] Comment on above: Annual Wellness Start: 01-01-2025 [facility] Start: 08-11-2024 End: 08-11-2024 Patient encounter procedure 08/11/2024 8:00 AM EST Office Visit [facility] [place] [address] [place] [address] Carmencita Mcclain, IS[employer]IAH.[employer] [address] [place] [address] 6 month follow up-labs [facility] [place] Comment on above: 6 month follow up-la Start: 07-12-2024 Advance Directive Discussion Advance Directive Discussion [facility] Start: 07-12-2024 Medicare Advantage Annual Wellness Visit Medicare Advantage Annual Wellness Visit [facility] Start: 05-05-2024 End: 05-05-2024 Patient encounter procedure 05/05/2024 11:20 AM EDT Office Visit [facility] [place] [address] [place] [address] Yazmin Carver MD [address] [place] [address] f/u cough and congestion Family [facility] [place] Comment on above: f/u cough and conges tion Start: 03-12-2024 Covid-19 Vaccine ( season) Covid-19 Vaccine () [facility] Start: 03-12-2024 Covid-19 Vaccine () Covid-19 Vaccine () [facility] Start: 03-12-2024 Influenza vaccination C [facility] Start: 02-09-2024 End: 05-10-2024 CBC W Auto Differential panel - Blood COMPLETE BLOOD COUNT AND DIFFERENTIAL Lab Routine Encounter for medical examination to establish care Expected: 02/09/2024, Expires: 05/10/2024 [facility] Work Phone: Comment on above: Expected: 02/09/2024 , Expires: 05/10/2024 Start: 02-09-2024 End: 05-10-2024 Comprehensive metabolic 2000 panel - Serum or Plasma COMPREHENSIVE METABOLIC PANEL Lab Routine Encounter for medical examination to establish care Expected: 02/09/2024, Expires: 05/10/2024 [facility] Comment on above: Expected: 02/09/2024 , Expires: 05/10/2024 Start: 02-09-2024 End: 05-10-2024 Hemoglobin A1c in Blood [facility] Comment on above: Expected: 02/09/2024 , Expires: 05/10/2024 Start: 02-09-2024 End: 05-10-2024 LIPID PANEL, NONFASTING [facility] Comment on above: Expected: 02/09/2024 , Expires: 05/10/2024 Start: 02-09-2024 End: 02-09-2024 Patient encounter procedure 02/09/2024 8:00 AM EDT Office Visit Family Douglas [place] [address] [place] [id number] Yazmin Carver MD [address] [place] [id number] Establish Care Family [facility] Comment on above: Establish Care Start: 07-12-2023 Advance Directive Discussion Advance Directive Discussion [facility] Start: 07-12-2023 Behavioral Health Screening Behavioral Health Screening [facility] Start: 03-12-2023 Covid-19 Vaccine () Covid-19 Vaccine ( season) [facility] Start: 03-12-2023 Influenza vaccination Influenza Vacc ine (#1) [facility] Start: 07-12-2022 Advance Directive Discussion Advance Directive Discussion [facility] Start: 07-12-2022 Depression Assessment Depression Ass essment [facility] Start: 03-12-2022 Influenza vaccination INFLUENZA (#1) [facility] Start: 11-06-2021 COVID-19 VACCINE (4 - Booster for Moderna series) COVID-19 VACCINE (4 - Booster for Moderna series) [facility] Start: 09-02-2021 COVID-19 VACCINE (4 - Booster for Moderna series) COVID-19 VACCINE (4 - Booster for Moderna series) [facility] Start: 09-02-2021 Covid-19 Vaccine (4 - Moderna series) Covid-19 Vaccine (4 - Moderna series) [facility] Start: 07-12-2021 ADVANCE DIRECTIVE DISCUSSION ADVANCE DIRECTIVE DISCUSSION [facility] Start: 07-12-2021 DEPRESSION ASSESSMENT DEPRESSION ASS ESSMENT [facility] Start: 01-11-2021 DIABETES SCREEN DIABETES SCREEN [facility] Start: 01-11-2021 Diabetes Screening Diabetes Screenin g [facility] Start: 06-26-2020 Shingrix Vaccine (2 of 2) Shingrix Vaccine (2 of 2) [facility] Start: 01-11-2019 Adult depression screening assessment DEPRESSION SCREENING [facility] Start: 07-14-2012 Urine microalbumin profile [facility] Start: 2007 Pneumococcal Vaccine : 65+ (1 - PCV) Pneumococcal Vaccine: 65+ (1 - PCV) [facility] Start: 2007 Pneumococcal Vaccine : 65+ (1 of 1 - PCV) Pneumococcal Vaccine: 65+ (1 of 1 - PCV) [facility] Start: 2007 PNEUMOCOCCAL: 65+ (1 - PCV) PNEUMOCOCCAL: 65+ (1 - PCV) [facility] Start: 2002 RSV Vaccine (1 - 1-d ose 60+ series) RSV Vaccine (1 - 1-dose 60+ series) [facility] Start: 01-05-1992 SHINGRIX VACCINE (1 of 2) SHINGRIX VACCINE (1 of 2) [facility] Patient Education Bruises (Contu sions) ED Head Injury (Adult) ED Skin Tear (Skin Avulsion) [facility] Work Phone: Patient referral [facility] Work Phone: Immunizations Immunization Date Immunization Notes Care Provider Fa ciliomaira 12-31-2024 tetanus toxoid, reduced diphtheria toxoid, and acellular pertussis vaccine, adsorbed Dr. Gentry Landers Work Phone: [facility] 06-19-2024 influenza, high dose seasonal, preservative-free Raji Hunter APRN.[employer] Work Phone: [facility] 06-19-2024 influenza virus vaccine, unspecified formulation El Gordon MA [facility] 05-01-2020 influenza (aIIV4) vaccine, age 65+ yr, quadrivalent, PF (FLUAD QUAD) Yazmin Carver MD Work Phone: [facility] 05-01-2020 zoster vaccine recombinant Yazmin Carver MD Work Phone: [facility] 05-01-2020 influenza virus vaccine, unspecified formulation Shakira Sol APRN.[employer] Work Phone: [facility] 05-08-2019 influenza, high dose seasonal, preservative-free Yazmin Carver MD Work Phone: [facility] 02-27-2014 influenza, high dose seasonal, preservative-free Rogelio Rose MD Work Phone: [facility] 07-13-2012 tetanus and diphther ia toxoids, adsorbed, preservative free, for adult use (2 Lf of tetanus toxoid and 2 Lf of diphtheria toxoid) Rogelio Roes MD Work Phone: [facility] Work Phone: 03-30-2012 influenza virus vaccine, unspecified formulation Rogelio Rose MD Work Phone: [facility] Work Phone: Payers Date Payer Category Payer Medicare (Managed Care) [place] [id number] 2024 Self-pay 2021 Medicare AETNA MEDICARE A ETNA MEDICARE O [id number] 2021-Present [phone] [address] [place] [address] [facility] [id number] 2021 Medicare AETNA MEDICARE A ETNA MEDICARE O [id number] 2021-Present [phone] [address] [place] [address] [facility] [id number] 2021 Private Health Insurance [id number] 2013 Medicare HUMANA MEDICARE PPO [id number] Unknown ANTHEM OUT OF STATE [id number] Unknown [id number] Unknown [id number] Unknown [id number] Social History Date Type Detail Facility Start: 01-11-2018 End: 04-15-2023 Tobacco smoking status NHIS Never smoked tobacco [facility] Start: 02-02-2022 End: 04-15-2023 Alcohol intake Not Asked [facility] Start: 1940 Sex Assigned At Not on file C [facility] Start: 01-11-2018 End: 04-15-2023 Tobacco use and exposure Smokeless tobacco non-user [facility] Work Phone: Start: 04-15-2023 End: 05-05-2024 History of Social function [facility] Start: 04-15-2023 End: 05-05-2024 Tobacco use panel [facility] Adult Depression Screening Assessment 0 [facility] Start: 02-09-2024 End: 12-31-2024 Tobacco smoking status NHIS Ex-smoker [facility] End: 07-12-1982 History of tobacco use Current smoker [facility] End: 07-12-1982 History of tobacco use Cigar Smoker [facility] Start: 02-09-2024 Tobacco use and exposure Former smokeless tobacco user [facility] End: 07-12-1982 History of tobacco use Chews Tobacco [facility] Start: 02-09-2024 End: 10-11-2024 Alcohol intake Current drinker of alcohol (finding) [facility] Start: 02-09-2024 Tobacco Comment Used to smoke occasional cigars and chewed regularly for about 10 years [facility] Start: 01-13-2015 [facility] Start: 01-13-2015 Drugs Drugs [facility] Start: 02-10-2018 Tobacco Use Tobacco Use [facility] Start: 1940 Sex Assigned At Male W [facility] Medical Equipment Procedure Code Equipment Code Equipment Origin al Text Equipment Identifier Dates RE-NION REV PERIPHERAL SCREW FDA Start: 02-09-2018 RE-UNION REVERSE FELTER TENNIS BALLS WIRE FDA Start: 02-09-2018 RE-UNION REVERSE FELTER TENNIS BALLS WIRE RS FDA Start: 02-09-2018 RE-UNION REV [...] 01/16/2015 11:10 AM Cassandra Decker [facility] No [facility] 01-16-2015 Are you blind, or do you have serious difficulty seeing, even when wearing glasses No 01/16/2015 11:10 AM Cassandra Decker [facility] No [facility] 01-16-2015 Do you have serious difficulty walking or climbing stairs No 01/16/2015 11:10 AM Cassandra Decker C[facility] No [facility] 01-16-2015 Do you have difficul ty dressing or bathing No 01/16/2015 11:10 AM Cassandra Decker C[facility] No [facility] 01-16-2015 Because of a physica l, mental, or emotional condition, do you have difficulty doing errands alone such as visiting a physician's office or shopping No 01/16/2015 11:10 AM Cassandra Decker [facility] No [facility] Mental Status Date Assessment Result Facility 01-16-2015 Because of a physica l, mental, or emotional condition, do you have serious difficulty concentrating, remembering, or making decisions No 01/16/2015 11:10 AM Cassandra Decker C[facility] No [facility] Clinical Notes 02-02-2022 to 01-17-2025 El Gordon MA - 01/17/2025 7:36 AM EDT Note Date & Type Note Facility 01-17-2025 Note HNO ID: [id number] Author: EL GORDON MA Service: ? Author Type: Data Entry Operator Type: Progress Notes Filed: 01/17/2025 11:30 [...] or unnecessary to reach patient: Left message Sporhart message sent Navigation Signature: El Gordon MA January 17, 2025 7:36 AM [facility] 01-17-2025 History of Present illness [...] message for patient to call back. Sent iiko message. HCC: No Reason for Outreach Care Gap/HCC or Scheduling Wellness Visits Care Gaps due: Medicare Annual Wellness Visit Patient Contacted: Unable or unnecessary to reach patient: Left message Sporhart message sent Navigation Signature: El Gordon MA January 17, 2025 7:36 AM documented in this encounter [facility] 01-17-2025 Note Patient Outreach (JANET WEATHERS) KEREN CHU ([id number]) 1940 M Date Time Provider Department 01/17/25 [...] Annual Wellness Visit - missed appointment yesterday Sporhart Active: Yes Left message for patient to call back. Sent iiko message. HCC: No Reason for Outreach Care Gap/HCC or Scheduling Wellness Visits Care Gaps due: Medicare Annual Wellness Visit Patient Contacted: Unable or unnecessary to reach patient: Left message Reimage message sent Navigation Signature: El Gordon MA January 17, 2025 7:36 AM Allergies As of Date: 01/17/2025 Noted Allergy Reaction TETANUS VACCINES AND TOXOID 07/30/2008 Comments: skin breakout Date Reviewed: 10/11/2024 Reviewed by: Raji Hunter APRN.[employer] - Fully Assessed Reason for Visit: Population Health Navigation Outreach [3910] Cmt: Celestine Giles - [facility] Prescriptions as of 01/17/2025 - fluticasone (FLONASE ALLERGY RELIEF) 50 mcg/actuation nasal spray Use 1 [place] in each nostril once daily. - albuterol [...] Encounter Status:Closed by EL GORDON on 01/17/25 [facility] 01-01-2025 Discharge summary [facility] 01-01-2025 Radiology Diagnostic study note [facility] Imaging Services [address] [place] [address] CT Chest, Abd, Pel w/Contrast MR#: [id number] Acct: [id number] Name: KEREN CHU Francesca Rep #: [id number] : 1940 M 84 From: Andre Ureña MD PCP: Dr. Sukhwinder Carver MD Status: REG ER Study:CT Chest, Abd, Pel w/Contrast Date of E xam: 12/31/24 Exam# [id number] Ordering Dr: Gentry Jane DO PROCEDURE: CT [...] Large bowel diverticulosis, no diverticulitis. Reading Location: [place] [address] CC: Dr. Sukhwinder Carver MD; Dr. Gentry Jane DO ~ Pier Master Assistant: Signed [facility] 01-01-2025 Radiology Diagnostic study note [facility] Imaging Services [address] [place], [place] [address] Spine Cervical without Contras MR#: [id number] Acct: [id number] Name: KEREN CHU Rep #: [id number] : 1940 M 84 From: Maria M Suarez MD PCP: Dr. Sukhwinder Carver MD Status: REG ER Study:Spine Cervical without Contras Date of Exam: 12/31/24 Exam# [id number] Ordering Dr: Gentry Jane DO PROCEDURE: SPINE [...] the cervical spine as above. Reading Location: [facility] CC: Dr. Sukhwinder Carver MD; Dr. Gentry Jane DO ~ Pier Master Assistant: Signed [facility] 01-01-2025 Radiology Diagnostic study note [facility] Imaging Services [address] [place], [place] [address] Brain/Head without Contrast MR#: [id number] Acct: [id number] Name: KEREN CHU Rep #: [id number] : 1940 M 84 From: Maria M Suarez MD PCP: Dr. Sukhwinder Carver MD Status: REG ER Study:Brain/Head without Contrast Date of Exa m: 12/31/24 Exam# [id number] Ordering Dr: Gentry Jane DO PROCEDURE: BRAIN/HEAD [...] IMPRESSION: No acute intracranial process. Reading Location: [facility] CC: Dr. Sukhwinder Carver MD; Dr. Gentry Jane DO ~ Pier Master Assistant: Signed [facility] 01-01-2025 Radiology Diagnostic study note [facility] Imaging Services [address] [place], [place] [address] Elbow min 3 Views MR#: [id number] Acct: [id number] Name: KEREN CHU Rep #: [id number] : 1940 M 84 From: Maria M Suarez MD PCP: Dr. Sukhwinder Carver MD Status: REG ER Study:Elbow min 3 Views Date of Exam: Exam# [id number] Ordering Dr: Gentry Jane DO PROCEDURE: ELBOW MIN 3 VIEWS 12/31/2024 REASON FOR EXAM: INJURY TECHNIQUE: ELBOW MIN 3 VIEWS COMPARISON: None RAD/Elbow min 3 Views IMPRESSION: No acute fracture or dislocations. Mild degenerative changes of the elbow. No large joint effusion. No acute soft tissue abnormalities. No radiographic foreign body. Reading Location: [facility] CC: Dr. Sukhwinder Carver MD; Dr. Gentry Jane DO ~ Pier Master Assistant: Signed [facility] 01-01-2025 Radiology Diagnostic study note [facility] Imaging Services [address] [place] [address] Forearm 2 Views MR#: [id number] Acct: [id number] Name: KEREN CHU Rep #: [id number] : 1940 M 84 From: Maria M Suarez MD PCP: Dr. Sukhwinder Carver MD Status: REG ER Study:Forearm 2 Views Date of Exam: 12/11 09/05 Exam# [id number] Ordering Dr: Gentry Jane DO PROCEDURE: FOREARM 2 VIEWS 12/31/2024 REASON FOR EXAM: INJURY TECHNIQUE: FOREARM 2 VIEWS COMPARISON: None FINDINGS: No acute fracture or dislocations. No large joint effusion. No acute soft tissue abnormalities. Peripheral IV within the antecubital fossa. RAD/Forearm 2 Views IMPRESSION: No acute fracture or dislocation. Mild diffuse soft tissue edema. Reading Location: [facility] CC: Dr. Sukhwinder Carver MD; Dr. Gentry Jane DO ~ Pier Master Assistant: Signed [facility] 01-01-2025 Radiology Diagnostic study note [facility] Imaging Services [address] [place] [address] Wrist min 3 Views MR#: [id number] Acct: [id number] Name: KEREN CHU Rep #: [id number] : 1940 M 84 From: Maria M Suarez MD PCP: Dr. Sukhwinder Carver MD Status: REG ER Study:Wrist min 3 Views Date of Exam: Exam# [id number] Ordering Dr: Gentry Jane DO PROCEDURE: WRIST MIN 3 VIEWS 12/31/2024 REASON FOR EXAM: INJURY TECHNIQUE: WRIST MIN 3 VIEWS COMPARISON: None RAD/Wrist min 3 Views IMPRESSION: No acute fracture or dislocations. Diffuse osteopenia. Moderate degenerative changes of the intercarpal and radiocarpal joint spaces and 1st CMC joint. Mild diffuse soft tissue edema. No radiographic foreign body. Reading Location: [facility] CC: Dr. Sukhwinder Carver MD; Dr. Gentry Jane DO ~ Pier Master Assistant: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
[2025-03-17 23:43] LABS: Magnesium 1.8 mg/dL (1.5-2.2)
[2025-03-17] MEDS: 0.9% Normal Saline (1000mL) 1,000 ML 100 ML IV (23:58)
[2025-03-18 00:08] VITALS: BP 143/61; PULSE 53; RESP 18; TEMP 36.9; O2SAT 100
[2025-03-18 00:59] LABS: Ammonia 83.7 umol/L (16-60)
[2025-03-18 01:06] LABS: Procalcitonin 0.07 ng/mL (<=0.10)
[2025-03-18 01:08] LABS: AST(SGOT) 23 U/L (<=37); Alanine Aminotransfer ALT/SGPT < 5 U/L (<=46); Albumin, Serum 3.5 g/dL (3.4-4.8); Alkaline Phosphatase 80 U/L (40-129); Bilirubin, Direct 0.27 mg/dL (0.00-0.30); Globulin 2.8 g/dL (2.2-4.2)
[2025-03-18 03:15] VITALS: BP 135/65; PULSE 60; RESP 18; TEMP 36.9; O2SAT 98
[2025-03-18 06:27] LABS: Hematocrit 35.3 % (40-54); Hemoglobin 12.1 g/dL (13.0-16.5); Immature Granulocytes Count 0.020 X10^3/uL (0.0-0.0); Mean Corp Hgb Conc 34.3 g/dL (32-36); Mean Corpuscular Volume 94.6 fL (80-94); Mean Platelet Vol. 9.1 fl (6.2-12.0); NRBC Flagged by Analyzer 0 % (0-5); Platelet Count 130 K/mm3 (150-450); RBC Distribution Width CV 13.7 % (11.6-14.6); RBC Distribution Width SD 47.5 fl (35.1-43.9); Red Blood Count 3.73 M/mm3 (4.6-6.2); White Blood Count 5.0 K/mm3 (4.4-11.0)
[2025-03-18 06:47] LABS: Ammonia 59.0 umol/L (16-60)
[2025-03-18 06:49] LABS: AST(SGOT) 20 U/L (<=37); Alanine Aminotransfer ALT/SGPT < 5 U/L (<=46); Albumin, Serum 3.4 g/dL (3.4-4.8); Alkaline Phosphatase 75 U/L (40-129); Anion Gap 9 (5-15); BUN 17 mg/dL (4-19); BUN/Creat Ratio 22.1 RATIO (10-20); Calcium,Total 8.8 mg/dL (7.6-11.0); Carbon Dioxide 21.7 mmol/L (21.0-32.0); Chloride 108 mmol/L (98-108); Estimated Creatinine Clearance 66.12 ml/min (50-250); Globulin 2.7 g/dL (2.2-4.2); Glucose 98 mg/dL (70-99); Potassium 3.9 mmol/L (3.3-5.1)
[2025-03-18 07:49] VITALS: BMI 32.0
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
[2025-03-18 09:02] VITALS: BP 132/70; PULSE 76; RESP 18; TEMP 37; O2SAT 93
[2025-03-18 13:41] VITALS: BP 128/77; PULSE 66; RESP 17; TEMP 36.7; O2SAT 100
[2025-03-18 20:45] VITALS: BP 111/50; PULSE 65; RESP 18; TEMP 37.7; O2SAT 97
--- NOTE | 2025-03-18 23:45 | MRI_ITS ---
PROCEDURE: BRAIN WITHOUT CONTRAST 03/18/2025 REASON FOR EXAM: AMS TECHNIQUE: Procedure Code: MRIBR Modality: MR Procedure: BRAIN WITHOUT CONTRAST Multiplanar and multisequence images were obtained. COMPARISON: Recent head CT FINDINGS: Diffusion-weighted images:Negative. ADC map: Negative. Gradient images: Negative. Cerebrum: Moderate loss of cerebral volume. Negative for mass the frontal, parietal, temporal and occipital lobes otherwise negative. White matter: Moderate periventricular white matter changes. Scattered T2 lesions in the centrum semiovale and zhang radiata.. Cerebellum:Slight cerebellar volume loss. Negative for acute infarction. Otherwise negative cerebellum. CSF pathways and ventricles: Negative. Negative for ventricular dilatation or obstruction. Basal ganglia and thalami: Negative. No acute infarctions. Brainstem: Midbrain, aris and medulla otherwise negative. Midline structures: The corpus callosum, pituitary fossa and cerebellar tonsils are negative. Limbic system: Medial temporal lobes and limbic system negative. Extra-axial spaces: Negative. Negative for subarachnoid, subdural or epidural hemorrhage. Orbital structures: Globes negative. Extraocular muscles negative. Paranasal sinuses: Fluid in the mastoid air cells. Slight mucosal disease in the ethmoid sinuses. Remainder of the sinuses negative. Vascular structures: Normal intracranial flow voids including the superior sagittal sinus. Other: No abnormal enhancement. Remainder of exam negative. MRI/Brain without Contrast IMPRESSION: Negative for acute intracranial pathology. Age-appropriate atrophy and small-vessel disease. Reading Location: [id number]
[2025-03-19 03:45] VITALS: BP 158/58; PULSE 75; RESP 18; TEMP 36.6; O2SAT 98
[2025-03-19 06:00] VITALS: BMI 32.8
[2025-03-19 07:11] VITALS: O2SAT 93
[2025-03-19 09:45] VITALS: BP 109/55; PULSE 64; RESP 17; TEMP 36.8; O2SAT 98
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
--- NOTE | 2025-03-19 11:50 | CASEMGMT ---
JOSE ELIAS CM in to complete CORNEJO form with patient, patient confused, daughter, Jazzmine, at bedside RN CM explained CORNEJO form, daughter voiced understanding. Daughter signed CORNEJO form and filed in chart. Patient provided with copy of signed CORNEJO form. Daughter had no further questions or concerns.
--- NOTE | 2025-03-19 13:31 | CASEMGMT ---
Social Work Primary Care Doctor: Dr. Raji Bradford Speciality doctors: none Insurance: [employer] Medicare Pharmacy: Patient utilizes [facility] in [place] Advanced directives: Patient has POA and LW. Son and daughter are POA and it is on file. LNOK:. daughter and son Marital/Social History: Patient is a . Patient lives at home alone. Living Situation: The home is a split level. Patient has about 6 to 10 steps to get the different levels in the home. ADL's/Prior level of functioning: Patient was independent prior. Transportation: Patient still drives. DME: none longterm/home health history: none Support/Community Services: Patient attends [employer]. He is on a [employer] team and he has group he rides motorcycles with. Mental Health: none Substance abuse history: none Assessment: YI spoke with the daughter Jazzmine and granddaughter Layla. Layla reported they are meeting with the patients sales agent financial report service tomorrow. Layla reported the patient maybe able to pay for private caregivers. The daughter stated she can stay with her dad for a few days in his home but he is being verbally aggressive with her. The granddaughter does not think her mom staying with him is a good idea. The granddaughter reported this confusion with the patient started about two weeks ago. Prior to this he was active and independent. SW will continue to follow for appropriate discharge plan. The family was waiting to speak with the physician. KELLY Caruso
--- NOTE | 2025-03-19 14:34 | CASEMGMT ---
Social Work SW provided the granddaughter a list private caregivers. CHYNA Caruso
[2025-03-19 14:59] VITALS: BP 110/60; PULSE 60; RESP 16; TEMP 36.7; O2SAT 98
[2025-03-20 03:45] VITALS: BP 109/49; PULSE 77; RESP 18; TEMP 37.2; O2SAT 94
[2025-03-20 06:00] VITALS: BMI 32.3
[2025-03-20 08:20] VITALS: O2SAT 95
[2025-03-20 09:30] VITALS: BP 131/88; PULSE 77; RESP 16; TEMP 36.6; O2SAT 97
[2025-03-20 10:10] VITALS: PULSE 77; RESP 20
[2025-03-20] MEDS: Albuterol 2.5 MG/3 ML VIAL.NEB. INHALATION (10:10)
--- NOTE | 2025-03-20 11:25 | CASEMGMT ---
Social Work YI received phone call from Krish at [facility] who states he has spoke with pt's dgt and has a tour scheduled for 5:30 today. Dgt is interested in pt coming to [facility] and possibly the memory care unit. Krish states he does have a room available and is requesting pt's medical records be faxed for review. Handoff provided to YI Girard who will reach out to pt's dgt to discuss discharge plan. ELISA Sne
--- NOTE | 2025-03-20 11:49 | CASEMGMT ---
Social Work SW called the daughter Jazzmine. Jazzmine reported they are meeting with [facility] dannielle at 530pm. The daughter reported SW can send medical records to [facility]. The daughter reported they are meeting with the financial service representative tomorrow at 1230pm. The daughter reported they are hoping the patient can stay in the hospital until . SW informed the daughter the patient has been medically stable for 2 days and the patient needs to discharge tomorrow. Jazzmine reported her cousin is getting the guns out of the house today and they have the patients car keys. Physician was undated. CHYNA Caruso
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
[2025-03-20 15:30] VITALS: BP 135/67; PULSE 76; RESP 16; TEMP 36.7; O2SAT 97
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
[2025-03-20 22:20] VITALS: BP 103/63; PULSE 73; RESP 18; TEMP 37.1; O2SAT 95
--- NOTE | 2025-03-20 22:22 | PCM.HOSP.N ---
Hospitalist Note Called to room to discuss options regarding change in code status and patient's declining health. Daughter, Jazzmine Chu, is POA and present with a granddaughter who is a nurse. She expresses concerns regarding his continuing decline in mental and physical status. She expresses desire for no chest compressions or heroic measures to be taken in the event of cardiac or respiratory arrests. States, I think he will haunt me if I choose to prolong his life at this stage. I discussed delirium, in addition to natural aging decline, and the care involved for each. I reviewed full, CCA and TOPOGRAPHY TECHNICIAN code options at length. She states that the rest of her family is coming in from out of state tomorrow. At this time they feel that [facility] is the appropriate choice if we can add medications to help with some of his agitation. Family is agreeable to hospice/ palliative consult to be placed tomorrow to discuss further options and de-escalating code status to TOPOGRAPHY TECHNICIAN. Status changed to Med-Surg nontele. Added haloperidol 1mg PO/SL q4h PRN agitation, Roxanol 5mg PO/SL q4h PRN pain 1-10, and atropine sulfate 2drp PO q3h PRN respiratory congestion.
[2025-03-21] MEDS: morphine (oral solution) 10MG/0.5ML Syringe 5 MG SL/PO (01:49)
[2025-03-21 03:00] VITALS: BP 102/58; PULSE 66; RESP 18; TEMP 37.1; O2SAT 96
[2025-03-21 05:41] VITALS: BMI 32.4
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
--- NOTE | 2025-03-21 08:54 | CASEMGMT ---
Social Work SW met with pt's dgt who states she cancelled appointment with [facility] yesterday but did tour the [facility]. [facility] is family's facility of choice. Referral sent to [facility] yesterday. SW reached out to [facility] at this time informing they are [facility] and inquiring if they can accept pt today. YI will await determination of acceptance. ELISA Vincent
[2025-03-21 09:20] VITALS: BP 97/42; PULSE 77; RESP 18; TEMP 37.4; O2SAT 94
--- NOTE | 2025-03-21 10:41 | PCA ---
pt had to go to the bathroom so I put his gait belt on and took him to the bathroom once in the bathroom pt sternly told me to get out of the bathroom. I educated the pt and the family on using the pull cord for when the pt was done going to the bathroom. upon returning to the room to help the pt back to bed he was mid fall so I called for help. this fall happened at 8:20 am on March and charge nurse notified.
--- NOTE | 2025-03-21 11:42 | CASEMGMT ---
Social Work [place] would like to come to hospital and meet pt prior to making a decision of acceptance. SW notified nurse that [facility] staff would be coming today for assessment. ELISA Sen
--- NOTE | 2025-03-21 13:15 | CASEMGMT ---
Social Work Charge nurse notified YI that a referral has been made for hospice care. YI met with pts dgt and granddgt who are agreeable to a hospice referral and would like [facility]. YI updated [facility] of plan for ECF with hospice. ELISA Vincent
[2025-03-21 15:03] VITALS: BP 106/60; PULSE 79; RESP 17; TEMP 38.2; O2SAT 94
--- NOTE | 2025-03-21 16:03 | CASEMGMT ---
Social Work [facility] here to assess pt for admission. Extensive conversation with DON of [facility] and with pt's family regarding discharge planning. YI explained to dgt difference between skilled care under insurance and intermediate care private pay. IY re-explained pt's functional ability with therapy and that pt does not qualify to go to [facility] under skilled level of care and insurance. Pt's dgt expressing understanding of this and is agreeable for pt to go to [facility] under private pay. Referral has been made to hospice and pts dgt is agreeable that she can follow up with hospice once pt is at the [facility]. [facility] reached out to YI and is able to accept pt. YI spoke with physician and updated on discharge plan and cocerns that dgts has expressed regarding medical concerns. Per physician, pt will likely be ready for discharge tomorrow. YI met with pt dgt and explained and dgt is agreeable. [facility] updated. Plan: [facility], intermediate level of care under private pay. ELISA Sen
--- NOTE | 2025-03-21 16:20 | RAD_ITS ---
PROCEDURE: CHEST 1 VIEW (PORTABLE) 03/21/2025 REASON FOR EXAM: FEVER TECHNIQUE: Frontal view of the chest. COMPARISON: AP chest of 03/17/2025. RAD/Chest 1 View (Portable) IMPRESSION: Partially visualized right reverse total shoulder prosthesis appears stable. P rominent degenerative changes about the shoulders again seen. Lungs are significantly hypoinflated, with mild increased density of the right medial lung base, most probably due to atelectasis; cannot entirely exclude the presence of pneumonitis, however. No pleural effusion or pneumothorax is identified. The cardiomediastinal silhouette is stable, with a somewhat calcified and tortu ous aorta noted; no evidence of cardiomegaly. Reading Location: [place] [id number]
[2025-03-21 16:37] VITALS: BP 111/59; PULSE 58; RESP 18; TEMP 36.9; O2SAT 95
[2025-03-21 22:00] VITALS: BP 106/48; PULSE 58; RESP 18; TEMP 36.8; O2SAT 94
[2025-03-22] VITALS (7 sets, daily range): BP systolic 100–131; BP diastolic 55–71; PULSE 72–83; RESP 16–18; TEMP 37.1–38.2; O2SAT 94–96; BMI 32.1
[2025-03-22 04:00] LABS: Squamous Epithelial Cells - UA 0 SEEN /hpf (0-5)
[2025-03-22 04:01] LABS: Color, Urine Yellow (Yellow); Glucose, Dipstick Normal (Normal); Ketone-Dipstick 5 mg/dl (Negative); Leukocyte Esterase-Dipstick 25 /ul (Negative); Nitrite-Dipstick Negative (Negative); Occult Blood-Urine Negative /ul (Negative); Protein-Dipstick 30 mg/dl (Negative); Specific Gravity, Urine 1.025 (1.002-1.030)
[2025-03-22 04:23] LABS: Urine Bilirubin Dipstick 1 mg/dL (Negative)
[2025-03-22 06:44] LABS: Hematocrit 34.4 % (40-54); Hemoglobin 12.0 g/dL (13.0-16.5); Immature Granulocytes Count 0.030 X10^3/uL (0.0-0.0); Mean Corp Hgb Conc 34.9 g/dL (32-36); Mean Corpuscular Volume 93.2 fL (80-94); Mean Platelet Vol. 9.4 fl (6.2-12.0); NRBC Flagged by Analyzer 0 % (0-5); Platelet Count 164 K/mm3 (150-450); RBC Distribution Width CV 13.1 % (11.6-14.6); RBC Distribution Width SD 44.6 fl (35.1-43.9); Red Blood Count 3.69 M/mm3 (4.6-6.2); White Blood Count 6.9 K/mm3 (4.4-11.0)
[2025-03-22 08:21] LABS: Anion Gap 11 (5-15); BUN 18 mg/dL (4-19); BUN/Creat Ratio 18.2 RATIO (10-20); Calcium,Total 8.7 mg/dL (7.6-11.0); Carbon Dioxide 20.9 mmol/L (21.0-32.0); Chloride 103 mmol/L (98-108); Estimated Creatinine Clearance 53.59 ml/min (50-250); Glucose 105 mg/dL (70-99); Potassium 4.3 mmol/L (3.3-5.1)
--- NOTE | 2025-03-22 08:52 | CASEMGMT ---
Social Work Hospice is meeting with the family at 930am today. CHYNA Caruso
--- NOTE | 2025-03-22 10:58 | CASEMGMT ---
Social Work [facility] nurse Jazz met with pts family. Per Jazz, pt family does not want hospice services at this time. ELISA Vincent
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
--- NOTE | 2025-03-22 13:27 | CASEMGMT ---
Social Work Patient is discharging to the [facility] today. [facility] transportation is scheduled for 630pm. [facility], family and the nurse have been notified. PASRR was completed. DC orders and signed med list have been sent to the [facility]. Disposition: The [facility] intermittent level of care. CHYNA Caruso
--- NOTE | 2025-03-22 13:38 | PHA.DC.MR.R ---
Pharmacy [place] Med Reconciliation Pharmacy Service has performed discharge medication reconciliation for this patient. The patient's discharge medication list was reviewed for discrepancies and discrepancies were resolved. - No medication changes at this time Medications at Discharge Home Medications multivitamin with folic acid 400 mcg tablet 1 tab PO DAILY SUPPLEMENT 01/13/15 magnesium chloride 71.5 mg (magnesium chloride) tablet,delayed release 64 mg PO DAILY SUPPLEMENT 01/26/18 vitamin E 268 mg (400 unit) capsule 400 unit PO DAILY SUPPLEMENT 01/26/18 diphenoxylate-atropine 2.5 mg-0.025 mg tablet (Lomotil) 1 tab PO 4X/DAY PRN diarrhea 5 days #20 tabs 01/17/24
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
[2025-03-22 15:00] LABS: Vitamin B12 < 150 pg/mL (180-914)
[2025-03-22 16:04] LABS: Calcium Oxalate Crystals Ur 1+ /hpf (<or=2+); Red Blood Cells-Urine 0-5 SEEN /hpf (0-5)
[2025-03-22 16:05] LABS: Mucous, Urine 2+ /hpf (<or=2+)
[2025-03-22] MEDS: Cyanocobalamin (B12) 1,000 MCG/ML Vial 1000 MCG IM (17:10)
[2025-03-23 16:09] LABS: Folate, Hemolysate Test 442.0 ng/mL (Not Estab.); Folate, RBC (Hct) Test 39.5 % (37.5-51.0); Folates, RBC Test 1119 ng/mL (>498)
== END 2025-03-22 20:15 | disposition intermediate care facility (04) ==
LOC: ED 23:13 → PCU 23:18
PROVIDERS: Admitting Provider Family Medicine; Emergency Provider Emergency Medicine; PCP Family Medicine
DX: G93.41 Metabolic encephalopathy (principal); R53.81 Other malaise; N18.2 Chronic kidney disease, stage 2 (mild); Z87.891 Personal history of nicotine dependence; R03.0 Elevated blood-pressure reading, without diagnosis of hypertension; R62.7 Adult failure to thrive; Z66 Do not resuscitate
CPT/HCPCS: 36415; 70450; 70551; 71045; 80048; 80053; 80076; 81001; 82140; 82607; 82747; 82962; 83605; 83735; 84100; 84145; 84443; 85014; 85025; 87040; 87077; 87086; 87088; 87186; 87449; 87631; 87633; 92507; 92523; 93005; 94640; 96360; 96361; 96372; 97116; 97161; 97165; 97530; 97535; 97802; 99221; 99285; A4216; G0378; J3420

== ENCOUNTER → 2025-04-17 | Outpatient (CLI) | payer MEDICARE, SELFPAY ==
[2025-04-17 15:02] LABS: Hematocrit 43.7 % (40-54); Hemoglobin 14.7 g/dL (13.0-16.5); Immature Granulocytes Count 0.010 X10^3/uL (0.0-0.0); Mean Corp Hgb Conc 33.6 g/dL (32-36); Mean Corpuscular Volume 95.8 fL (80-94); Mean Platelet Vol. 9.7 fl (6.2-12.0); NRBC Flagged by Analyzer 0 % (0-5); Platelet Count 156 K/mm3 (150-450); RBC Distribution Width CV 13.6 % (11.6-14.6); RBC Distribution Width SD 48.2 fl (35.1-43.9); Red Blood Count 4.56 M/mm3 (4.6-6.2); White Blood Count 6.2 K/mm3 (4.4-11.0)
[2025-04-17 15:44] LABS: AST(SGOT) 26 U/L (<=37); Alanine Aminotransfer ALT/SGPT 6 U/L (<=46); Albumin, Serum 3.9 g/dL (3.4-4.8); Alkaline Phosphatase 76 U/L (40-129); Anion Gap 11 (5-15); BUN 15 mg/dL (4-19); BUN/Creat Ratio 14.9 RATIO (10-20); Calcium,Total 9.8 mg/dL (7.6-11.0); Carbon Dioxide 24.3 mmol/L (21.0-32.0); Chloride 104 mmol/L (98-108); Globulin 3.1 g/dL (2.2-4.2); Glucose 98 mg/dL (70-99); Iron 79 ug/dL (65-175); Magnesium 1.9 mg/dL (1.5-2.2); Potassium 4.2 mmol/L (3.3-5.1); Vitamin B12 345 pg/mL (180-914)
[2025-04-23 13:08] LABS: Vitamin D 1,25-Dihydroxy 31.0 pg/mL (24.8-81.5)
[2025-04-27 04:07] LABS: Albumin 3.4 g/dL (2.9-4.4); Folate, Hemolysate Test 531.0 ng/mL (Not Estab.); Folate, RBC (Hct) Test 44.4 % (37.5-51.0); Folates, RBC Test 1196 ng/mL (>498); Gamma Globulin 1.3 g/dL (0.4-1.8); Immunoglobulin A 397 mg/dL (61-437); Immunoglobulin G 1350 mg/dL (603-1613); Immunoglobulin M 31 mg/dL (15-143); PROEL- TOTAL PROTEIN 6.8 g/dL (6.0-8.5); VITAMIN B6 13.2 ug/L (3.4-65.2); Vitamin B1, Thiamine 153.1 nmol/L (66.5-200.0)
== END | disposition home or self-care (01) ==
PROVIDERS: PCP Family Medicine
DX: G62.9 Polyneuropathy, unspecified (principal); F03.90 Unspecified dementia, unspecified severity, without behavioral disturbance, psychotic disturbance, mood disturbance, and anxiety; D64.9 Anemia, unspecified; E53.8 Deficiency of other specified B group vitamins; R41.89 Other symptoms and signs involving cognitive functions and awareness
CPT/HCPCS: 36415; 80053; 81401; 82607; 82652; 82747; 82784; 83036; 83540; 83735; 83883; 84165; 84207; 84425; 85014; 85025; 86334; 86340

== ENCOUNTER 2025-05-10 10:03 | Observation (INO) | payer MEDICARE, SELFPAY ==
[2025-05-10] VITALS (14 sets, daily range): BP systolic 125–156; BP diastolic 57–78; PULSE 57–91; RESP 17–21; TEMP 36.5–37; O2SAT 93–100; BMI 30.4; BMI 27.3
--- NOTE | 2025-05-10 10:06 | EKG12_ITS ---
Test Reason : NEURO Blood Pressure : */* mmHG Vent. Rate : 64 BPM Atrial Rate : 64 BPM P-R Int : 190 ms QRS Dur : 114 ms QT Int : 456 ms P-R-T Axes : 27 67 29 degrees QTcB Int : 470 ms Normal sinus rhythm Incomplete right bundle branch block Borderline ECG Confirmed by TIGIST LAMA, LEON ([id number]), videotape editor ROSI MORA ([id number]) on 05/12/2025 7:59:35 AM Referred By: Confirmed By: LEON ESCOTO MD
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
--- NOTE | 2025-05-10 10:14 | ED.VIS.STROK ---
HPI History of Present Illness Chief Complaint: Stroke Alert Narrative Narrative: Patient is a 85-year-old male presenting to the emergency department for a stroke alert called in the field. Patient has a past medical history of B12 deficiency, anemia, neuropathy, dementia. Patient lives at a nursing facility. Reportedly this morning at 7:30 AM was his last known well when his breakfast was dropped off by staff. He is not on any oral anticoagulation. 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 Patient unable to provide history due to confusion. [facility] Medical History Hypertension Former tobacco use CKD (chronic kidney disease), stage II Home Medications ?Medication ?Instructions ?Recorded ?Last Taken ?Type multivitamin with folic acid 400 1 tab PO DAILY SUPPLEMENT 01/13/15 01/11/15 History mcg tablet magnesium chloride 71.5 mg 64 mg PO DAILY SUPPLEMENT 01/26/18 Unknown History (magnesium chloride) tablet,delayed release vitamin E 268 mg (400 unit) capsule 400 unit PO DAILY SUPPLEMENT 01/26/18 Unknown History cyanocobalamin (vitamin B-12) 1,000 mcg IM QWEEK #4 mL 05/01/25 Unknown Rx 1,000 mcg/mL injection solution Allergy/AdvReac Type Severity Reaction Status Date / Time No Known Allergies Allergy Verified 05/10/25 10:34 Family History Brother Oat cell carcinoma Father CAD (coronary artery disease) Heart disease Mother No problems noted. Surgical History History of arthroplasty of right shoulder Hx of colonoscopy Social History (Updated 05/10/25 @ 10:22 by Eulalia Crandall) household members: none housing: [facility] Smoking Status: Former smoker second hand exposure: No alcohol intake: never substance use type: does not use caffeine: Yes what type of physical activity do you participate in: walking, running, bicycling and weight training frequency: 3-4 times per week seatbelt use: always ROS ROS ED ROS Narrative See HPI EXAM Physical Exam Narrative Exam Narrative: Vital signs: Reviewed General: Alert and orientedx1. No acute distress HEENT: Head is normocephalic and atraumatic, sinuses nontender, pupils equal round and reactive. Nares are patent. Oropharynx and throat exams normal. Neck: Supple without lymphadenopathy nontender Cardiovascular: Regular rate and rhythm, no murmurs. No rubs or gallops. Normal S1 and S2 Respiratory: Clear to auscultation bilaterally. No wheezes, rales, rhonchi Abdominal: Soft and nontender. Normal bowel sounds. No guarding or rebound. Nonsurgical abdomen Extremities: No tenderness. No bruising. Normal range of motion. Normal sensation. Skin: No rash or redness. The rest of the physical exam is unremarkable Const Vital Signs: 05/10/25 10:04 05/10/25 10:20 05/10/25 10:35 Temperature 98.6 F Temperature Source Oral Pulse Rate 68 67 Respiratory Rate 17 18 Blood Pressure 136/72 H 148/76 H Blood Pressure Mean 93 100 Pulse Ox 97 97 98 Oxygen Delivery Method Room Air Room Air Room Air 05/10/25 10:35 05/10/25 11:30 05/10/25 11:30 Temperature Temperature Source Pulse Rate 68 62 61 Respiratory Rate 17 18 20 H Blood Pressure 148/76 H 148/72 H 148/72 H Blood Pressure Mean 100 97 97 Pulse Ox 97 95 93 Oxygen Delivery Method Room Air Room Air Room Air 05/10/25 12:00 05/10/25 12:30 05/10/25 13:00 Temperature Temperature Source Pulse Rate 62 59 L 57 L Respiratory Rate 19 H 21 H 19 H Blood Pressure 127/64 H 147/76 H 148/77 H Blood Pressure Mean 85 99 100 Pulse Ox 94 99 97 Oxygen Delivery Method Room Air Room Air Room Air 05/10/25 13:30 05/10/25 14:00 05/10/25 14:00 Temperature Temperature Source Pulse Rate 61 62 61 Respiratory Rate Blood Pressure 153/72 H 156/72 H 152/57 H Blood Pressure Mean 99 100 88 Pulse Ox 94 97 94 Oxygen Delivery Method Room Air 05/10/25 14:25 05/10/25 14:30 Temperature 98.6 F Temperature Source Pulse Rate 61 59 L Respiratory Rate 19 H 18 Blood Pressure 152/57 H 152/57 H Blood Pressure Mean 88 88 Pulse Ox 94 99 Oxygen Delivery Method Room Air MDM MDM MDM Narrative Medical decision making narrative: Patient is an 85-year-old male presenting to the emergency department as a stroke team called in the field. Patient was seen and examined immediately on arrival in ambulance bay. NIH of 2 on my exam. Patient sent for CT and CTA of the head and neck. At this time I do have concern for possible baseline confusion given his dementia and possible metabolic disturbance given the global confusion. Other than the slurred speech he has no focal neurologic deficits. Spoke to telestroke [facility] neurologist, Dr. Khoury, who recommends dose of aspirin and sees no acute findings on CT imaging. CT brain with no acute intracranial abnormalities. CT of the head and neck with no LVO or significant stenosis. CBC with mild leukopenia 3.8 and normal hemoglobin. BMP with no significant abnormalities. Troponin reflex mildly elevated however downtrending at 37 at 36. No baseline to compare to. Urinalysis no evidence of UTI EKG shows normal sinus rhythm with an incomplete right bundle branch block. No ischemic changes. No dysrhythmia. Discussed findings with patient and daughter at bedside. NIH still 2 on my evaluation. Will admit for further stroke workup. Admitted to Dr. White, hospitalist, for further management. Clinical impression Strokelike symptoms History & Record Review Discussion w/independent historian: EMS personnel and Family Lab Data Attestation: I reviewed the patient's lab results. Labs: Laboratory Results - last 24 hr 05/10/25 05/10/25 05/10/25 09:54 12:42 13:23 WBC 3.8 L RBC 4.18 L Hgb 13.5 Hct 39.5 L MCV 94.5 H MCH 32.3 H MCHC 34.2 RDW Std Deviation 51.0 H RDW Coeff of Angel Luis 14.7 H Plt Count 154 MPV 9.6 Immature Gran % (Auto) 0.300 Neut % (Auto) 55.9 Lymph % (Auto) 23.2 [place] % (Auto) 14.8 H Eos % (Auto) 5.0 Baso % (Auto) 0.8 Absolute Neuts (auto) 2.1 Absolute Lymphs (auto) 0.88 Nucleated RBC % 0 PT 14.2 INR 1.1 APTT 25.8 Sodium 144 Potassium 3.9 Chloride 111 H Carbon Dioxide 21.1 Anion Gap 11 BUN 16 Creatinine 1.14 Estim Creat Clear Calc 45.38 L Est GFR (MDRD) Non-Af 64 BUN/Creatinine Ratio 13.9 Glucose 152 H Calcium 9.5 Troponin T High Sens 37 H Troponin T Hi Sens 2 Hr 36 H Troponin T Hi Sens 4Hr Urine Color Yellow Urine Clarity Clear Urine pH 6.0 Ur Specific [place] 1.015 Urine Protein Negative Urine Glucose (UA) Normal Urine Ketones Negative Urine Occult Blood Negative Urine Nitrite Negative Urine Bilirubin Negative Urine Urobilinogen 4 H Ur Leukocyte Esterase Negative Urine RBC 0-5 SEEN Urine WBC 0-5 SEEN Ur Squamous Epith Cells 0 SEEN Urine Bacteria 0 SEEN Urine Mucus 0 SEEN 05/10/25 14:25 WBC RBC Hgb Hct MCV MCH MCHC RDW Std Deviation RDW Coeff of Angel Luis Plt Count MPV Immature Gran % (Auto) Neut % (Auto) Lymph % (Auto) [place] % (Auto) Eos % (Auto) Baso % (Auto) Absolute Neuts (auto) Absolute Lymphs (auto) Nucleated RBC % PT INR APTT Sodium Potassium Chloride Carbon Dioxide Anion Gap BUN Creatinine Estim Creat Clear Calc Est GFR (MDRD) Non-Af BUN/Creatinine Ratio Glucose Calcium Troponin T High Sens Troponin T Hi Sens 2 Hr Troponin T Hi Sens 4Hr 37 H Urine Color Urine Clarity Urine pH Ur Specific [place] Urine Protein Urine Glucose (UA) Urine Ketones Urine Occult Blood Urine Nitrite Urine Bilirubin Urine Urobilinogen Ur Leukocyte Esterase Urine RBC Urine WBC Ur Squamous Epith Cells Urine Bacteria Urine Mucus Radiography Diagnostic Testing: Clinical Impression(s) from Imaging Studies Brain CT 05/10/25 10:06 IMPRESSION: No acute intracranial abnormalities. Red Alert: No acute intracranial abnormalities. The critical findings in the findings and impression above were relayed directly by me by telephone to Maxine Tello on 05/10/2025 at 10:25 am with readback verification. Reading Location: [facility] Head/Neck CTA 05/10/25 10:07 IMPRESSION: No hemodynamically significant stenosis in the head and neck. Reading Location: [facility] Chest X-Ray 05/10/25 10:54 IMPRESSION: 1. No acute abnormality. Prior granulomatous infection. No change. Reading Location: [id number] Discharge Plan Disposition Disposition: Acute Care Hospital [facility] Discharge Date/Time: 05/10/25 15:26 NIHSS NIHSS 1a. Level of Consciousness: 0 - Alert; keenly responsive 1b. LOC Questions: 1 - Answers ONE question correctly 1c. LOC Commands: 0 - Performs BOTH tasks correctly 2. Best Gaze: 0 - Normal 3. Visual: 0 - No visual loss 4. Facial Palsy: 0 - Normal symmetrical movements 5a. Left Arm: 0 - No drift; arm holds 90 (or 45) degrees for full 10 seconds 5b. Right Arm: 0 - No drift; arm holds 90 (or 45) degrees for full 10 seconds 6a. Left Le - No drift; leg holds 30-degree position for full 5 seconds 6b. Right Le - No drift; leg holds 30-degree position for full 5 seconds 7. Limb Ataxia: 0 - Absent 8. Sensory: 0 - Normal; no sensory loss 9. Best Language: 0 - No aphasia; normal 10. Dysarthria: 1 = [id number] dysarthria; 11. Extinction and Inattention: 0 - No abnormality Total: 2 Stroke Questions Stroke Team Activated: Yes Reviewed Inclusion/Exclusion criteria: Yes
[2025-05-10 10:15] LABS: Hematocrit 39.5 % (40-54); Hemoglobin 13.5 g/dL (13.0-16.5); Immature Granulocytes Count 0.010 X10^3/uL (0.0-0.0); Mean Corp Hgb Conc 34.2 g/dL (32-36); Mean Corpuscular Volume 94.5 fL (80-94); Mean Platelet Vol. 9.6 fl (6.2-12.0); NRBC Flagged by Analyzer 0 % (0-5); Platelet Count 154 K/mm3 (150-450); RBC Distribution Width CV 14.7 % (11.6-14.6); RBC Distribution Width SD 51.0 fl (35.1-43.9); Red Blood Count 4.18 M/mm3 (4.6-6.2); White Blood Count 3.8 K/mm3 (4.4-11.0)
[2025-05-10 10:24] LABS: Prothrombin Time (Protime)PT. 14.2 SECONDS (11.7-14.9)
[2025-05-10 10:25] LABS: Partial Thromboplast Time 25.8 Seconds (24.1-36.2)
[2025-05-10 10:33] LABS: Anion Gap 11 (5-15); BUN 16 mg/dL (4-19); BUN/Creat Ratio 13.9 RATIO (10-20); Calcium,Total 9.5 mg/dL (7.6-11.0); Carbon Dioxide 21.1 mmol/L (21.0-32.0); Chloride 111 mmol/L (98-108); Estimated Creatinine Clearance 45.38 ml/min (50-250); Glucose 152 mg/dL (70-99); Potassium 3.9 mmol/L (3.3-5.1); Troponin T High Sensitivity 37 ng/L (<=22)
--- NOTE | 2025-05-10 10:54 | RAD_ITS ---
PROCEDURE: CHEST PA AND LATERAL 05/10/2025 REASON FOR EXAM: AMS TECHNIQUE: Procedure Code: RADCXR Modality: DX Procedure: CHEST PA AND LATERAL COMPARISON: March 21, 2025 FINDINGS: The image is lordotic. Hardware: Reverse total shoulder arthroplasty Heart: The heart size is normal. Mediastinum: The aorta is tortuous and atherosclerotic. There is some prominence of the jugular and superior vena cava in the right paratracheal region confirmed on prior CT. Lungs: Granulomas are seen in the left lower lobe and left interlobar region. No consolidation. Bones: The bones are unremarkable. RAD/Chest PA and Lateral IMPRESSION: 1. No acute abnormality. Prior granulomatous infection. No change. Reading Location: [id number]
[2025-05-10 13:29] LABS: Mucous, Urine 0 SEEN /hpf (<or=2+); Squamous Epithelial Cells - UA 0 SEEN /hpf (0-5)
[2025-05-10 13:30] LABS: Troponin T High Sens 2 HR 36 ng/L (<=22)
[2025-05-10 13:37] LABS: Color, Urine Yellow (Yellow); Glucose, Dipstick Normal (Normal); Ketone-Dipstick Negative (Negative); Leukocyte Esterase-Dipstick Negative /ul (Negative); Nitrite-Dipstick Negative (Negative); Occult Blood-Urine Negative /ul (Negative); Protein-Dipstick Negative (Negative); Specific Gravity, Urine 1.015 (1.002-1.030); Urine Bilirubin Dipstick Negative (Negative)
[2025-05-10 13:50] LABS: Red Blood Cells-Urine 0-5 SEEN /hpf (0-5)
--- NOTE | 2025-05-10 14:24 | HP.PCM.HOS_ITS ---
HPI - General General Date of Admission: 05/10/25 Date of Service: 05/10/25 Chief Complaint: Slurred speech and confusion HPI Narrative KEREN LÓPEZ, is a 85 M who presented to [facility] ED on 05/10/2025 with slurred speech and confusion. Patient was recently hospitalized here in early March for altered mentation and declining health. It was suspected that these were secondary to undiagnosed dementia. [facility]. He saw neurology in the office on 04/17. It was noted that he was vitamin B12 deficient during the March admission and had been getting serial IM injections for this. Family had noted that patient's memory had been progressively declining but then had a more rapid decline since October. His Mini-Mental status exam score during that visit was 16 out of 30 consistent with moderate dementia. Patient presented today from SNF for confusion and possible right facial droop. Was evaluated by teleneurology in the ED and was given an NIH score of 2 for disorientation though it was noted this was not uncommon for him. CT head and CTA head/neck were negative. Neurology suspected toxic or metabolic encephalopathy but did recommend giving a dose of 345 mg of aspirin and admitting for toxic/metabolic workup and stroke rule out. Hospitalist was then contacted for admission. I saw the patient at bedside in the ED, daughter and granddaughter were present. Patient was sitting back comfortably in bed, in no acute distress. He had difficulty answering questions appropriately for me and was constantly looking to his family for help with answers. However when he answered questions, he did not have slurred speech for me. He did deny any pain or discomfort currently. No other acute concerns at this time. Will be admitted for further management. [facility] Medical History Hypertension Former tobacco use CKD (chronic kidney disease), stage II Home Medications ?Medication ?Instructions ?Recorded ?Last Taken ?Type multivitamin with folic acid 400 1 tab PO DAILY SUPPLE MENT 01/13/15 01/11/15 History mcg tablet magnesium chloride 71.5 mg 64 mg PO DAILY SUPPLEMENT 0 01/26/18 Unknown History (magnesium chloride) tablet,delayed release vitamin E 268 mg (400 unit) capsule 400 unit PO DAILY SUPPLEMENT 01/26/18 Unknown History cyanocobalamin (vitamin B-12) 1,000 mcg IM QWEEK #4 mL 05/01/25 Unknown Rx 1,000 mcg/mL injection solution Allergy/AdvReac Type Severity Reaction Status Date / Time No Known Allergies Allergy Verified 05/10/25 10:34 Family History Brother Oat cell carcinoma Father CAD (coronary artery disease) Heart disease Mother No problems noted. Surgical History History of arthroplasty of right shoulder Hx of colonoscopy Social History household members: none housing: long term Smoking Status: Former smoker second hand exposure: No alcohol intake: never substance use type: does not use caffeine: Yes what type of physical activity do you participate in: walking, running, bicycling and weight training frequency: 3-4 times per week seatbelt use: always ROS Constitutional Constitutional: Denies chills, fatigue or fever(s) Cardiovascular Cardiovascular: Denies chest pain Respiratory/Chest Respiratory/Chest: Denies shortness of breath at rest Gastrointestinal Gastrointestinal: Denies abdominal pain Neurologic Neurologic: Denies dizziness, focal weakness, headache(s), numbness or tingling Vital Signs Vital Signs Vital Signs: 05/10/25 10:04 05/10/25 10:20 05/10/25 10:35 Temperature 98.6 F Temperature Source Oral Pulse Rate 68 67 Respiratory Rate 17 18 Blood Pressure 136/72 H 148/76 H Blood Pressure Mean 93 100 Pulse Ox 97 97 98 Oxygen Delivery Method Room Air Room Air Room Air 05/10/25 10:35 05/10/25 11:30 05/10/25 11:30 Temperature Temperature Source Pulse Rate 68 62 61 Respiratory Rate 17 18 20 H Blood Pressure 148/76 H 148/72 H 148/72 H Blood Pressure Mean 100 97 97 Pulse Ox 97 95 93 Oxygen Delivery Method Room Air Room Air Room Air 05/10/25 12:00 05/10/25 12:30 05/10/25 13:00 Temperature Temperature Source Pulse Rate 62 59 L 57 L Respiratory Rate 19 H 21 H 19 H Blood Pressure 127/64 H 147/76 H 148/77 H Blood Pressure Mean 85 99 100 Pulse Ox 94 99 97 Oxygen Delivery Method Room Air Room Air Room Air 05/10/25 13:30 05/10/25 14:00 05/10/25 14:00 Temperature Temperature Source Pulse Rate 61 62 61 Respiratory Rate Blood Pressure 153/72 H 156/72 H 152/57 H Blood Pressure Mean 99 100 88 Pulse Ox 94 97 94 Oxygen Delivery Method Room Air Weight Weight: 78.018 kg Body Mass Index (BMI) 30.4 Physical Exam Const alert, no apparent distress and average body habitus Constitutional Narrative: Elderly male, mildly fatigued appearing, alert and oriented to person and place but not time, had difficulty answering most questions for me, was otherwise sitting back in bed and in no acute distress. General Appearance: cooperative and comfortable HEENT normocephalic, head/scalp atraumatic, hearing grossly normal bilaterally, nasal mucous membranes and turbinates normal and moist oral mucous membranes Eyes PERRL, EOMs intact bilaterally and conjunctivae normal Neck full ROM Chest inspection of chest normal Resp normal respiratory effort, normal air movement, no use of accessory muscles and clear to auscultation bilaterally Cardio regular rate, regular rhythm, no murmurs and peripheral pulses 2+ throughout GI normal to inspection, nondistended, normoactive bowel sounds, soft to palpation, non-tender and non-distended Back/Spine normal ROM Extremity normal to inspection, full ROM and no pedal edema Skin no rashes or lesions noted Neuro moves all extremities and no focal motor deficits Results Lab / Micro Data 05/10/25 09:54 05/10/25 09:54 Labs: Laboratory Results - last 24 hr 05/10/25 09:54: WBC 3.8 L, RBC 4.18 L, Hgb 13.5, Hct 39.5 L, MCV 94.5 H, MCH 32.3 H, MCHC 34.2, RDW Std Deviation 51.0 H, RDW Coeff of Anegl Luis 14.7 H, Plt Count 154, MPV 9.6, Immature Gran % (Auto) 0.300, Neut % (Auto) 55.9, Lymph % (Auto) 23.2, [place] % (Auto) 14.8 H, Eos % (Auto) 5.0, Baso % (Auto) 0.8, Absolute Neuts (auto) 2.1, Absolute Lymphs (auto) 0.88, Nucleated RBC % 0, PT 14.2, INR 1.1, APTT 25.8, Sodium 144, Potassium 3.9, Chloride 111 H, Carbon Dioxide 21.1, Anion Gap 11, BUN 16, Creatinine 1.14, Estim Creat Clear Calc 45.38 L, Est GFR (MDRD) Non-Af 64, BUN/Creatinine Ratio 13.9, Glucose 152 H, Calcium 9.5, Troponin T High Sens 37 H 05/10/25 12:42: Troponin T Hi Sens 2 Hr 36 H 05/10/25 13:23: Urine Color Yellow, Urine Clarity Clear, Urine pH 6.0, Ur Specific [place] 1.015, Urine Protein Negative, Urine Glucose (UA) Normal, Urine Ketones Negative, Urine Occult Blood Negative, Urine Nitrite Negative, Urine Bilirubin Negative, Urine Urobilinogen 4 H, Ur Leukocyte Esterase Negative, Urine RBC 0-5 SEEN, Urine WBC 0-5 SEEN, Ur Squamous Epith Cells 0 SEEN, Urine Bacteria 0 SEEN, Urine Mucus 0 SEEN Imaging Radiology Impression Brain CT 05/10/25 10:06 IMPRESSION: No acute intracranial abnormalities. Red Alert: No acute intracranial abnormalities. The critical findings in the findings and impression above were relayed directly by me by telephone to Maxine Tello on 05/10/2025 at 10:25 am with readback verification. Reading Location: [facility] Head/Neck CTA 05/10/25 10:07 IMPRESSION: No hemodynamically significant stenosis in the head and neck. Reading Location: [facility] Chest X-Ray 05/10/25 10:54 IMPRESSION: 1. No acute abnormality. Prior granulomatous infection. No change. Reading Location: [id number] Assessment & Plan Assessment/Plan (1) Confusion: (2) Slurred speech: PLAN: Plan Patient is an 85-year-old male who presented [facility] ED on 05/10/2025 with slurred speech and confusion. 1. Slurred speech with confusion ? Admit under observation status to PCU. Neurology consulted. Recently diagnosed with moderate dementia as below. Presented from SNF with reported slurred speech and confusion. NIH score of 2 in the ED for disorientation. CT brain and CTA head/neck negative. Notably patient had MRI brain in early March that was negative. neurology evaluated in the ED and suspected more toxic/metabolic encephalopathy but stroke cannot be ruled out. UA unremarkable and labs unremarkable as well. Patient normotensive, afebrile and stable on room air at rest. Orders placed per stroke protocol order set. MRI brain ordered. PT/OT/case management consulted. If MRI is negative, should be fine for discharge back to nursing facility tomorrow. 2. Chronic debility with dementia ? Recent hospitalized here in early March and suspected to have dementia. Followed up with neurology in the office on 04/17; Mini-Mental status exam score 16 out of 30 consistent with moderate dementia. [facility] discharge from hospital here on 03/22. Should be fine to return there on discharge. 3. Vitamin B12 deficiency ? Patient found to have significant vitamin B12 deficiency at less than 150 during hospitalization in early March. Has been getting serial IM B12 injections since then. No inpatient needs, continue outpatient follow-up. DVT prophylaxis: SCDs CODE STATUS: DNR-CCA, DNI Expected disposition: Back to SNF, 1 to 2 days Total clinical time spent by myself addressing the patient's medical issues, reviewing all the data, and collaborating with patient's care team: 78 minutes. Charges/Coding Visit Charges Inpatient E&M: 22193 Init Hosp L3
--- NOTE | 2025-05-10 14:32 | ED.RN ---
Update given to [facility] on admission
--- NOTE | 2025-05-10 14:51 | MRI_ITS ---
PROCEDURE: MRI BRAIN WITHOUT CONTRAST 05/10/2025 REASON FOR EXAM: STROKELIKE SYMPTOMS TECHNIQUE: Procedure Code: MRIBR Modality: MR Procedure: BRAIN WITHOUT CONTRAST Multiplanar and multisequential MRI of the brain was performed without contrast. COMPARISON: CT head/angiography earlier same day 05/10/2025. Brain MRI 03/18/2025. FINDINGS: No regions of abnormal restricted diffusion to indicate recent infarct. Mild-moderate generalized brain parenchymal volume loss. Mild chronic microangiopathic changes scattered throughout the supratentorial white matter. No evidence of acute intracranial hemorrhage, extra-axial collection, mass- effect, or other acute abnormality. Major intracranial vascular flow voids appear preserved. Absent [place] ocular lenses. Well-aerated paranasal sinuses. Nonspecific trace scattered fluid signal in the bilateral dependent mastoid air cells. MRI/Brain without Contrast IMPRESSION: No acute intracranial abnormality; no acute infarct. Mild-moderate parenchymal volume loss and mild chronic microangiopathic changes . Reading Location: [id number]
[2025-05-10 15:04] LABS: Troponin T High Sens 4 HR 37 ng/L (<=22)
[2025-05-11 05:35] LABS: Hematocrit 36.9 % (40-54); Hemoglobin 12.5 g/dL (13.0-16.5); Mean Corp Hgb Conc 33.9 g/dL (32-36); Mean Corpuscular Volume 93.9 fL (80-94); Mean Platelet Vol. 9.6 fl (6.2-12.0); Platelet Count 126 K/mm3 (150-450); RBC Distribution Width CV 14.4 % (11.6-14.6); RBC Distribution Width SD 49.6 fl (35.1-43.9); Red Blood Count 3.93 M/mm3 (4.6-6.2); White Blood Count 4.1 K/mm3 (4.4-11.0)
[2025-05-11 05:47] VITALS: BP 108/50; PULSE 55; RESP 18; TEMP 36.3; O2SAT 97
[2025-05-11 06:23] LABS: Anion Gap 9 (5-15); BUN 14 mg/dL (4-19); BUN/Creat Ratio 15.9 RATIO (10-20); Calcium,Total 8.8 mg/dL (7.6-11.0); Carbon Dioxide 20.9 mmol/L (21.0-32.0); Chloride 112 mmol/L (98-108); Estimated Creatinine Clearance 63.55 ml/min (50-250); Glucose 100 mg/dL (70-99); Potassium 3.5 mmol/L (3.3-5.1)
--- NOTE | 2025-05-11 06:59 | NEURO.CONS ---
Assessment and Plan: Neuro Assessment/Plan KEREN LÓPEZ is a 85 M with a past medical history of Vit B12 deficiency, cognitive impairment and CKD, being evaluated by Teleneurology for R facial droop and confusion. Patient's symptoms appear largely resolved and based on history this is a transient change in mental status consisting of possible facial droop, dysarthria and difficulty walking that despite the dementia has not been present previously. Exam now is largely nonfocal but marred by poor cooperation. At this time greatest concern is for TIA Plan: ?The following tests for stroke work-up have been/should be obtained:? ? Neuroimaging: MRI Brain without stroke ? Vascular imaging: CTA largely unremarkable ? Cardiac testing: recommend TTE, given dementia and that it is a Wednesday afternoon, recommend patient go back to familiar facility and this be done outpatient ? Cardiac monitorin day hall monitor ? Labs: HgbA1c 5.5, LDL pending ?Anti-platelet medication: Aspirin 81mg daily ?Statin therapy: pending LDL results ?Occupational/Physical therapy consults ?NPO until swallow evaluation.? IVF until able to take po ?DVT prophylaxis with SCDs and heparin SQ. ?Vascular risk factor modification.? 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 BP management should aim to achieve tank terminal gauger control in a reasonable amount of time, taking into consideration the individual patient's requirements and characteristics. Weight Management: Goal for BMI is 18.5-24.9 kg/m2. Alcohol: No more than 2 drinks/day for men or 1 drink/day for non- women. Promote lifestyle modification: weight control, physical activity, moderation of alcohol intake, moderate sodium intake. I personally attended this patient and spent a total time of 60minutes evaluating this patient including clinical assessment, review of chart, medical history imaging, and determining appropriate treatment and workup. HPI Consult Data Date of Consult: 05/12/25 HPI Narrative HPI Narrative: KEREN LÓPEZ, is a 85 M who presented to [facility] ED on 05/10/2025 with slurred speech and confusion. Patient was recently hospitalized here in early March for altered mentation and declining health. It was suspected that these were secondary to undiagnosed dementia. [facility]. He saw neurology in the office on 04/17. It was noted that he was vitamin B12 deficient during the March admission and had been getting serial IM injections for this. Family had noted that patient's memory had been progressively declining but then had a more rapid decline since October. His Mini-Mental status exam score during that visit was 16 out of 30 consistent with moderate dementia. Patient presented today from SNF for confusion and possible right facial droop. Was evaluated by teleneurology in the ED and was given an NIH score of 2 for disorientation though it was noted this was not uncommon for him. CT head and CTA head/neck were negative. Neurology suspected toxic or metabolic encephalopathy but did recommend giving a dose of 345 mg of aspirin and admitting for toxic/metabolic workup and stroke rule out. Hospitalist was then contacted for admission. I saw the patient at bedside in the ED, daughter and granddaughter were present. Patient was sitting back comfortably in bed, in no acute distress. He had difficulty answering questions appropriately for me and was constantly looking to his family for help with answers. However when he answered questions, he did not have slurred speech for me. He did deny any pain or discomfort currently. No other acute concerns at this time. Will be admitted for further management. Neurologic History [facility] facility Unable to get detailed history from patient. Spoke at length with facility - patient has been with them for 3 months. He is normally conversant and able to be reoriented. Yesterday, he was fine at breakfast, then when getting the tray, was more confused, acting oddly and had severely slurred speech. He would walk but was hanging on to them leaning heavily to the L side. This all lasted 45 min before squad could pick him up. He never had events like this in the past per facility From patient's daughter - NADIYA LÓPEZ (Daughter) [phone] Neurologic Exam -? General: Laying comfortably in bed; in no acute distress. -? HENT: Normal oropharynx and mucosa. Normal external appearance of ears and nose. Exophthalmos. -? Neck: Supple, no pain or tenderness -? CV:? No peripheral edema. -? Pulmonary:? Normal respiratory effort. -? Ext: No cyanosis, edema, or deformity -? Skin: No rash. Normal palpation of skin.? -? Musculoskeletal: full range of motion; no joint tenderness. Normal digits and nails by inspection. No clubbing. -? NEURO: -? Mental Status: The patient was alert and oriented to place and person and place but poorly to time -? Language: speech is hoarse.? Naming, repetition, fluency, and comprehension intact. -? Cranial Nerves: EOMI, visual hernandez full, no facial asymmetry, facial sensation intact, hearing intact, tongue midline, no evidence of atrophy or fibrillations. -? Motor: normal bulk, tone, and strength throughout. No pronator drift or satelliting. Upper and lower extremities equal bilaterally. -? Sensation- Intact to light touch bilaterally -? Coordination: deferred -? Gait- deferred [facility] Medical History Hypertension Former tobacco use CKD (chronic kidney disease), stage II Home Medications ?Medication ?Instructions ?Recorded ?Last Taken ?Type multivitamin with folic acid 400 1 tab PO DAILY SUPPLEMENT 01/13/15 01/11/15 History mcg tablet magnesium chloride 71.5 mg 64 mg PO DAILY SUPPLEMENT 01/26/18 Unknown History (magnesium chloride) tablet,delayed release vitamin E 268 mg (400 unit) capsule 400 unit PO DAILY SUPPLEMENT 01/26/18 Unknown History cyanocobalamin (vitamin B-12) 1,000 mcg IM QWEEK #4 mL 05/01/25 Unknown Rx 1,000 mcg/mL injection solution aspirin 81 mg tablet,delayed 81 mg PO DAILY #30 tabs 05/11/25 Unknown Rx release atorvastatin 40 mg tablet (Lipitor) 40 mg PO DAILY #30 tabs 05/11/25 Unknown Rx Allergy/AdvReac Type Severity Reaction Status Date / Time No Known Allergies Allergy Verified 05/10/25 10:34 Family History Brother Oat cell carcinoma Father CAD (coronary artery disease) Heart disease Mother No problems noted. Surgical History History of arthroplasty of right shoulder Hx of colonoscopy Social History household members: none housing: [facility] Smoking Status: Never smoker second hand exposure: No alcohol intake: never substance use type: does not use caffeine: Yes what type of physical activity do you participate in: walking, running, bicycling and weight training frequency: 3-4 times per week seatbelt use: always Vital Signs Vital Signs Vital Signs: 05/10/25 10:04 05/10/25 10:20 05/10/25 10:35 Temperature 98.6 F Temperature Source Oral Pulse Rate 68 67 Pulse Strength Respiratory Rate 17 18 Respiratory Effort Respiratory Depth Respiratory Pattern Blood Pressure 136/72 H 148/76 H Blood Pressure Mean 93 100 Blood Pressure Source Blood Pressure Position Blood Pressure Location Pulse Ox 97 97 98 Oxygen Delivery Method Room Air Room Air Room Air 05/10/25 10:35 05/10/25 11:30 05/10/25 11:30 Temperature Temperature Source Pulse Rate 68 62 61 Pulse Strength Respiratory Rate 17 18 20 H Respiratory Effort Respiratory Depth Respiratory Pattern Blood Pressure 148/76 H 148/72 H 148/72 H Blood Pressure Mean 100 97 97 Blood Pressure Source Blood Pressure Position Blood Pressure Location Pulse Ox 97 95 93 Oxygen Delivery Method Room Air Room Air Room Air 05/10/25 12:00 05/10/25 12:30 05/10/25 13:00 Temperature Temperature Source Pulse Rate 62 59 L 57 L Pulse Strength Respiratory Rate 19 H 21 H 19 H Respiratory Effort Respiratory Depth Respiratory Pattern Blood Pressure 127/64 H 147/76 H 148/77 H Blood Pressure Mean 85 99 100 Blood Pressure Source Blood Pressure Position Blood Pressure Location Pulse Ox 94 99 97 Oxygen Delivery Method Room Air Room Air Room Air 05/10/25 13:30 05/10/25 14:00 05/10/25 14:00 Temperature Temperature Source Pulse Rate 61 62 61 Pulse Strength Respiratory Rate Respiratory Effort Respiratory Depth Respiratory Pattern Blood Pressure 153/72 H 156/72 H 152/57 H Blood Pressure Mean 99 100 88 Blood Pressure Source Blood Pressure Position Blood Pressure Location Pulse Ox 94 97 94 Oxygen Delivery Method Room Air 05/10/25 14:25 05/10/25 14:30 05/10/25 15:00 Temperature 98.6 F Temperature Source Pulse Rate 61 59 L 91 Pulse Strength Respiratory Rate 19 H 18 19 H Respiratory Effort Respiratory Depth Respiratory Pattern Blood Pressure 152/57 H 152/57 H Blood Pressure Mean 88 88 Blood Pressure Source Blood Pressure Position Blood Pressure Location Pulse Ox 94 99 100 Oxygen Delivery Method Room Air Room Air 05/10/25 15:00 05/10/25 15:45 05/10/25 17:00 Temperature 97.7 F L Temperature Source Oral Pulse Rate 63 57 L Pulse Strength Respiratory Rate 18 Respiratory Effort Normal Non-Labored Respiratory Depth Normal Respiratory Pattern Normal Blood Pressure 149/77 H 125/68 H Blood Pressure Mean 101 87 Blood Pressure Source Monitor Blood Pressure Position Semi-Fowlers Blood Pressure Location Right Arm Pulse Ox 99 Oxygen Delivery Method Room Air Room Air 05/10/25 19:50 05/10/25 19:50 05/10/25 19:50 Temperature 97.7 F L Temperature Source Temporal Pulse Rate 64 Pulse Strength Normal (2+) Respiratory Rate 18 Respiratory Effort Normal Non-Labored Respiratory Depth Normal Respiratory Pattern Normal Blood Pressure 152/78 H Blood Pressure Mean 102 Blood Pressure Source Blood Pressure Position Blood Pressure Location Pulse Ox 99 Oxygen Delivery Method Room Air Room Air 05/11/25 05:47 Temperature 97.4 F L Temperature Source Temporal Pulse Rate 55 L Pulse Strength Respiratory Rate 18 Respiratory Effort Respiratory Depth Respiratory Pattern Blood Pressure 108/50 L Blood Pressure Mean 69 Blood Pressure Source Monitor Blood Pressure Position Semi-Fowlers Blood Pressure Location Right Arm Pulse Ox 97 Oxygen Delivery Method Room Air Weight Weight: 76.9 kg Body Mass Index (BMI) 27.3 EEG Results Procedure Details EEG Procedure Details: KEREN LÓPEZ is a 85 year old M with a past medical history of , who presents for evaluation of Electroencephalogram on DATE at TIME Lab / Micro Data 05/11/25 04:55 05/11/25 04:55 Labs: Laboratory Results - last 24 hr 05/10/25 09:54: WBC 3.8 L, RBC 4.18 L, Hgb 13.5, Hct 39.5 L, MCV 94.5 H, MCH 32.3 H, MCHC 34.2, RDW Std Deviation 51.0 H, RDW Coeff of Angel Luis 14.7 H, Plt Count 154, MPV 9.6, Immature Gran % (Auto) 0.300, Neut % (Auto) 55.9, Lymph % (Auto) 23.2, [place] % (Auto) 14.8 H, Eos % (Auto) 5.0, Baso % (Auto) 0.8, Absolute Neuts (auto) 2.1, Absolute Lymphs (auto) 0.88, Nucleated RBC % 0, PT 14.2, INR 1.1, APTT 25.8, Sodium 144, Potassium 3.9, Chloride 111 H, Carbon Dioxide 21.1, Anion Gap 11, BUN 16, Creatinine 1.14, Estim Creat Clear Calc 45.38 L, Est GFR (MDRD) Non-Af 64, BUN/Creatinine Ratio 13.9, Glucose 152 H, Calcium 9.5, Troponin T High Sens 37 H 05/10/25 12:42: Troponin T Hi Sens 2 Hr 36 H 05/10/25 13:23: Urine Color Yellow, Urine Clarity Clear, Urine pH 6.0, Ur Specific [place] 1.015, Urine Protein Negative, Urine Glucose (UA) Normal, Urine Ketones Negative, Urine Occult Blood Negative, Urine Nitrite Negative, Urine Bilirubin Negative, Urine Urobilinogen 4 H, Ur Leukocyte Esterase Negative, Urine RBC 0-5 SEEN, Urine WBC 0-5 SEEN, Ur Squamous Epith Cells 0 SEEN, Urine Bacteria 0 SEEN, Urine Mucus 0 SEEN 05/10/25 14:25: Troponin T Hi Sens 4Hr 37 H 05/11/25 04:55: WBC 4.1 L, RBC 3.93 L, Hgb 12.5 L, Hct 36.9 L, MCV 93.9, MCH 31.8, MCHC 33.9, RDW Std Deviation 49.6 H, RDW Coeff of Anegl Luis 14.4, Plt Count 126 L, MPV 9.6, Sodium 141, Potassium 3.5, Chloride 112 H, Carbon Dioxide 20.9 L, Anion Gap 9, BUN 14, Creatinine 0.86, Estim Creat Clear Calc 63.55, Est GFR (MDRD) Non-Af 86, BUN/Creatinine Ratio 15.9, Glucose 100 H, Calcium 8.8 Imaging Radiology Impression Brain CT 05/10/25 10:06 IMPRESSION: No acute intracranial abnormalities. Red Alert: No acute intracranial abnormalities. The critical findings in the findings and impression above were relayed directly by me by telephone to Maxine Tello on 05/10/2025 at 10:25 am with readback verification. Reading Location: [facility] Head/Neck CTA 05/10/25 10:07 IMPRESSION: No hemodynamically significant stenosis in the head and neck. Reading Location: [facility] Chest X-Ray 05/10/25 10:54 IMPRESSION: 1. No acute abnormality. Prior granulomatous infection. No change. Reading Location: [facility] Brain MRI 05/10/25 14:51 IMPRESSION: No acute intracranial abnormality; no acute infarct. Mild-moderate parenchymal volume loss and mild chronic microangiopathic changes. Reading Location: [facility] Active Medications Active Medications Active Medications: Current Medications Generic Name Dose Route Start Last Admin Trade Name Freq PRN Reason Stop Dose Admin Acetaminophen 650 mg 05/10/25 15:34 Acetaminophen 325 Mg Tablet PO Q6H PRN PRN Pain 1-10 Or Fever>100.7 Hydralazine HCl 5 mg 05/10/25 15:34 Hydralazine 20 Mg/Ml Vial IV 05/11/25 15:34 Q30M PRN maintain BP parameters with HR <60 Sodium Chloride 250 mls @ 15 mls/hr 05/10/25 15:48 IV .[id number] PRN Saline Flush Sodium Chloride 250 mls @ 15 mls/hr 05/10/25 15:48 IV .[id number] PRN Additional IVPB Infusion Labetalol HCl 10 - 20 mg 05/10/25 15:34 Labetalol 20 Mg/4 Ml Vial IV 05/11/25 15:34 Q10M PRN PRN maintain BP parameters with HR >/=60 Melatonin 3 mg 05/10/25 15:34 Melatonin 3 Mg Tablet PO QHS PRN PRN INSOMNIA Ondansetron HCl 4 mg 05/10/25 15:34 Ondansetron 4 Mg/2 Ml Vial IV Q8H PRN PRN NAUSEA/VOMITING Sodium Chloride 10 - 40 ml 05/10/25 15:48 0.9% Saline Lock 10 Ml Syringe IV UD PRN SALINE FLUSH NIHSS NIHSS Nursing Documentation NIHSS Nursing Documentation: NIHSS: Ischemic Stroke/TIA Start: 05/10/25 15:34 Text: For PCU Patients: NIH and Neuro Check every 4 Status: Complete hours, PRN and with change in RN caregiver. Freq: [id number] Protocol: Activity Type Activity Date Activity User E-sign Co-sign Detail Recorded Client Recorded Date Recorded By Document 05/10/25 19:50 NAVA desktop 05/10/25 20:01 NAVA 05/10/25 19:50 NIH Stroke Scale [NIHSS] A score of 0 is normal or asymptomatic . Total possible score is 42. Inpatient: RN or Physician to activate a stroke alert for onset of new stroke symptoms or with NIHSS increase >/= 3 points. Following change in neurological status, NIHSS will be performed per physician order or more frequently PRN. -1a. Level of Consciousness 0 - Alert; keenly responsive -1b. LOC Questions 1 - Answers ONE question correctly -1c. LOC Commands 0 - Performs BOTH tasks correctly -2. Best Gaze 0 - Normal -3. Visual 0 - No visual loss -4. Facial Palsy 0 - Normal symmetrical movements -5a. Left Arm 0 - No drift; arm holds 90 ( or 45) degrees for full 10 seconds -5b. Right Arm 0 - No drift; arm holds 90 ( or 45) degrees for full 10 seconds -6a. Left Leg 0 - No drift; leg holds 30- degree position for full 5 seconds -6b. Right Leg 0 - No drift; leg holds 30- degree position for full 5 seconds -7. Limb Ataxia 0 - Absent -8. Sensory 0 - Normal; no sensory loss -9. Best Language 0 - No aphasia; normal -10. Dysarthria 0 - Normal -11. Extinction and Inattention 0 - No abnormality -Total 1 Query Text:A score of 0 is normal or asymptomatic. Total possible score is 42 . ED: Notify Physician for NIHSS increase by > / = 3 points. Inpatient: RN or Physician to activate a stroke alert for NIHSS increase of > / = 3 points. Coma Scale [Assess] -Eye Opening Spontaneous -Motor Obeys Commands -Verbal Confused [Total] -Coma Scale Total 14
--- NOTE | 2025-05-11 09:59 | CASEMGMT ---
Social Work Per imaging pt negative for stroke, therefore PHQ9 not completed. CHYNA Caruso
--- NOTE | 2025-05-11 10:00 | CASEMGMT ---
Addendum entered by Era Swift 05/11/25 10:15: YI called the daughter Jazzmine to confirm the patient is returning to the [facility]. Jazzmine's phone goes to and her VM is full. Unable to leave a message. Original Note: Social Work SW spoke with the patient and plans on returning to the [facility] [place]. CHYNA Caruso
--- NOTE | 2025-05-11 10:16 | CASEMGMT ---
Social Work The daughter Jazzmine called SW back. Jazzmine reported the plan is for her father to return to the [facility]. CHYNA Caruso
[2025-05-11 10:43] VITALS: O2SAT 91
--- NOTE | 2025-05-11 12:54 | CASEMGMT ---
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 Note sent via [facility] to [place] that pt will return today. Ashlee Reyez DC Planning Asst. Original Note: Discharge Planning Updates sent via [facility] to [facility] with note asking if precert is needed. Awaiting response. Ashlee Reyez DC Planning Asst.
[2025-05-11 12:57] VITALS: BP 133/90; PULSE 67; RESP 16; TEMP 36.8; O2SAT 98
--- NOTE | 2025-05-11 13:04 | CASEMGMT ---
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 The [place] has been notified the patient is returning today. YI informed her the patient is ready for DC today. The daughter Jazzmine reported she will transport the patient back to the [place]. CHYNA Caruso
--- NOTE | 2025-05-11 15:27 | PCM.TXEXTCAR ---
Diet Diet Order/Speech Therapy: INPATIENT Hospital Diet / Speech Therapy Order(s) 05/11/25 10:50 Diet: Regular - No Added Salt Food consistency:: Regular Liquid Consistency:: Regular/Thin Routine Orders/Code Status Code Status: DNRCC-A (No intubation) DC O2, CPAP, BIPAP needs Home O2 Discharge instructions: No Therapies Weight Bearing: Full weight bearing Problem/Diagnosis (1) Confusion: Status: Acute Code(s): R41.0 - Disorientation, unspecified (2) Slurred speech: Status: Acute Code(s): R47.81 - Slurred speech Plan 1. Encephalopathy #2 dysarthria #3 dementia #4 B12 deficiency Allergies/Procedures Done in Hospital Allergies No Known Allergies Allergy (Verified 05/10/25 10:34) Procedures: None Type of Care/Length of Stay Estimated LOS: More Than 30 Days Type of Care Needed: Intermediate Rehab Potential: Fair Prognosis: Fair Additional Orders/Day of Discharge H&P will serve as current which was dated: 05/10/25 Day of Discharge: 05/11/25 Dietary and Speech Recommendations Dietitian Recommendations/Changes: Adjust to regular, no added salt. PO needs to be established. At time of discharge recommend regular, no added salt diet. Discharge Plan Admission Admit Date/Time: 05/10/25 14:49 Primary Reason for Your Visit: Encephalopathy, dysarthria Attending Provider: Mason Wallace Primary Care Provider: Sukhwinder Carver Consulting Providers: Yung Wen; Justin Booker; Evon Persaud; Nory Niño; Luz Barrett; Cricket Granger; Tami Sosa; Delio Ojeda; Ebenezer Betancourt; Jeremiah Khoury; Huma Guzman; Dinora Morris; Otis Sims; Lauren Faustin; Juliette Carmona; Edwar Varma; Faheem Espino; Kari Rios; Tk Foley; Alyssa Siu; Laura Miller; Antonio White Discharge Orders/Prescriptions Prescriptions: New aspirin 81 mg tablet,delayed release (DR/EC) 81 mg PO DAILY Qty: 30 0RF atorvastatin [Lipitor] 40 mg tablet 40 mg PO DAILY Qty: 30 0RF Continued multivitamin with folic acid 1 TABLET tablet 1 tab PO DAILY Patient Comments: MENS VITAMIN magnesium chloride 71.5 MG tablet,delayed release (DR/EC) 64 mg PO DAILY vitamin E 400 UNIT capsule 400 unit PO DAILY cyanocobalamin (vitamin B-12) 1,000 mcg/mL solution 1,000 mcg IM QWEEK Qty: 4 0RF Referrals / Follow Up: Sukhwinder Carver MD [Primary Care Provider, [facility]] Raji Bradford MD [Non-Staff, [facility]] Disposition Disposition (needs filled in before D/C Order can be placed): NonSkilled NH/Intermed Care
--- NOTE | 2025-05-11 15:31 | DS.PCM_ITS ---
Providers Date of Admission: 05/10/25 Date of Discharge: 05/11/25 Primary Care Physician: Dr. Sukhwinder Carver MD Consultations 05/10/25 15:34 Consult: Tele-Neurology Routine Consulting Provider: [facility] Reason for Consult: Acute Ischemic Stroke/TIA EMERGENT Consult: No MD Notified: Yes Date Notified: 05/10/25 Time Notified: 15:38 Method of Notification: [facility]sw[facility] Service Nursing Unit Staff Notify [facility] of Tele-Neurology Consult: Yes Reason For Visit: [place] Diagnosis Discharge Diagnosis (1) Confusion: Status: Acute Code(s): R41.0 - Disorientation, unspecified (2) Slurred speech: Status: Acute Code(s): R47.81 - Slurred speech Plan 1. Encephalopathy on a backdrop of dementia-etiology unclear #2 dysarthria #3 dementia #4 B12 deficiency Medications at Discharge Home Medications multivitamin with folic acid 400 mcg tablet 1 tab PO DAILY SUPPLEMENT 01/13/15 magnesium chloride 71.5 mg (magnesium chloride) tablet,delayed release 64 mg PO DAILY SUPPLEMENT 01/26/18 vitamin E 268 mg (400 unit) capsule 400 unit PO DAILY SUPPLEMENT 01/26/18 cyanocobalamin (vitamin B-12) 1,000 mcg/mL injection solution 1,000 mcg IM QWEEK #4 mL 05/01/25 aspirin 81 mg tablet,delayed release 81 mg PO DAILY #30 tabs 05/11/25 atorvastatin 40 mg tablet (Lipitor) 40 mg PO DAILY #30 tabs 05/11/25 Hospital Course Operations None Procedures None Summary of Care Provided Minutes Spent on Discharge: 31 Hospital Course: This 85-year-old white male was seen in the emergency room at [facility] after being transported him from an intermediate care facility due to increased confusion and slurred speech. Patient has a history of dementia and was unable to provide any information. Stroke team was called, NIH was 2 on exam, patient was sent for CT of the brain and CTA of the head and neck all of which were unremarkable. Telestroke neurologist recommended aspirin and admission for further stroke workup. Patient was placed in observation status on PCU, MRI of the brain was obtained which showed no acute intracranial abnormalities or infarct. Patient was seen by teleneurology who recommended further workup including an echo and an EEG which were to be done as an outpatient. On 05/11/2025, patient was seen and examined: On examination he appeared confused and older than his stated age. Vital signs as documented. Skin warm and dry and without overt rashes. Neck without JVD, neck was supple, trachea midline, thyroid was normal. Lungs clear bilaterally, normal air movement was noted. Heart exam notable for regular rhythm, normal sounds and absence of murmurs, rubs or gallops. Abdomen unremarkable and without evidence of organomegaly, masses, or abdominal aortic enlargement. Bowel sounds are present, abdomen is not distended. Extremities nonedematous, no cyanosis was noted, no clubbing was noted. Neuro: Cranial nerves II through XII are grossly intact, no focal motor deficits were noted, sensation to light touch and pinprick intact, motor exam 5/5 throughout. Psych: Patient is alert and confused Patient was discharged back to an intermediate care nursing facility on 05/11/2025 in stable condition Weight / BMI Weight Weight: 76.9 kg Body Mass Index (BMI) 27.3 ABG / Lab / Microbiology Data 05/11/25 04:55 05/11/25 04:55 Laboratory: Laboratory Results - last 24 hr 05/11/25 04:55: WBC 4.1 L, RBC 3.93 L, Hgb 12.5 L, Hct 36.9 L, MCV 93.9, MCH 31.8, MCHC 33.9, RDW Std Deviation 49.6 H, RDW Coeff of Angel Luis 14.4, Plt Count 126 L, MPV 9.6, Sodium 141, Potassium 3.5, Chloride 112 H, Carbon Dioxide 20.9 L, Anion Gap 9, BUN 14, Creatinine 0.86, Estim Creat Clear Calc 63.55, Est GFR (MDRD) Non-Af 86, BUN/Creatinine Ratio 15.9, Glucose 100 H, Calcium 8.8 Radiography Diagnostic Testing: Radiology Impression Brain MRI 05/10/25 14:51 IMPRESSION: No acute intracranial abnormality; no acute infarct. Mild-moderate parenchymal volume loss and mild chronic microangiopathic changes. Reading Location: [id number] D/C Instructions DC O2, CPAP, BIPAP Needs Home O2 Discharge instructions: No Meaningful Use Info Meaningful Use Meaningful Use Diagnoses (Choose all that apply): None applicable Discharge Plan Admission Admit Date/Time: 05/10/25 14:49 Primary Reason for Your Visit: Encephalopathy, dysarthria Attending Provider: Mason Wallace Primary Care Provider: Sukhwinder Carver Consulting Providers: Yung Wen; Justin Booker; Evon Persaud; Nory Niño; Luz Barrett; Cricket Granger; Tami Sosa; Delio Ojeda; Ebenezer Betancourt; Jeremiah Khoury; Huma Guzman; Dinora Morris; Otis Sims; Lauren Faustin; Juliette Carmona; Edwar Varma; Faheem Espino; Kari Rios; Tk Foley; Alyssa Siu; Laura Miller; Antonio White Discharge Orders/Prescriptions Prescriptions: New aspirin 81 mg tablet,delayed release (DR/EC) 81 mg PO DAILY Qty: 30 0RF atorvastatin [Lipitor] 40 mg tablet 40 mg PO DAILY Qty: 30 0RF Continued multivitamin with folic acid 1 TABLET tablet 1 tab PO DAILY Patient Comments: MENS VITAMIN magnesium chloride 71.5 MG tablet,delayed release (DR/EC) 64 mg PO DAILY vitamin E 400 UNIT capsule 400 unit PO DAILY cyanocobalamin (vitamin B-12) 1,000 mcg/mL solution 1,000 mcg IM QWEEK Qty: 4 0RF Referrals / Follow Up: Sukhwinder Carver MD [Primary Care Provider, [facility]] Raji Bradford MD [Non-Staff, [facility]] Disposition Disposition (needs filled in before D/C Order can be placed): NonSkilled NH/Intermed Care Charges/Coding Visit Charges Inpatient E&M: 19229 Disch Hosp >30min
--- NOTE | 2025-05-11 15:31 | CASEMGMT ---
CORNEJO Met with patient to complete CORNEJO form. CORNEJO form and its content were verbally explained and patient's questions were answered to the best of my ability.? Patient voiced understanding and signed CORNEJO form.? Patient provided a copy of signed CORNEJO form and original placed in patient's chart.? Patient had no further questions. Ashlee Reyez, Discharge Planning Asst
--- NOTE | 2025-05-11 15:41 | PHA.DC.MR.R ---
Pharmacy [facility] has performed discharge medication reconciliation for this patient. The patient's discharge medication list was reviewed for discrepancies and discrepancies were resolved. Medications at Discharge Home Medications multivitamin with folic acid 400 mcg tablet 1 tab PO DAILY SUPPLEMENT 01/13/15 magnesium chloride 71.5 mg (magnesium chloride) tablet,delayed release 64 mg PO DAILY SUPPLEMENT 01/26/18 vitamin E 268 mg (400 unit) capsule 400 unit PO DAILY SUPPLEMENT 01/26/18 cyanocobalamin (vitamin B-12) 1,000 mcg/mL injection solution 1,000 mcg IM QWEEK #4 mL 05/01/25 aspirin 81 mg tablet,delayed release 81 mg PO DAILY #30 tabs 05/11/25 atorvastatin 40 mg tablet (Lipitor) 40 mg PO DAILY #30 tabs 05/11/25
--- NOTE | 2025-05-11 15:47 | NURSING ---
Report called to JOSE ELIAS Lamb at the [facility]. Babs informed pts daughter will be transporting him back to the facility.
== END 2025-05-11 16:18 ==
LOC: ED 12:00 → PCU 15:03
PROVIDERS: Admitting Provider Hospitalist; Emergency Provider Student in an Organized Health Care Education/Training Program; PCP Family Medicine; Visit Provider Internal Medicine
DX: G93.40 Encephalopathy, unspecified (principal); F03.90 Unspecified dementia, unspecified severity, without behavioral disturbance, psychotic disturbance, mood disturbance, and anxiety; R47.81 Slurred speech; E53.8 Deficiency of other specified B group vitamins; I12.9 Hypertensive chronic kidney disease with stage 1 through stage 4 chronic kidney disease, or unspecified chronic kidney disease; N18.2 Chronic kidney disease, stage 2 (mild); Z87.891 Personal history of nicotine dependence; Z66 Do not resuscitate
CPT/HCPCS: 36415; 70450; 70496; 70498; 70551; 71046; 80048; 81001; 84484; 85025; 85027; 85610; 85730; 93005; 97161; 97166; 99221; 99285; Q9967; A4216; G0378